=== PATIENT | male | born 1950 | race Two or more races ===

== ENCOUNTER 2017-11-13 08:26 | Inpatient (IN) | payer OTHER ==
--- NOTE | 2017-11-13 08:38 | PDOC ---
History of Present Illness - General Stated Complaint: ABD PAIN Time Seen by Provider: 11/13/17 08:30 History Source: Patient Exam Limitations: No Limitations - History of Present Illness Initial Comments: This is a 67 YOM with h/o HTN, DM, gastritis (previously placed on Zantac), and "gallbladder problems" (states possible gallstones but never had cholecystectomy and drank olive oil and lemon instead with relief), and prostate CA s/p prostatectomy who p/w fluctuating epigastric and umbilical pain up to 10/10 radiating straight back to his back worsening for the past two days , abdominal distention worsening for the past two days, one episode NBNB vomiting last night, and nausea onset this morning while at work. The pain is worsened with eating and he had a greasy meal yesterday. 911 was initially called for SOB but the patient states that this was 2/2 exacerbation of abdominal pain whenever he took a deep breath. The patient states that this feels like his prior episodes of gastritis. EMS reports that the Fire Department arrived on scene first and placed the patient on supplemental O2. They removed it when EMS arrived on scene and the patient was satting well on RA. He also reportedly had a normal field EKG and systolic BP in the 160s. The patient has not seen a GI doctor in many years. Past History - Past Medical History Allergies/Adverse Reactions: Allergies Allergy/AdvReac Type Severity Reaction Status Date / Time No Known Allergies Allergy Verified 11/13/17 09:09 Home Medications: Ambulatory Orders Amlodipine Besylate [Norvasc -] 5 mg PO DAILY 11/13/17 Metformin HCl 850 mg PO DAILY 11/13/17 Omeprazole 20 mg PO DAILY 11/13/17 Review of Systems - Review of Systems Able to Perform ROS?: Yes Constitutional: No: Chills, Fever, Unexplained wgt Loss HEENTM: No: Nose Congestion, Throat Pain Respiratory: Yes: Shortness of Breath (states d/t abdominal pain with deep breathing). No: Cough Cardiac (ROS): No: Chest Pain, Palpitations ABD/GI: Yes: Abdominal Distended, Nausea, Vomiting, Other (abdominal pain). No : Constipated, Diarrhea : No: Burning, Dysuria Musculoskeletal: No: Back Pain, Neck Pain Integumentary: Yes: Other (denies yellow coloration). No: Bruising, Rash Neurological: Yes: Other (denies confusion). No: Headache, Numbness, Tingling, Tremors, Weakness, Unsteady Gait, Dizziness Endocrine: No: Unexplained Weight Gain, Unexplained Weight Loss *Physical Exam - Physical Exam General Appearance: Yes: Nourished, Appropriately Dressed, Other (adult [place]- speaking male in no distress on phone with his , well-appearing, conversive , no outward acute distress). No: Apparent Distress HEENT: positive: EOMI, LENNY, Normal Voice, Hearing Grossly Normal, Other (dry/ tacky mucous membranes,). negative: Scleral Icterus (R), Scleral Icterus (L), Nasal Congestion Neck: positive: Trachea midline, Supple. negative: Tender, Rigid Respiratory/Chest: positive: Lungs Clear, Normal Breath Sounds, Other (not tachypneic or SOB, speaking full sentences). negative: Respiratory Distress, Crackles, Rhonchi, Stridor, Wheezing Cardiovascular: positive: Regular Rhythm, S1, S2, Tachycardia (mild). negative : Edema, JVD, Murmur Gastrointestinal/Abdominal: positive: Normal Bowel Sounds, Tender (mild epigastric and umbilical, otherwise nontender), Soft, Protuberent, Distended. negative: Organomegaly, Pulsatile Mass, Guarding, Hernia Musculoskeletal: positive: Normal Inspection. negative: Decreased Range of Motion, Vertebral Tenderness Extremity: positive: Normal Capillary Refill, Normal Inspection, Normal Range of Motion, Other (warm and well perfused). negative: Tender, Cyanosis Integumentary: positive: Normal Color, Dry, Warm, Other (no obvious jaundice, no skin tenting). 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 ED Treatment Course - LABORATORY CBC & Chemistry Diagram: 11/13/17 08:51 11/14/17 02:15 Medical Decision Making - Medical Decision Making Patient p/w epigastric/umbilical abdominal pain radiating to the back, SOB 2/2 pain on deep breathing. VS notable for: tachycardia initially to 120, decreased to 108 at time of my exam, BP 128/68, RR 18, otherwise wnl. Exam notable for: patient actually well-appearing, NAD, conversive, protuberant abdomen but only mild epig/umb ttp. No obvious jaundice or icterus, heart/lungs clear exams except for mild tachycardia of 108 on my initial exam. DDX IBNLT pancreatitis, choledocholithiasis, cholangitis, cholecystitis, gastritis, PUD, AAA, ascites/SBP, colitis, SBO, ACS, etc. Ordered is CBCD CMP Mg Lipase Cardiac panel EKG CXR CT abdomen/pelvis w/ IV and PO contrast. In the ED initially medicated with Zofran Ofirmev IVF 1 liter. 11/13/17 10:00 EKG notable for: Sinus tachycardia, rate of 108, no ST-T changes and otherwise normal study. CXR notable for: wnl Blood labs notable for: WBC 3.7, Hgb 11.5, Cr 2.2, AST 139, ALT 235, Alk Phos 188, T. Bili 6.2, Mg 1.3, BNP 1234. Patient's Cr 2.2 is contraindication to IV contrast; order changed to PO contrast only. Bedside US notable for: no GB stones, no GB wall thickening, no pericholecystic fluid, no CBD dilatation. Also left kidney slight enlargement, abnormal contour. Aorta cannot be visualized d/t body habitus/abdominal distention. No abdominal free fluid on FAST exam. Repeat VS: HR 108 on my exam, radial pulses 2+ and equal, extremities wwp. On reassessment: Patient states continued/unchanged mild pain still present in middle and upper abdomen. Repeat abdominal exam unchanged; mild umbilical and epigastric ttp with distention. Patient continues to mentate well, answers questions appropriately Patient has been given PO contrast to drink. 11/13/17 13:[address] Abdomen/Pelvis with PO contrast report: Mild small bowel loop dilatation in left mid-abdomen; possible mild ileus vs. subtle partial SBO. Bilateral inguinal hernias, with the right inguinal hernia containing the appendix. S/P prostatectomy. No obvious pathology of liver, GB, pancreas, kidneys, spleen, or adrenal glands ; no aortic aneurysm. 11/13/17 13:30 Page placed to Surgery on-call provider. Spoke with Dr. Galindo who is concerned for WBC count 3.7 and T. bili 6.2. Concern for possibility of cholangitis but could also be obstructive hepatobiliary pathology or SBO. He will assess patient at bedside 11/13/17 14:26 Dr. Galindo assessed the patient at bedside. Consult order placed to Dr. Galindo. Recommends MRCP, empiric antibiotics, admission (but appears unlikely to need ICU level of care at this time). Page placed to GI alumni relations coordinator. Page placed to [facility], admitting for Dr. Amador (Pt's PCP). On reassessment: exam unchanged, HR is 102, extremities wwp, radial pulses 2+, abdominal exam unchanged. 11/13/17 15:[address] Reji Higuera who recommends Zosyn 4.5g and calling Dr. Swift. Call placed to Dr. Swift's office. Spoke with Gabriel (with [employer]) at Dr. Swift's office. Gabriel notes Dr. Swift is out of office and will be back in 45 minutes. Also [address] Swift does not do MRCP's which is the tx patient likely needs. Recommends calling Dr. Dong. Microblog sent to [employer]. 11/13/17 15:55 Spoke with Tia Washington with [employer]. Patient admitted to Dr. Bess to IP Med/Surg. Decision to Admit order placed. Consult placed to GI alumni relations coordinator Dr. Dubose. 11/13/17 16:15 Patient's lactate is 7.2. Spoke with Tia Washington who has ordered sepsis workup and additional medications given initial lab results and lactate. Zosyn was previously given; blood cultures taken after administration of antibiotics. On reassessment: HR is 108, continued epigastric/umbilical ttp, distended, unchanged exam. *DC/Admit/Observation/Transfer Diagnosis at time of Disposition: Cholangitis, Hyperbilirubinemia, Leukopenia, Hematuria, Anemia - Discharge Dispostion Condition at time of disposition: Guarded Admit: Yes - Referrals - Patient Instructions - Post Discharge Activity
[2017-11-13] MEDS ORDERED: SODIUM CHLORIDE 500 ML IV STA ×3 (08:39→09:17)
[2017-11-13] MEDS ORDERED: ONDANSETRON 4 MG/2 ML VIAL IVPUSH ONE (08:46)
[2017-11-13] MEDS ORDERED: ACETAMINOPHEN 1000 MG/100 ML VIAL (NON FORMULARY) IVPB ONE ×2 (08:46→09:30)
[2017-11-13 08:55] LABS: BASO % 0.3 % (0-2.0); EOS % 0.1 % (0-4.5); HEMATOCRIT 34.7 % (35.4-49); HEMOGLOBIN 11.5 GM/dL (11.7-16.9); LYMPH % 4.9 % (8-40); MCH 29.7 pg (25.7-33.7); MCHC 33.1 g/dl (32.0-35.9); MEAN CELL VOLUME 89.8 fl (80-96); MONO % 0.2 % (3.8-10.2); NEUT % 94.5 % (42.8-82.8); PLATELET COUNT 216 K/MM3 (134-434); RBC 3.87 M/mm3 (4.00-5.60); RDW 15.5 % (11.9-15.9); WHITE BLOOD COUNT 3.7 K/mm3 (4.0-10.0)
--- NOTE | 2017-11-13 09:08 | PDOC ---
Attending Attestation - Resident Resident Name: Martinez,Emely - ED Attending Attestation I have performed the following: I have examined & evaluated the patient, The case was reviewed & discussed with the resident, I agree w/resident's findings & plan, Exceptions are as noted - HPI HPI: 11/13/17 10:07 67-year-old male history of diabetes hypertension here today complaining of abdominal distention, abdominal pain with nausea. Did have vomiting last night. States bowel habits have been normal no urinary complaints no fevers but maybe had mild chills pain is periumbilical and epigastric does radiate to his back no moderating factors other than being worse with eating. States he has have a history of prior gallstones was recommended for cholecystectomy but never had it done no chest pain no shortness of breath - Physicial Exam PE: 11/13/17 10:08 Patient is awake alert no acute distress. Lungs are clear bilaterally. Heart is regular without murmurs rubs or gallops. Abdomen is distended, obese. No focal tenderness noted. Extremities are warm and well perfused no edema. Neuro is alert and oriented 3 moving all extremities skin is warm and dry - Medical Decision Making 11/13/17 10:09 67-year-old male history of diabetes hypertension here with abdominal distention pain and nausea. Differential includes ascites, small bowel obstruction, liver failure, pancreatitis, gastritis, peptic ulcer disease, aortic pathology considered as well. Plan: Bedside ultrasound to evaluate for free fluid, renal ultrasound, and gallbladder ultrasound. Likely require CT abdomen and pelvis CBC, CMP, urinalysis, EKG, and lipase. Pain control and IV hydration. Bedside ultrasound performed patient has no free fluid noted on FAST exam. Bilateral renal ultrasound demonstrated a slightly enlarged left kidney at 14 cm with irregular contour. Otherwise no hydronephrosis. Bladder was nondistended. Aorta was not visualized due to obstruction from body habitus and overlying bowel gas. Gallbladder was scanned has a normal gallbladder wallthickening no pericholecystic fluid no stones. CBC was normal at 5.6 mm. Overall normal gallbladder Plan await for CT abdomen and pelvis Heart Score/ECG Review #1 General ECG Interpretation: Sinus Rhythm (sinus tachycardia), Normal Rate (108 sinus tachycardia), Normal Intervals, No acute ischemic changes
[2017-11-13 09:17] VITALS: BMI 28.3
[2017-11-13 09:22] LABS: INR 1.15 (0.82-1.09); N-TERMINAL BNP 1234.35 pg/ml (5-125)
[2017-11-13 09:31] LABS: ALBUMIN 3.8 g/dl (3.4-5.0); ANION GAP 15 (8-16); BILIRUBIN,TOTAL 6.2 mg/dL (0.2-1.0); BLOOD UREA NITROGEN 27 mg/dL (7-18); CALCIUM 8.4 mg/dL (8.5-10.1); CHLORIDE 106 mmol/L (98-107); CO2 20 mmol/L (21-32); CREATININE 2.2 mg/dL (0.7-1.3); GLUCOSE,RANDOM 172 mg/dL (74-106); MAGNESIUM 1.3 mg/dL (1.8-2.4); POTASSIUM 4.3 mmol/L (3.5-5.1); SGOT/AST 139 U/L (15-37); SGPT/ALT 235 U/L (12-78); SODIUM 141 mmol/L (136-145)
[2017-11-13 09:33] LABS: ALK PHOS 188 U/L (45-117); TOT PROT 6.6 g/dl (6.4-8.2)
--- NOTE | 2017-11-13 09:42 | EKG ---
Test Reason : Blood Pressure : / mmHG Vent. Rate : 108 BPM Atrial Rate : 108 BPM P-R Int : 134 ms QRS Dur : 070 ms QT Int : 310 ms P-R-T Axes : 048 041 040 degrees QTc Int : 415 ms SINUS TACHYCARDIA WHEN COMPARED WITH ECG OF 02-AUG-2007 16:18, NO SIGNIFICANT CHANGE WAS FOUND Confirmed by STEPHANIE WATSON MD ([id number]) on 11/13/2017 9:42:15 AM Referred By: Confirmed By:STEPHANIE WATSON MD
[2017-11-13] MEDS ORDERED: ACETAMINOPHEN INJECTION 100 ML IVPB ONE (10:53)
--- NOTE | 2017-11-13 13:59 | CONSULT ---
Consult Consult Specialty:: General Surgery Referred by:: Dr. Martinez Reason for Consultation:: abdominal distendion - History of Present Illness Chief Complaint: abdominal pain and distension History of Present Illness: 67yo male PMH obesity, prostate cancer, HTN, NIDDM, cholelithiasis which was last treated in 1997. He was medically managed at the time and did not require surgery. presented to ED after having gradual onset abdominal pain 30 minutes after a bowl of greasy chicken soup yesterday. he knows that radha usually has abdominal pain for 1 day. He reports SOB, inability to take deep breaths with the pain. He describes the pain as intermittent and has been accompanied by abdominal distension. his pain is primarily in the upper abdomen. He denies fever and chills, denies nausea and vomiting, he does note that the pain is worse with eating. Patient denies fever, sweats, may have had mild chills. Denies diarrhea, constipation. Denies dysuria, hematuria, frequency. His only previous surgery was a prostatectomy. We were asked to assess. - History Source History Provided By: Patient, Medical Record Limitations to Obtaining History: No Limitations - Past Medical History ROAST MASTER: Yes: TIA Cardio/Vascular: Yes: HTN Renal/: Yes: Cancer (s/p prostatetctomy ) Endocrine: Yes: Diabetes Mellitus Additional Medical History: obesity - Past Surgical History Past Surgical History: Yes: Prostatectomy - Smoking History Smoking history: Former smoker Have you smoked in the past 12 months: No If you are a former smoker, when did you quit?: 1997 Home Medications - Allergies Allergies/Adverse Reactions: Allergies Allergy/AdvReac Type Severity Reaction Status Date / Time No Known Allergies Allergy Verified 11/13/17 09:09 - Home Medications Home Medications: Ambulatory Orders Amlodipine Besylate [Norvasc -] 5 mg PO DAILY 11/13/17 Metformin HCl 850 mg PO DAILY 11/13/17 Omeprazole 20 mg PO DAILY 11/13/17 Review of Systems - Review of Systems Constitutional: denies: Chills, Fever, Unintentional Wgt. Loss Eyes: denies: Blurred Vision, Recent Change in Vision HENT: denies: Difficult Swallowing, Throat Pain Neck: denies: Pain on Movement, Tenderness Cardiovascular: denies: Chest Pain, Palpitations Respiratory: reports: SOB. denies: Cough Gastrointestinal: reports: Abdominal Pain, Bloating, Indigestion Genitourinary: denies: Discharge, Dysuria Musculoskeletal: denies: Muscle Pain, Muscle Weakness Integumentary: denies: Erythema, Lesions, Rash Neurological: denies: Confusion, Seizure, Syncope Endocrine: denies: Unexplained Weight Gain, Unexplained Weight Loss Hematology/Lymphatic: denies: Easily Bruised, Excessive Bleeding Psychiatric: denies: Anxiety, Depression Physical Exam Vital Signs: Vital Signs Temperature 98.7 F 11/13/17 08:58 Pulse Rate 114 H 11/13/17 12:54 Respiratory Rate 18 11/13/17 12:54 Blood Pressure 109/70 11/13/17 12:54 O2 Sat by Pulse Oximetry (%) 96 11/13/17 12:54 Vital Signs Period Temp Pulse Resp BP Sys/Leyva Pulse Ox Last 24 Hr 98.7 F 114-120 109-128/68-70 95-96 Constitutional: Yes: Anxious, Mild Distress, Obese Eyes: Yes: Conjunctiva Clear, EOM Intact HENT: Yes: Atraumatic, Normocephalic Neck: Yes: Supple, Trachea Midline Cardiovascular: Yes: Regular Rate and Rhythm, Tachycardia, S1, S2. No: Murmur Respiratory: Yes: Regular, CTA Bilaterally, On Nasal O2 Gastrointestinal: Yes: Normal Bowel Sounds, Soft, Abdomen, Obese, Distention, Tenderness (+mackey's sign), Tenderness, Epigastrium, Tenderness, Rebound. No: Ascites ...Rectal Exam: Yes: Sphincter Tone Normal. No: Mass Renal/: No: CVA Tenderness - Left, CVA Tenderness - Right Breast(s): Yes: Gynecomastia Musculoskeletal: No: Muscle Pain, Muscle Weakness Extremities: No: Calf Tenderness, Cold, Cool Edema: No Integumentary: No: Jaundice, Rash Neurological: No: Alert, Oriented Psychiatric: No: Alert, Oriented Labs: CBC, BMP 11/13/17 08:51 11/13/17 08:51 Imaging - Results Chest X-ray: Report Reviewed, Image Reviewed (no acute findings no free air) Cat Scan: Report Reviewed, Image Reviewed (ileus versus SBO pattern) EKG: Report Reviewed, Image Reviewed (sinus tachycardia) Problem List - Problems (1) Choledocholithiasis Assessment/Plan: 67yo male PMH HTN, DM, obesity with Choledocholithiasis, epigastric abdominal pain, impending cholangitis? transaminitis and tbili >6, wbc ~3, lactic acid 9. Consider ICU admission NPO and IVF resuscitation Empiric IV antibioics MRCP GI evaluation for ERCP Trend labs for AM, hepatitis panel Will plan for Laparoscopic cholecystectomy when stable will follow Thank you for the opportunity to participate in the care of this patient. This patient is critically ill. Time spent reviewing chart, examining patient, talking with providers and/or family and documentation is 90 minutes Code(s): K80.50 - CALCULUS OF BILE DUCT W/O CHOLANGITIS OR CHOLECYST W/O OBST (2) Calculus of gallbladder and bile duct w/o cholecystitis or obstruction Code(s): K80.70 - CALCULUS OF GB AND BILE DUCT W/O CHOLECYST W/O OBSTRUCTION (3) Obesity Code(s): E66.9 - OBESITY, UNSPECIFIED (4) Abdominal pain in male Code(s): R10.9 - UNSPECIFIED ABDOMINAL PAIN (5) Transaminitis Code(s): R74.0 - NONSPEC ELEV OF LEVELS OF TRANSAMNS & LACTIC ACID DEHYDRGNSE
[2017-11-13 15:07] LABS: URINE APPEARANCE CLEAR; URINE BILIRUBIN NEGATIVE (<2.0 mg/dL); URINE BLOOD 2+ (NEGATIVE); URINE COLOR AMBER; URINE GLUCOSE (UA) 1+ (NEGATIVE); URINE KETONE NEGATIVE (NEGATIVE); URINE NITRITE NEGATIVE (NEGATIVE); URINE UROBILINOGEN NEGATIVE mg/dL (0.2-1.0)
[2017-11-13 15:08] LABS: URINE LEUK ESTERASE 1+ (NEGATIVE); URINE PROTEIN 1+ (NEGATIVE)
[2017-11-13 15:24] LABS: EPI CELLS RARE /HPF (FEW); URINE BACTERIA FEW /hpf (NONE SEEN); URINE MUCUS RARE
[2017-11-13] MEDS ORDERED: PIPERACILLIN/TAZOB 4.5 GM/100 ML PREMIX BAG IVPB ONE (15:24)
[2017-11-13] MEDS ORDERED: PIPERACILLIN/TAZOB 4.5 GM 4.5 GM/100 ML BAG IVPB ONE ×2 (15:45→15:53)
--- NOTE | 2017-11-13 16:12 | HP ---
CHIEF COMPLAINT: Abdominal pain PCP: Hanny Lange HISTORY OF PRESENT ILLNESS: 67 year-old male with a PMH significant for HTN, NIDDM, and cholelithiasis which was last treated in 1997. He was medically managed at the time and did not require surgery. Patient presents with acute onset of intermittent periumbilical pain, nausea, vomiting and abdominal distension x 1 day. The pain is worse with eating. Patient denies fever, sweats, may have had mild chills. Denies diarrhea, constipation. Denies dysuria, hematuria, frequency. 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 Smoking: quit 2003 Alcohol: occasional red wine when cooking Drugs: no Family History: Allergies No Known Allergies Allergy (Verified 11/13/17 09:09) HOME MEDICATIONS: Home Medications Medication Instructions Recorded Lisinopril [Zestril] 5 mg PO DAILY 11/13/17 Metformin HCl 850 mg PO DAILY 11/13/17 Omeprazole 20 mg PO DAILY 11/13/17 REVIEW OF SYSTEMS CONSTITUTIONAL: +chills Absent: fever, diaphoresis, generalized weakness, malaise, loss of appetite, weight change HEENT: Absent: rhinorrhea, nasal congestion, throat pain, throat swelling, difficulty swallowing, mouth swelling, ear pain, eye pain, visual changes CARDIOVASCULAR: Absent: chest pain, syncope, palpitations, irregular heart rate, lightheadedness , peripheral edema RESPIRATORY: Absent: cough, shortness of breath, dyspnea with exertion, orthopnea, wheezing, stridor, hemoptysis GASTROINTESTINAL: +abdominal pain, abdominal distension, nausea, vomiting Absent: diarrhea, constipation, melena, hematochezia GENITOURINARY: Absent: dysuria, frequency, urgency, hesitancy, hematuria, flank pain, genital pain MUSCULOSKELETAL: Absent: myalgia, arthralgia, joint swelling, back pain, neck pain SKIN: Absent: rash, itching, pallor HEMATOLOGIC/IMMUNOLOGIC: Absent: easy bleeding, easy bruising, lymphadenopathy, frequent infections ENDOCRINE: Absent: unexplained weight gain, unexplained weight loss, heat intolerance, cold intolerance NEUROLOGIC: Absent: headache, focal weakness or paresthesias, dizziness, unsteady gait, seizure, mental status changes, bladder or bowel incontinence PSYCHIATRIC: Absent: anxiety, depression, suicidal or homicidal ideation, hallucinations. PHYSICAL EXAMINATION Vital Signs - 24 hr 11/13/17 11/13/17 08:58 12:54 Temperature 98.7 F Pulse Rate 120 H Pulse Rate [ 114 H Right Radial] Respiratory 18 18 Rate Blood Pressure 128/68 Blood Pressure 109/70 [Right Arm] O2 Sat by Pulse 95 96 Oximetry (%) GENERAL: Awake, alert, and fully oriented, in no acute distress. HEAD: Normal with no signs of trauma. EYES: Pupils equal, round and reactive to light, extraocular movements intact, sclera mildly jaundiced EARS, NOSE, THROAT: Ears normal, nares patent, oropharynx clear without exudates. Dry mucous membranes. Slight sublingual jaundice. NECK: Normal range of motion, supple without lymphadenopathy, JVD, or masses. LUNGS: Breath sounds equal, clear to auscultation bilaterally. No wheezes, and no crackles. No accessory muscle use. HEART: Regular rate and rhythm, normal S1 and S2 ABDOMEN: Tympanic to percussion; distended; not tender; negative Kinney's sign MUSCULOSKELETAL: Normal range of motion at all joints. No bony deformities or tenderness. No CVA tenderness. UPPER EXTREMITIES: 2+ pulses, warm, well-perfused. No cyanosis. No clubbing. No peripheral edema. LOWER EXTREMITIES: 2+ pulses, warm, well-perfused. No calf tenderness. No peripheral edema. NEUROLOGICAL: Cranial nerves II-XII intact. Normal speech. PSYCHIATRIC: Anxious. Good eye contact. Appropriate mood and affect. SKIN: Warm, dry, normal turgor, no rashes or lesions noted, normal capillary refill. Laboratory Results - last 24 hr 11/13/17 11/13/17 11/13/17 08:51 08:51 08:51 WBC 3.7 L RBC 3.87 L Hgb 11.5 L Hct 34.7 L MCV 89.8 MCH 29.7 MCHC 33.1 RDW 15.5 Plt Count 216 MPV 8.0 Neutrophils % 94.5 H Lymphocytes % 4.9 L Monocytes % 0.2 L Eosinophils % 0.1 Basophils % 0.3 PT with INR 13.00 H INR 1.15 H PTT (Actin FS) Sodium 141 Potassium 4.3 Chloride 106 Carbon Dioxide 20 L Anion Gap 15 BUN 27 H Creatinine 2.2 H Creat Clearance w eGFR 30.10 Random Glucose 172 H Lactic Acid Calcium 8.4 L Magnesium 1.3 L Total Bilirubin 6.2 H AST 139 H ALT 235 H Alkaline Phosphatase 188 H Creatine Kinase 175 Creatine Kinase Index 1.2 CK-MB (CK-2) 2.185 Troponin I < 0.02 B-Natriuretic Peptide Total Protein 6.6 Albumin 3.8 Lipase Urine Color Urine Appearance Urine pH Ur Specific [place] Urine Protein Urine Glucose (UA) Urine Ketones Urine Blood Urine Nitrite Urine Bilirubin Urine Urobilinogen Ur Leukocyte Esterase Urine WBC (Auto) Urine RBC (Auto) Ur Epithelial Cells Urine Bacteria Urine Mucus Blood Type Antibody Screen 11/13/17 11/13/17 11/13/17 08:51 08:51 08:51 WBC RBC Hgb Hct MCV MCH MCHC RDW Plt Count MPV Neutrophils % Lymphocytes % Monocytes % Eosinophils % Basophils % PT with INR INR PTT (Actin FS) 25.9 L Sodium Potassium Chloride Carbon Dioxide Anion Gap BUN Creatinine Creat Clearance w eGFR Random Glucose Lactic Acid Calcium Magnesium Total Bilirubin AST ALT Alkaline Phosphatase Creatine Kinase Creatine Kinase Index CK-MB (CK-2) Troponin I B-Natriuretic Peptide 1234.35 H Total Protein Albumin Lipase 197 Urine Color En[place]eta Urine Appearance Clear Urine pH 5.0 Ur Specific [place] 1.015 Urine Protein 1+ H Urine Glucose (UA) 1+ H Urine Ketones Negative Urine Blood 2+ H Urine Nitrite Negative Urine Bilirubin Negative Urine Urobilinogen Negative Ur Leukocyte Esterase 1+ H Urine WBC (Auto) 6 Urine RBC (Auto) 4 Ur Epithelial Cells Rare Urine Bacteria Few Urine Mucus Rare Blood Type Antibody Screen 11/13/17 11/13/17 08:51 14:36 WBC RBC Hgb Hct MCV MCH MCHC RDW Plt Count MPV Neutrophils % Lymphocytes % Monocytes % Eosinophils % Basophils % PT with INR INR PTT (Actin FS) Sodium Potassium Chloride Carbon Dioxide Anion Gap BUN Creatinine Creat Clearance w eGFR Random Glucose Lactic Acid 7.2 H* Calcium Magnesium Total Bilirubin AST ALT Alkaline Phosphatase Creatine Kinase Creatine Kinase Index CK-MB (CK-2) Troponin I B-Natriuretic Peptide Total Protein Albumin Lipase Urine Color Urine Appearance Urine pH Ur Specific [place] Urine Protein Urine Glucose (UA) Urine Ketones Urine Blood Urine Nitrite Urine Bilirubin Urine Urobilinogen Ur Leukocyte Esterase Urine WBC (Auto) Urine RBC (Auto) Ur Epithelial Cells Urine Bacteria Urine Mucus Blood Type O POSITIVE Antibody Screen Negative ASSESSMENT/PLAN: 67 year-old male with a PMH significant for HTN, NIDDM, and cholelithiasis. Admitted for severe sepsis likely secondary to ascending cholangitis. Severe sepsis likely secondary to ascending cholangitis --WBC 3.7, p120, lactic acid 7.2; BP 128/68 on admission, two episodes of hypotension 80s/50s --Total bili 6.2, direct 4.0 --repeat lactic acid 9.9 after 4L fluids --MRCP: CBD and biliary tree moderately dilated; gallbladder distended --spoke with Dr. Soni; surgery team being gathered for emergent ERCP Ileus v. SBO --CTAP: (1) minimal to mild dilatation of several small bowel loops within the left mid abdomen, mild ileus v. subtle partial SBO Hypertension --hold anti-hypertensives due to sepsis NIDDM --Novolog sliding coverage DVT prophylaxis: SCDs Visit type - Emergency Visit Emergency Visit: Yes ED Registration Date: 11/13/17 Care time: The patient presented to the Emergency Department on the above date and was hospitalized for further evaluation of their emergent condition. - New Patient This patient is new to me today: Yes Date on this admission: 11/13/17 - Critical Care Critical Care patient: Yes Total Critical Care Time (in minutes): 120 Critical Care Statement: The care of this patient involved high complexity decision making to prevent further life threatening deterioration of the patient 's condition and/or to evaluate & treat vital organ system(s) failure or risk of failure. Hospitalist Screening - Colonoscopy Questionnaire Colonoscopy Questionnaire: Colonoscopy Questionnaire - Patient: 50 - 75 years old and never had a screening colonoscopy: Unknown History of colon or rectal polyps, or CA: No History of IBD, Crohn's disease or UC: No History of abdominal radiation therapy as a child: No - Relative: 1 with colon or rectal CA, or polyps at age 60 or younger: Unknown Colon or rectal CA diagnosed at age 45 or younger: Unknown Multiple relatives with colon or rectal CA: Unknown - Outcome: Screening Result: Negative Screen
[2017-11-13] MEDS ORDERED: SODIUM CHLORIDE 1,000 ML IV STA ×3 (16:37→21:34)
[2017-11-13] MEDS ORDERED: MAGNESIUM SULF 50% (8.12 MEQ/2 ML-1 GM VIAL) IVPB ONE (16:58)
[2017-11-13 17:12] LABS: URINE APPEARANCE CLEAR; URINE BILIRUBIN NEGATIVE (<2.0 mg/dL); URINE BLOOD 2+ (NEGATIVE); URINE COLOR AMBER; URINE GLUCOSE (UA) 1+ (NEGATIVE); URINE KETONE NEGATIVE (NEGATIVE); URINE NITRITE NEGATIVE (NEGATIVE); URINE PROTEIN NEGATIVE (NEGATIVE); URINE UROBILINOGEN NEGATIVE mg/dL (0.2-1.0)
[2017-11-13 17:21] LABS: URINE LEUK ESTERASE 1+ (NEGATIVE)
[2017-11-13 17:22] LABS: URINE BACTERIA RARE /hpf (NONE SEEN); URINE MUCUS RARE
[2017-11-13] MEDS ORDERED: MAGNESIUM SULF 50% (8.12 MEQ/2 ML-1 GM VIAL) ONE (17:26)
--- NOTE | 2017-11-13 17:49 | CON.GI ---
Consult Consult Specialty:: GI Reason for Consultation:: ?Cholangitis - History of Present Illness History of Present Illness: Chart reviewed. as per initial ED intake: This is a 67 YOM with h/o HTN, DM, gastritis ( previously placed on Zantac), and "gallbladder problems" who p/w fluctuating epigastric and umbilical pain up to 10/10 radiating straight back to his back worsening for the past two days, abdominal distention worsening for the past two days, and nausea onset this morning while at work. 911 was initially called for SOB but the patient states that this was 2/2 exacerbation of abdominal pain whenever he took a deep breath. The patient states that this feels like his prior episodes of gastritis. EMS reports that the Fire Department arrived on scene first and placed the patient on supplemental O2. They removed it when EMS arrived on scene and the patient was satting well on RA. He also reportedly had a normal field EKG and systolic BP in the 160s. At the time of this encounter, VS as documented. 1 episode of hypotension while in ED, however the heart rate remained at the admission baseline. Afebrile, Tmax 98.7. Non-toxic appearing, animated male in no distress, or pain. Minimal sublingual jaundice, distended, tens, but non-tender abdomen including RUQ. Negative Kinney's. No guarding, or rigidity. Normal WBC, Hgb, cholestasis with hepatitis pattern. CT A/P w/o reports ?mild ileus vs PSBO, b/l inguinal hernia and s/p prostatectomy. Seen by Sx. Bedside renal US in ED revealed no GB abnormalities, per ED MD notes. - History Source History Provided By: Patient, Medical Record, Caregiver, Transfer Record - Past Medical History PIANO PROFESSOR: Yes: TIA Additional Medical History: obesity - Smoking History Smoking history: Former smoker Have you smoked in the past 12 months: No If you are a former smoker, when did you quit?: 1997 Home Medications - Allergies Allergies/Adverse Reactions: Allergies Allergy/AdvReac Type Severity Reaction Status Date / Time No Known Allergies Allergy Verified 11/13/17 09:09 - Home Medications Home Medications: Ambulatory Orders Lisinopril [Zestril] 5 mg PO DAILY 11/13/17 Metformin HCl 850 mg PO DAILY 11/13/17 Omeprazole 20 mg PO DAILY 11/13/17 Family Disease History - Family Disease History Family History: Unremarkable Review of Systems Findings/Remarks: as per HPI, H&P Physical Exam-GI Vital Signs: Vital Signs Temperature 98.1 F 11/13/17 17:00 Pulse Rate 109 H 11/13/17 17:00 Respiratory Rate 17 11/13/17 17:00 Blood Pressure 81/49 11/13/17 17:00 O2 Sat by Pulse Oximetry (%) 100 11/13/17 17:00 Constitutional: Yes: No Distress, Obese Eyes: Yes: Conjunctiva Clear HENT: Yes: Atraumatic, Other (sublingual jaundice) Neck: Yes: Supple Cardiovascular: Yes: Tachycardia Respiratory: Yes: Regular Gastrointestinal Inspection: Yes: Distention. No: Ascites ...Palpate: Yes: Other (negative Whitman). No: Firm/Rigid, Guarding, Soft, Tenderness, Tenderness, Epigastium, Tenderness, Rebound ...Percussion: Yes: Dullness ...Rectal Exam: Yes: Deferred Genitourinary: Yes: Incontinence Edema: No Neurological: Yes: Alert, Oriented Psychiatric: Yes: Alert, Oriented Labs: CBC, BMP 11/13/17 08:51 11/13/17 08:51 INR, PTT INR 1.15 (0.82-1.09) H 11/13/17 08:51 Laboratory Tests 11/13/17 11/13/17 11/13/17 08:45 08:51 08:51 WBC 3.7 L RBC 3.87 L Hgb 11.5 L Hct 34.7 L MCV 89.8 MCH 29.7 MCHC 33.1 RDW 15.5 Plt Count 216 MPV 8.0 Neutrophils % 94.5 H Lymphocytes % 4.9 L Monocytes % 0.2 L Eosinophils % 0.1 Basophils % 0.3 PT with INR 13.00 H INR 1.15 H PTT (Actin FS) Sodium Potassium Chloride Carbon Dioxide Anion Gap BUN Creatinine Creat Clearance w eGFR Random Glucose Lactic Acid Calcium Magnesium Total Bilirubin Direct Bilirubin 4.0 H AST ALT Alkaline Phosphatase Creatine Kinase Creatine Kinase Index CK-MB (CK-2) Troponin I B-Natriuretic Peptide Total Protein Albumin Lipase Urine Color Urine Appearance Urine pH Ur Specific [place] Urine Protein Urine Glucose (UA) Urine Ketones Urine Blood Urine Nitrite Urine Bilirubin Urine Urobilinogen Ur Leukocyte Esterase Urine WBC (Auto) Urine RBC (Auto) Ur Epithelial Cells Urine Bacteria Urine Mucus Blood Type Antibody Screen 11/13/17 11/13/17 11/13/17 08:51 08:51 08:51 WBC RBC Hgb Hct MCV MCH MCHC RDW Plt Count MPV Neutrophils % Lymphocytes % Monocytes % Eosinophils % Basophils % PT with INR INR PTT (Actin FS) 25.9 L Sodium 141 Potassium 4.3 Chloride 106 Carbon Dioxide 20 L Anion Gap 15 BUN 27 H Creatinine 2.2 H Creat Clearance w eGFR 30.10 Random Glucose 172 H Lactic Acid Calcium 8.4 L Magnesium 1.3 L Total Bilirubin 6.2 H Direct Bilirubin AST 139 H ALT 235 H Alkaline Phosphatase 188 H Creatine Kinase 175 Creatine Kinase Index 1.2 CK-MB (CK-2) 2.185 Troponin I < 0.02 B-Natriuretic Peptide Total Protein 6.6 Albumin 3.8 Lipase Urine Color Enriqueta Urine Appearance Clear Urine pH 5.0 Ur Specific [place] 1.015 Urine Protein 1+ H Urine Glucose (UA) 1+ H Urine Ketones Negative Urine Blood 2+ H Urine Nitrite Negative Urine Bilirubin Negative Urine Urobilinogen Negative Ur Leukocyte Esterase 1+ H Urine WBC (Auto) 6 Urine RBC (Auto) 4 Ur Epithelial Cells Rare Urine Bacteria Few Urine Mucus Rare Blood Type Antibody Screen 11/13/17 11/13/17 11/13/17 08:51 08:51 14:36 WBC RBC Hgb Hct MCV MCH MCHC RDW Plt Count MPV Neutrophils % Lymphocytes % Monocytes % Eosinophils % Basophils % PT with INR INR PTT (Actin FS) Sodium Potassium Chloride Carbon Dioxide Anion Gap BUN Creatinine Creat Clearance w eGFR Random Glucose Lactic Acid 7.2 H* Calcium Magnesium Total Bilirubin Direct Bilirubin AST ALT Alkaline Phosphatase Creatine Kinase Creatine Kinase Index CK-MB (CK-2) Troponin I B-Natriuretic Peptide 1234.35 H Total Protein Albumin Lipase 197 Urine Color Urine Appearance Urine pH Ur Specific [place] Urine Protein Urine Glucose (UA) Urine Ketones Urine Blood Urine Nitrite Urine Bilirubin Urine Urobilinogen Ur Leukocyte Esterase Urine WBC (Auto) Urine RBC (Auto) Ur Epithelial Cells Urine Bacteria Urine Mucus Blood Type O POSITIVE Antibody Screen Negative 11/13/17 17:00 WBC RBC Hgb Hct MCV MCH MCHC RDW Plt Count MPV Neutrophils % Lymphocytes % Monocytes % Eosinophils % Basophils % PT with INR INR PTT (Actin FS) Sodium Potassium Chloride Carbon Dioxide Anion Gap BUN Creatinine Creat Clearance w eGFR Random Glucose Lactic Acid Calcium Magnesium Total Bilirubin Direct Bilirubin AST ALT Alkaline Phosphatase Creatine Kinase Creatine Kinase Index CK-MB (CK-2) Troponin I B-Natriuretic Peptide Total Protein Albumin Lipase Urine Color En[place]eta Urine Appearance Clear Urine pH 5.0 Ur Specific [place] 1.015 Urine Protein Negative Urine Glucose (UA) 1+ H Urine Ketones Negative Urine Blood 2+ H Urine Nitrite Negative Urine Bilirubin Negative Urine Urobilinogen Negative Ur Leukocyte Esterase 1+ H Urine WBC (Auto) 13 Urine RBC (Auto) 9 Ur Epithelial Cells Urine Bacteria Rare Urine Mucus Rare Blood Type Antibody Screen Imaging - Results X-ray: Report Reviewed Cat Scan: Report Reviewed EKG: Report Reviewed Problem List - Problems (1) Cholestasis Code(s): K83.1 - OBSTRUCTION OF BILE DUCT (2) Hepatitis Code(s): K75.9 - INFLAMMATORY LIVER DISEASE, UNSPECIFIED (3) Ileus, unspecified Code(s): K56.7 - ILEUS, UNSPECIFIED (4) Jaundice Code(s): R17 - UNSPECIFIED JAUNDICE Assessment/Plan A 67M with presenting complaints and lab findings suggestive of acute biliary process, upper GI acute process. There is no history of hematemesis, hematochezia, melena. He doesn't appear toxic, or in distress, He is not in pain and does not have abdominal tenderness on exam. He was found to have mildly distend small bowel in imaging and was seen by surgery for that. No concerns for surgical abdomen. R/o cholangitis, coledocolithiasis, pancreatic, gastric/duodenal ulcer. Agree with NPO, IVF, Abx, PPI, MRI/MRCP. If the MRCP is positive for CBD obstruction, transfer to the ICU and schedule the patient for ERCP. AXR in am. Serial CBC, CMP, direct bili, lipase, PT/INR. Viral hepatitis profile, COL[place].
[2017-11-13] MEDS ORDERED: SODIUM CHLORIDE 1,000 ML IV SCH ×2 (18:00→23:30)
[2017-11-13] MEDS ORDERED: PIPERACILLIN/TAZOB 4.5 GM/100 ML PREMIX BAG IVPB SCH (18:00)
[2017-11-13] MEDS ORDERED: PANTOPRAZOLE SODIUM 40 MG VIAL IVPUSH SCH (18:45)
[2017-11-13 19:53] LABS: INR 1.51 (0.82-1.09); PROTHROMBIN TIME (PATIENT) 17.1 SEC (9.98-11.88)
[2017-11-13] MEDS ORDERED: PANTOPRAZOLE SODIUM 80 MG in SODIUM CHLORIDE 100 ML IVPB SCH (20:15)
[2017-11-13] MEDS ORDERED: PANTOPRAZOLE SODIUM 160 MG in DEXTROSE 5%-WATER - 290 ML IVPB SCH (20:15)
--- NOTE | 2017-11-13 21:24 | CONSULT ---
Consultation: ICU Resident note HISTORY OF PRESENT ILLNESS: Briefly, 67yo M with significant history of prior cholelithiasis, DM, and HTN who presented to the ED for sudden onset of constant epigastric 8/10 abdominal pain and distention. In addition he endorsed nausea with nonbloody vomiting with his sudden onset. Pt was previously worked up for his cholelithiasis and was recommended to have a cholecystectomy, however he did not go through with the surgical intervention. Pt was sent for abdominal CT today showing "minimal to mild dilation of several bowel loops noted within the left mid abdomen which could be mild localized ileus vs pSBO." Pt was sent for MRCP for suspected CBD obstruction. After his MRCP he became hypotensive and was transitioned to ICU care. Currently pt has pain in his epigastric area and admits that when the pain is at its peak it will radiate to his back. Pt states he had one bowel movement today that was diarrhea and cici-colored in quality. He does confirm that he continues to make urine however it is very dark. In addition he reports some shortness of breath and increased anxiety at this time. Pt denies any fever/ chills, chest pain/discomfort, palpitations, dysuria, polyuria, and lower extremity edema. He denies eating any strange foods recently or any recent blood products. So Hx: Pt states he is from the and he has family still over there Denies drinking alcohol Denies smoking PHYSICAL EXAMINATION Vital Signs - 24 hr 11/13/17 11/13/17 11/13/17 08:58 12:54 17:00 Temperature 98.7 F 98.1 F Pulse Rate 120 H Pulse Rate [ 114 H 109 H Right Radial] Respiratory 18 18 17 Rate Blood Pressure 128/68 Blood Pressure 109/70 81/49 [Right Arm] O2 Sat by Pulse 95 96 100 Oximetry (%) 11/13/17 17:54 Temperature Pulse Rate Pulse Rate [ 98 H Right Radial] Respiratory 18 Rate Blood Pressure Blood Pressure 102/60 [Right Arm] O2 Sat by Pulse 100 Oximetry (%) GENERAL: Mild distress, very anxious, laying in bed, awake, and alert HEENT: EOMI, KAMINI, icteric sclera, jaundiced mucous membranes, dry mucous membranes LUNGS: Poor inspiratory effort with some wheezing noted however unsure if transmitted upper breath sounds. No rhonchi or crackles. No accessory muscle use. on 2LNC HEART: Tachycardic, regular rhythm, normal S1 and S2 without murmur ABDOMEN: Soft, severely distended, epigastric tenderness, hyperactive bowel sounds, no guarding, no rebound. Mild shifting dullness. No hepatomegaly. MUSCULOSKELETAL: No CVA tenderness. EXTREMITIES: 2+ DP pulses, Cap refill <2 seconds. No peripheral edema. NEUROLOGICAL: Cranial nerves II-XII intact. Facial symmetry. Strength 5/5 with handgrip and plantar/dorsal flexion. Sensation grossly intact bilaterally. Normal speech. Gait not observed. PSYCHIATRIC: Anxious. SKIN: Warm, dry, no lesions noted. Laboratory Results - last 24 hr 11/13/17 08:51 WBC 3.7 L RBC 3.87 L Hgb 11.5 L Hct 34.7 L MCV 89.8 MCH 29.7 MCHC 33.1 RDW 15.5 Plt Count 216 MPV 8.0 Neutrophils % 94.5 H Lymphocytes % 4.9 L Monocytes % 0.2 L Eosinophils % 0.1 Basophils % 0.3 PT with INR INR PTT (Actin FS) Sodium Potassium Chloride Carbon Dioxide Anion Gap BUN Creatinine Creat Clearance w eGFR Random Glucose Lactic Acid Calcium Magnesium Total Bilirubin Direct Bilirubin AST ALT Alkaline Phosphatase Creatine Kinase Creatine Kinase Index CK-MB (CK-2) Troponin I B-Natriuretic Peptide Total Protein Albumin Lipase Urine Color Urine Appearance Urine pH Ur Specific [place] Urine Protein Urine Glucose (UA) Urine Ketones Urine Blood Urine Nitrite Urine Bilirubin Urine Urobilinogen Ur Leukocyte Esterase Urine WBC (Auto) Urine RBC (Auto) Ur Epithelial Cells Urine Bacteria Urine Mucus Blood Type Antibody Screen 11/13/17 11/13/17 08:51 08:51 WBC RBC Hgb Hct MCV MCH MCHC RDW Plt Count MPV Neutrophils % Lymphocytes % Monocytes % Eosinophils % Basophils % PT with INR INR PTT (Actin FS) Sodium 141 Potassium 4.3 Chloride 106 Carbon Dioxide 20 L Anion Gap 15 BUN 27 H Creatinine 2.2 H Creat Clearance w eGFR 30.10 Random Glucose 172 H Lactic Acid Calcium 8.4 L Magnesium 1.3 L Total Bilirubin 6.2 H Direct Bilirubin AST 139 H ALT 235 H Alkaline Phosphatase 188 H Creatine Kinase 175 Creatine Kinase Index 1.2 CK-MB (CK-2) 2.185 Troponin I < 0.02 B-Natriuretic Peptide Total Protein 6.6 Albumin 3.8 Lipase Urine Color [place] Urine Appearance Clear Urine pH 5.0 Ur Specific [place] 1.015 Urine Protein 1+ H Urine Glucose (UA) 1+ H Urine Ketones Negative Urine Blood 2+ H Urine Nitrite Negative Urine Bilirubin Negative Urine Urobilinogen Negative Ur Leukocyte Esterase 1+ H Urine WBC (Auto) 6 Urine RBC (Auto) 4 Ur Epithelial Cells Rare Urine Bacteria Few Urine Mucus Rare Blood Type Antibody Screen Active Medications Generic Name Dose Route Start Last Admin Trade Name Linda PRN Reason Stop Dose Admin Sodium Chloride 1,000 mls @ 125 mls/hr 11/13/17 18:00 11/13/17 20:36 Normal Saline - IV 125 mls/hr ASDIR RERE Administration Piperacillin Sod/Tazobactam Sod 4.5 gm in 100 mls @ 200 mls/hr 11/14/17 02:00 Zosyn 4.5gm Ivpb (Pre-Docked) IVPB 11/14/17 10:29 Q8H-IV RERE Pantoprazole Sodium 160 mg/ 290 mls @ 14.5 mls/hr 11/13/17 20:15 Dextrose IVPB Q20H RERE Sodium Chloride 1,000 mls @ 1,000 mls/hr 11/13/17 20:43 Normal Saline - IV 11/13/17 21:42 ASDIR STA Sodium Chloride 1,000 mls @ 1,000 mls/hr 11/13/17 21:11 Normal Saline - IV 11/13/17 22:10 ASDIR STA Piperacillin/Tazobactam/Dextrose 4.5 gm 11/13/17 18:00 Zosyn 4.5gm Ivpb (Premix) IVPB Q8H-IV RERE ASSESSMENT/PLAN: Neuro: Neurologically intact Respiratory: Shortness of breath --Most likely 2/2 to abdominal distention --on 2LNC; currenty SpO2 100% --Continue to maintain SpO2 >90% Cardiovascular: History of hypertension: --Hold home antihypertensives Renal: THIEN --Most likely 2/2 to prerenal causes --Urine electrolytes --Renal US ordered --Graham insertion for accurate outputs GI: Suspected CBD obstruction --Abdominal CT noted with localized ileus vs. pSBO --Most likely localized ileus due to acute condition --Abdominal MRI performed; awaiting read currently --Ordered RUQ ultrasound while awaiting read --Ordered Abdominal KUB to bedside sitting and flat --Must r/o cancer causes for obstruction --[id number], CEA ordered for morning ID: Severe sepsis with suspected cholangitis etiology --WBC count low; hypotensive; afebrile; tachycardic; GCS >15 --Currently on Zosyn 4.5gm --Contacting Dr. Soni for possible ERCP with stent placement and further management --Tylenol PRN for fever FEN: Fluids: 2L bolus followed by another 2L pending reassessment exam Electrolyte abnormalities: HypoMg (repleted earlier today); obtain repeat labs Nutrition: NPO PPX: DVT - SCD both legs GI - Protonix 40mg IVP BID DAUGHTER (JESÚS) PHONE NUMBER: [phone] Dispo: Continue ICU monitoring; contacting GI blood donor unit assistant re possible ERCP tonight Case discussed with Dr. Soni and Dr. Jovan Lovett, DO - IM PGY-1 Visit type - Emergency Visit Emergency Visit: No - New Patient This patient is new to me today: Yes Date on this admission: 11/13/17 - Critical Care Critical Care patient: Yes Total Critical Care Time (in minutes): 40 Critical Care Statement: The care of this patient involved high complexity decision making to prevent further life threatening deterioration of the patient 's condition and/or to evaluate & treat vital organ system(s) failure or risk of failure.
[2017-11-13] MEDS ORDERED: morphine SULFATE 4 MG/ML VIAL IVPUSH PRN (22:08)
[2017-11-13] MEDS ORDERED: ONDANSETRON 4 MG/2 ML VIAL IVPB PRN (22:10)
[2017-11-13] MEDS ORDERED: LACTATED RINGERS SOLUTION 1000 ML INFUS.BAG IV ONE (22:15)
[2017-11-13] MEDS ORDERED: PHYTONADIONE 10 MG/1 ML AMP IVPB ONE (23:04)
[2017-11-13] MEDS ORDERED: FUROSEMIDE 40 MG/4 ML INJECTABLE VIAL IVPUSH ONE ×2 (23:10→23:23)
[2017-11-13] MEDS ORDERED: FUROSEMIDE 40 MG/4 ML INJECTABLE VIAL ONE (23:24)
[2017-11-13] MEDS: ALBUTEROL SO4 0.083% IH SOL 2.5 MG/3 ML VIAL.NEB. NEB PRN (23:36)
[2017-11-13] MEDS ORDERED: ONDANSETRON 4 MG/2 ML VIAL ONE (23:53)
[2017-11-13] MEDS ORDERED: ROCURONIUM BROMIDE 50 MG/5 ML VIAL ONE (23:53)
[2017-11-13] MEDS ORDERED: MIDAZOLAM HCL 2 MG/2 ML SINGLE DOSE VIAL ONE (23:53)
[2017-11-13] MEDS ORDERED: ETOMIDATE 20 MG/10 ML AMPUL IVPUSH ONE (23:53)
[2017-11-13] MEDS ORDERED: DEXAMETHASONE SOD PHOSPHATE 10 MG/1 ML VIAL ONE (23:54)
--- NOTE | 2017-11-14 00:01 | PN ---
Progress Note (short form) - Note Progress Note: GI NOte ( covering Dr. Swift): Called in to evaluate this jaundiced patient for hypotension despite 3.5 liters fluid resuscitation. The MRCP reveals dilated ducts but no obvious cause for obstructive jaundice. I have discussed ERCP in detail with the patient and with his daughter. I used [employer] power technician #[id number]. I informed him of the potential risks of perforation, hemorrhage and multiorgan failure associated with ERCP induced pancreatitis. He granted informed consent which his daughter endorsed. She is en route to the hospital. The ERCP will be done NOHEMI.
[2017-11-14] MEDS ORDERED: IOHEXOL 180 MG/1 ML ML IJ ONE (00:52)
[2017-11-14] MEDS ORDERED: NALOXONE HCL 0.4 MG/ML VIAL ONE (01:36)
[2017-11-14] MEDS ORDERED: PIPERACILLIN/TAZOB 4.5 GM 4.5 GM/100 ML BAG IVPB SCH (02:00)
--- NOTE | 2017-11-14 02:23 | PN ---
Progress Note, Physician Chief Complaint: abdominal pain History of Present Illness: 67yo male PMH obesity, prostate cancer, HTN, NIDDM, cholelithiasis which was last treated in 1997. He was medically managed at the time and did not require surgery. s/p emergency ERCP with sphincterotomy and stent last night . He had relief of purulent ascending cholangitis. - Current Medication List Current Medications: Active Medications Albuterol Sulfate (Ventolin 0.083% Nebulizer Soln -) 1 amp NEB Q4H PRN PRN Reason: SHORT OF BREATH/WHEEZING Last Admin: 11/13/17 23:36 Dose: 1 amp Piperacillin Sod/Tazobactam Sod (Zosyn 4.5gm Ivpb (Pre-Docked)) 4.5 gm in 100 mls @ 200 mls/hr IVPB Q8H-IV RERE Stop: 11/14/17 10:29 Sodium Chloride (Normal Saline -) 1,000 mls @ 100 mls/hr IV ASDIR RERE Insulin Aspart (Novolog Vial Sliding Scale -) 1 vial SQ ACHS RERE PRN Reason: Protocol Morphine Sulfate (Morphine Sulfate) 2 mg IVPUSH Q6H PRN PRN Reason: PAIN LEVEL 6-10 Ondansetron HCl (Zofran Injection) 4 mg IVPB Q6H PRN PRN Reason: NAUSEA Pantoprazole Sodium (Protonix Iv) 40 mg IVPUSH BID RERE Piperacillin/Tazobactam/Dextrose (Zosyn 4.5gm Ivpb (Premix)) 4.5 gm IVPB Q8H- IV RERE - Objective Vital Signs: Vital Signs Temperature 98.7 F 11/13/17 21:50 Pulse Rate 105 H 11/13/17 21:50 Respiratory Rate 25 H 11/13/17 23:30 Blood Pressure 88/60 11/13/17 21:50 O2 Sat by Pulse Oximetry (%) 98 11/13/17 23:30 Vital Signs Period Temp Pulse Resp BP Sys/Leyva Pulse Ox Last 24 Hr 98.1 F-98.8 F 98-120 17-25 81-128/49-70 95-100 Constitutional: Yes: Anxious, Mild Distress Eyes: Yes: Conjunctiva Clear, EOM Intact HENT: Yes: Atraumatic, Normocephalic Neck: Yes: Supple, Trachea Midline Cardiovascular: Yes: Regular Rate and Rhythm, S1, S2 Respiratory: Yes: Regular, CTA Bilaterally Gastrointestinal: Yes: Normal Bowel Sounds, Soft, Abdomen, Obese, Distention, Tenderness Edema: Yes Peripheral Pulses WNL: No Neurological: Yes: Alert, Oriented Psychiatric: Yes: Alert, Oriented Labs: CBC, BMP 11/13/17 08:51 11/13/17 08:51 INR, PTT INR 1.51 (0.82-1.09) H D 11/13/17 19:15 Problem List - Problems (1) Choledocholithiasis Assessment/Plan: 67yo male PMH HTN, DM, obesity with Choledocholithiasis, epigastric abdominal pain, impending cholangitis? transaminitis and tbili >6, wbc ~3, lactic acid 9. ICU managemen of ascending cholangitis NPO and IVF resuscitation Empiric IV antibioics GI reccomendations appreciated Trend labs for AM, hepatitis panel Will plan for Laparoscopic cholecystectomy when more stable prior to discharge This patient is critically ill. Time spent reviewing chart, examining patient, talking with providers and/or family and documentation is 35 minutes Code(s): K80.50 - CALCULUS OF BILE DUCT W/O CHOLANGITIS OR CHOLECYST W/O OBST (2) Calculus of gallbladder and bile duct w/o cholecystitis or obstruction Code(s): K80.70 - CALCULUS OF GB AND BILE DUCT W/O CHOLECYST W/O OBSTRUCTION (3) Obesity Code(s): E66.9 - OBESITY, UNSPECIFIED (4) Abdominal pain in male Code(s): R10.9 - UNSPECIFIED ABDOMINAL PAIN (5) Transaminitis Code(s): R74.0 - NONSPEC ELEV OF LEVELS OF TRANSAMNS & LACTIC ACID DEHYDRGNSE
[2017-11-14] MEDS: SODIUM CHLORIDE 1,000 ML IV SCH (02:38)
[2017-11-14 03:55] LABS: ALBUMIN 3.1 g/dl (3.4-5.0); ALK PHOS 195 U/L (45-117); AMYLASE 46 U/L (25-115); ANION GAP 16 (8-16); BILIRUBIN,TOTAL 5.7 mg/dL (0.2-1.0); BLOOD UREA NITROGEN 35 mg/dL (7-18); CHLORIDE 111 mmol/L (98-107); CO2 17 mmol/L (21-32); CREATININE 2.9 mg/dL (0.7-1.3); GLUCOSE,RANDOM 128 mg/dL (74-106); LIPASE 82 U/L (73-393); MAGNESIUM 1.4 mg/dL (1.8-2.4); PHOSPHOROUS 7.5 mg/dL (2.5-4.9); POTASSIUM 5.1 mmol/L (3.5-5.1); SODIUM 144 mmol/L (136-145); TOT PROT 5.8 g/dl (6.4-8.2)
[2017-11-14 03:58] LABS: SGOT/AST 437 U/L (15-37); SGPT/ALT 417 U/L (12-78)
[2017-11-14 04:01] LABS: CALCIUM 6.9 mg/dL (8.5-10.1)
[2017-11-14 06:17] LABS: HEMATOCRIT 32.6 % (35.4-49); HEMOGLOBIN 10.3 GM/dL (11.7-16.9); MCH 29.7 pg (25.7-33.7); MCHC 31.6 g/dl (32.0-35.9); MEAN CELL VOLUME 93.9 fl (80-96); MEAN PLT VOLUME 9.9 fl (7.5-11.1); PLATELET COUNT 184 K/MM3 (134-434); RBC 3.48 M/mm3 (4.00-5.60); RDW 16.7 % (11.9-15.9)
[2017-11-14 06:29] LABS: ALLENS TEST POSITIVE; ARTERIAL BLD GAS O2 SATURATION 95.1 % (90-98.9); ARTERIAL BLOOD GAS PCO2 57.8 mmHg (35-45)
[2017-11-14 06:32] LABS: ARTERIAL BLOOD GAS BASE EXCESS -15.6 meq/l (-2-2); ARTERIAL BLOOD GAS pH 7.04 (7.35-7.45)
[2017-11-14 06:33] LABS: WHITE BLOOD COUNT 35.3 K/mm3 (4.0-10.0)
[2017-11-14] MEDS ORDERED: SODIUM BICARBONATE 8.4% 50 MEQ/50 ML VIAL IV ONE ×2 (06:35→06:51)
[2017-11-14 06:39] LABS: ALBUMIN 3.1 g/dl (3.4-5.0); ANION GAP 16 (8-16); BLOOD UREA NITROGEN 37 mg/dL (7-18); CHLORIDE 108 mmol/L (98-107); CO2 19 mmol/L (21-32); CREATININE 3.2 mg/dL (0.7-1.3); GLUCOSE,RANDOM 169 mg/dL (74-106); MAGNESIUM 1.7 mg/dL (1.8-2.4); POTASSIUM 5.6 mmol/L (3.5-5.1); SODIUM 143 mmol/L (136-145); TOT PROT 5.9 g/dl (6.4-8.2)
[2017-11-14] MEDS ORDERED: SODIUM BICARBONATE 8.4% - 50 ML ONE (06:41)
[2017-11-14 06:47] LABS: ALK PHOS 195 U/L (45-117); BILIRUBIN,TOTAL 6.4 mg/dL (0.2-1.0)
[2017-11-14 06:53] LABS: INR 1.57 (0.82-1.09); PROTHROMBIN TIME (PATIENT) 17.7 SEC (9.98-11.88)
[2017-11-14] MEDS ORDERED: MEROPENEM 1 GM in DEXTROSE 5%-WATER - 100 ML IVPB SCH ×2 (07:00→07:15)
[2017-11-14] MEDS ORDERED: ALBUTEROL SO4 0.083% IH SOL 2.5 MG/3 ML VIAL.NEB. NEB ONE (07:02)
--- NOTE | 2017-11-14 07:13 | HOSP ---
Subjective - Review of Symptoms Events since last encounter: called to see pt, restless, agitated now, pt was very lethargic all night , sonorous respirations at times. Physical Examination Vital Signs: Vital Signs Temperature 98.4 F 11/14/17 06:00 Pulse Rate 108 H 11/14/17 06:00 Respiratory Rate 21 11/14/17 06:00 Blood Pressure 108/74 11/14/17 06:00 O2 Sat by Pulse Oximetry (%) 98 11/14/17 02:00 Findings/Remarks: able to answer simple questions, able to open eyes on commands, noted very restless, does not settle down with reassurance. Cardiovascular: Yes: Regular Rate and Rhythm, Tachycardia, S1, S2 Respiratory: Yes: Wheezes (expiratory, mild, all lung cabrera) Gastrointestinal: Yes: Distention, Other (normal bowel sounds) Edema: No Labs: CBC, BMP 11/14/17 05:50 Hospitalist Encounter Assessment: sepsis secondary to ascending cholangitis - s/p ERCP/CBD stent placement last night - cont antibiotics, cont ID consult - sugery consult appreciated Metabolic acidosis with mild superimposed respiratory acidosis - bicarb x 1 given - start bicarb drip - discussed intubation with anesthesia who feels pt does not need to be intubated at this time, started on bipap - repeat ABG 1 hour
[2017-11-14] MEDS ORDERED: SODIUM CHLORIDE 1,000 ML with SODIUM BICARBONATE 8.4% - 150 MEQ IV ONE (07:15)
--- NOTE | 2017-11-14 07:22 | PN ---
Progress Note (short form) - Note Progress Note: ID consult dictated imp/reccd Biliary sepsis choledocholithiasis s/p emergent ERCP last night for dilated CBD stent placed- pus drained THIEN impending respiratory failure just placed on bipap he is alert c/o pain all over received vancomycin and zosyn last night, zosyn this am d/w daughter- no history of hospitalizations since prostate surgery no history of resistant organisms, no antibiotics can continue zosyn repeat cxray continue ivf continue iv antibiotics ICU monitoring GI and Surgery f/u over 35 minutes spent in the care of this critically ill ICU patient Problem List - Problems (1) Biliary sepsis Code(s): K83.0 - CHOLANGITIS (2) Choledocholithiasis Code(s): K80.50 - CALCULUS OF BILE DUCT W/O CHOLANGITIS OR CHOLECYST W/O OBST (3) THIEN (acute kidney injury) Code(s): N17.9 - ACUTE KIDNEY FAILURE, UNSPECIFIED (4) Acute respiratory failure Code(s): J96.00 - ACUTE RESPIRATORY FAILURE, UNSP W HYPOXIA OR HYPERCAPNIA
[2017-11-14] MEDS: INSULIN SLIDING SCALE (NOVOLOG) 1 VIAL SQ SCH ×4 (07:32→22:30)
[2017-11-14 07:47] LABS: CALCIUM 6.8 mg/dL (8.5-10.1); SGOT/AST 519 U/L (15-37); SGPT/ALT 458 U/L (12-78)
[2017-11-14 07:54] LABS: BILIRUBIN,DIRECT 4.5 mg/dL (0.0-0.2)
--- NOTE | 2017-11-14 08:10 | CONS ---
DATE OF CONSULTATION: REQUESTING PHYSICIAN: Hospitalist service HISTORY: This is a 67-year-old man with a history of hypertension, diabetes, apparently prior cholelithiasis in 1997 who presented to the emergency room on the with complaints of severe abdominal pain. He had shortness of breath. He could not take a deep breath. He had abdominal distention and intermittent pain. He was seen by Surgery and GI. He underwent MRCP and was found to have dilated ducts. He underwent emergent MRCP last night and was found to have purulent drainage from his common bile duct, and a stent was placed to relieve the obstruction for presumed choledocholithiasis. This was done overnight emergently. He is currently in the ICU. He has just been placed on BiPAP. He is awake. He follows commands. He is somewhat agitated. He complains of diffuse body pain. Nurses report that prior to the ERCP he had 2 bowel movements. He received vancomycin and Zosyn in the emergency room and a dose of Zosyn earlier this morning. PAST MEDICAL HISTORY: The history was provided from the record as the patient is currently on BiPAP. Past medical history is notable for TIA, hypertension, prostate cancer, diabetes, and obesity. He has a history of cholelithiasis last treated in 1997. PAST SURGICAL HISTORY: Notable for prostate cancer and prostatectomy. It is not known when he last was on any antibiotics. It is not known if he has a history of resistant organisms. This is his first admission to [facility]. He has no known drug allergies. MEDICATIONS: At home include: 1. Zestril. 2. Metformin. 3. Omeprazole. 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 Stopped smoking in 2003. Occasional wine. No substance use otherwise. REVIEW OF SYSTEMS: Apparently at home was notable for abdominal pain, distention, nausea, vomiting, and chills. His baseline renal function is not known. PHYSICAL EXAMINATION: General: Currently he is mildly agitated but starting to rest more comfortably. Vital Signs: Temperature 98.4. He has been afebrile since admission. Pulse 108, blood pressure 108/74, respiratory rate 21. He weighs 172 pounds. He has some scattered wheezes on exam. His O2 saturation is 98% on 60% FiO2 BiPAP. HEENT: He is normocephalic. His eyes are mildly jaundiced. Neck: Supple. Neurologic: He is alert. He opens his eyes to his name. Lungs: Scattered wheezes. Heart: Tachycardic. Abdomen: Distended. He has bowel sounds. It is mildly tympanitic. He has diffuse discomfort on exam of his abdomen. Extremities: Without edema. LABORATORY DATA: White count on admission is 3.7. This morning it is 35.3. Hemoglobin 10.3, platelets 184, INR 1.5. His chemistries this morning are pending. Last night his BUN 35, creatinine 2.9 with a total bilirubin of 5.7. AST 437, ALT 417. Lipase was 82. Lipase this morning is pending. Urinalysis had 1+ leukocytes with 13 white cells. Graham catheter has been placed. His studies are notable for the MRCP study. Renal and liver ultrasound results are pending. Chest x-ray done on admission shows no acute pulmonary pathology. Chest x-ray this morning is pending. CAT scan of the abdomen and pelvis done last night was notable for minimal-to- mild dilatation of several small bowel loops and bilateral inguinal hernias. He is status post ERCP. In summary, this is a 67-year-old man with biliary sepsis, choledocholithiasis status post EMG ERCP last night for dilated CBD with stent placement and pus drainage. As well, he has acute kidney injury. Unclear what his baseline creatinine is. Thirdly, impending respiratory failure. Lastly, yol-gllvufc-tfillzawd diabetes. He received vancomycin and Zosyn. We will escalate his antibiotics to a Carbapenem until cultures are back as his prior history of resistant organisms is not known at this time, and he is quite critically ill. Would repeat a chest x-ray. Continue IV fluids. Continue IV antibiotics. ICU monitoring with GI and Surgery follow up. Over 35 minutes was spent in the care of this critically ill ICU patient. SANDRA ADAMS M.D. [id number] FILIBERTO
[2017-11-14] MEDS ORDERED: fentaNYL CITRATE 250 MCG/5 ML VIAL ONE (08:19)
[2017-11-14] MEDS ORDERED: PHENYLEPHRINE HCL 10 MG/1 ML SINGLE DOSE VIAL ONE ×3 (08:27→14:01)
--- NOTE | 2017-11-14 08:48 | PN ---
Progress Note (short form) - Note Progress Note: Pulm/CCM Pt seen and examined in ICU 24Hr: -ERCP last night with demetrius pus from [place], stent placed -worsening CXR with diffuse congestive changes on R, abg with mixed resp and metabolic acidosis, placed on NIV -anuric, renal consulted - hypotension -to be reintubated, has 15-17L of MV on NIV and with worsening metabolic acidosis -wbc to 35K, ID following on Vanco and PT Vital Signs Temp 98.4 F 11/14/17 06:00 Pulse 108 H 11/14/17 08:00 Resp 21 11/14/17 08:00 BP 84/43 11/14/17 08:00 Pulse Ox 98 11/14/17 07:00 Intake & Output 11/13/17 11/13/17 11/14/17 11:59 23:59 11:59 Intake Total 500 2100 Output Total 50 Balance 500 2049 Weight 72.575 kg 78.245 kg Intake: IV 500 2000 Normal Saline - 1,000 ml 500 @ 100 mls/hr IV ASDIR RERE Rx#:[id number] Normal Saline - 1,000 ml 500 @ 1000 mls/hr IV ASDIR STA Rx#:[id number] Normal Saline - 1,000 ml 1000 @ 1000 mls/hr IV ASDIR STA Rx#:[id number] IVPB 100 Output: Urine 50 Graham 50 Other: Voiding Method Urinal # Unmeasured Voids Void 2 Bowel Movement Yes # Bowel Movements 2 Height 5 ft 3 in 5 ft 3 in Body Mass Index (BMI) 28.3 Weight Measurement Method Built in [facility] Weight Measurement Method Standing Scale CBCD WBC 35.3 K/mm3 (4.0-10.0) H* D 11/14/17 05:50 RBC 3.48 M/mm3 (4.00-5.60) L 11/14/17 05:50 Hgb 10.3 GM/dL (11.7-16.9) L D 11/14/17 05:50 Hct 32.6 % (35.4-49) L 11/14/17 05:50 MCV 93.9 fl (80-96) 11/14/17 05:50 MCHC 31.6 g/dl (32.0-35.9) L 11/14/17 05:50 RDW 16.7 % (11.9-15.9) H 11/14/17 05:50 Plt Count 184 K/MM3 (134-434) 11/14/17 05:50 MPV 9.9 fl (7.5-11.1) D 11/14/17 05:50 CMP Sodium 143 mmol/L (136-145) 11/14/17 05:50 Potassium 5.6 mmol/L (3.5-5.1) H 11/14/17 05:50 Chloride 108 mmol/L (98-107) H 11/14/17 05:50 Carbon Dioxide 19 mmol/L (21-32) L 11/14/17 05:50 Anion Gap 16 (8-16) 11/14/17 05:50 BUN 37 mg/dL (7-18) H 11/14/17 05:50 Creatinine 3.2 mg/dL (0.7-1.3) H 11/14/17 05:50 Creat Clearance w eGFR 19.53 (>60) 11/14/17 05:50 Random Glucose 169 mg/dL (74-106) H D 11/14/17 05:50 Calcium 6.8 mg/dL (8.5-10.1) L* 11/14/17 05:50 Total Bilirubin 6.4 mg/dL (0.2-1.0) H 11/14/17 05:50 AST 519 U/L (15-37) H 11/14/17 05:50 ALT 458 U/L (12-78) H 11/14/17 05:50 Alkaline Phosphatase 195 U/L (45-117) H 11/14/17 05:50 Total Protein 5.9 g/dl (6.4-8.2) L 11/14/17 05:50 Albumin 3.1 g/dl (3.4-5.0) L 11/14/17 05:50 CARDIAC ENZYMES Creatine Kinase 175 IU/L (39-308) 11/13/17 08:51 Troponin I < 0.02 ng/ml (0.00-0.05) 11/13/17 08:51 Active Medications Albuterol Sulfate (Ventolin 0.083% Nebulizer Soln -) 1 amp NEB Q4H PRN PRN Reason: SHORT OF BREATH/WHEEZING Last Admin: 03/23/18 23:36 Dose: 1 amp Fentanyl (Sublimaze Injection -) 100 mcg IVPUSH Q1H PRN PRN Reason: PAIN Stop: 11/15/17 08:14 Piperacillin Sod/Tazobactam Sod (Zosyn 4.5gm Ivpb (Pre-Docked)) 4.5 gm in 100 mls @ 200 mls/hr IVPB Q8H-IV RERE Stop: 11/14/17 10:29 Last Admin: 11/14/17 02:38 Dose: 200 mls/hr Sodium Chloride (Normal Saline -) 1,000 mls @ 100 mls/hr IV ASDIR RERE Last Admin: 11/14/17 02:38 Dose: 100 mls/hr Sodium Bicarbonate 150 meq/ (Sodium Chloride) 1,150 mls @ 95.833 mls/hr IV ONCE ONE Stop: 11/14/17 19:14 Propofol (Diprivan -) 1,000,000 mcg in 100 mls @ 2.347 mls/hr IVPB TITR RERE; 5 MCG/KG/MIN PRN Reason: Protocol Insulin Aspart (Novolog Vial Sliding Scale -) 1 vial SQ ACHS RERE PRN Reason: Protocol Last Admin: 11/14/17 07:32 Dose: Not Given Ondansetron HCl (Zofran Injection) 4 mg IVPB Q6H PRN PRN Reason: NAUSEA Pantoprazole Sodium (Protonix Iv) 40 mg IVPUSH BID RERE Piperacillin/Tazobactam/Dextrose (Zosyn 2.25gm Ivpb (Premix)) 2.25 gm IVPB Q6H- IV RERE Rocuronium [place] (Zemuron -) 100 mg IVPUSH ONCE ONE Stop: 11/14/17 08:17 CXR: reviewed, R diffuse congestive changes, new since admission CTAP, pre ERCP reviewed A/67 y/o man with ascending cholangitis, s/p ERCP now with resp distress, anuric renal failure, sepsis, suspect GN bacteremia and poss developing ARDS P/ -intubate, lung protective strategies -after intubation will attempt more fluid resusc, vasopressor support -broad spectrum abx, Dr Scott following, apprec recs -Renal consult, suspect will need [employer] -PPI and DVT prophy -GI following post ERCP, appprec recs Maciej Holly ACNP [id number] CCT
[2017-11-14] MEDS ORDERED: PIPERACILLIN/TAZOB 2.25 GM 2.25 GM in DEXTROSE 5%-WATER - 50 ML IVPB SCH (09:00)
[2017-11-14] MEDS ORDERED: PIPERACILLIN/TAZOB 2.25 GM/50 ML PREMIX BAG IVPB SCH (09:00)
[2017-11-14 09:09] LABS: ERYTHROCYTE SEDIMENTATION RATE 33 mm/hr (0-20)
[2017-11-14 09:13] LABS: PLATELET ESTIMATE NORMAL
[2017-11-14] MEDS ORDERED: ROCURONIUM BROMIDE 50 MG/5 ML VIAL IVPUSH ONE (09:15)
[2017-11-14] MEDS ORDERED: PROPOFOL 1,000,000 MCG/100 ML VIAL IVPB SCH (09:15)
[2017-11-14] MEDS ORDERED: SODIUM CHLORIDE 0.9% 500 ML INFUS.BAG IV ONE (09:30)
[2017-11-14 10:03] LABS: ARTERIAL BLD GAS O2 SATURATION 97.6 % (90-98.9); ARTERIAL BLOOD GAS pH 7.15 (7.35-7.45)
--- NOTE | 2017-11-14 10:50 | CONSULT ---
Consult - text type - Consultation Consultation Note: Renal Consult for THIEN/Metabolic acidosis This is a 67 year old gentleman with PMhx of obesity, prostate cancer, HTN, NIDDM, cholelithiasis who presented to the ED with Abd pain now s/p ERCP with ascending colangitis and gram negative sepsis with THIEN and metabolic acidosis. Pt currently in the ICU o the Vent. On vasopressers and IVF. Is currently anuric. Ph noted to be 7.4 this am with elevated lactic acid. Family at the bedside. PMhx: as above Allergies: NKDA Family hx: NC Social hx: NC ROS: unable to obtain Home Medications Medication Instructions Recorded Amlodipine Besylate [Norvasc -] 5 mg PO DAILY 11/13/17 Metformin HCl 850 mg PO DAILY 11/13/17 Omeprazole 20 mg PO DAILY 11/13/17 Vital Signs Temperature 98.4 F 11/14/17 06:00 Pulse Rate 97 H 11/14/17 08:30 Respiratory Rate 21 11/14/17 08:00 Blood Pressure 84/43 11/14/17 08:00 O2 Sat by Pulse Oximetry (%) 100 11/14/17 08:30 Intake & Output 11/11/17 11/12/17 11/13/17 11/14/17 23:59 23:59 23:59 23:59 Intake Total 500 2100 Output Total 50 Balance 500 2049 Weight 72.575 kg 78.245 kg NAD on vent via ET tube No JVD, neck supple RRR, No M/R Dec BS at lung bases ,no rales or wheeze Mild Abd distension NO LE edmea, no clubbing or cyanosis CBC, BMP 11/14/17 05:50 11/14/17 05:50 Laboratory Tests 11/13/17 11/14/17 11/14/17 17:00 05:50 05:50 MCV 93.9 Lactic Acid Calcium 6.8 L* Phosphorus 9.0 H* Direct Bilirubin Urine Glucose (UA) 1+ H Urine Ketones Negative Ur Leukocyte Esterase 1+ H Urine WBC (Auto) 13 COLTON Screen 11/14/17 11/14/17 11/14/17 05:50 05:50 05:50 MCV Lactic Acid 6.3 H* Calcium Phosphorus Direct Bilirubin 4.5 H Urine Glucose (UA) Urine Ketones Ur Leukocyte Esterase Urine WBC (Auto) COLTON Screen Pending Current Medications Albuterol Sulfate (Ventolin 0.083% Nebulizer Soln -) 1 amp NEB Q4H PRN PRN Reason: SHORT OF BREATH/WHEEZING Last Admin: 11/13/17 23:36 Dose: 1 amp Fentanyl (Sublimaze Injection -) 100 mcg IVPUSH Q1H PRN PRN Reason: PAIN Stop: 11/15/17 08:14 Heparin Sodium (Porcine) (Heparin -) 5,000 unit SQ TID RERE Sodium Chloride (Normal Saline -) 1,000 mls @ 100 mls/hr IV ASDIR RERE Last Admin: 11/14/17 02:38 Dose: 100 mls/hr Sodium Bicarbonate 150 meq/ (Sodium Chloride) 1,150 mls @ 95.833 mls/hr IV ONCE ONE Stop: 11/14/17 19:14 Propofol (Diprivan -) 1,000,000 mcg in 100 mls @ 2.347 mls/hr IVPB TITR RERE; 5 MCG/KG/MIN PRN Reason: Protocol Piperacillin Sod/Tazobactam (Sod 2.25 gm/ Dextrose) 50 mls @ 100 mls/hr IVPB Q6H-IV RERE Insulin Aspart (Novolog Vial Sliding Scale -) 1 vial SQ ACHS RERE PRN Reason: Protocol Last Admin: 11/14/17 07:32 Dose: Not Given Ondansetron HCl (Zofran Injection) 4 mg IVPB Q6H PRN PRN Reason: NAUSEA Pantoprazole Sodium (Protonix Iv) 40 mg IVPUSH BID [facility] 67 year old gentleman with PMhx of obesity, prostate cancer, HTN, NIDDM, cholelithiasis who presented to the ED with Abd pain now s/p ERCP with ascending colangitis and gram negative sepsis with THIEN and metabolic acidosis. #Ascending Colangitis #Gram Negative Bacteremia #Septic Shock #Acute Renal Failure likely due to ATN in setting of sepsis/shock #Anion gap metabolic acidosis with Respiratory acidosis #Hyperkalemia #Anemia #Hypocalcemia Continue ICU care Vasopressers and IVF to keep MAP > 65 Continue Zosyn, f/u final results of blood cultures Continue Vent support, repeat abg as pt had component of respiratory acidosis as well Now that is pt is intubated and getting volume expansion expect acidosis to to improve repeat ABG result is pending Continue IV bicarb gtt until Ph improves to > 7.2 Trend Ca while on bicarb gtt (if corrected Ca < 7.5 may need to stop bicarb or give IV calcium) continue isotonic saline keep CVP 10-12 dialysis catheter inserted already, discussed possibility of dialysis with daughter who is in agreement if necessary check CMP, ABG this evening avoid nephrotoxins hold antihypertensvies hold metformin, continue insulin sliding scale for now Thank you Will follow Anuj Ferguson DO t
--- NOTE | 2017-11-14 10:51 | PN ---
Physical Exam: SUBJECTIVE: Patient seen and examined in ICU. OBJECTIVE: Vital Signs Period Temp Pulse Resp BP Sys/Leyva Pulse Ox Last 24 Hr 98.1 F-98.8 F 97-117 17-27 81-134/43-80 95-100 GENERAL/NEURO: The patient is awake. On BiPAP. Responding to questions. Following commands. Moving all extremities. LUNGS: Diffuse wheezing HEART: Regular rate and rhythm, S1, S2 ABDOMEN: Distended EXTREMITIES: 2+ pulses, warm, well-perfused, no edema. Laboratory Results - last 24 hr 11/13/17 11/13/17 11/13/17 08:45 08:51 08:51 WBC RBC Hgb Hct MCV MCH MCHC RDW Plt Count MPV Neutrophils % Neutrophils % (Manual) Band Neutrophils % Lymphocytes % Lymphocytes % (Manual) Monocytes % (Manual) Eosinophils % (Manual) Basophils % (Manual) Myelocytes % (Man) Promyelocytes % (Man) Blast Cells % (Manual) Nucleated RBC % Metamyelocytes Platelet Estimate ESR PT with INR INR PTT (Actin FS) Puncture Site ABG pH ABG pCO2 at Pt Temp ABG pO2 at Pt Temp ABG HCO3 ABG O2 Sat (Measured) ABG O2 Content ABG Base Excess Kurtis Test O2 Delivery Device Oxygen Flow Rate Sodium Potassium Chloride Carbon Dioxide Anion Gap BUN Creatinine Creat Clearance w eGFR POC Glucometer Random Glucose Lactic Acid Calcium Phosphorus Magnesium Total Bilirubin Direct Bilirubin 4.0 H AST ALT Alkaline Phosphatase Creatine Kinase Index 1.2 CK-MB (CK-2) 2.185 C-Reactive Protein Total Protein Albumin Total Amylase Lipase Urine Color Enriqueta Urine Appearance Clear Urine pH 5.0 Ur Specific Thompson 1.015 Urine Protein 1+ H Urine Glucose (UA) 1+ H Urine Ketones Negative Urine Blood 2+ H Urine Nitrite Negative Urine Bilirubin Negative Urine Urobilinogen Negative Ur Leukocyte Esterase 1+ H Urine WBC (Auto) 6 Urine RBC (Auto) 4 Ur Epithelial Cells Rare Urine Bacteria Few Urine Mucus Rare Ur Random Sodium Ur Random Potassium Ur Random Chloride 11/13/17 11/13/17 11/13/17 14:36 17:00 19:15 WBC RBC Hgb Hct MCV MCH MCHC RDW Plt Count MPV Neutrophils % Neutrophils % (Manual) Band Neutrophils % Lymphocytes % Lymphocytes % (Manual) Monocytes % (Manual) Eosinophils % (Manual) Basophils % (Manual) Myelocytes % (Man) Promyelocytes % (Man) Blast Cells % (Manual) Nucleated RBC % Metamyelocytes Platelet Estimate ESR PT with INR 17.10 H INR 1.51 H D PTT (Actin FS) Puncture Site ABG pH ABG pCO2 at Pt Temp ABG pO2 at Pt Temp ABG HCO3 ABG O2 Sat (Measured) ABG O2 Content ABG Base Excess Kurtis Test O2 Delivery Device Oxygen Flow Rate Sodium Potassium Chloride Carbon Dioxide Anion Gap BUN Creatinine Creat Clearance w eGFR POC Glucometer Random Glucose Lactic Acid 7.2 H* Calcium Phosphorus Magnesium Total Bilirubin Direct Bilirubin AST ALT Alkaline Phosphatase Creatine Kinase Index CK-MB (CK-2) C-Reactive Protein Total Protein Albumin Total Amylase Lipase Urine Color Enriqueta Urine Appearance Clear Urine pH 5.0 Ur Specific Thompson 1.015 Urine Protein Negative Urine Glucose (UA) 1+ H Urine Ketones Negative Urine Blood 2+ H Urine Nitrite Negative Urine Bilirubin Negative Urine Urobilinogen Negative Ur Leukocyte Esterase 1+ H Urine WBC (Auto) 13 Urine RBC (Auto) 9 Ur Epithelial Cells Urine Bacteria Rare Urine Mucus Rare Ur Random Sodium Ur Random Potassium Ur Random Chloride 11/13/17 11/14/17 11/14/17 19:15 00:03 02:15 WBC RBC Hgb Hct MCV MCH MCHC RDW Plt Count MPV Neutrophils % Neutrophils % (Manual) Band Neutrophils % Lymphocytes % Lymphocytes % (Manual) Monocytes % (Manual) Eosinophils % (Manual) Basophils % (Manual) Myelocytes % (Man) Promyelocytes % (Man) Blast Cells % (Manual) Nucleated RBC % Metamyelocytes Platelet Estimate ESR PT with INR INR PTT (Actin FS) Puncture Site ABG pH ABG pCO2 at Pt Temp ABG pO2 at Pt Temp ABG HCO3 ABG O2 Sat (Measured) ABG O2 Content ABG Base Excess Kurtis Test O2 Delivery Device Oxygen Flow Rate Sodium 144 Potassium 5.1 Chloride 111 H Carbon Dioxide 17 L Anion Gap 16 BUN 35 H D Creatinine 2.9 H D Creat Clearance w eGFR 21.88 POC Glucometer 138.62426 Random Glucose 128 H D Lactic Acid 9.9 H* Calcium 6.9 L* Phosphorus 7.5 H Magnesium 1.4 L Total Bilirubin 5.7 H Direct Bilirubin AST 437 H D ALT 417 H D Alkaline Phosphatase 195 H Creatine Kinase Index CK-MB (CK-2) C-Reactive Protein Total Protein 5.8 L Albumin 3.1 L Total Amylase 46 Lipase 82 Urine Color Urine Appearance Urine pH Ur Specific Thompson Urine Protein Urine Glucose (UA) Urine Ketones Urine Blood Urine Nitrite Urine Bilirubin Urine Urobilinogen Ur Leukocyte Esterase Urine WBC (Auto) Urine RBC (Auto) Ur Epithelial Cells Urine Bacteria Urine Mucus Ur Random Sodium Ur Random Potassium Ur Random Chloride 11/14/17 11/14/17 11/14/17 05:50 05:50 05:50 WBC 35.3 H* D RBC 3.48 L Hgb 10.3 L D Hct 32.6 L MCV 93.9 MCH 29.7 MCHC 31.6 L RDW 16.7 H Plt Count 184 MPV 9.9 D Neutrophils % No Result Required. Neutrophils % (Manual) 62.4 Band Neutrophils % 30.7 Lymphocytes % No Result Required. Lymphocytes % (Manual) 2.9 L Monocytes % (Manual) 2 L Eosinophils % (Manual) 0.0 Basophils % (Manual) 0.0 Myelocytes % (Man) 0 Promyelocytes % (Man) 0 Blast Cells % (Manual) 0 Nucleated RBC % 0 Metamyelocytes 2 Platelet Estimate Normal ESR 33 H PT with INR INR PTT (Actin FS) 35.3 H D Puncture Site ABG pH ABG pCO2 at Pt Temp ABG pO2 at Pt Temp ABG HCO3 ABG O2 Sat (Measured) ABG O2 Content ABG Base Excess Kurtis Test O2 Delivery Device Oxygen Flow Rate Sodium 143 Potassium 5.6 H Chloride 108 H Carbon Dioxide 19 L Anion Gap 16 BUN 37 H Creatinine 3.2 H Creat Clearance w eGFR 19.53 POC Glucometer Random Glucose 169 H D Lactic Acid Calcium 6.8 L* Phosphorus 9.0 H* Magnesium 1.7 L D Total Bilirubin 6.4 H Direct Bilirubin AST 519 H ALT 458 H Alkaline Phosphatase 195 H Creatine Kinase Index CK-MB (CK-2) C-Reactive Protein 27.7 H Total Protein 5.9 L Albumin 3.1 L Total Amylase Lipase Urine Color Urine Appearance Urine pH Ur Specific Thompson Urine Protein Urine Glucose (UA) Urine Ketones Urine Blood Urine Nitrite Urine Bilirubin Urine Urobilinogen Ur Leukocyte Esterase Urine WBC (Auto) Urine RBC (Auto) Ur Epithelial Cells Urine Bacteria Urine Mucus Ur Random Sodium Ur Random Potassium Ur Random Chloride 11/14/17 11/14/17 11/14/17 05:50 05:50 05:50 WBC RBC Hgb Hct MCV MCH MCHC RDW Plt Count MPV Neutrophils % Neutrophils % (Manual) Band Neutrophils % Lymphocytes % Lymphocytes % (Manual) Monocytes % (Manual) Eosinophils % (Manual) Basophils % (Manual) Myelocytes % (Man) Promyelocytes % (Man) Blast Cells % (Manual) Nucleated RBC % Metamyelocytes Platelet Estimate ESR PT with INR 17.70 H INR 1.57 H PTT (Actin FS) Puncture Site ABG pH ABG pCO2 at Pt Temp ABG pO2 at Pt Temp ABG HCO3 ABG O2 Sat (Measured) ABG O2 Content ABG Base Excess Kurtis Test O2 Delivery Device Oxygen Flow Rate Sodium Potassium Chloride Carbon Dioxide Anion Gap BUN Creatinine Creat Clearance w eGFR POC Glucometer Random Glucose Lactic Acid 6.3 H* Calcium Phosphorus Magnesium Total Bilirubin Direct Bilirubin 4.5 H AST ALT Alkaline Phosphatase Creatine Kinase Index CK-MB (CK-2) C-Reactive Protein Total Protein Albumin Total Amylase Lipase 81 Urine Color Urine Appearance Urine pH Ur Specific Thompson Urine Protein Urine Glucose (UA) Urine Ketones Urine Blood Urine Nitrite Urine Bilirubin Urine Urobilinogen Ur Leukocyte Esterase Urine WBC (Auto) Urine RBC (Auto) Ur Epithelial Cells Urine Bacteria Urine Mucus Ur Random Sodium Ur Random Potassium Ur Random Chloride 11/14/17 11/14/17 06:00 06:25 WBC RBC Hgb Hct MCV MCH MCHC RDW Plt Count MPV Neutrophils % Neutrophils % (Manual) Band Neutrophils % Lymphocytes % Lymphocytes % (Manual) Monocytes % (Manual) Eosinophils % (Manual) Basophils % (Manual) Myelocytes % (Man) Promyelocytes % (Man) Blast Cells % (Manual) Nucleated RBC % Metamyelocytes Platelet Estimate ESR PT with INR INR PTT (Actin FS) Puncture Site Right brachial ABG pH 7.04 L* ABG pCO2 at Pt Temp 57.8 H ABG pO2 at Pt Temp 101.0 H ABG HCO3 14.7 L* ABG O2 Sat (Measured) 95.1 ABG O2 Content 13.7 L ABG Base Excess -15.6 L* Kurtis Test Positive O2 Delivery Device Nrm Oxygen Flow Rate 100 Sodium Potassium Chloride Carbon Dioxide Anion Gap BUN Creatinine Creat Clearance w eGFR POC Glucometer Random Glucose Lactic Acid Calcium Phosphorus Magnesium Total Bilirubin Direct Bilirubin AST ALT Alkaline Phosphatase Creatine Kinase Index CK-MB (CK-2) C-Reactive Protein Total Protein Albumin Total Amylase Lipase Urine Color Urine Appearance Urine pH Ur Specific Thompson Urine Protein Urine Glucose (UA) Urine Ketones Urine Blood Urine Nitrite Urine Bilirubin Urine Urobilinogen Ur Leukocyte Esterase Urine WBC (Auto) Urine RBC (Auto) Ur Epithelial Cells Urine Bacteria Urine Mucus Ur Random Sodium 85 Ur Random Potassium 34.0 Ur Random Chloride 102 Active Medications Generic Name Dose Route Start Last Admin Trade Name Freq PRN Reason Stop Dose Admin Albuterol Sulfate 1 amp 11/13/17 22:49 11/13/17 23:36 Ventolin 0.083% Nebulizer Soln - NEB 1 amp Q4H PRN Administration SHORT OF BREATH/WHEEZING Fentanyl 100 mcg 11/14/17 08:14 Sublimaze Injection - IVPUSH 11/15/17 08:14 Q1H PRN PAIN Sodium Chloride 1,000 mls @ 100 mls/hr 11/14/17 02:00 11/14/17 02:38 Normal Saline - IV 100 mls/hr ASDIR RERE Administration Sodium Bicarbonate 150 meq/ 1,150 mls @ 95.833 mls/hr 11/14/17 07:15 Sodium Chloride IV 11/14/17 19:14 ONCE ONE Propofol 1,000,000 mcg in 100 mls @ 2.347 mls/hr 11/14/17 09:15 Diprivan - IVPB TITR RERE Protocol 5 MCG/KG/MIN Piperacillin Sod/Tazobactam 50 mls @ 100 mls/hr 11/14/17 09:00 Sod 2.25 gm/ Dextrose IVPB Q6H-IV RERE Insulin Aspart 1 vial 11/14/17 07:00 11/14/17 07:32 Novolog Vial Sliding Scale - SQ Not Given ACHS [facility] Protocol Ondansetron HCl 4 mg 11/13/17 22:10 Zofran Injection IVPB Q6H PRN NAUSEA Pantoprazole Sodium 40 mg 11/14/17 10:00 Protonix Iv IVPUSH BID [facility] ASSESSMENT/PLAN 67 year-old male with a PMH significant for HTN, NIDDM, and cholelithiasis. Admitted for severe sepsis likely secondary to ascending cholangitis. Severe sepsis secondary to ascending cholangitis Liver failure Kidney failure Hypoxic, hypercapneic respiratory failure --ERCP last night-->sphincterotomy, stent; purulent drainage --11/25 blood culture bottles GNB; per ID continue vanc and zosyn --intubated --trialysis catheter placed by saddle and side wire stitcher --pressor support as needed Ileus v. SBO --CTAP: (1) minimal to mild dilatation of several small bowel loops within the left mid abdomen, mild ileus v. subtle partial SBO Hypertension --hold anti-hypertensives due to sepsis NIDDM --Novolog sliding coverage DVT prophylaxis: subq heparin Visit type - Emergency Visit Emergency Visit: Yes ED Registration Date: 11/13/17 Care time: The patient presented to the Emergency Department on the above date and was hospitalized for further evaluation of their emergent condition. - New Patient This patient is new to me today: No - Critical Care Critical Care patient: Yes Total Critical Care Time (in minutes): 35 Critical Care Statement: The care of this patient involved high complexity decision making to prevent further life threatening deterioration of the patient 's condition and/or to evaluate & treat vital organ system(s) failure or risk of failure.
[2017-11-14] MEDS ORDERED: NOREPINEPHRINE BITARTRATE 4 MG/4 ML ML IV ONE ×2 (10:56→19:24)
--- NOTE | 2017-11-14 11:05 | PN ---
Progress Note (short form) - Note Progress Note: GI Procedure Note ( covering Dr Swift) : I omitted entering this note @ 2:30AM when I completed an ERCP that yielded pus on sphincterotomy and revealed a dilated common bile duct. No obvious obstructing lesion or sotne was found so a 7FR x &cm double pigtail stent was placed into the CBD. The procedure was discussed with this patient and his daughter at 2:35AM.
[2017-11-14] MEDS: PANTOPRAZOLE SODIUM 40 MG VIAL IVPUSH SCH ×2 (11:30→22:21)
--- NOTE | 2017-11-14 11:34 | PROC ---
Intubation - Intubation Reason for Intubation: Respiratory Failure Time of Intubation: 09:00 Intubation Method: orotracheal Blade used: Mac Tube Size (cm): 7.5 Tube position @ lip (cm): 22 Tube position confirmed by: CO2 detector, Chest x-ray, Breath sounds Breath Sounds after Intubation: equal Post Intubation Xray: Yes (4-5cm above isaac)
--- NOTE | 2017-11-14 11:35 | PROC ---
Central Line Insertion Indication: Poor Venous Access, Vasopressor Risks and Benefits Explained: Yes Consent on Chart: Yes Central Line: Dialysis Cath, Tri Lumen Anesthesia: 1% Lidocaine Sterile Technique: Yes Ultrasound Guided Assistance: Yes Position: Right Internal Jugular Post Insertion: Yes: Bilateral Breath Sounds, Chest X-Ray Ordered Sterile Dressing Applied: Yes
--- NOTE | 2017-11-14 11:44 | PN ---
GI Progress Note Subjective: GI NOte ( covering Dr. Swift): Overnight events noted. Acidotic this AM with WBC up to 35K despite ERCP and now intubated. Bilirubin has not dropped. Reviewed pre-ERCP MRCP with Dr Gonzalez who cannot identify any stones but the CBD appears cluttered with sludge type material. This material may be too viscous for a stent to drain and he will need a balloon sweeping of the duct. I am ordered a CT scan to check the stent position and see whether it has become kinked. I discussed this plan with his daughter Sonia who is at the bedside. Now requiring pressors. - Objective Vital Signs: Vital Signs Temperature 98.1 F 11/14/17 10:00 Pulse Rate 91 H 11/14/17 10:00 Respiratory Rate 22 11/14/17 10:00 Blood Pressure 85/62 11/14/17 10:00 O2 Sat by Pulse Oximetry (%) 100 11/14/17 08:30 Laboratory Tests 11/13/17 11/13/17 11/14/17 08:51 08:51 02:15 WBC 3.7 L Total Bilirubin 6.2 H 5.7 H AST 139 H ALT 235 H Alkaline Phosphatase 188 H C-Reactive Protein Total Amylase 46 Lipase 82 11/14/17 11/14/17 05:50 05:50 WBC 35.3 H* D Total Bilirubin 6.4 H AST 519 H ALT 458 H Alkaline Phosphatase 195 H C-Reactive Protein 27.7 H Total Amylase Lipase Constitutional: Other (Sedated an intubated) Eyes: Yes: Sclera Icterus Gastrointestinal Inspection: Yes: Distention ...Auscultate: Yes: Hypoactive Bowel Sounds ...Palpate: Yes: Other (nontender but sedated) ...Percussion: Yes: Tympanitic Labs: CBC, BMP 11/14/17 05:50 11/14/17 05:50 INR, PTT INR 1.57 (0.82-1.09) H 11/14/17 05:50 Problem List - Problems (1) Cholangitis Assessment/Plan: Cholangitis persists. I suspect that the sludge is too viscous for the stent to drain and that Crow will need a sweeping of the bile duct. Will repeat ERCP today. Informed consent obtained from the daughter as Crow is sedated. I made her aware of the risks of perforation, hemorrhage and pancreatitis leading to multiorgan failure again. Code(s): K83.0 - CHOLANGITIS (2) Choledocholithiasis Code(s): K80.50 - CALCULUS OF BILE DUCT W/O CHOLANGITIS OR CHOLECYST W/O OBST
[2017-11-14] MEDS ORDERED: VASOPRESSIN 20 UNITS/ML VIAL IV ONE ×2 (12:23→19:24)
[2017-11-14] MEDS: NOREPINEPHRINE BITARTRATE 8,000 MCG in DEXTROSE 5%-WATER - 492 ML IV SCH ×2 (12:30→19:00)
[2017-11-14] MEDS: VASOPRESSIN 50 UNITS in SODIUM CHLORIDE 97.5 ML IVPB SCH (12:30)
[2017-11-14] MEDS: MEROPENEM 1 GM in DEXTROSE 5%-WATER - 100 ML IVPB SCH ×2 (13:00→22:21)
[2017-11-14] MEDS ORDERED: ROCURONIUM BROMIDE 50 MG/5 ML VIAL ONE (14:00)
[2017-11-14] MEDS ORDERED: ePHEDrine SULFATE 50 MG/1 ML AMPULE ONE (14:00)
[2017-11-14] MEDS ORDERED: HEPARIN NA (PORCINE) 5,000 UNITS/ML 1ML VIAL SQ SCH (14:00)
[2017-11-14 14:15] LABS: HEMATOCRIT 30.4 % (35.4-49); HEMOGLOBIN 9.7 GM/dL (11.7-16.9); MCH 29.5 pg (25.7-33.7); MEAN CELL VOLUME 92.3 fl (80-96); MEAN PLT VOLUME 10.3 fl (7.5-11.1); PLATELET COUNT 120 K/MM3 (134-434); RBC 3.29 M/mm3 (4.00-5.60); RDW 16.8 % (11.9-15.9); WHITE BLOOD COUNT 28.8 K/mm3 (4.0-10.0)
[2017-11-14 14:52] LABS: ARTERIAL BLOOD GAS PCO2 40.1 mmHg (35-45)
[2017-11-14 14:53] LABS: ALLENS TEST POSITIVE; ARTERIAL BLOOD GAS BASE EXCESS 118.2 meq/l (-2-2)
[2017-11-14 14:55] LABS: ALBUMIN 2.3 g/dl (3.4-5.0); ALK PHOS 162 U/L (45-117); ANION GAP 16 (8-16); BILIRUBIN,DIRECT 4.8 mg/dL (0.0-0.2); BILIRUBIN,TOTAL 5.8 mg/dL (0.2-1.0); BLOOD UREA NITROGEN 44 mg/dL (7-18); CHLORIDE 110 mmol/L (98-107); CO2 16 mmol/L (21-32); CREATININE 3.7 mg/dL (0.7-1.3); GLUCOSE,RANDOM 289 mg/dL (74-106); PHOSPHOROUS 6.1 mg/dL (2.5-4.9); SODIUM 142 mmol/L (136-145); TOT PROT 4.9 g/dl (6.4-8.2)
[2017-11-14 14:59] LABS: ARTERIAL BLOOD GAS PCO2 36.3 mmHg (35-45)
[2017-11-14 15:00] LABS: ALLENS TEST POSITIVE; ARTERIAL BLD GAS O2 SATURATION 97.8 % (90-98.9); ARTERIAL BLOOD GAS BASE EXCESS -14.7 meq/l (-2-2); ARTERIAL BLOOD GAS pH 7.16 (7.35-7.45)
[2017-11-14 15:03] LABS: MAGNESIUM 1.6 mg/dL (1.8-2.4); SGPT/ALT 594 U/L (12-78)
[2017-11-14 15:04] LABS: SGOT/AST 695 U/L (15-37)
[2017-11-14 15:05] LABS: CALCIUM 5.6 mg/dL (8.5-10.1)
--- NOTE | 2017-11-14 16:03 | PN ---
Progress Note (short form) - Note Progress Note: GI Procedure Note: Please see ERCP report in the chart. An obstructing distal CBD stone was found which required extending the sphincterotomy. After this I was able to remove the stone and residual pus. A 7Fr x 7cm double pigtail stent was placed. I discussed the findings with the family and Dr Galindo. Problem List - Problems (1) Cholangitis Code(s): K83.0 - CHOLANGITIS (2) Choledocholithiasis Code(s): K80.50 - CALCULUS OF BILE DUCT W/O CHOLANGITIS OR CHOLECYST W/O OBST
[2017-11-14 16:23] LABS: HEMATOCRIT 29.6 % (35.4-49); HEMOGLOBIN 9.6 GM/dL (11.7-16.9); MCH 29.7 pg (25.7-33.7); MCHC 32.3 g/dl (32.0-35.9); MEAN CELL VOLUME 92.1 fl (80-96); MEAN PLT VOLUME 10.4 fl (7.5-11.1); PLATELET COUNT 117 K/MM3 (134-434); RBC 3.22 M/mm3 (4.00-5.60); WHITE BLOOD COUNT 29.5 K/mm3 (4.0-10.0)
[2017-11-14 16:37] LABS: INR 1.74 (0.82-1.09); PROTHROMBIN TIME (PATIENT) 19.7 SEC (9.98-11.88)
[2017-11-14 17:00] LABS: ALBUMIN 2.3 g/dl (3.4-5.0); ANION GAP 16 (8-16); BLOOD UREA NITROGEN 44 mg/dL (7-18); CHLORIDE 108 mmol/L (98-107); CO2 18 mmol/L (21-32); CREATININE 3.9 mg/dL (0.7-1.3); SODIUM 142 mmol/L (136-145)
[2017-11-14 17:02] LABS: ALK PHOS 149 U/L (45-117); BILIRUBIN,TOTAL 5.5 mg/dL (0.2-1.0); TOT PROT 4.7 g/dl (6.4-8.2)
[2017-11-14 17:03] LABS: SGPT/ALT 606 U/L (12-78)
[2017-11-14 17:06] LABS: CALCIUM 5.7 mg/dL (8.5-10.1); GLUCOSE,RANDOM 314 mg/dL (74-106); POTASSIUM 6.2 mmol/L (3.5-5.1)
[2017-11-14] MEDS: ALBUMIN HUMAN 25% 12.5 GM/50 ML VIAL IVPB SCH ×4 (17:20→18:50)
[2017-11-14 17:58] LABS: SGOT/AST 713 U/L (15-37)
[2017-11-14] MEDS ORDERED: SODIUM CHLORIDE 250 ML IV PRN (19:52)
[2017-11-15] MEDS: INSULIN SLIDING SCALE (NOVOLOG) 1 VIAL SQ SCH ×4 (06:14→21:43)
[2017-11-15 06:37] LABS: CARCINOEMBRYONIC ANTIGEN 2.1 ng/mL (0.0-4.7)
--- NOTE | 2017-11-15 07:10 | PN ---
Physical Exam: SUBJECTIVE: Patient seen and examined in ICU. Self-extubated this morning. Sitting up in bed, talking and interacting with family. OBJECTIVE: Vital Signs Period Temp Pulse Resp BP Sys/Leyva Pulse Ox Last 24 Hr 98 F-99.8 F 78-108 15-22 84-121/40-83 96-100 GENERAL/NEURO: The patient is awake. On venti-mask. Responding to questions. Moving all extremities. HEENT: Icteric sclera LUNGS: CTA HEART: Regular rate and rhythm, S1, S2 ABDOMEN: Firm, distension improved EXTREMITIES: 2+ pulses, warm, well-perfused, no edema. : Graham, clear urine CBCD WBC 29.5 K/mm3 (4.0-10.0) H 11/14/17 15:55 RBC 3.22 M/mm3 (4.00-5.60) L 11/14/17 15:55 Hgb 9.6 GM/dL (11.7-16.9) L 11/14/17 15:55 Hct 29.6 % (35.4-49) L 11/14/17 15:55 MCV 92.1 fl (80-96) 11/14/17 15:55 MCHC 32.3 g/dl (32.0-35.9) 11/14/17 15:55 RDW 17.0 % (11.9-15.9) H 11/14/17 15:55 Plt Count 117 K/MM3 (134-434) L 11/14/17 15:55 MPV 10.4 fl (7.5-11.1) 11/14/17 15:55 CMP Sodium 142 mmol/L (136-145) 11/14/17 15:55 Potassium 6.2 mmol/L (3.5-5.1) H* 11/14/17 15:55 Chloride 108 mmol/L (98-107) H 11/14/17 15:55 Carbon Dioxide 18 mmol/L (21-32) L 11/14/17 15:55 Anion Gap 16 (8-16) 11/14/17 15:55 BUN 44 mg/dL (7-18) H 11/14/17 15:55 Creatinine 3.9 mg/dL (0.7-1.3) H 11/14/17 15:55 Creat Clearance w eGFR 15.54 (>60) 11/14/17 15:55 Calcium 5.7 mg/dL (8.5-10.1) L* 11/14/17 15:55 Total Bilirubin 5.5 mg/dL (0.2-1.0) H 11/14/17 15:55 AST 713 U/L (15-37) H 11/14/17 15:55 ALT 606 U/L (12-78) H 11/14/17 15:55 Alkaline Phosphatase 149 U/L (45-117) H 11/14/17 15:55 Total Protein 4.7 g/dl (6.4-8.2) L 11/14/17 15:55 Albumin 2.3 g/dl (3.4-5.0) L 11/14/17 15:55 Active Medications Generic Name Dose Route Start Last Admin Trade Name Freq PRN Reason Stop Dose Admin Albuterol Sulfate 1 amp 11/13/17 22:49 11/13/17 23:36 Ventolin 0.083% Nebulizer Soln - NEB 1 amp Q4H PRN Administration SHORT OF BREATH/WHEEZING Fentanyl 100 mcg 11/14/17 08:14 11/14/17 09:30 Sublimaze Injection - IVPUSH 11/15/17 08:14 100 mcg Q1H PRN Administration PAIN Sodium Chloride 1,000 mls @ 100 mls/hr 11/14/17 02:00 11/14/17 02:38 Normal Saline - IV 100 mls/hr ASDIR RERE Administration Propofol 1,000,000 mcg in 100 mls @ 2.347 mls/hr 11/14/17 09:15 11/15/17 05: 00 Diprivan - IVPB 50 mcg/kg/min TITR RERE 23.474 mls/hr Protocol Titration 5 MCG/KG/MIN Norepinephrine Bitartrate 8, 500 mls @ 8.8 mls/hr 11/14/17 12:30 11/14/17 19: 00 000 mcg/ Dextrose IV 0.12 mcg/kg/min ASDIR RERE 37.5 mls/hr Protocol Administration 0.03 MCG/KG/MIN Vasopressin 50 units/ Sodium 100 mls @ 4 mls/hr 11/14/17 12:30 11/15/17 06:00 Chloride IVPB 0 units/hr ASDIR RERE 0 mls/hr Protocol Titration 2 UNITS/HR Meropenem 1 gm/ Dextrose 100 mls @ 100 mls/hr 11/14/17 13:00 11/14/17 22:21 IVPB 100 mls/hr BID RERE Administration Protocol Sodium Chloride 250 mls @ 3,000 mls/hr 11/14/17 19:52 Normal Saline - IV 11/15/17 19:51 PRN PRN Hypotension during Dialysis Insulin Aspart 1 vial 11/14/17 07:00 11/15/17 06:14 Novolog Vial Sliding Scale - SQ 2 unit ACHS RERE Administration Protocol Ondansetron HCl 4 mg 11/13/17 22:10 Zofran Injection IVPB Q6H PRN NAUSEA Pantoprazole Sodium 40 mg 11/14/17 10:00 11/14/17 22:21 Protonix Iv IVPUSH 40 mg BID RERE Administration ASSESSMENT/PLAN 67 year-old male with a PMH significant for HTN, NIDDM, and cholelithiasis. Admitted for severe sepsis secondary to ascending cholangitis. Severe sepsis secondary to ascending cholangitis --11/13 MRCP: 6mm hypointensity overlyng the distal CBD; diffusely dilated CBD 15mm; common hepatic duct dilated 10mm; moderate intrahepatic biliary ductal dilitation --11/14 First ERCP: sphincterotomy, stent; purulent drainage --11/14 Second ERCP: retrieval of stone; washout --pressors being weaned --afebrile, WBC starting to trend down; crp 27.7-->15 Hypoxic, hypercapneic respiratory failure, resolved --extubated, ABG essentially normal Liver failure --Total bili peak 6.4, trending down 5.5; direct bili 4.8; transaminases still trending up Kidney failure --Cr peak 3.9 yesterday, starting to trend down --trialysis cath placed Hypertension --hold anti-hypertensives due to sepsis NIDDM --Novolog sliding coverage DVT prophylaxis: subq heparin Visit type - Emergency Visit Emergency Visit: Yes ED Registration Date: 11/13/17 Care time: The patient presented to the Emergency Department on the above date and was hospitalized for further evaluation of their emergent condition. - New Patient This patient is new to me today: No - Critical Care Critical Care patient: Yes Total Critical Care Time (in minutes): 45 Critical Care Statement: The care of this patient involved high complexity decision making to prevent further life threatening deterioration of the patient 's condition and/or to evaluate & treat vital organ system(s) failure or risk of failure.
[2017-11-15] MEDS: SODIUM CHLORIDE 1,000 ML IV SCH (07:14)
[2017-11-15 07:17] LABS: HEMATOCRIT 29.7 % (35.4-49); HEMOGLOBIN 10.1 GM/dL (11.7-16.9); MCH 30.8 pg (25.7-33.7); MCHC 34.2 g/dl (32.0-35.9); MEAN CELL VOLUME 90.1 fl (80-96); MEAN PLT VOLUME 10.5 fl (7.5-11.1); PLATELET COUNT 100 K/MM3 (134-434); RBC 3.29 M/mm3 (4.00-5.60); RDW 16.1 % (11.9-15.9); WHITE BLOOD COUNT 28.1 K/mm3 (4.0-10.0)
[2017-11-15] MEDS ORDERED: SODIUM CHLORIDE 1,000 ML IV SCH (08:15)
--- NOTE | 2017-11-15 08:40 | PN ---
Progress Note (short form) - Note Progress Note: Seen and examined in the ICU Events from yesterday reviewed: -obstructing distal CBD stone was found which required extending the sphincterotomy -Intubation for resp distress -THIEN s/p emergent HD Currently with improved urine out put Remains on NE 9mcg and vasopressin Self extubated this AM w/o distress Febrile Current Medications Albuterol Sulfate (Ventolin 0.083% Nebulizer Soln -) 1 amp NEB Q4H PRN PRN Reason: SHORT OF BREATH/WHEEZING Last Admin: 11/13/17 23:36 Dose: 1 amp Norepinephrine Bitartrate 8, (000 mcg/ Dextrose) 500 mls @ 8.8 mls/hr IV ASDIR RERE; 0.03 MCG/KG/MIN PRN Reason: Protocol Last Admin: 11/14/17 19:00 Dose: 0.12 mcg/kg/min, 37.5 mls/hr Vasopressin 50 units/ Sodium (Chloride) 100 mls @ 4 mls/hr IVPB ASDIR RERE; 2 UNITS/HR PRN Reason: Protocol Last Titration: 11/15/17 06:00 Dose: 0 units/hr, 0 mls/hr Meropenem 1 gm/ Dextrose 100 mls @ 100 mls/hr IVPB BID RERE PRN Reason: Protocol Last Admin: 11/14/17 22:21 Dose: 100 mls/hr Sodium Chloride (Normal Saline -) 250 mls @ 3,000 mls/hr IV PRN PRN PRN Reason: Hypotension during Dialysis Stop: 11/15/17 19:51 Sodium Chloride (Normal Saline -) 1,000 mls @ 125 mls/hr IV ASDIR RERE Insulin Aspart (Novolog Vial Sliding Scale -) 1 vial SQ ACHS RERE PRN Reason: Protocol Last Admin: 11/15/17 06:14 Dose: 2 unit Ondansetron HCl (Zofran Injection) 4 mg IVPB Q6H PRN PRN Reason: NAUSEA Pantoprazole Sodium (Protonix Iv) 40 mg IVPUSH BID RERE Last Admin: 11/14/17 22:21 Dose: 40 mg Vital Signs Period Temp Pulse Resp BP Sys/Leyva Pulse Ox Last 24 Hr 98 F-99.8 F 78-92 15-22 85-121/40-83 96-100 Intake & Output 11/12/17 11/13/17 11/14/17 0325/18 23:59 23:59 23:59 23:59 Intake Total 500 5305 796 Output Total 350 250 Balance 500 4955 546 Weight 72.575 kg 78.245 kg 83.943 kg Exam: Awake and following commands, confused at times HEENT: PERRL, icteric edematous sclera Pulm: CTA CV: s1, s2 RRR ABD: distended, tympanic, hyperactive bowel sounds Ext: WWP, no edema Neuro: KAY, following commands, answering simple questions AM labs pending CXR: pending Microbiology 11/13/17 17:40 Blood - Peripheral Venous Blood Culture - Preliminary Gram Negative Alfonso 11/13/17 17:40 Blood - Peripheral Venous Blood Culture - Preliminary Gram Negative Alfonso A/67 y/o man with ascending cholangitis, s/p ERCP now with resp distress, anuric renal failure, sepsis, GN bacteremia, resolving respiratory failure P/ -02 for sat >92% -will get ABG this AM -Cont pressors for MAP 65-75 -broad spectrum abx:meropenem, Dr Scott following, apprec recs. repeat blood cultures today to make sure he is clearing on ABX -Renal consulted, now with improved urine output, IVfluids -GI following post ERCP, appprec recs -cont NPO -PPI and DVT prophy Merlyn ACNP Pulm/CCM CCT: 35m
--- NOTE | 2017-11-15 09:03 | PN ---
Progress Note (short form) - Note Progress Note: Renal follow up for THIEN Pt seen and examined in the ICU s/p repeat ERCP yesterday on Levophed BP stable has some urine output this am on Vent, sedated Vital Signs Temperature 99.6 F 11/15/17 06:00 Pulse Rate 96 H 11/15/17 08:30 Respiratory Rate 20 11/15/17 07:01 Blood Pressure 110/73 11/15/17 06:00 O2 Sat by Pulse Oximetry (%) 95 11/15/17 08:30 Intake & Output 11/12/17 11/13/17 11/14/17 11/15/17 23:59 23:59 23:59 23:59 Intake Total 500 5305 796 Output Total 350 250 Balance 500 4955 546 Weight 72.575 kg 78.245 kg 83.943 kg NAD on vent via ET tube No JVD, neck supple RRR, No M/R Dec BS at lung bases ,no rales or wheeze Mild Abd distension NO LE edmea, no clubbing or cyanosis CBC, BMP 11/15/17 05:20 Todays BMP pending Current Medications Albuterol Sulfate (Ventolin 0.083% Nebulizer Soln -) 1 amp NEB Q4H PRN PRN Reason: SHORT OF BREATH/WHEEZING Last Admin: 11/13/17 23:36 Dose: 1 amp Norepinephrine Bitartrate 8, (000 mcg/ Dextrose) 500 mls @ 8.8 mls/hr IV ASDIR RERE; 0.03 MCG/KG/MIN PRN Reason: Protocol Last Admin: 11/14/17 19:00 Dose: 0.12 mcg/kg/min, 37.5 mls/hr Vasopressin 50 units/ Sodium (Chloride) 100 mls @ 4 mls/hr IVPB ASDIR RERE; 2 UNITS/HR PRN Reason: Protocol Last Titration: 11/15/17 06:00 Dose: 0 units/hr, 0 mls/hr Meropenem 1 gm/ Dextrose 100 mls @ 100 mls/hr IVPB BID RERE PRN Reason: Protocol Last Admin: 11/14/17 22:21 Dose: 100 mls/hr Sodium Chloride (Normal Saline -) 250 mls @ 3,000 mls/hr IV PRN PRN PRN Reason: Hypotension during Dialysis Stop: 11/15/17 19:51 Sodium Chloride (Normal Saline -) 1,000 mls @ 125 mls/hr IV ASDIR RERE Insulin Aspart (Novolog Vial Sliding Scale -) 1 vial SQ ACHS RERE PRN Reason: Protocol Last Admin: 11/15/17 06:14 Dose: 2 unit Ondansetron HCl (Zofran Injection) 4 mg IVPB Q6H PRN PRN Reason: NAUSEA Pantoprazole Sodium (Protonix Iv) 40 mg IVPUSH BID RERE Last Admin: 11/14/17 22:21 Dose: 40 mg 67 year old gentleman with PMhx of obesity, prostate cancer, HTN, NIDDM, cholelithiasis who presented to the ED with Abd pain now s/p ERCP with ascending colangitis and gram negative sepsis with THIEN and metabolic acidosis. #Ascending Colangitis #Gram Negative Bacteremia #Septic Shock #Acute Renal Failure likely due to ATN in setting of sepsis/shock #Anion gap metabolic acidosis with Respiratory acidosis #Hyperkalemia #Anemia #Hypocalcemia s/p urgent dialysis yesterday evening for refractory metabolic acidosis todays labs pending ABG pending continue supportive care per ICU keep MAP > 65 will start isotonic saline at 125cc per hour CVP goal 10-12 continue Abx will determine need for additional dialysis based on labs and abg will follow Anuj Ferguson DO
--- NOTE | 2017-11-15 09:15 | PN ---
Progress Note (short form) - Note Progress Note: self extubated this am alert remains on pressors Vital Signs Period Temp Pulse Resp BP Sys/Leyva Pulse Ox Last 24 Hr 98 F-99.8 F 78-96 15-22 85-121/40-83 95-100 +scleral edema cor-rrr lungs decreased bs at bases abd distended, soft ext +edema [place]- clear urine! trialysate catheter CBC, BMP 11/15/17 05:20 Microbiology 11/13/17 17:40 Blood - Peripheral Venous Blood Culture - Preliminary Gram Negative Alfonso 11/13/17 17:40 Blood - Peripheral Venous Blood Culture - Preliminary Gram Negative Alfonso cxray improved Active Medications Albuterol Sulfate (Ventolin 0.083% Nebulizer Soln -) 1 amp NEB Q4H PRN PRN Reason: SHORT OF BREATH/WHEEZING Last Admin: 11/13/17 23:36 Dose: 1 amp Norepinephrine Bitartrate 8, (000 mcg/ Dextrose) 500 mls @ 8.8 mls/hr IV ASDIR RERE; 0.03 MCG/KG/MIN PRN Reason: Protocol Last Admin: 11/14/17 19:00 Dose: 0.12 mcg/kg/min, 37.5 mls/hr Vasopressin 50 units/ Sodium (Chloride) 100 mls @ 4 mls/hr IVPB ASDIR RERE; 2 UNITS/HR PRN Reason: Protocol Last Titration: 11/15/17 06:00 Dose: 0 units/hr, 0 mls/hr Meropenem 1 gm/ Dextrose 100 mls @ 100 mls/hr IVPB BID RERE PRN Reason: Protocol Last Admin: 11/14/17 22:21 Dose: 100 mls/hr Sodium Chloride (Normal Saline -) 250 mls @ 3,000 mls/hr IV PRN PRN PRN Reason: Hypotension during Dialysis Stop: 11/15/17 19:51 Sodium Chloride (Normal Saline -) 1,000 mls @ 125 mls/hr IV ASDIR RERE Insulin Aspart (Novolog Vial Sliding Scale -) 1 vial SQ ACHS RERE PRN Reason: Protocol Last Admin: 11/15/17 06:14 Dose: 2 unit Ondansetron HCl (Zofran Injection) 4 mg IVPB Q6H PRN PRN Reason: NAUSEA Pantoprazole Sodium (Protonix Iv) 40 mg IVPUSH BID RERE Last Admin: 11/14/17 22:21 Dose: 40 mg a/p gram negative sepsis-remains on pressors cultures pending Biliary sepsis choledocholithiasis repeat ercp yesterday with stone removal clinically improved THIEN-s/p hd yesterday, labs pending, appears to be recovering renal function repeat cxray continue ivf continue iv antibiotics ICU monitoring GI and Surgery f/u over 30 minutes spent in the care of this patient Problem List - Problems (1) Biliary sepsis Code(s): K83.0 - CHOLANGITIS (2) Choledocholithiasis Code(s): K80.50 - CALCULUS OF BILE DUCT W/O CHOLANGITIS OR CHOLECYST W/O OBST (3) THIEN (acute kidney injury) Code(s): N17.9 - ACUTE KIDNEY FAILURE, UNSPECIFIED (4) Acute respiratory failure Code(s): J96.00 - ACUTE RESPIRATORY FAILURE, UNSP W HYPOXIA OR HYPERCAPNIA
[2017-11-15] MEDS: PANTOPRAZOLE SODIUM 40 MG VIAL IVPUSH SCH ×2 (10:00→21:22)
[2017-11-15] MEDS: MEROPENEM 1 GM in DEXTROSE 5%-WATER - 100 ML IVPB SCH ×2 (10:00→21:22)
[2017-11-15 10:50] LABS: ARTERIAL BLOOD GAS pH 7.44 (7.35-7.45)
[2017-11-15] MEDS ORDERED: HEMOQUE TEST 1 EACH EACH ONE (10:51)
[2017-11-15 10:59] LABS: ARTERIAL BLOOD GAS BASE EXCESS 1.1 meq/l (-2-2)
[2017-11-15 11:01] LABS: ALLENS TEST POSITIVE
[2017-11-15] MEDS ORDERED: PT OWN MED DRAWER 7, Y5N ONE (11:31)
--- NOTE | 2017-11-15 11:37 | PN ---
GI Progress Note Subjective: GI NOte ( covering Dr Swift) : Patient appears much improved today. He self extubated himself and is alert and communicative. His daughter serves as the imaging assistant. I had her explain the events of yesterday and the need for cholecystectomy and ultimately for repeat ERCP to remove his stent. His urine output is much improved. Weaning off pressors. Blood reveals a gram negative baylee consistent with cholangitis. Unfortunately the laboratory is nonfunctional and await results from another institution. Has mild abdominal pain., NO vomiting. Doubt pancreatitis. - Objective Vital Signs: Vital Signs Temperature 99.6 F 11/15/17 06:00 Pulse Rate 96 H 11/15/17 08:30 Respiratory Rate 20 11/15/17 07:01 Blood Pressure 110/73 11/15/17 06:00 O2 Sat by Pulse Oximetry (%) 95 11/15/17 08:30 Constitutional: Anxious Eyes: Yes: Other (less icteric today) Gastrointestinal Inspection: Yes: Distention ...Auscultate: Yes: Hypoactive Bowel Sounds ...Palpate: Yes: Soft, Other (nontender) Labs: CBC, BMP 11/15/17 05:20 INR, PTT INR 1.74 (0.82-1.09) H 11/14/17 15:55 Problem List - Problems (1) Cholangitis Assessment/Plan: Cholangitis appears to be resolving and doubt significant post-ERCP pancreatitis. Will try clear liquids. Continue antibiotics and weaning off pressors. Dr. Swift will return tomorrow. Will need cholecystectomy to prevent recurrences Code(s): K83.0 - CHOLANGITIS (2) Choledocholithiasis Code(s): K80.50 - CALCULUS OF BILE DUCT W/O CHOLANGITIS OR CHOLECYST W/O OBST
[2017-11-15 11:53] LABS: PLATELET ESTIMATE DECREASED
[2017-11-15] MEDS: VASOPRESSIN 50 UNITS in SODIUM CHLORIDE 97.5 ML IVPB SCH (12:00)
[2017-11-15] MEDS: NOREPINEPHRINE BITARTRATE 8,000 MCG in DEXTROSE 5%-WATER - 492 ML IV SCH (12:00)
--- NOTE | 2017-11-15 12:47 | PN ---
Progress Note, Physician Chief Complaint: abdominal pain History of Present Illness: 67yo male PMH obesity, prostate cancer, HTN, NIDDM, cholelithiasis which was last treated in 1997. He was medically managed at the time and did not require surgery. s/p emergency ERCP with sphincterotomy and stent last night . He had relief of purulent ascending cholangitis. - Current Medication List Current Medications: Active Medications Albuterol Sulfate (Ventolin 0.083% Nebulizer Soln -) 1 amp NEB Q4H PRN PRN Reason: SHORT OF BREATH/WHEEZING Last Admin: 11/13/17 23:36 Dose: 1 amp Norepinephrine Bitartrate 8, (000 mcg/ Dextrose) 500 mls @ 8.8 mls/hr IV ASDIR RERE; 0.03 MCG/KG/MIN PRN Reason: Protocol Last Admin: 11/14/17 19:00 Dose: 0.12 mcg/kg/min, 37.5 mls/hr Vasopressin 50 units/ Sodium (Chloride) 100 mls @ 4 mls/hr IVPB ASDIR RERE; 2 UNITS/HR PRN Reason: Protocol Last Titration: 11/15/17 06:00 Dose: 0 units/hr, 0 mls/hr Meropenem 1 gm/ Dextrose 100 mls @ 100 mls/hr IVPB BID RERE PRN Reason: Protocol Last Admin: 11/14/17 22:21 Dose: 100 mls/hr Sodium Chloride (Normal Saline -) 250 mls @ 3,000 mls/hr IV PRN PRN PRN Reason: Hypotension during Dialysis Stop: 11/15/17 19:51 Sodium Chloride (Normal Saline -) 1,000 mls @ 125 mls/hr IV ASDIR RERE Insulin Aspart (Novolog Vial Sliding Scale -) 1 vial SQ ACHS RERE PRN Reason: Protocol Last Admin: 11/15/17 06:14 Dose: 2 unit Ondansetron HCl (Zofran Injection) 4 mg IVPB Q6H PRN PRN Reason: NAUSEA Pantoprazole Sodium (Protonix Iv) 40 mg IVPUSH BID RERE Last Admin: 11/14/17 22:21 Dose: 40 mg - Objective Vital Signs: Vital Signs Temperature 99.6 F 11/15/17 06:00 Pulse Rate 96 H 11/15/17 08:30 Respiratory Rate 20 11/15/17 07:01 Blood Pressure 110/73 11/15/17 06:00 O2 Sat by Pulse Oximetry (%) 95 11/15/17 08:30 Vital Signs Period Temp Pulse Resp BP Sys/Leyva Pulse Ox Last 24 Hr 98 F-99.8 F 81-96 15-22 93-121/61-83 95-100 Intake & Output 11/14/17 11/15/17 11/15/17 23:59 07:59 15:59 Intake Total 3105 796 Output Total 300 250 Balance 2805 546 Weight 185 lb 1 oz Intake: IV 2905 696 DIPRIVAN - 1,000,000 mcg 189 240 In 100 ml @ 5 MCG/KG/MIN 2.347 mls/hr IVPB TITR RERE Rx#:[id number] Levophed - 8,000 Mcg In 300 444 D5w - 492 ml @ 0.03 MCG/ KG/MIN 8.8 mls/hr IV ASDIR RERE Rx#:[id number] Normal Saline - 1,000 ml 2000 @ 100 mls/hr IV ASDIR RERE Rx#:[id number] Normal Saline - 1,000 ml 400 @ 95.833 mls/hr IV ONCE ONE with Sodium Bicarbonate 8.4% - 150 Meq Rx#:[id number] Pitressin - 50 Units In 16 12 Normal Saline - 97.5 ml @ 2 UNITS/HR 4 mls/hr IVPB ASDIR RERE Rx#: [id number] IVPB 200 100 Output: Urine 300 250 Graham 300 250 Other: Voiding Method Indwelling Catheter Weight Measurement Method Built in [facility] Eyes: Yes: Conjunctiva Clear, EOM Intact HENT: Yes: Atraumatic, Normocephalic Neck: Yes: Supple, Trachea Midline Cardiovascular: Yes: Regular Rate and Rhythm, S1, S2 Respiratory: Yes: Regular, CTA Bilaterally Gastrointestinal: Yes: Normal Bowel Sounds, Soft, Abdomen, Obese, Distention, Tenderness (diffuse) Genitourinary: Yes: Graham Present Edema: Yes Peripheral Pulses WNL: Yes Integumentary: Yes: Jaundice Neurological: Yes: Alert, Oriented Psychiatric: Yes: Alert, Oriented Labs: CBC, BMP 11/15/17 05:20 INR, PTT INR 1.74 (0.82-1.09) H 11/14/17 15:55 Problem List - Problems (1) Choledocholithiasis Assessment/Plan: 67yo male PMH HTN, DM, obesity with Choledocholithiasis, epigastric abdominal pain, impending cholangitis? transaminitis and tbili >6, wbc ~3, lactic acid 9. s/p ERCP sphincterotomy, stone extration and stent placement ICU managemnt NPO and IVF resuscitation Empiric IV antibioics Will plan for Laparoscopic cholecystectomy this week prior to discharge This patient is critically ill. Time spent reviewing chart, examining patient, talking with providers and/or family and documentation is 35 minutes Code(s): K80.50 - CALCULUS OF BILE DUCT W/O CHOLANGITIS OR CHOLECYST W/O OBST (2) Calculus of gallbladder and bile duct w/o cholecystitis or obstruction Code(s): K80.70 - CALCULUS OF GB AND BILE DUCT W/O CHOLECYST W/O OBSTRUCTION (3) Obesity Code(s): E66.9 - OBESITY, UNSPECIFIED Qualifiers: Obesity classification: adult class 1 (BMI 30 - 34.9) (4) Abdominal pain in male Code(s): R10.9 - UNSPECIFIED ABDOMINAL PAIN (5) Transaminitis Code(s): R74.0 - NONSPEC ELEV OF LEVELS OF TRANSAMNS & LACTIC ACID DEHYDRGNSE
--- NOTE | 2017-11-15 13:19 | PN ---
Progress Note, Physician Chief Complaint: Pt. pain controlled, extubated himself this am. Currently stable. - Current Medication List Current Medications: Active Medications Albuterol Sulfate (Ventolin 0.083% Nebulizer Soln -) 1 amp NEB Q4H PRN PRN Reason: SHORT OF BREATH/WHEEZING Last Admin: 11/13/17 23:36 Dose: 1 amp Norepinephrine Bitartrate 8, (000 mcg/ Dextrose) 500 mls @ 8.8 mls/hr IV ASDIR RERE; 0.03 MCG/KG/MIN PRN Reason: Protocol Last Admin: 11/14/17 19:00 Dose: 0.12 mcg/kg/min, 37.5 mls/hr Vasopressin 50 units/ Sodium (Chloride) 100 mls @ 4 mls/hr IVPB ASDIR RERE; 2 UNITS/HR PRN Reason: Protocol Last Titration: 11/15/17 06:00 Dose: 0 units/hr, 0 mls/hr Meropenem 1 gm/ Dextrose 100 mls @ 100 mls/hr IVPB BID RERE PRN Reason: Protocol Last Admin: 11/14/17 22:21 Dose: 100 mls/hr Sodium Chloride (Normal Saline -) 250 mls @ 3,000 mls/hr IV PRN PRN PRN Reason: Hypotension during Dialysis Stop: 11/15/17 19:51 Sodium Chloride (Normal Saline -) 1,000 mls @ 125 mls/hr IV ASDIR RERE Insulin Aspart (Novolog Vial Sliding Scale -) 1 vial SQ ACHS RERE PRN Reason: Protocol Last Admin: 11/15/17 06:14 Dose: 2 unit Ondansetron HCl (Zofran Injection) 4 mg IVPB Q6H PRN PRN Reason: NAUSEA Pantoprazole Sodium (Protonix Iv) 40 mg IVPUSH BID RERE Last Admin: 11/14/17 22:21 Dose: 40 mg - Objective Vital Signs: Vital Signs Temperature 99.6 F 11/15/17 06:00 Pulse Rate 96 H 11/15/17 08:30 Respiratory Rate 20 11/15/17 07:01 Blood Pressure 110/73 11/15/17 06:00 O2 Sat by Pulse Oximetry (%) 95 11/15/17 08:30 Constitutional: Yes: Well Nourished, No Distress, Calm Neurological: Yes: WNL, Alert, Oriented Labs: CBC, BMP 11/15/17 05:20 INR, PTT INR 1.74 (0.82-1.09) H 11/14/17 15:55 Assessment/Plan POD#1 s/p ERCP x2 under GA. Doing well. D/C from anesthesia care.
[2017-11-15 13:24] LABS: ANION GAP 12 (8-16); BLOOD UREA NITROGEN 35 mg/dL (7-18); CHLORIDE 104 mmol/L (98-107); CO2 25 mmol/L (21-32); CREATININE 3.4 mg/dL (0.7-1.3); GLUCOSE,RANDOM 155 mg/dL (74-106); SODIUM 141 mmol/L (136-145)
[2017-11-15 13:25] LABS: LIPASE 58 U/L (73-393); TOT PROT 4.8 g/dl (6.4-8.2)
[2017-11-15 13:26] LABS: ALBUMIN 2.5 g/dl (3.4-5.0); ALK PHOS 224 U/L (45-117); AMYLASE 58 U/L (25-115); BILIRUBIN,DIRECT 2.2 mg/dL (0.0-0.2); BILIRUBIN,TOTAL 5.5 mg/dL (0.2-1.0); SGOT/AST 970 U/L (15-37); SGPT/ALT 857 U/L (12-78)
[2017-11-15 13:28] LABS: CALCIUM 6.8 mg/dL (8.5-10.1)
[2017-11-15] MEDS ORDERED: CALCIUM GLUCONATE 10% - 1,000 MG/10 ML VIAL IVPB ONE ×2 (13:30→16:15)
[2017-11-15] MEDS: ALBUTEROL SO4 0.083% IH SOL 2.5 MG/3 ML VIAL.NEB. NEB PRN (16:01)
[2017-11-16] MEDS: INSULIN SLIDING SCALE (NOVOLOG) 1 VIAL SQ SCH ×4 (06:21→21:42)
[2017-11-16 06:36] LABS: HEMATOCRIT 27.4 % (35.4-49); HEMOGLOBIN 9.3 GM/dL (11.7-16.9); MCH 29.8 pg (25.7-33.7); MCHC 33.9 g/dl (32.0-35.9); MEAN CELL VOLUME 88.2 fl (80-96); MEAN PLT VOLUME 10.4 fl (7.5-11.1); PLATELET COUNT 123 K/MM3 (134-434); RBC 3.11 M/mm3 (4.00-5.60); RDW 15.7 % (11.9-15.9); WHITE BLOOD COUNT 29.3 K/mm3 (4.0-10.0)
[2017-11-16 06:58] LABS: ALBUMIN 2.2 g/dl (3.4-5.0); BILIRUBIN,DIRECT 2.4 mg/dL (0.0-0.2)
[2017-11-16 07:00] LABS: BILIRUBIN,TOTAL 3.1 mg/dL (0.2-1.0); TOT PROT 4.9 g/dl (6.4-8.2)
[2017-11-16 07:01] LABS: CHLORIDE 104 mmol/L (98-107); SODIUM 143 mmol/L (136-145)
--- NOTE | 2017-11-16 07:07 | PN ---
Progress Note, Physician Chief Complaint: ID ICU followup for this 67 year old [place] male NIDDM and sepsis sydrome secondary to purulent cholangitis with gram negatives in the blood Self extubated yesterday and currently on BIPAP mask. Alert 50 % FIO2 - Current Medication List Current Medications: Active Medications Albuterol Sulfate (Ventolin 0.083% Nebulizer Soln -) 1 amp NEB Q4H PRN PRN Reason: SHORT OF BREATH/WHEEZING Last Admin: 11/15/17 16:01 Dose: 1 amp Norepinephrine Bitartrate 8, (000 mcg/ Dextrose) 500 mls @ 8.8 mls/hr IV ASDIR RERE; 0.03 MCG/KG/MIN PRN Reason: Protocol Last Admin: 11/15/17 12:00 Dose: Not Given Vasopressin 50 units/ Sodium (Chloride) 100 mls @ 4 mls/hr IVPB ASDIR RERE; 2 UNITS/HR PRN Reason: Protocol Last Admin: 11/15/17 12:00 Dose: Not Given Meropenem 1 gm/ Dextrose 100 mls @ 100 mls/hr IVPB BID RERE PRN Reason: Protocol Last Admin: 11/15/17 21:22 Dose: 100 mls/hr Sodium Chloride (Normal Saline -) 1,000 mls @ 125 mls/hr IV ASDIR RERE Last Admin: 11/15/17 08:30 Dose: 125 mls/hr Insulin Aspart (Novolog Vial Sliding Scale -) 1 vial SQ ACHS RERE PRN Reason: Protocol Last Admin: 11/16/17 06:21 Dose: Not Given Ondansetron HCl (Zofran Injection) 4 mg IVPB Q6H PRN PRN Reason: NAUSEA Pantoprazole Sodium (Protonix Iv) 40 mg IVPUSH BID RERE Last Admin: 11/15/17 21:22 Dose: 40 mg - Objective Vital Signs: Vital Signs Temperature 98.4 F 11/16/17 06:00 Pulse Rate 94 H 11/16/17 06:00 Respiratory Rate 17 11/16/17 06:00 Blood Pressure 103/72 11/16/17 06:00 O2 Sat by Pulse Oximetry (%) 100 11/16/17 02:25 Constitutional: Yes: Mild Distress HENT: Yes: WNL, Atraumatic Neck: Yes: WNL, Supple Cardiovascular: Yes: S1, S2 Respiratory: Yes: WNL, Regular, CTA Bilaterally Gastrointestinal: Yes: WNL, Normal Bowel Sounds. No: Tenderness, Tenderness, Rebound Edema: No Labs: CBC, BMP 11/16/17 05:15 INR, PTT INR 1.74 (0.82-1.09) H 11/14/17 15:55 Problem List - Problems (1) Gram-negative bacteremia Code(s): R78.81 - BACTEREMIA (2) THIEN (acute kidney injury) Code(s): N17.9 - ACUTE KIDNEY FAILURE, UNSPECIFIED (3) Acute respiratory failure Code(s): J96.00 - ACUTE RESPIRATORY FAILURE, UNSP W HYPOXIA OR HYPERCAPNIA (4) Cholangitis Code(s): K83.0 - CHOLANGITIS Assessment/Plan Microbiology 11/13/17 17:40 Blood - Peripheral Venous Blood Culture - Preliminary Gram Negative Alfonso 11/13/17 17:40 Blood - Peripheral Venous Blood Culture - Preliminary Gram Negative Alfonso 11/13/17 17:00 Urine - Urine Clean Catch Urine Culture - Preliminary Lactose Fermenting Neg Bacilli Laboratory Tests 11/14/17 11/15/17 11/15/17 15:55 05:20 08:42 WBC Hgb Hct Plt Count INR 1.74 H ABG pH 7.44 D BUN 35 H D Creatinine 3.4 H Creat Clearance w eGFR 18.21 Direct Bilirubin 2.2 H D Alkaline Phosphatase 224 H D C-Reactive Protein > 15.0 H 11/16/17 05:15 WBC 29.3 H Hgb 9.3 L Hct 27.4 L Plt Count 123 L D INR ABG pH BUN Creatinine Creat Clearance w eGFR Direct Bilirubin Alkaline Phosphatase C-Reactive Protein Assessment Sepsis syndrome Gram negative bacteremia Cholangitis S/P ERCP with stent placement pus noted in duct sphincterotomy Acute renal failure Acute respiratory failure Diabetes Thrombocytopenia secondary gram negative sepsis bactermemia Plan To continue Meropenem pending c/s Off pressors and self extubated Critical care time spent 35 minutes
[2017-11-16 07:11] LABS: ALBUMIN 2.2 g/dl (3.4-5.0); ALK PHOS 279 U/L (45-117); ANION GAP 15 (8-16); BILIRUBIN,DIRECT 2.4 mg/dL (0.0-0.2); BILIRUBIN,TOTAL 3.2 mg/dL (0.2-1.0); BLOOD UREA NITROGEN 54 mg/dL (7-18); CO2 24 mmol/L (21-32); CREATININE 4.4 mg/dL (0.7-1.3); GLUCOSE,RANDOM 93 mg/dL (74-106); PHOSPHOROUS 4.1 mg/dL (2.5-4.9); TOT PROT 4.9 g/dl (6.4-8.2)
[2017-11-16 07:25] LABS: PLATELET ESTIMATE SLT DECREASE
[2017-11-16 07:48] LABS: MAGNESIUM 2.1 mg/dL (1.8-2.4); POTASSIUM 3.7 mmol/L (3.5-5.1); SGPT/ALT 578 U/L (12-78)
[2017-11-16] MEDS ORDERED: CALCIUM GLUCONATE 10% - 1,000 MG/10 ML VIAL IVPUSH ONE (07:48)
[2017-11-16 07:49] LABS: CALCIUM 6.6 mg/dL (8.5-10.1); SGOT/AST 342 U/L (15-37)
[2017-11-16] MEDS ORDERED: PT OWN MED DRAWER 7, Y5N ONE (08:11)
[2017-11-16] MEDS: MEROPENEM 1 GM in DEXTROSE 5%-WATER - 100 ML IVPB SCH ×2 (09:27→21:19)
[2017-11-16] MEDS: PANTOPRAZOLE SODIUM 40 MG VIAL IVPUSH SCH ×2 (09:28→21:19)
[2017-11-16] MEDS: ALBUTEROL SO4 0.083% IH SOL 2.5 MG/3 ML VIAL.NEB. NEB PRN (10:25)
--- NOTE | 2017-11-16 11:03 | PN ---
Progress Note, Physician Chief Complaint: abdominal pain History of Present Illness: 67yo male PMH obesity, prostate cancer, HTN, NIDDM, cholelithiasis which was last treated in 1997. He was medically managed at the time and did not require surgery. s/p emergency ERCP with sphincterotomy and stent last night . He had relief of purulent ascending cholangitis with ERCP. - Current Medication List Current Medications: Active Medications Albuterol Sulfate (Ventolin 0.083% Nebulizer Soln -) 1 amp NEB Q4H PRN PRN Reason: SHORT OF BREATH/WHEEZING Last Admin: 11/16/17 10:25 Dose: 1 amp Meropenem 1 gm/ Dextrose 100 mls @ 100 mls/hr IVPB BID RERE PRN Reason: Protocol Last Admin: 11/16/17 09:27 Dose: 100 mls/hr Insulin Aspart (Novolog Vial Sliding Scale -) 1 vial SQ ACHS RERE PRN Reason: Protocol Last Admin: 11/16/17 06:21 Dose: Not Given Ondansetron HCl (Zofran Injection) 4 mg IVPB Q6H PRN PRN Reason: NAUSEA Pantoprazole Sodium (Protonix Iv) 40 mg IVPUSH BID [facility] Last Admin: 11/16/17 09:28 Dose: 40 mg - Objective Vital Signs: Vital Signs Temperature 98.4 F 11/16/17 06:00 Pulse Rate 93 H 11/16/17 10:15 Respiratory Rate 20 11/16/17 10:15 Blood Pressure 121/82 11/16/17 10:15 O2 Sat by Pulse Oximetry (%) 92 L 11/16/17 08:20 Vital Signs Period Temp Pulse Resp BP Sys/Leyva Pulse Ox Last 24 Hr 98.4 F-99.2 F 82-102 17-23 98-134/58-83 91-100 Intake & Output 11/15/17 11/16/17 11/16/17 23:59 07:59 15:59 Intake Total 1664 254 Output Total 400 800 Balance 1264 -546 Weight 168 lb 2 oz Intake: IV 1664 254 DIPRIVAN - 1,000,000 mcg 20 In 100 ml @ 5 MCG/KG/MIN 2.347 mls/hr IVPB TITR RERE Rx#:[id number] Levophed - 8,000 Mcg In 120 D5w - 492 ml @ 0.03 MCG/ KG/MIN 8.8 mls/hr IV ASDIR RERE Rx#:[id number] Normal Saline - 1,000 ml 1500 250 @ 125 mls/hr IV ASDIR RERE Rx#:[id number] Pitressin - 50 Units In 24 4 Normal Saline - 97.5 ml @ 2 UNITS/HR 4 mls/hr IVPB ASDIR RERE Rx#: [id number] Output: Urine 400 800 Graham 400 800 Other: Voiding Method Indwelling Catheter Indwelling Catheter Indwelling Catheter Constitutional: Yes: No Distress, Calm, Obese Eyes: Yes: Conjunctiva Clear, EOM Intact HENT: Yes: Atraumatic, Normocephalic Neck: Yes: Supple, Trachea Midline Cardiovascular: Yes: Regular Rate and Rhythm, S1, S2 Respiratory: Yes: Regular, CTA Bilaterally, On Nasal O2 Gastrointestinal: Yes: Normal Bowel Sounds, Soft, Abdomen, Obese, Distention, Hypoactive Bowel Sounds, Tenderness ...Rectal Exam: Yes: Deferred Genitourinary: No: CVA Tenderness - Right, Hematuria Musculoskeletal: No: Muscle Pain, Muscle Weakness Extremities: No: Cool, Cyanosis Edema: No Peripheral Pulses WNL: Yes Integumentary: Yes: Rash. No: Jaundice Neurological: Yes: Alert, Oriented Psychiatric: Yes: Alert, Oriented Labs: CBC, BMP 11/16/17 05:15 11/16/17 05:15 INR, PTT INR 1.74 (0.82-1.09) H 11/14/17 15:55 Problem List - Problems (1) Choledocholithiasis Assessment/Plan: 67yo male PMH HTN, DM, obesity with Choledocholithiasis, epigastric abdominal pain, impending cholangitis? transaminitis and tbili >6, wbc ~3, lactic acid 9. s/p ERCP sphincterotomy, stone extration and stent placement ICU managemnt NPO and IVF resuscitation Empiric IV antibioics Will plan for Laparoscopic cholecystectomy 11/17/2017 - Discussed with patient risks, benefits and alternatives of laparoscopic possible open cholecystectomy, including but not limited to bleeding, infection, injury to adjacent structures , leak or injury, intraabdominal abscess, need for further procedures, ; alternatives include antibiotics, delayed or no surgery - risks of this include failure of nonoperative therapy, perforation, sepsis, recurrence, . Patient desires to proceed with operation - will take to OR for above. Informed consent signed by his daughter but telephone Kenisha Albrecht for same. She has signed all of his consents during this admission at the patient's request. Her contact information was listed in the patients chart. This patient is critically ill. Time spent reviewing chart, examining patient, talking with providers and/or family and documentation is 35 minutes Code(s): K80.50 - CALCULUS OF BILE DUCT W/O CHOLANGITIS OR CHOLECYST W/O OBST (2) Calculus of gallbladder and bile duct w/o cholecystitis or obstruction Code(s): K80.70 - CALCULUS OF GB AND BILE DUCT W/O CHOLECYST W/O OBSTRUCTION (3) Obesity Code(s): E66.9 - OBESITY, UNSPECIFIED Qualifiers: Obesity classification: adult class 1 (BMI 30 - 34.9) (4) Abdominal pain in male Code(s): R10.9 - UNSPECIFIED ABDOMINAL PAIN (5) Transaminitis Code(s): R74.0 - NONSPEC ELEV OF LEVELS OF TRANSAMNS & LACTIC ACID DEHYDRGNSE
--- NOTE | 2017-11-16 11:05 | PN ---
Progress Note (short form) - Note Progress Note: Renal follow up for THIEN Pt seen and examined in the ICU extubated yesterday on NC O2 has some difficulty taking a deep breath no chest pain no fever, chills making urine in [place] Vital Signs Temperature 98.4 F 11/16/17 06:00 Pulse Rate 93 H 11/16/17 10:15 Respiratory Rate 20 11/16/17 10:15 Blood Pressure 121/82 11/16/17 10:15 O2 Sat by Pulse Oximetry (%) 92 L 11/16/17 08:20 Intake & Output 11/13/17 11/14/17 11/15/17 11/16/17 23:59 23:59 23:59 23:59 Intake Total 500 5305 2460 254 Output Total 350 1250 800 Balance 500 4955 1210 -546 Weight 72.575 kg 78.245 kg 83.943 kg 76.26 kg NAD on NC No JVD, neck supple RRR, No M/R Dec BS at lung bases Mild Abd distension NO LE edmea, no clubbing or cyanosis CBC, BMP 11/16/17 05:15 11/16/17 05:15 Laboratory Tests 11/16/17 05:15 Calcium 6.6 L* Phosphorus 4.1 D Magnesium 2.1 D Albumin 2.2 L Current Medications Albuterol Sulfate (Ventolin 0.083% Nebulizer Soln -) 1 amp NEB Q4H PRN PRN Reason: SHORT OF BREATH/WHEEZING Last Admin: 11/16/17 10:25 Dose: 1 amp Meropenem 1 gm/ Dextrose 100 mls @ 100 mls/hr IVPB BID RERE PRN Reason: Protocol Last Admin: 11/16/17 09:27 Dose: 100 mls/hr Insulin Aspart (Novolog Vial Sliding Scale -) 1 vial SQ ACHS RERE PRN Reason: Protocol Last Admin: 11/16/17 06:21 Dose: Not Given Ondansetron HCl (Zofran Injection) 4 mg IVPB Q6H PRN PRN Reason: NAUSEA Pantoprazole Sodium (Protonix Iv) 40 mg IVPUSH BID [facility] Last Admin: 11/16/17 09:28 Dose: 40 mg 67 year old gentleman with PMhx of obesity, prostate cancer, HTN, NIDDM, cholelithiasis who presented to the ED with Abd pain now s/p ERCP with ascending colangitis and gram negative sepsis with THIEN and metabolic acidosis. #Ascending Colangitis #Gram Negative Bacteremia #Septic Shock, now stable #Acute Renal Failure likely due to ATN in setting of sepsis/shock #Hyperkalemia #Anemia #Hypocalcemia BUN/Cr remains elevated however pt is non-oliguric no hyperkalemia, acidosis or overt volume overload to warrant dialysis today continue to monitor renal function and urine output dose all meds for CrCl less then 15 Keep MAP > 65 maintain trialysis catheter for now as pt may need further dialysis corrected Ca is 8, no indication for IV calcium continue Abx, supportive care as per ICU will follow Anuj Ferguson DO
--- NOTE | 2017-11-16 12:23 | PN ---
Progress Note, Physician History of Present Illness: Clinically better this am. Not in distress, or in pain, Awake and alert. Liver chem shows some improvement compared to 11/15 Leukocytosis E.coli in blood - Current Medication List Current Medications: Active Medications Albuterol Sulfate (Ventolin 0.083% Nebulizer Soln -) 1 amp NEB Q4H PRN PRN Reason: SHORT OF BREATH/WHEEZING Last Admin: 11/16/17 10:25 Dose: 1 amp Heparin Sodium (Porcine) (Heparin -) 5,000 unit SQ TID [facility] Meropenem 1 gm/ Dextrose 100 mls @ 100 mls/hr IVPB BID RERE PRN Reason: Protocol Last Admin: 11/16/17 09:27 Dose: 100 mls/hr Insulin Aspart (Novolog Vial Sliding Scale -) 1 vial SQ ACHS RERE PRN Reason: Protocol Last Admin: 11/16/17 11:24 Dose: Not Given Ondansetron HCl (Zofran Injection) 4 mg IVPB Q6H PRN PRN Reason: NAUSEA Pantoprazole Sodium (Protonix Iv) 40 mg IVPUSH BID [facility] Last Admin: 11/16/17 09:28 Dose: 40 mg - Objective Vital Signs: Vital Signs Temperature 98.4 F 11/16/17 06:00 Pulse Rate 93 H 11/16/17 10:15 Respiratory Rate 20 11/16/17 10:15 Blood Pressure 121/82 11/16/17 10:15 O2 Sat by Pulse Oximetry (%) 92 L 11/16/17 08:20 Constitutional: Yes: No Distress, Calm Eyes: Yes: Conjunctiva Clear HENT: Yes: Atraumatic Neck: Yes: Supple Cardiovascular: Yes: Regular Rate and Rhythm. No: Bradycardia, Tachycardia Respiratory: Yes: Regular Gastrointestinal: Yes: Distention. No: Soft, Melena, Rectal Bleeding, Tenderness, Tenderness, Epigastrium, Tenderness, Rebound, Vomiting Neurological: Yes: Alert Labs: CBC, BMP 11/16/17 05:15 11/16/17 05:15 INR, PTT INR 1.74 (0.82-1.09) H 11/14/17 15:55 Laboratory Results - last 24 hr 11/14/17 11/15/17 11/15/17 05:50 05:20 05:20 WBC RBC Hgb Hct MCV MCH MCHC RDW Plt Count MPV Neutrophils % Neutrophils % (Manual) 68.3 Band Neutrophils % 15.9 Lymphocytes % Lymphocytes % (Manual) 1.2 L D Monocytes % (Manual) 1 L Eosinophils % (Manual) 0.0 Basophils % (Manual) 0.0 Myelocytes % (Man) 0 Promyelocytes % (Man) 0 Blast Cells % (Manual) 0 Nucleated RBC % 0 Metamyelocytes 13 H D Hypochromia Platelet Estimate Decreased Platelet Comment Present Schistocytes 1+ Sodium 141 Potassium 4.0 D Chloride 104 Carbon Dioxide 25 D Anion Gap 12 BUN 35 H D Creatinine 3.4 H Creat Clearance w eGFR 18.21 POC Glucometer Random Glucose 155 H D Calcium 6.8 L* Phosphorus Magnesium Total Bilirubin 5.5 H Direct Bilirubin 2.2 H D AST 970 H D ALT 857 H D Alkaline Phosphatase 224 H D C-Reactive Protein > 15.0 H Total Protein 4.8 L Albumin 2.5 L Total Amylase 58 D Lipase 58 L Hep C Ab Diagnostic <0.1 Liver Fibrosis Interp 11/15/17 11/15/17 11/16/17 15:59 21:42 05:15 WBC 29.3 H RBC 3.11 L Hgb 9.3 L Hct 27.4 L MCV 88.2 MCH 29.8 MCHC 33.9 RDW 15.7 Plt Count 123 L D MPV 10.4 Neutrophils % No Result Required. Neutrophils % (Manual) 85.0 H D Band Neutrophils % 11.0 Lymphocytes % No Result Required. Lymphocytes % (Manual) 3.0 L D Monocytes % (Manual) 1 L Eosinophils % (Manual) Basophils % (Manual) Myelocytes % (Man) Promyelocytes % (Man) Blast Cells % (Manual) Nucleated RBC % Metamyelocytes Hypochromia 1+ Platelet Estimate Slt decrease Platelet Comment No clumping noted Schistocytes Sodium Potassium Chloride Carbon Dioxide Anion Gap BUN Creatinine Creat Clearance w eGFR POC Glucometer [phone] Random Glucose Calcium Phosphorus Magnesium Total Bilirubin Direct Bilirubin AST ALT Alkaline Phosphatase C-Reactive Protein Total Protein Albumin Total Amylase Lipase Hep C Ab Diagnostic Liver Fibrosis Interp 11/16/17 11/16/17 11/16/17 05:15 05:15 05:51 WBC RBC Hgb Hct MCV MCH MCHC RDW Plt Count MPV Neutrophils % Neutrophils % (Manual) Band Neutrophils % Lymphocytes % Lymphocytes % (Manual) Monocytes % (Manual) Eosinophils % (Manual) Basophils % (Manual) Myelocytes % (Man) Promyelocytes % (Man) Blast Cells % (Manual) Nucleated RBC % Metamyelocytes Hypochromia Platelet Estimate Platelet Comment Schistocytes Sodium 143 Potassium 3.7 Chloride 104 Carbon Dioxide 24 Anion Gap 15 BUN 54 H D Creatinine 4.4 H D Creat Clearance w eGFR 13.52 POC Glucometer [phone] Random Glucose 93 D Calcium 6.6 L* Phosphorus 4.1 D Magnesium 2.1 D Total Bilirubin 3.2 H D 3.1 H Direct Bilirubin 2.4 H 2.4 H AST 342 H D 342 H ALT 578 H D 558 H Alkaline Phosphatase 279 H D 283 H C-Reactive Protein Total Protein 4.9 L 4.9 L Albumin 2.2 L 2.2 L Total Amylase 68 Lipase Hep C Ab Diagnostic Liver Fibrosis Interp 11/16/17 11:16 WBC RBC Hgb Hct MCV MCH MCHC RDW Plt Count MPV Neutrophils % Neutrophils % (Manual) Band Neutrophils % Lymphocytes % Lymphocytes % (Manual) Monocytes % (Manual) Eosinophils % (Manual) Basophils % (Manual) Myelocytes % (Man) Promyelocytes % (Man) Blast Cells % (Manual) Nucleated RBC % Metamyelocytes Hypochromia Platelet Estimate Platelet Comment Schistocytes Sodium Potassium Chloride Carbon Dioxide Anion Gap BUN Creatinine Creat Clearance w eGFR POC Glucometer [phone] Random Glucose Calcium Phosphorus Magnesium Total Bilirubin Direct Bilirubin AST ALT Alkaline Phosphatase C-Reactive Protein Total Protein Albumin Total Amylase Lipase Hep C Ab Diagnostic Liver Fibrosis Interp Problem List - Problems (1) Cholestasis Code(s): K83.1 - OBSTRUCTION OF BILE DUCT (2) Hepatitis Code(s): K75.9 - INFLAMMATORY LIVER DISEASE, UNSPECIFIED (3) Ileus, unspecified Code(s): K56.7 - ILEUS, UNSPECIFIED (4) Jaundice Code(s): R17 - UNSPECIFIED JAUNDICE (5) Sepsis Code(s): A41.9 - SEPSIS, UNSPECIFIED ORGANISM (6) Cholangitis Code(s): K83.0 - CHOLANGITIS (7) Cholangitis due to bile duct calculus with obstruction Code(s): K80.31 - CALCULUS OF BILE DUCT W CHOLANGITIS, UNSP, WITH OBSTRUCTION Assessment/Plan Sepsis with respiratory and renal failure to cholangitis. S/p therapeutic ERCP. Clinically better, still remains high risk. ICU monitoring Continue current management CBC, CMP, PT/INR, lipase @ 17 pm and in am ID on the case
[2017-11-16] MEDS: HEPARIN NA (PORCINE) 5,000 UNITS/ML 1ML VIAL SQ SCH ×2 (13:22→21:19)
[2017-11-16] MEDS: ALBUTEROL SO4 2.5/IPRATROPIUM 0.5 INH SOL 3 ML VIAL.NEB. NEB PRN (14:24)
--- NOTE | 2017-11-16 15:50 | PN ---
Progress Note (short form) - Note Progress Note: Subjective: The patient was seen and examined at the bedside, he states he would like to sit in the chair today. Current Medications Generic Name Dose Route Start Last Admin Trade Name Freq PRN Reason Stop Dose Admin Albuterol/Ipratropium 1 amp 11/16/17 14:18 11/16/17 14:24 Duoneb - NEB 1 amp Q6H PRN Administration SHORTNESS OF BREATH Heparin Sodium (Porcine) 5,000 unit 11/16/17 14:00 11/16/17 13:22 Heparin - SQ 5,000 unit TID RERE Administration Meropenem 1 gm/ Dextrose 100 mls @ 100 mls/hr 11/14/17 13:00 11/16/17 09:27 IVPB 100 mls/hr BID RERE Administration Protocol Insulin Aspart 1 vial 11/14/17 07:00 11/16/17 11:24 Novolog Vial Sliding Scale - SQ Not Given ACHS RERE Protocol Ondansetron HCl 4 mg 11/13/17 22:10 Zofran Injection IVPB Q6H PRN NAUSEA Pantoprazole Sodium 40 mg 11/14/17 10:00 11/16/17 09:28 Protonix Iv IVPUSH 40 mg BID RERE Administration Objective: Vital Signs Period Temp Pulse Resp BP Sys/Leyva Pulse Ox Last 24 Hr 98.4 F-99.2 F 82-102 17-23 98-123/58-82 91-100 Physical Exam: General: NAD, A&Ox3 Lungs: Decreased breath sounds bilaterally Heart: RRR, S1S2 Abd: Soft, non-tender Ext: + edema CBCD WBC 29.3 K/mm3 (4.0-10.0) H 11/16/17 05:15 RBC 3.11 M/mm3 (4.00-5.60) L 11/16/17 05:15 Hgb 9.3 GM/dL (11.7-16.9) L 11/16/17 05:15 Hct 27.4 % (35.4-49) L 11/16/17 05:15 MCV 88.2 fl (80-96) 11/16/17 05:15 MCHC 33.9 g/dl (32.0-35.9) 11/16/17 05:15 RDW 15.7 % (11.9-15.9) 11/16/17 05:15 Plt Count 123 K/MM3 (134-434) L D 11/16/17 05:15 MPV 10.4 fl (7.5-11.1) 11/16/17 05:15 CMP Sodium 143 mmol/L (136-145) 11/16/17 05:15 Potassium 3.7 mmol/L (3.5-5.1) 11/16/17 05:15 Chloride 104 mmol/L (98-107) 11/16/17 05:15 Carbon Dioxide 24 mmol/L (21-32) 11/16/17 05:15 Anion Gap 15 (8-16) 11/16/17 05:15 BUN 54 mg/dL (7-18) H D 11/16/17 05:15 Creatinine 4.4 mg/dL (0.7-1.3) H D 11/16/17 05:15 Creat Clearance w eGFR 13.52 (>60) 11/16/17 05:15 Random Glucose 93 mg/dL (74-106) D 11/16/17 05:15 Calcium 6.6 mg/dL (8.5-10.1) L* 11/16/17 05:15 Total Bilirubin 3.2 mg/dL (0.2-1.0) H D 11/16/17 05:15 AST 342 U/L (15-37) H D 11/16/17 05:15 ALT 578 U/L (12-78) H D 11/16/17 05:15 Alkaline Phosphatase 279 U/L (45-117) H D 11/16/17 05:15 Total Protein 4.9 g/dl (6.4-8.2) L 11/16/17 05:15 Albumin 2.2 g/dl (3.4-5.0) L 11/16/17 05:15 CARDIAC ENZYMES Creatine Kinase 175 IU/L (39-308) 11/13/17 08:51 Troponin I < 0.02 ng/ml (0.00-0.05) 11/13/17 08:51 Microbiology 11/13/17 22:00 Stool Salmonella/Shigella Culture - Final NO GROWTH OF SALMONELLA OR SHIGELLA SPECIES OBTAINED 11/13/17 22:00 Stool Campylobacter Culture - Final NO GROWTH OF CAMPYLOBACTER SPECIES OBTAINED 11/13/17 22:00 Stool Yersinia Culture - Final NO GROWTH OF YERSINIA SPECIES OBTAINED 11/13/17 22:00 Stool Vibrio Culture - Final NO GROWTH OF VIBRIO SPECIES OBTAINED 11/13/17 22:00 Stool Escherichia coli 0157 Culture - Final NO GROWTH OF E COLI 0157 OBTAINED 11/13/17 17:40 Blood - Peripheral Venous Blood Culture - Final Escherichia Coli 11/13/17 17:00 Urine - Urine Clean Catch Urine Culture - Final Escherichia Coli Esbl Facility Worker 11/15/17 10:35 Blood - Peripheral Venous Blood Culture - Preliminary NO GROWTH OBTAINED AFTER 24 HOURS, INCUBATION TO CONTINUE FOR 4 DAYS. 11/15/17 09:40 Blood - Peripheral Venous Blood Culture - Preliminary NO GROWTH OBTAINED AFTER 24 HOURS, INCUBATION TO CONTINUE FOR 4 DAYS. 11/13/17 17:40 Blood - Peripheral Venous Blood Culture - Preliminary Gram Negative Alfonso Assessment: This is a 67 year old male with PMHx HTN, NIDDM, cholelithiasis, who presented to the ED with periumbilical pain, nausea, vomiting, abdominal distention x1 day Plan: 1) Septic shock 2/2 ascending cholangitis, e.coli bacteremia, esbl UTI -
--- NOTE | 2017-11-16 16:05 | PN ---
Teaching Attending Note Name of Resident: Hadley Lovett ATTENDING PHYSICIAN STATEMENT I saw and evaluated the patient. I reviewed the resident's note and discussed the case with the resident. I agree with the resident's findings and plan as documented. SUBJECTIVE: Pt seen and examined in the ICU. Breathing better but still short of breath. Abdominal pain improving. No fevers or chills. OBJECTIVE: Last Vital Signs Temp Pulse Resp BP Pulse Ox 98.6 F 100 H 20 123/74 92 L 11/16/17 13:10 11/16/17 15:00 11/16/17 15:00 11/16/17 15:00 11/16/17 08:20 Intake & Output 11/13/17 11/14/17 11/15/17 11/16/17 23:59 23:59 23:59 23:59 Intake Total 500 5305 2460 654 Output Total 350 1250 1500 Balance 500 4955 1210 -846 Weight 72.575 kg 78.245 kg 83.943 kg 76.26 kg Gen: tachypneic at rest Heart: RRR Lung: decreased breath sounds at the bases Abd: softly distended, nontender Ext: + edema CBC, BMP 11/16/17 05:15 11/16/17 05:15 Active Medications Albuterol/Ipratropium (Duoneb -) 1 amp NEB Q6H PRN PRN Reason: SHORTNESS OF BREATH Last Admin: 11/16/17 14:24 Dose: 1 amp Heparin Sodium (Porcine) (Heparin -) 5,000 unit SQ TID [facility] Last Admin: 11/16/17 13:22 Dose: 5,000 unit Meropenem 1 gm/ Dextrose 100 mls @ 100 mls/hr IVPB BID RERE PRN Reason: Protocol Last Admin: 11/16/17 09:27 Dose: 100 mls/hr Insulin Aspart (Novolog Vial Sliding Scale -) 1 vial SQ ACHS RERE PRN Reason: Protocol Last Admin: 11/16/17 11:24 Dose: Not Given Ondansetron HCl (Zofran Injection) 4 mg IVPB Q6H PRN PRN Reason: NAUSEA Pantoprazole Sodium (Protonix Iv) 40 mg IVPUSH BID [facility] Last Admin: 11/16/17 09:28 Dose: 40 mg ASSESSMENT AND PLAN: Ascending Cholangitis Gram Negative Bacteremia Septic Shock improving Acute Kidney Injury requiring HD Lactic Acidosis Hyperkalemia improved Volume Overload HTN DM h/o Prostate Ca - continue antibiotics - f/u cultures - incentive spirometry - HD per renal - monitor urine output, creatinine - O2 to keep SpO2 >90% - BiPAP as needed to assist in work of breathing - DVT prophylaxis - continue ICU monitoring critical care time spent in reviewing chart, evaluating patient and formulatin plan 35 min
[2017-11-16 17:40] LABS: HEMOGLOBIN 10.1 GM/dL (11.7-16.9); MCH 29.5 pg (25.7-33.7); MCHC 33.7 g/dl (32.0-35.9); MEAN CELL VOLUME 87.5 fl (80-96); MEAN PLT VOLUME 10.2 fl (7.5-11.1); PLATELET COUNT 134 K/MM3 (134-434); RBC 3.43 M/mm3 (4.00-5.60); RDW 15.5 % (11.9-15.9); WHITE BLOOD COUNT 29.4 K/mm3 (4.0-10.0)
[2017-11-16 17:55] LABS: INR 1.06 (0.82-1.09)
[2017-11-16 18:41] LABS: ALBUMIN 2.4 g/dl (3.4-5.0); ALK PHOS 306 U/L (45-117); ANION GAP 13 (8-16); BILIRUBIN,DIRECT 2.1 mg/dL (0.0-0.2); BILIRUBIN,TOTAL 2.8 mg/dL (0.2-1.0); BLOOD UREA NITROGEN 57 mg/dL (7-18); CALCIUM 7.5 mg/dL (8.5-10.1); CHLORIDE 105 mmol/L (98-107); CO2 23 mmol/L (21-32); CREATININE 4.6 mg/dL (0.7-1.3); GLUCOSE,RANDOM 118 mg/dL (74-106); POTASSIUM 3.7 mmol/L (3.5-5.1); SGOT/AST 248 U/L (15-37); SODIUM 141 mmol/L (136-145); TOT PROT 5.4 g/dl (6.4-8.2)
[2017-11-16 19:00] LABS: SGPT/ALT 491 U/L (12-78)
[2017-11-16] MEDS ORDERED: diphenhydrAMINE HCL 25 MG CAPSULE (FP) PO ONE (19:15)
--- NOTE | 2017-11-16 19:57 | PN ---
Physical Exam: SUBJECTIVE: Over the weekend pt received ERCP with stone retrieval on Thursday. Unfortunately pt developed respiratory distress and subsequently had to be intubated and had a central line placed. Pt received Meropenem over the weekend and started to improve. On Thursday, pt self-extubated and has been saturating > 90 on a combination of nasal cannula and intermittant BiPap. In addition, pt received Currently pt is on nasal cannula reports feeling well. His only complaint is that he not slept well for multiple days. Otherwise he denies any N/V/F/C, SOB, CP/discomfort, palpitations, abdominal pain, and back pain. OBJECTIVE: Vital Signs Period Temp Pulse Resp BP Sys/Leyva Pulse Ox Last 24 Hr 98.4 F-99.2 F 82-100 17-22 98-123/58-82 91-100 GENERAL: NAD, awake, alert, laying in bed. HEENT: Scleral icterus, moist mucosa, No JVD, KAMINI, R IJ site C/D/I LUNGS: Rales noted in lower lung cabrera bilaterally, no wheezes, no crackles, no accessory muscle use. HEART: RRR, S1, S2 without murmur ABDOMEN: Soft, mild tenderness to palpation in RUQ, distention noted, normoactive bowel sounds, no guarding, no rebound, no ecchymosis noted, no hepatosplenomegaly to palpation, tympanitic to percussion EXTREMITIES: 2+ DP pulses, warm, well-perfused, no edema. NEUROLOGICAL: Nonfocal. Strength 5/5 throughout grossly. Sensation grossly intact. Normal speech, gait not observed. PSYCH: Normal mood, normal affect. SKIN: Warm, dry, no rashes or lesions noted, jaundiced mucous membranes Laboratory Results - last 24 hr 11/16/17 11/16/17 05:15 05:15 WBC RBC Hgb Hct MCV MCH MCHC RDW Plt Count MPV Neutrophils % Neutrophils % (Manual) Band Neutrophils % Lymphocytes % Lymphocytes % (Manual) Monocytes % (Manual) Hypochromia Platelet Estimate Platelet Comment PT with INR INR Sodium 143 Potassium 3.7 Chloride 104 Carbon Dioxide 24 Anion Gap 15 BUN 54 H D Creatinine 4.4 H D Creat Clearance w eGFR 13.52 POC Glucometer Random Glucose 93 D Calcium 6.6 L* Phosphorus 4.1 D Magnesium 2.1 D Total Bilirubin 3.2 H D 3.1 H Direct Bilirubin 2.4 H 2.4 H AST 342 H D 342 H ALT 578 H D 558 H Alkaline Phosphatase 279 H D 283 H Total Protein 4.9 L 4.9 L Albumin 2.2 L 2.2 L Total Amylase 68 Hep C Ab Diagnostic Liver Fibrosis Interp 11/16/17 17:00 WBC 29.4 H RBC 3.43 L Hgb 10.1 L Hct 30.0 L MCV 87.5 MCH 29.5 MCHC 33.7 RDW 15.5 Plt Count 134 MPV 10.2 Neutrophils % No Result Required. Neutrophils % (Manual) Band Neutrophils % Lymphocytes % No Result Required. Lymphocytes % (Manual) Monocytes % (Manual) Hypochromia Platelet Estimate Platelet Comment PT with INR INR Sodium Potassium Chloride Carbon Dioxide Anion Gap BUN Creatinine Creat Clearance w eGFR POC Glucometer Random Glucose Calcium Phosphorus Magnesium Total Bilirubin Direct Bilirubin AST ALT Alkaline Phosphatase Total Protein Albumin Total Amylase Hep C Ab Diagnostic Liver Fibrosis Interp Active Medications Generic Name Dose Route Start Last Admin Trade Name Freq PRN Reason Stop Dose Admin Albuterol/Ipratropium 1 amp 11/16/17 14:18 11/16/17 14:24 Duoneb - NEB 1 amp Q6H PRN Administration SHORTNESS OF BREATH Heparin Sodium (Porcine) 5,000 unit 11/16/17 14:00 11/16/17 13:22 Heparin - SQ 5,000 unit TID RERE Administration Meropenem 1 gm/ Dextrose 100 mls @ 100 mls/hr 11/14/17 13:00 11/16/17 09:27 IVPB 100 mls/hr BID [facility] Administration Protocol Insulin Aspart 1 vial 11/14/17 07:00 11/16/17 16:19 Novolog Vial Sliding Scale - SQ Not Given ACHS [facility] Protocol Ondansetron HCl 4 mg 11/13/17 22:10 Zofran Injection IVPB Q6H PRN NAUSEA Pantoprazole Sodium 40 mg 11/14/17 10:00 11/16/17 09:28 Protonix Iv IVPUSH 40 mg BID RERE Administration ASSESSMENT/PLAN: Neuro: Neurologically intact Insomnia --Can give Melatonin or benadryl tonight Respiratory: Not in distress Duoneb to be continued q6h PRN Maintain SpO2>90% Pt has increased anxiety and feels better with NC and VM --Continue to wean oxygen requirements as needed Cardiovascular: Volume overload --CXR ordered; effusions noted --Mobilization of fluid without diuresis at this point --Would hold off from lasix due to elevated Cr --Monitor GI: Septic shock 2/2 to Ascending cholangitis /2 to biliary obstruction --Shock state improving; currently off pressors --s/p ERCP x2 with sphincterectomy, bile stone extraction, and stent placement 10/17 --Currently pt's transaminitis and bilirubin improving --GI on board --Discussed with Dr. Swift how CA19-9 elevation is probably due to cholangitis; imaging negative at this point --May need 19-9 workup later on though (Ca19-9 1755) --ID on board --Meropenem day 2 today --Repeat cultures on 11/15 showing cleared G- bacteremia --Abdominal XR ordered --f/u shows nonobstructive pattern with some gaseous distention intermittantly; no air-fluid levels Cholelithiasis --Dr. Galindo on board --Pt to have laparscopic cholecystectomy at some point prior to discharge --Currently pt's INR is elevated; would like to optimize --Pt post-extubation x1 day so would like to observe for stability at this time. Renal Acute renal failure --Required one time HD for uremia --Nephrology on board --So far pt has improved urine output; continue to monitor --Cr currently 4.6 --Discussed with Dr. Ferguson about no indication for dialysis today --If pt continues to make a high amount of urine need will be decreased in future --Graham maintained for continued urine output FEN: Fluids: None currently; fluid overload Electrolyte abnormalities: None; continue to follow Nutrition: Advance diet PPX: DVT - Heparin SQ GI - Protonix 40mg IVP BID Deconditioning - physical therapy and OOB to chair as tolerated POC: Jacklyn (Daughter) [phone] --Pt has capacity, but often asks for us to speak to daughter about condition Dispo: Continue ICU monitoring Case discussed with Dr. English and Marty Lovett, DO - IM PGY-1 Visit type - Emergency Visit Emergency Visit: No - New Patient This patient is new to me today: No - Critical Care Critical Care patient: Yes Total Critical Care Time (in minutes): 36 Critical Care Statement: The care of this patient involved high complexity decision making to prevent further life threatening deterioration of the patient 's condition and/or to evaluate & treat vital organ system(s) failure or risk of failure.
[2017-11-16 21:37] LABS: OVALOCYTE 1+
[2017-11-16 21:38] LABS: PLATELET ESTIMATE ADEQUATE; TOXIC GRANULATION 1+
[2017-11-17] MEDS: HEPARIN NA (PORCINE) 5,000 UNITS/ML 1ML VIAL SQ SCH ×3 (05:59→21:55)
[2017-11-17] MEDS: INSULIN SLIDING SCALE (NOVOLOG) 1 VIAL SQ SCH ×4 (06:00→21:54)
[2017-11-17 07:08] LABS: HEMATOCRIT 28.2 % (35.4-49); HEMOGLOBIN 9.4 GM/dL (11.7-16.9); MCH 29.2 pg (25.7-33.7); MCHC 33.3 g/dl (32.0-35.9); MEAN CELL VOLUME 87.8 fl (80-96); MEAN PLT VOLUME 9.6 fl (7.5-11.1); PLATELET COUNT 106 K/MM3 (134-434); RBC 3.21 M/mm3 (4.00-5.60); RDW 16.1 % (11.9-15.9); WHITE BLOOD COUNT 23.9 K/mm3 (4.0-10.0)
[2017-11-17 07:20] LABS: ALBUMIN 2.2 g/dl (3.4-5.0); ANION GAP 10 (8-16); BILIRUBIN,DIRECT 1.6 mg/dL (0.0-0.2); BLOOD UREA NITROGEN 61 mg/dL (7-18); CALCIUM 7.2 mg/dL (8.5-10.1); CHLORIDE 108 mmol/L (98-107); CO2 25 mmol/L (21-32); CREATININE 4.3 mg/dL (0.7-1.3); GLUCOSE,RANDOM 98 mg/dL (74-106); PHOSPHOROUS 4.8 mg/dL (2.5-4.9); POTASSIUM 3.7 mmol/L (3.5-5.1); SGOT/AST 177 U/L (15-37); SGPT/ALT 381 U/L (12-78); SODIUM 143 mmol/L (136-145)
[2017-11-17 07:21] LABS: ALK PHOS 275 U/L (45-117); BILIRUBIN,TOTAL 2.3 mg/dL (0.2-1.0)
[2017-11-17 08:56] LABS: PLATELET ESTIMATE DECREASED; TARGET CELLS 1+
[2017-11-17] MEDS ORDERED: PT OWN MED DRAWER 7, Y5N ONE ×2 (10:01→22:57)
[2017-11-17] MEDS: MEROPENEM 1 GM in DEXTROSE 5%-WATER - 100 ML IVPB SCH (10:08)
[2017-11-17] MEDS: PANTOPRAZOLE SODIUM 40 MG VIAL IVPUSH SCH ×2 (10:08→21:55)
[2017-11-17] MEDS: ALBUTEROL SO4 2.5/IPRATROPIUM 0.5 INH SOL 3 ML VIAL.NEB. NEB PRN (10:55)
--- NOTE | 2017-11-17 12:23 | PN ---
Teaching Attending Note Name of Resident: Hadley Lovett ATTENDING PHYSICIAN STATEMENT I saw and evaluated the patient. I reviewed the resident's note and discussed the case with the resident. I agree with the resident's findings and plan as documented. SUBJECTIVE: Pt seen and examined in the ICU. States breathing is improving. Good urine output. No fevers or chills. Denies abdominal pain. OBJECTIVE: Last Vital Signs Temp Pulse Resp BP Pulse Ox 99.3 F 86 16 134/67 98 11/17/17 10:00 11/17/17 11:57 11/17/17 11:57 11/17/17 11:57 11/17/17 09:00 Intake & Output 11/14/17 11/15/17 11/16/17 11/17/17 23:59 23:59 23:59 23:59 Intake Total 5305 2460 654 250 Output Total 350 1250 1900 800 Balance 4955 1210 1245 -677 Weight 78.245 kg 83.943 kg 79.889 kg 81.102 kg Gen: mildly tachypneic at rest Heart: RRR Lung: scattered rhonchi Abd: softly distended Ext: trace edema CBC, BMP 11/17/17 05:45 11/17/17 05:45 Active Medications Albuterol/Ipratropium (Duoneb -) 1 amp NEB Q6H PRN PRN Reason: SHORTNESS OF BREATH Last Admin: 11/17/17 10:55 Dose: 1 amp Heparin Sodium (Porcine) (Heparin -) 5,000 unit SQ TID [facility] Last Admin: 11/17/17 05:59 Dose: 5,000 unit Meropenem 1 gm/ Dextrose 100 mls @ 100 mls/hr IVPB BID RERE PRN Reason: Protocol Last Admin: 11/17/17 10:08 Dose: 100 mls/hr Insulin Aspart (Novolog Vial Sliding Scale -) 1 vial SQ ACHS RERE PRN Reason: Protocol Last Admin: 11/17/17 06:00 Dose: Not Given Ondansetron HCl (Zofran Injection) 4 mg IVPB Q6H PRN PRN Reason: NAUSEA Pantoprazole Sodium (Protonix Iv) 40 mg IVPUSH BID [facility] Last Admin: 11/17/17 10:08 Dose: 40 mg ASSESSMENT AND PLAN: Ascending Cholangitis Gram Negative Bacteremia Septic Shock improving Acute Kidney Injury requiring HD Lactic Acidosis Hyperkalemia improved Volume Overload HTN DM h/o Prostate Ca - for cholecystectomy - continue antibiotics - f/u cultures - incentive spirometry - HD per renal - monitor urine output, creatinine - discuss with renal, d/c HD catheter if no further HD - O2 to keep SpO2 >90% - BiPAP as needed to assist in work of breathing - DVT prophylaxis - continue ICU monitoring critical care time spent in reviewing chart, evaluating patient and formulatin plan 35 min
--- NOTE | 2017-11-17 12:26 | PN ---
Physical Exam: SUBJECTIVE: No acute events overnight. Pt continues to have improvement with breathing. Today pt states he passed flatus, and he has some very mild RUQ tenderness. Denies any n/v/f/c, SOB, CP/discomfort, palpitations, unmanageable abdominal pain, dysuria. Yesterday patient was OOB to chair. OBJECTIVE: Vital Signs Period Temp Pulse Resp BP Sys/Leyva Pulse Ox Last 24 Hr 98.4 F-99.3 F 70-100 13-20 101-134/58-82 97-100 GENERAL: NAD, awake, alert, laying at bedside. HEENT: Scleral icterus noted, Nc/AT, R IJ site C/D/I, EOMI, KAMINI, No JVD, moist mucosa LUNGS: Slightly diminished breath sounds at the bases bilaterally otherwise markedly improved since yesterday, no wheezes, no crackles, no accessory muscle use. HEART: RRR, S1, S2 without murmur ABDOMEN: Soft, nontender, nondistended, normoactive bowel sounds, no guarding, no rebound, negative Kinney's, no hepatomegaly EXTREMITIES: 2+ DP pulses, warm, well-perfused, no edema. PSYCH: Normal mood, normal affect. SKIN: Warm, dry, no rashes or lesions noted Laboratory Results - last 24 hr 11/17/17 11/17/17 05:45 05:45 WBC 23.9 H RBC 3.21 L Hgb 9.4 L Hct 28.2 L MCV 87.8 MCH 29.2 MCHC 33.3 RDW 16.1 H Plt Count 106 L D MPV 9.6 Total Counted 100 Neutrophils % No Result Required. Neutrophils % (Manual) 92.0 H* Band Neutrophils % Lymphocytes % No Result Required. Lymphocytes % (Manual) 6.0 L Monocytes % (Manual) Eosinophils % (Manual) 1.0 D Myelocytes % (Man) 1 D Differential Comment Toxic Granulation Platelet Estimate Decreased Platelet Comment Polychromasia Poikilocytosis Target Cells 1+ Ovalocytes PT with INR INR Sodium 143 Potassium 3.7 Chloride 108 H Carbon Dioxide 25 Anion Gap 10 BUN 61 H Creatinine 4.3 H Creat Clearance w eGFR 13.89 POC Glucometer Random Glucose 98 Calcium 7.2 L Phosphorus 4.8 Magnesium 2.0 Total Bilirubin 2.3 H Direct Bilirubin 1.6 H D AST 177 H D ALT 381 H D Alkaline Phosphatase 275 H Total Protein 5.0 L Albumin 2.2 L COLTON Screen Active Medications Generic Name Dose Route Start Last Admin Trade Name Freq PRN Reason Stop Dose Admin Albuterol/Ipratropium 1 amp 11/16/17 14:18 11/17/17 10:55 Duoneb - NEB 1 amp Q6H PRN Administration SHORTNESS OF BREATH Heparin Sodium (Porcine) 5,000 unit 11/16/17 14:00 11/17/17 05:59 Heparin - SQ 5,000 unit TID [facility] Administration Meropenem 1 gm/ Dextrose 100 mls @ 100 mls/hr 11/14/17 13:00 11/17/17 10:08 IVPB 100 mls/hr BID [facility] Administration Protocol Insulin Aspart 1 vial 11/14/17 07:00 11/17/17 06:00 Novolog Vial Sliding Scale - SQ Not Given ACHS [facility] Protocol Ondansetron HCl 4 mg 11/13/17 22:10 Zofran Injection IVPB Q6H PRN NAUSEA Pantoprazole Sodium 40 mg 11/14/17 10:00 11/17/17 10:08 Protonix Iv IVPUSH 40 mg BID [facility] Administration ASSESSMENT/PLAN: Neuro: Neurologically intact Insomnia --Previously received Benadryl 25mg PO without effect; can try to use IV as sleep aid if needed tonight Respiratory: Not in distress Duoneb to be continued q6h PRN Maintain SpO2>90% Pt has increased anxiety and feels better with NC and VM --Continue to wean oxygen requirements as needed Cardiovascular: Volume overload --CXR improved effusions compared to yesterday --Net negative urine output --Will anticipate continued mobilization of fluid and self-diuresis --Monitor GI: Septic shock 2/2 to Ascending cholangitis 09/25 to biliary obstruction --Shock state improving; currently off pressors; BP 119/80 and stable --s/p ERCP x2 with sphincterectomy, bile stone extraction, and stent placement 10/17 --Currently pt's transaminitis improving (AST/ALT/Alk phos = 177/381/275) ; total/direct bili improving (2.3/1.6) --ID on board --Meropenem day 3 today --Repeat cultures on 11/15 showing cleared G- bacteremia Cholelithiasis --Dr. Galindo on board --Pt to have laparoscopic cholecystectomy today; consents have been obtained --NPO --INR WNL today Renal Acute renal failure --Required one time HD for uremia --Nephrology on board --Good urine output noted 1900cc per [place]; net negative 1.2L --Cr down trending from 4.6 to 4.3 --Discussed with nephrology and central line to be removed after establishing peripheral access and after procedure --[place] maintained for continued urine output FEN: Fluids: None previously; tolerating PO and some effusions Electrolyte abnormalities: None; continue to follow Nutrition: NPO now for cholecystectomy planned today PPX: DVT - Heparin SQ; to hold after immediate surgery and restart per surgical team GI - Protonix 40mg IVP BID Deconditioning - physical therapy and OOB to chair as tolerated POC: Jacklyn (Daughter) [phone] --Pt has capacity, but often asks for us to speak to daughter about condition Dispo: Continue ICU monitoring; going for cholecystectomy today Case discussed with Mateo Gonzalez, and Marty Lovett, DO - IM PGY-1 Visit type - Emergency Visit Emergency Visit: No - New Patient This patient is new to me today: No - Critical Care Critical Care patient: Yes Total Critical Care Time (in minutes): 37 Critical Care Statement: The care of this patient involved high complexity decision making to prevent further life threatening deterioration of the patient 's condition and/or to evaluate & treat vital organ system(s) failure or risk of failure.
--- NOTE | 2017-11-17 12:57 | PN ---
Progress Note (short form) - Note Progress Note: Renal follow up for THIEN Pt seen and examined in the ICU awake and alert, on NC O2 BP stable, making urine via [place]aca in negative balance no sob, chest pain, abd pain, N/V Vital Signs Temperature 99.3 F 11/17/17 10:00 Pulse Rate 86 11/17/17 11:57 Respiratory Rate 16 11/17/17 11:57 Blood Pressure 134/67 11/17/17 11:57 O2 Sat by Pulse Oximetry (%) 98 11/17/17 09:00 Intake & Output 11/14/17 11/15/17 11/16/17 11/17/17 23:59 23:59 23:59 23:59 Intake Total 5305 2460 654 250 Output Total 350 1250 1900 800 Balance 4955 1210 1249 -206 Weight 78.245 kg 83.943 kg 79.889 kg 81.102 kg NAD on NC No JVD, neck supple RRR, No M/R Dec BS at lung bases Mild Abd distension NO LE edmea, no clubbing or cyanosis CBC, BMP 11/17/17 05:45 11/17/17 05:45 Current Medications Albuterol/Ipratropium (Duoneb -) 1 amp NEB Q6H PRN PRN Reason: SHORTNESS OF BREATH Last Admin: 11/17/17 10:55 Dose: 1 amp Heparin Sodium (Porcine) (Heparin -) 5,000 unit SQ TID [facility] Last Admin: 11/17/17 05:59 Dose: 5,000 unit Meropenem 1 gm/ Dextrose 100 mls @ 100 mls/hr IVPB BID [facility] PRN Reason: Protocol Last Admin: 11/17/17 10:08 Dose: 100 mls/hr Insulin Aspart (Novolog Vial Sliding Scale -) 1 vial SQ ACHS [facility] PRN Reason: Protocol Last Admin: 11/17/17 06:00 Dose: Not Given Ondansetron HCl (Zofran Injection) 4 mg IVPB Q6H PRN PRN Reason: NAUSEA Pantoprazole Sodium (Protonix Iv) 40 mg IVPUSH BID [facility] Last Admin: 11/17/17 10:08 Dose: 40 mg 67 year old gentleman with PMhx of obesity, prostate cancer, HTN, NIDDM, cholelithiasis who presented to the ED with Abd pain now s/p ERCP with ascending colangitis and gram negative sepsis with THIEN and metabolic acidosis. 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
--- NOTE | 2017-11-17 13:08 | PN ---
Progress Note (short form) - Note Progress Note: alert nad off pressors Vital Signs Period Temp Pulse Resp BP Sys/Leyva Pulse Ox Last 24 Hr 98.4 F-99.3 F 70-100 13-20 101-134/58-82 97-100 cor-rrr lungs decreased bs at bases abd soft,n destended, +BS ext no edema CBC, BMP 11/17/17 05:45 11/17/17 05:45 Microbiology 11/13/17 17:40 Blood - Peripheral Venous Blood Culture - Final Escherichia Coli 11/15/17 10:35 Blood - Peripheral Venous Blood Culture - Preliminary NO GROWTH OBTAINED AFTER 48 HOURS, INCUBATION TO CONTINUE FOR 3 DAYS. 11/15/17 09:40 Blood - Peripheral Venous Blood Culture - Preliminary NO GROWTH OBTAINED AFTER 48 HOURS, INCUBATION TO CONTINUE FOR 3 DAYS. 11/13/17 22:00 Stool Salmonella/Shigella Culture - Final NO GROWTH OF SALMONELLA OR SHIGELLA SPECIES OBTAINED 11/13/17 22:00 Stool Campylobacter Culture - Final NO GROWTH OF CAMPYLOBACTER SPECIES OBTAINED 11/13/17 22:00 Stool Yersinia Culture - Final NO GROWTH OF YERSINIA SPECIES OBTAINED 11/13/17 22:00 Stool Vibrio Culture - Final NO GROWTH OF VIBRIO SPECIES OBTAINED 11/13/17 22:00 Stool Escherichia coli 0157 Culture - Final NO GROWTH OF E COLI 0157 OBTAINED 11/13/17 17:40 Blood - Peripheral Venous Blood Culture - Final Escherichia Coli 11/13/17 17:00 Urine - Urine Clean Catch Urine Culture - Final Escherichia Coli 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 Current Medications Albuterol/Ipratropium (Duoneb -) 1 amp NEB Q6H PRN PRN Reason: SHORTNESS OF BREATH Last Admin: 11/17/17 10:55 Dose: 1 amp Heparin Sodium (Porcine) (Heparin -) 5,000 unit SQ TID [facility] Last Admin: 11/17/17 05:59 Dose: 5,000 unit Meropenem 1 gm/ Dextrose 100 mls @ 100 mls/hr IVPB BID [facility] PRN Reason: Protocol Last Admin: 11/17/17 10:08 Dose: 100 mls/hr Insulin Aspart (Novolog Vial Sliding Scale -) 1 vial SQ ACHS [facility] PRN Reason: Protocol Last Admin: 11/17/17 06:00 Dose: Not Given Ondansetron HCl (Zofran Injection) 4 mg IVPB Q6H PRN PRN Reason: NAUSEA Pantoprazole Sodium (Protonix Iv) 40 mg IVPUSH BID [facility] Last Admin: 11/17/17 10:08 Dose: 40 mg a/p Ecoli sepsis- blood and urine donot match sensitivites continue meropenem Biliary sepsis choledocholithiasis for lap choly today THIEN-s/p hd yesterday, labs pending, appears to be recovering renal function Problem List - Problems (1) Biliary sepsis Code(s): K83.0 - CHOLANGITIS (2) Choledocholithiasis Code(s): K80.50 - CALCULUS OF BILE DUCT W/O CHOLANGITIS OR CHOLECYST W/O OBST (3) THIEN (acute kidney injury) Code(s): N17.9 - ACUTE KIDNEY FAILURE, UNSPECIFIED (4) Acute respiratory failure Code(s): J96.00 - ACUTE RESPIRATORY FAILURE, UNSP W HYPOXIA OR HYPERCAPNIA
[2017-11-17] MEDS ORDERED: MIDAZOLAM HCL 2 MG/2 ML SINGLE DOSE VIAL ONE (13:35)
[2017-11-17] MEDS ORDERED: fentaNYL CITRATE 250 MCG/5 ML VIAL ONE (13:35)
[2017-11-17] MEDS ORDERED: PROPOFOL 20 ML ONE ×2 (13:35→14:10)
[2017-11-17] MEDS ORDERED: BUPIVACAINE HCL/PF 0.5% (5MG/ML) 10 ML VIAL ONE (14:02)
[2017-11-17] MEDS ORDERED: ETOMIDATE 20 MG/10 ML AMPUL IVPUSH ONE (14:10)
[2017-11-17] MEDS ORDERED: ROCURONIUM BROMIDE 50 MG/5 ML VIAL ONE ×2 (14:10→15:08)
[2017-11-17] MEDS ORDERED: LIDOCAINE HCL/PF 2% SDV 5ML VIAL ONE (14:10)
[2017-11-17 14:13] LABS: HBSAG SCREEN Negative (Negative); HEP A AB, IGM Indeterminate (Negative); HEP B CORE AB, TOT Negative (Negative)
[2017-11-17] MEDS ORDERED: LACTATED RINGERS SOLUTION 1,000 ML IV SCH (14:15)
[2017-11-17] MEDS ORDERED: GLYCOPYRROLATE 0.2 MG/1 ML VIAL ONE (15:52)
[2017-11-17] MEDS ORDERED: NEOSTIGMINE METHYLSULFATE 0.5 MG/ML - 10 ML MDV ONE (15:52)
[2017-11-17] MEDS ORDERED: BUPIVACAINE HCL/PF 0.5% (5MG/ML) 10 ML VIAL IJ ONE (16:04)
[2017-11-17] MEDS ORDERED: BENZOIN/ALOE VERA/STORAX/TOLU 58 ML BOTTLE ONE (16:09)
--- NOTE | 2017-11-17 16:21 | PN ---
Progress Note (short form) - Note Progress Note: Subjective: The patient was seen and examined at the bedside, he has no complaints at this time. Current Medications Generic Name Dose Route Start Last Admin Trade Name Freq PRN Reason Stop Dose Admin Albuterol/Ipratropium 1 amp 11/16/17 14:18 11/17/17 10:55 Duoneb - NEB 1 amp Q6H PRN Administration SHORTNESS OF BREATH Chlorhexidine Gluconate 1 applic 11/17/17 22:00 Hibiclens For Decolonization - TP HS [facility] Fentanyl 50 mcg 11/17/17 14:06 Sublimaze Injection - IVPUSH [id number] PRN PAIN-PACU ORDER X 4 DOSES ONLY Heparin Sodium (Porcine) 5,000 unit 11/16/17 14:00 11/17/17 13:45 Heparin - SQ Not Given TID [facility] Meropenem 1 gm/ Dextrose 100 mls @ 100 mls/hr 11/14/17 13:00 11/17/17 10:08 IVPB 100 mls/hr BID [facility] Administration Protocol Lactated Ringer's 1,000 mls @ 75 mls/hr 11/17/17 14:15 Lactated Ringers Solution IV ASDIR [facility] Insulin Aspart 1 vial 11/14/17 07:00 11/17/17 06:00 Novolog Vial Sliding Scale - SQ Not Given ACHS [facility] Protocol Mupirocin 1 applic 11/17/17 22:00 Bactroban Ointment (For Decolonization) - NS 11/22/17 21:59 BID [facility] Ondansetron HCl 4 mg 11/13/17 22:10 Zofran Injection IVPB Q6H PRN NAUSEA Pantoprazole Sodium 40 mg 11/14/17 10:00 11/17/17 10:08 Protonix Iv IVPUSH 40 mg BID [facility] Administration Objective: Vital Signs Period Temp Pulse Resp BP Sys/Leyva Pulse Ox Last 24 Hr 98.2 F-99.3 F 70-94 13-20 113-162/67-95 91-100 Physical Exam: General: NAD, A&Ox3 Lungs: Decreased breath sounds bilaterally Heart: RRR, S1S2 Abd: Soft, non-tender Ext: + edema CBCD WBC 18.0 K/mm3 (4.0-10.0) H 11/17/17 17:50 RBC 3.51 M/mm3 (4.00-5.60) L 11/17/17 17:50 Hgb 10.3 GM/dL (11.7-16.9) L 11/17/17 17:50 Hct 31.1 % (35.4-49) L 11/17/17 17:50 MCV 88.7 fl (80-96) 11/17/17 17:50 MCHC 33.2 g/dl (32.0-35.9) 11/17/17 17:50 RDW 16.3 % (11.9-15.9) H 11/17/17 17:50 Plt Count 137 K/MM3 (134-434) D 11/17/17 17:50 MPV 10.1 fl (7.5-11.1) 11/17/17 17:50 CMP Sodium 143 mmol/L (136-145) 11/17/17 05:45 Potassium 3.7 mmol/L (3.5-5.1) 11/17/17 05:45 Chloride 108 mmol/L (98-107) H 11/17/17 05:45 Carbon Dioxide 25 mmol/L (21-32) 11/17/17 05:45 Anion Gap 10 (8-16) 11/17/17 05:45 BUN 61 mg/dL (7-18) H 11/17/17 05:45 Creatinine 4.3 mg/dL (0.7-1.3) H 11/17/17 05:45 Creat Clearance w eGFR 13.89 (>60) 11/17/17 05:45 Random Glucose 98 mg/dL (74-106) 11/17/17 05:45 Calcium 7.2 mg/dL (8.5-10.1) L 11/17/17 05:45 Total Bilirubin 2.3 mg/dL (0.2-1.0) H 11/17/17 05:45 AST 177 U/L (15-37) H D 11/17/17 05:45 ALT 381 U/L (12-78) H D 11/17/17 05:45 Alkaline Phosphatase 275 U/L (45-117) H 11/17/17 05:45 Total Protein 5.0 g/dl (6.4-8.2) L 11/17/17 05:45 Albumin 2.2 g/dl (3.4-5.0) L 11/17/17 05:45 CARDIAC ENZYMES Creatine Kinase 175 IU/L (39-308) 11/13/17 08:51 Troponin I < 0.02 ng/ml (0.00-0.05) 11/13/17 08:51 Microbiology 11/13/17 17:40 Blood - Peripheral Venous Blood Culture - Final Escherichia Coli 11/15/17 10:35 Blood - Peripheral Venous Blood Culture - Preliminary NO GROWTH OBTAINED AFTER 48 HOURS, INCUBATION TO CONTINUE FOR 3 DAYS. 11/15/17 09:40 Blood - Peripheral Venous Blood Culture - Preliminary NO GROWTH OBTAINED AFTER 48 HOURS, INCUBATION TO CONTINUE FOR 3 DAYS. 11/13/17 22:00 Stool Salmonella/Shigella Culture - Final NO GROWTH OF SALMONELLA OR SHIGELLA SPECIES OBTAINED 11/13/17 22:00 Stool Campylobacter Culture - Final NO GROWTH OF CAMPYLOBACTER SPECIES OBTAINED 11/13/17 22:00 Stool Yersinia Culture - Final NO GROWTH OF YERSINIA SPECIES OBTAINED 11/13/17 22:00 Stool Vibrio Culture - Final NO GROWTH OF VIBRIO SPECIES OBTAINED 11/13/17 22:00 Stool Escherichia coli 0157 Culture - Final NO GROWTH OF E COLI 0157 OBTAINED 11/13/17 17:40 Blood - Peripheral Venous Blood Culture - Final Escherichia Coli 11/13/17 17:00 Urine - Urine Clean Catch Urine Culture - Final Escherichia Coli Esbl Service Clerk Assessment: This is a 67 year old male with PMHx HTN, NIDDM, cholelithiasis, who presented to the ED with periumbilical pain, nausea, vomiting, abdominal distention x1 day Plan: 1) Septic shock 2/2 ascending cholangitis, e.coli bacteremia, esbl UTI - For cholecystectomy today - Continue Meropenem - WBC trending down - Remains afebrile - Appreciate surgery consult - Appreciate ID consult 2) Hypoxic, hypercapneic respiratory failure - Resolved 3) Acute renal failure - Likely due to ATN in the setting of sepsis/shock -
--- NOTE | 2017-11-17 16:42 | OP ---
Operative Note - Note: Operative Date: 11/17/17 Pre-Operative Diagnosis: ascending cholangitis Operation: laparoscopic cholecystectomy Findings: distended gallbladder, critical view identified Post-Operative Diagnosis: Same as Pre-op Surgeon: Wesley Galindo Rack Pusher: Matty Nolen Anesthesiologist/RABBIT DRESSER: Eun Castellanos Anesthesia: General, Local (marcaine 0.5% 20ml) Specimens Removed: gall bladder Estimated Blood Loss (mls): 50 Drains, Volume Out (mls): 150 Fluid Volume Replaced (mls): 700 Operative Report Dictated: Yes
[2017-11-17 18:08] LABS: HEMATOCRIT 31.1 % (35.4-49); HEMOGLOBIN 10.3 GM/dL (11.7-16.9); MCH 29.4 pg (25.7-33.7); MCHC 33.2 g/dl (32.0-35.9); MEAN CELL VOLUME 88.7 fl (80-96); MEAN PLT VOLUME 10.1 fl (7.5-11.1); PLATELET COUNT 137 K/MM3 (134-434); RBC 3.51 M/mm3 (4.00-5.60); RDW 16.3 % (11.9-15.9)
[2017-11-17] MEDS ORDERED: ALBUTEROL SO4 2.5/IPRATROPIUM 0.5 INH SOL 3 ML VIAL.NEB. NEB PRN (18:56)
[2017-11-17] MEDS ORDERED: PIPERACILLIN/TAZOB 4.5 GM/100 ML PREMIX BAG IVPB ONE (18:56)
[2017-11-17] MEDS ORDERED: ONDANSETRON 4 MG/2 ML VIAL IVPB PRN (18:56)
[2017-11-17 19:02] LABS: ALBUMIN 2.4 g/dl (3.4-5.0); ALK PHOS 302 U/L (45-117); ANION GAP 9 (8-16); BILIRUBIN,TOTAL 2.1 mg/dL (0.2-1.0); BLOOD UREA NITROGEN 63 mg/dL (7-18); CALCIUM 7.8 mg/dL (8.5-10.1); CHLORIDE 107 mmol/L (98-107); CO2 26 mmol/L (21-32); GLUCOSE,RANDOM 144 mg/dL (74-106); POTASSIUM 4.3 mmol/L (3.5-5.1); SGOT/AST 198 U/L (15-37); SGPT/ALT 386 U/L (12-78); SODIUM 142 mmol/L (136-145); TOT PROT 5.5 g/dl (6.4-8.2)
[2017-11-17] MEDS: LACTATED RINGERS SOLUTION 1,000 ML IV SCH (19:03)
[2017-11-17] MEDS ORDERED: PIPERACILLIN/TAZOB 4.5 GM 4.5 GM in DEXTROSE 5%-WATER - 100 ML IVPB ONE (19:15)
[2017-11-17] MEDS: morphine SULFATE 4 MG/ML VIAL IVPUSH PRN (20:29)
[2017-11-17 21:45] LABS: PLATELET ESTIMATE DECREASED
[2017-11-17] MEDS: CHLORHEXIDINE GLUCONATE 4% CLEANSER FOR DECOLONIZATION TP SCH (21:56)
[2017-11-17] MEDS: MUPIROCIN 2% TOPICAL OINTMENT FOR DECOLONIZATION NS SCH (21:56)
[2017-11-17] MEDS ORDERED: MEROPENEM 1 GM in DEXTROSE 5%-WATER - 100 ML IVPB SCH (22:00)
[2017-11-18] MEDS: morphine SULFATE 4 MG/ML VIAL IVPUSH PRN ×3 (01:53→19:38)
--- NOTE | 2017-11-18 05:50 | PN ---
Physical Exam: SUBJECTIVE: Patient seen and examined OBJECTIVE: Vital Signs Period Temp Pulse Resp BP Sys/Leyva Pulse Ox Last 24 Hr 98.2 F-99.3 F 85-96 14-16 113-162/67-95 91-99 GENERAL: The patient is awake, alert, and fully oriented, in no acute distress. HEAD: Normal with no signs of trauma. EYES: PERRL, extraocular movements intact, sclera anicteric, conjunctiva clear. No ptosis. ENT: Ears normal, nares patent, oropharynx clear without exudates, moist mucous membranes. NECK: Trachea midline, full range of motion, supple. LUNGS: Breath sounds equal, clear to auscultation bilaterally, no wheezes, no crackles, no accessory muscle use. HEART: Regular rate and rhythm, S1, S2 without murmur, rub or gallop. ABDOMEN: Soft, nontender, nondistended, normoactive bowel sounds, no guarding, no rebound, no hepatosplenomegaly, no masses. EXTREMITIES: 2+ pulses, warm, well-perfused, no edema. NEUROLOGICAL: Cranial nerves II through XII grossly intact. Normal speech, gait not observed. PSYCH: Normal mood, normal affect. SKIN: Warm, dry, normal turgor, no rashes or lesions noted Laboratory Results - last 24 hr 11/14/17 11/17/17 11/17/17 05:50 05:45 05:45 WBC 23.9 H RBC 3.21 L Hgb 9.4 L Hct 28.2 L MCV 87.8 MCH 29.2 MCHC 33.3 RDW 16.1 H Plt Count 106 L D MPV 9.6 Total Counted 100 Neutrophils % No Result Required. Neutrophils % (Manual) 92.0 H* Band Neutrophils % Lymphocytes % No Result Required. Lymphocytes % (Manual) 6.0 L Monocytes % (Manual) Eosinophils % (Manual) 1.0 D Myelocytes % (Man) 1 D Metamyelocytes Platelet Estimate Decreased Platelet Comment Target Cells 1+ Sodium 143 Potassium 3.7 Chloride 108 H Carbon Dioxide 25 Anion Gap 10 BUN 61 H Creatinine 4.3 H Creat Clearance w eGFR 13.89 POC Glucometer Random Glucose 98 Calcium 7.2 L Phosphorus 4.8 Magnesium 2.0 Total Bilirubin 2.3 H Direct Bilirubin 1.6 H D AST 177 H D ALT 381 H D Alkaline Phosphatase 275 H Troponin I Total Protein 5.0 L Albumin 2.2 L Hep A IgM Ab Confirm Indeterminate H Hepatitis A Ab Total Positive H Hep Bs Antigen Negative Hep Bs Antibody Non reactive Hep B Core Total Ab Negative 11/17/17 11/17/17 11/17/17 05:56 17:50 17:50 WBC 18.0 H RBC 3.51 L Hgb 10.3 L Hct 31.1 L MCV 88.7 MCH 29.4 MCHC 33.2 RDW 16.3 H Plt Count 137 D MPV 10.1 Total Counted 100 Neutrophils % No Result Required. Neutrophils % (Manual) 76.0 Band Neutrophils % 3.0 Lymphocytes % No Result Required. Lymphocytes % (Manual) 5.0 L Monocytes % (Manual) 3 L D Eosinophils % (Manual) Myelocytes % (Man) 4 H D Metamyelocytes 7 H D Platelet Estimate Decreased Platelet Comment No clumping noted Target Cells Sodium 142 Potassium 4.3 Chloride 107 Carbon Dioxide 26 Anion Gap 9 BUN 63 H Creatinine 4.0 H Creat Clearance w eGFR 15.10 POC Glucometer 113.97621 Random Glucose 144 H D Calcium 7.8 L Phosphorus Magnesium Total Bilirubin 2.1 H Direct Bilirubin AST 198 H ALT 386 H Alkaline Phosphatase 302 H Troponin I Total Protein 5.5 L Albumin 2.4 L Hep A IgM Ab Confirm Hepatitis A Ab Total Hep Bs Antigen Hep Bs Antibody Hep B Core Total Ab 11/17/17 11/17/17 11/17/17 17:50 18:44 21:52 WBC RBC Hgb Hct MCV MCH MCHC RDW Plt Count MPV Total Counted Neutrophils % Neutrophils % (Manual) Band Neutrophils % Lymphocytes % Lymphocytes % (Manual) Monocytes % (Manual) Eosinophils % (Manual) Myelocytes % (Man) Metamyelocytes Platelet Estimate Platelet Comment Target Cells Sodium Potassium Chloride Carbon Dioxide Anion Gap BUN Creatinine Creat Clearance w eGFR POC Glucometer [id number] 125.84698 Random Glucose Calcium Phosphorus Magnesium Total Bilirubin Direct Bilirubin AST ALT Alkaline Phosphatase Troponin I 0.44 H D Total Protein Albumin Hep A IgM Ab Confirm Hepatitis A Ab Total Hep Bs Antigen Hep Bs Antibody Hep B Core Total Ab Active Medications Generic Name Dose Route Start Last Admin Trade Name Freq PRN Reason Stop Dose Admin Albuterol/Ipratropium 1 amp 11/17/17 18:56 Duoneb - NEB Q6H PRN SHORTNESS OF BREATH Chlorhexidine Gluconate 1 applic 11/17/17 22:00 11/17/17 21:56 Hibiclens For Decolonization - TP 1 applic HS [facility] Administration Heparin Sodium (Porcine) 5,000 unit 11/17/17 22:00 11/17/17 21:55 Heparin - SQ 5,000 unit TID [facility] Administration Lactated Ringer's 1,000 mls @ 75 mls/hr 11/17/17 18:56 11/17/17 19:03 Lactated Ringers Solution IV 75 mls/hr ASDIR [facility] Administration Meropenem 1 gm/ Dextrose 100 mls @ 100 mls/hr 11/17/17 22:00 11/17/17 21:56 IVPB 100 mls/hr BID [facility] Administration Protocol Insulin Aspart 1 vial 11/17/17 22:00 11/17/17 21:54 Novolog Vial Sliding Scale - SQ Not Given ACHS [facility] Protocol Morphine Sulfate 2 mg 11/17/17 18:59 11/18/17 01:53 Morphine Sulfate IVPUSH 2 mg Q4H PRN Administration PAIN LEVEL 6-10 Mupirocin 1 applic 11/17/17 22:00 11/17/17 21:56 Bactroban Ointment (For Decolonization) - NS 11/22/17 21:59 1 applic BID [facility] Administration Ondansetron HCl 4 mg 11/17/17 18:56 Zofran Injection IVPB Q6H PRN NAUSEA Pantoprazole Sodium 40 mg 11/17/17 22:00 11/17/17 21:55 Protonix Iv IVPUSH 40 mg BID [facility] Administration ASSESSMENT/PLAN:
[2017-11-18] MEDS: INSULIN SLIDING SCALE (NOVOLOG) 1 VIAL SQ SCH ×2 (06:20→22:35)
[2017-11-18 06:39] LABS: BASO % 0.2 % (0-2.0); EOS % 0.9 % (0-4.5); HEMATOCRIT 28.3 % (35.4-49); HEMOGLOBIN 9.6 GM/dL (11.7-16.9); LYMPH % 6.9 % (8-40); MCH 29.7 pg (25.7-33.7); MCHC 34.1 g/dl (32.0-35.9); MEAN CELL VOLUME 87.2 fl (80-96); MEAN PLT VOLUME 10.2 fl (7.5-11.1); MONO % 6.1 % (3.8-10.2); NEUT % 85.9 % (42.8-82.8); PLATELET COUNT 120 K/MM3 (134-434); RBC 3.24 M/mm3 (4.00-5.60); RDW 15.6 % (11.9-15.9); WHITE BLOOD COUNT 12.8 K/mm3 (4.0-10.0)
[2017-11-18] MEDS: HEPARIN NA (PORCINE) 5,000 UNITS/ML 1ML VIAL SQ SCH ×3 (06:45→21:10)
--- NOTE | 2017-11-18 06:50 | PN ---
Progress Note, Physician Chief Complaint: ID Day 1 post op lap cholecytectomy and stable overnight Remains-- getting Meropenem for Sepsis syndrome - Current Medication List Current Medications: Active Medications Albuterol/Ipratropium (Duoneb -) 1 amp NEB Q6H PRN PRN Reason: SHORTNESS OF BREATH Chlorhexidine Gluconate (Hibiclens For Decolonization -) 1 applic TP HS [facility] Last Admin: 11/17/17 21:56 Dose: 1 applic Heparin Sodium (Porcine) (Heparin -) 5,000 unit SQ TID [facility] Last Admin: 11/17/17 21:55 Dose: 5,000 unit Lactated Ringer's (Lactated Ringers Solution) 1,000 mls @ 75 mls/hr IV ASDIR [facility] Last Admin: 11/17/17 19:03 Dose: 75 mls/hr Meropenem 1 gm/ Dextrose 100 mls @ 100 mls/hr IVPB BID [facility] PRN Reason: Protocol Last Admin: 11/17/17 21:56 Dose: 100 mls/hr Insulin Aspart (Novolog Vial Sliding Scale -) 1 vial SQ ACHS [facility] PRN Reason: Protocol Last Admin: 11/18/17 06:20 Dose: Not Given Morphine Sulfate (Morphine Sulfate) 2 mg IVPUSH Q4H PRN PRN Reason: PAIN LEVEL 6-10 Last Admin: 11/18/17 01:53 Dose: 2 mg Mupirocin (Bactroban Ointment (For Decolonization) -) 1 applic NS BID [facility] Stop: 11/22/17 21:59 Last Admin: 11/17/17 21:56 Dose: 1 applic Ondansetron HCl (Zofran Injection) 4 mg IVPB Q6H PRN PRN Reason: NAUSEA Pantoprazole Sodium (Protonix Iv) 40 mg IVPUSH BID [facility] Last Admin: 11/17/17 21:55 Dose: 40 mg - Objective Vital Signs: Vital Signs Temperature 99.2 F 11/18/17 02:00 Pulse Rate 100 H 11/18/17 06:00 Respiratory Rate 16 11/18/17 06:00 Blood Pressure 131/78 11/18/17 06:00 O2 Sat by Pulse Oximetry (%) 96 11/18/17 05:00 Constitutional: Yes: Mild Distress Neck: Yes: WNL, Supple Cardiovascular: Yes: S1, S2 Respiratory: Yes: WNL, Regular, CTA Bilaterally Gastrointestinal: Yes: Soft, Distention, Other (Surgical dressings) Genitourinary: Yes: Other ([place]) Labs: INR, PTT INR 1.06 (0.82-1.09) D 11/16/17 17:00 Problem List - Problems (1) Gram-negative bacteremia Code(s): R78.81 - BACTEREMIA (2) THINE (acute kidney injury) Code(s): N17.9 - ACUTE KIDNEY FAILURE, UNSPECIFIED (3) Acute respiratory failure Code(s): J96.00 - ACUTE RESPIRATORY FAILURE, UNSP W HYPOXIA OR HYPERCAPNIA (4) Cholangitis Code(s): K83.0 - CHOLANGITIS Assessment/Plan Microbiology 11/13/17 17:40 Blood - Peripheral Venous Blood Culture - Final Escherichia Coli 11/13/17 17:40 Blood - Peripheral Venous Blood Culture - Final Escherichia Coli 11/13/17 17:00 Urine - Urine Clean Catch Urine Culture - Final Escherichia Coli Esbl [place] Tests 11/13/17 11/16/17 11/17/17 17:00 17:00 17:50 WBC 18.0 H Hgb 10.3 L Plt Count 137 D Neutrophils % (Manual) 76.0 Band Neutrophils % 3.0 Lymphocytes % (Manual) 5.0 L Monocytes % (Manual) 3 L D Myelocytes % (Man) 4 H D Metamyelocytes 7 H D INR 1.06 D BUN Creatinine Creat Clearance w eGFR AST ALT Alkaline Phosphatase Ur Leukocyte Esterase 1+ H Urine WBC (Auto) 13 Urine RBC (Auto) 9 11/17/17 11/18/17 17:50 06:20 WBC Pending Hgb Pending Plt Count Pending Neutrophils % (Manual) Band Neutrophils % Lymphocytes % (Manual) Monocytes % (Manual) Myelocytes % (Man) Metamyelocytes INR BUN 63 H Creatinine 4.0 H Creat Clearance w eGFR 15.10 AST 198 H ALT 386 H Alkaline Phosphatase 302 H Ur Leukocyte Esterase Urine WBC (Auto) Urine RBC (Auto) Assessment Sepsis syndrome biliary source E Coli bacteremia ( pansensitive ) ESBL E Coli in urine Post ERCP Lap cholecystectomy 11/17 Plan Will change Meropenem to Ertepenem and maintain contact isolation for MDRO in urine culture Overall seems doing be stable given sepsis syndrome and surgery Critical care time spent 35 minutes Naty MARMOLEJO
[2017-11-18 06:57] LABS: ANION GAP 14 (8-16); BLOOD UREA NITROGEN 68 mg/dL (7-18); CALCIUM 7.9 mg/dL (8.5-10.1); CHLORIDE 109 mmol/L (98-107); CO2 24 mmol/L (21-32); GLUCOSE,RANDOM 122 mg/dL (74-106); MAGNESIUM 2.4 mg/dL (1.8-2.4); POTASSIUM 3.9 mmol/L (3.5-5.1); SODIUM 147 mmol/L (136-145)
[2017-11-18 06:59] LABS: CREATININE 3.8 mg/dL (0.7-1.3); PHOSPHOROUS 4.6 mg/dL (2.5-4.9)
[2017-11-18] MEDS ORDERED: PT OWN MED DRAWER 7, Y5N ONE (09:28)
[2017-11-18] MEDS: PANTOPRAZOLE SODIUM 40 MG VIAL IVPUSH SCH ×2 (09:41→21:09)
[2017-11-18] MEDS: MUPIROCIN 2% TOPICAL OINTMENT FOR DECOLONIZATION NS SCH ×2 (09:42→21:13)
--- NOTE | 2017-11-18 10:06 | PN ---
Progress Note, Physician Chief Complaint: abdominal pain History of Present Illness: 67yo male PMH obesity, prostate cancer, HTN, NIDDM, cholelithiasis which was last treated in 1997. He was medically managed at the time and did not require surgery. s/p emergency ERCP with sphincterotomy and stent last night . He had relief of purulent ascending cholangitis with ERCP, stable postop, no acute events overnight, passing flatus and having diarrhea, low grade fever, having ice chips. no complaints. - Current Medication List Current Medications: Active Medications Albuterol/Ipratropium (Duoneb -) 1 amp NEB Q6H PRN PRN Reason: SHORTNESS OF BREATH Chlorhexidine Gluconate (Hibiclens For Decolonization -) 1 applic TP HS [facility] Last Admin: 11/17/17 21:56 Dose: 1 applic Heparin Sodium (Porcine) (Heparin -) 5,000 unit SQ TID [facility] Last Admin: 11/18/17 06:45 Dose: 5,000 unit Lactated Ringer's (Lactated Ringers Solution) 1,000 mls @ 75 mls/hr IV ASDIR [facility] Last Admin: 11/17/17 19:03 Dose: 75 mls/hr Ertapenem 1 gm/ Sodium (Chloride) 100 mls @ 50 mls/hr IVPB DAILY [facility] PRN Reason: Protocol Insulin Aspart (Novolog Vial Sliding Scale -) 1 vial SQ ACHS [facility] PRN Reason: Protocol Last Admin: 11/18/17 06:20 Dose: Not Given Morphine Sulfate (Morphine Sulfate) 2 mg IVPUSH Q4H PRN PRN Reason: PAIN LEVEL 6-10 Last Admin: 11/18/17 06:47 Dose: 2 mg Mupirocin (Bactroban Ointment (For Decolonization) -) 1 applic NS BID [facility] Stop: 11/22/17 21:59 Last Admin: 11/18/17 09:42 Dose: 1 applic Ondansetron HCl (Zofran Injection) 4 mg IVPB Q6H PRN PRN Reason: NAUSEA Pantoprazole Sodium (Protonix Iv) 40 mg IVPUSH BID [facility] Last Admin: 11/18/17 09:41 Dose: 40 mg - Objective Vital Signs: Vital Signs Temperature 99.2 F 11/18/17 02:00 Pulse Rate 100 H 11/18/17 08:00 Respiratory Rate 16 11/18/17 09:00 Blood Pressure 136/88 11/18/17 08:00 O2 Sat by Pulse Oximetry (%) 98 11/18/17 09:00 Vital Signs Period Temp Pulse Resp BP Sys/Leyva Pulse Ox Last 24 Hr 98.2 F-99.2 F 86-100 14-16 118-162/67-95 91-99 Intake & Output 11/17/17 11/18/17 11/18/17 23:59 07:59 15:59 Intake Total 950 Output Total 550 600 Balance -550 350 Weight 167 lb Intake: IV 750 Lactated Ringers Solution 750 1,000 ml @ 75 mls/hr IV ASDIR [facility] Rx#:[id number] IVPB 200 Output: Urine 550 600 Graham 400 600 Other: Voiding Method Indwelling Catheter Indwelling Catheter Weight Measurement Method [facility] Constitutional: Yes: No Distress, Calm Eyes: Yes: Conjunctiva Clear, EOM Intact HENT: Yes: Atraumatic, Normocephalic Neck: Yes: Supple, Trachea Midline Cardiovascular: Yes: Regular Rate and Rhythm, S1, S2. No: Murmur Respiratory: Yes: Regular, CTA Bilaterally, On Nasal O2 Gastrointestinal: Yes: Normal Bowel Sounds, Soft, Abdomen, Obese, Distention ( firm distension). No: Tenderness ...Rectal Exam: Yes: Deferred Genitourinary: No: CVA Tenderness - Left, CVA Tenderness - Right Extremities: No: Cold, Cool Edema: No Peripheral Pulses WNL: Yes Integumentary: Yes: Rash. No: Jaundice Wound/Incision: Yes: Clean/Dry, Well Approximated, Dressing Dry and Intact Neurological: Yes: Alert, Oriented Psychiatric: Yes: Alert, Oriented Labs: CBC, BMP 11/18/17 06:20 11/18/17 06:20 INR, PTT INR 1.06 (0.82-1.09) D 11/16/17 17:00 Microbiology 11/15/17 10:35 Blood - Peripheral Venous Blood Culture - Preliminary NO GROWTH OBTAINED AFTER 72 HOURS, INCUBATION TO CONTINUE FOR 2 DAYS. 11/15/17 09:40 Blood - Peripheral Venous Blood Culture - Preliminary NO GROWTH OBTAINED AFTER 72 HOURS, INCUBATION TO CONTINUE FOR 2 DAYS. 11/13/17 17:40 Blood - Peripheral Venous Blood Culture - Final Escherichia Coli 11/13/17 22:00 Stool Salmonella/Shigella Culture - Final NO GROWTH OF SALMONELLA OR SHIGELLA SPECIES OBTAINED 11/13/17 22:00 Stool Campylobacter Culture - Final NO GROWTH OF CAMPYLOBACTER SPECIES OBTAINED 11/13/17 22:00 Stool Yersinia Culture - Final NO GROWTH OF YERSINIA SPECIES OBTAINED 11/13/17 22:00 Stool Vibrio Culture - Final NO GROWTH OF VIBRIO SPECIES OBTAINED 11/13/17 22:00 Stool Escherichia coli 0157 Culture - Final NO GROWTH OF E COLI 0157 OBTAINED 11/13/17 17:40 Blood - Peripheral Venous Blood Culture - Final Escherichia Coli 11/13/17 17:00 Urine - Urine Clean Catch Urine Culture - Final Escherichia Coli Esbl Manager Regulatory - ....Imaging X-ray: Pending Problem List - Problems (1) Choledocholithiasis Assessment/Plan: 67yo male PMH HTN, DM, obesity with Choledocholithiasis, epigastric abdominal pain, impending cholangitis? transaminitis and tbili >6, wbc ~3, lactic acid 9. s/p ERCP sphincterotomy, stone extration and stent placement. POD#1 s/p Laparoscopic cholecystectomy, some abdominal distension with early signs of GI continuity. May have An element to paralytics illeus ICU management continue NPO IVF hydration IV antibioics Abdiominal Xray 2 views encourage IS OOB Will follow for serial exams This patient is critically ill. Time spent reviewing chart, examining patient, talking with providers and/or family and documentation is 35 minutes Code(s): K80.50 - CALCULUS OF BILE DUCT W/O CHOLANGITIS OR CHOLECYST W/O OBST (2) Calculus of gallbladder and bile duct w/o cholecystitis or obstruction Code(s): K80.70 - CALCULUS OF GB AND BILE DUCT W/O CHOLECYST W/O OBSTRUCTION (3) Obesity Code(s): E66.9 - OBESITY, UNSPECIFIED Qualifiers: Obesity classification: adult class 1 (BMI 30 - 34.9) (4) Abdominal pain in male Code(s): R10.9 - UNSPECIFIED ABDOMINAL PAIN (5) Transaminitis Code(s): R74.0 - NONSPEC ELEV OF LEVELS OF TRANSAMNS & LACTIC ACID DEHYDRGNSE
--- NOTE | 2017-11-18 11:01 | PN ---
Progress Note, Physician History of Present Illness: Not in distress, or in pain, Awake and alert. - Current Medication List Current Medications: Active Medications Albuterol/Ipratropium (Duoneb -) 1 amp NEB Q6H PRN PRN Reason: SHORTNESS OF BREATH Chlorhexidine Gluconate (Hibiclens For Decolonization -) 1 applic TP HS [facility] Last Admin: 11/17/17 21:56 Dose: 1 applic Heparin Sodium (Porcine) (Heparin -) 5,000 unit SQ TID [facility] Last Admin: 11/18/17 06:45 Dose: 5,000 unit Lactated Ringer's (Lactated Ringers Solution) 1,000 mls @ 75 mls/hr IV ASDIR [facility] Last Admin: 11/17/17 19:03 Dose: 75 mls/hr Ertapenem 1 gm/ Sodium (Chloride) 100 mls @ 50 mls/hr IVPB DAILY [facility] PRN Reason: Protocol Insulin Aspart (Novolog Vial Sliding Scale -) 1 vial SQ ACHS [facility] PRN Reason: Protocol Last Admin: 11/18/17 06:20 Dose: Not Given Morphine Sulfate (Morphine Sulfate) 2 mg IVPUSH Q4H PRN PRN Reason: PAIN LEVEL 6-10 Last Admin: 11/18/17 06:47 Dose: 2 mg Mupirocin (Bactroban Ointment (For Decolonization) -) 1 applic NS BID [facility] Stop: 11/22/17 21:59 Last Admin: 11/18/17 09:42 Dose: 1 applic Ondansetron HCl (Zofran Injection) 4 mg IVPB Q6H PRN PRN Reason: NAUSEA Pantoprazole Sodium (Protonix Iv) 40 mg IVPUSH BID [facility] Last Admin: 11/18/17 09:41 Dose: 40 mg - Objective Vital Signs: Vital Signs Temperature 99.2 F 11/18/17 02:00 Pulse Rate 100 H 11/18/17 08:00 Respiratory Rate 16 11/18/17 09:00 Blood Pressure 136/88 11/18/17 08:00 O2 Sat by Pulse Oximetry (%) 98 11/18/17 09:00 Constitutional: Yes: No Distress, Calm Eyes: Yes: Conjunctiva Clear Labs: CBC, BMP 11/18/17 06:20 11/18/17 06:20 INR, PTT INR 1.06 (0.82-1.09) D 11/16/17 17:00 Problem List - Problems (1) Cholestasis Code(s): K83.1 - OBSTRUCTION OF BILE DUCT (2) Hepatitis Code(s): K75.9 - INFLAMMATORY LIVER DISEASE, UNSPECIFIED (3) Ileus, unspecified Code(s): K56.7 - ILEUS, UNSPECIFIED (4) Jaundice Code(s): R17 - UNSPECIFIED JAUNDICE (5) Sepsis Code(s): A41.9 - SEPSIS, UNSPECIFIED ORGANISM (6) Cholangitis Code(s): K83.0 - CHOLANGITIS (7) Cholangitis due to bile duct calculus with obstruction Code(s): K80.31 - CALCULUS OF BILE DUCT W CHOLANGITIS, UNSP, WITH OBSTRUCTION Assessment/Plan Sepsis with respiratory and renal failure to cholangitis. S/p therapeutic ERCP and cholecystectomy. Continue current management
[2017-11-18] MEDS: ERTAPENEM SODIUM 1 GM in SODIUM CHLORIDE 100 ML IVPB SCH (11:19)
[2017-11-18 11:40] LABS: ALBUMIN 2.2 g/dl (3.4-5.0); ALK PHOS 245 U/L (45-117); BILIRUBIN,DIRECT 1.4 mg/dL (0.0-0.2); BILIRUBIN,TOTAL 1.9 mg/dL (0.2-1.0); SGOT/AST 148 U/L (15-37); SGPT/ALT 313 U/L (12-78); TOT PROT 5.1 g/dl (6.4-8.2)
--- NOTE | 2017-11-18 12:14 | PN ---
Teaching Attending Note Name of Resident: Hadley Lovett ATTENDING PHYSICIAN STATEMENT I saw and evaluated the patient. I reviewed the resident's note and discussed the case with the resident. I agree with the resident's findings and plan as documented. SUBJECTIVE: Pt seen and examined in the ICU. s/p laparoscopic cholecystectomy. Some post op hypoxia. Currently denies any pain, shortness of breath, nausea or vomiting. OBJECTIVE: Last Vital Signs Temp Pulse Resp BP Pulse Ox 99 F 97 H 16 147/85 98 11/18/17 10:00 11/18/17 10:00 11/18/17 10:00 11/18/17 10:00 11/18/17 09:00 Intake & Output 11/15/17 11/16/17 11/17/17 11/18/17 23:59 23:59 23:59 23:59 Intake Total 2460 654 1100 950 Output Total 1250 1900 1500 600 Balance 1210 -1246 -400 350 Weight 83.943 kg 79.889 kg 81.102 kg 75.75 kg Gen: NAD at rest Heart: RRR Lung: decreased breath sounds at the bases Abd: softly distended Ext: no edema CBC, BMP 11/18/17 06:20 11/18/17 06:20 Active Medications Albuterol/Ipratropium (Duoneb -) 1 amp NEB Q6H PRN PRN Reason: SHORTNESS OF BREATH Chlorhexidine Gluconate (Hibiclens For Decolonization -) 1 applic TP HS [facility] Last Admin: 11/17/17 21:56 Dose: 1 applic Heparin Sodium (Porcine) (Heparin -) 5,000 unit SQ TID [facility] Last Admin: 11/18/17 06:45 Dose: 5,000 unit Lactated Ringer's (Lactated Ringers Solution) 1,000 mls @ 75 mls/hr IV ASDIR [facility] Last Admin: 11/17/17 19:03 Dose: 75 mls/hr Ertapenem 1 gm/ Sodium (Chloride) 100 mls @ 50 mls/hr IVPB DAILY [facility] PRN Reason: Protocol Last Admin: 11/18/17 11:19 Dose: 50 mls/hr Insulin Aspart (Novolog Vial Sliding Scale -) 1 vial SQ ACHS [facility] PRN Reason: Protocol Last Admin: 11/18/17 06:20 Dose: Not Given Morphine Sulfate (Morphine Sulfate) 2 mg IVPUSH Q4H PRN PRN Reason: PAIN LEVEL 6-10 Last Admin: 11/18/17 06:47 Dose: 2 mg Mupirocin (Bactroban Ointment (For Decolonization) -) 1 applic NS BID [facility] Stop: 11/22/17 21:59 Last Admin: 11/18/17 09:42 Dose: 1 applic Ondansetron HCl (Zofran Injection) 4 mg IVPB Q6H PRN PRN Reason: NAUSEA Pantoprazole Sodium (Protonix Iv) 40 mg IVPUSH BID [facility] Last Admin: 11/18/17 09:41 Dose: 40 mg ASSESSMENT AND PLAN: Ascending Cholangitis Gram Negative Bacteremia Septic Shock improving Acute Kidney Injury requiring HD Lactic Acidosis Hyperkalemia improved Volume Overload HTN DM h/o Prostate Ca - continue antibiotics - pain control - incentive spirometry - HD per renal - monitor urine output, creatinine - O2 to keep SpO2 >90% - BiPAP as needed to assist in work of breathing - DVT prophylaxis - continue ICU monitoring critical care time spent in reviewing chart, evaluating patient and formulatin plan 35 min
--- NOTE | 2017-11-18 13:29 | PN ---
Progress Note (short form) - Note Progress Note: Anesthesiology Post-op POD #1 s/p laparoscopice cholecystectomy under GA. Pt. resting comfortably in ICU. Pain well-controlled. VSS. No apparent anesthesia-related issues. 67 y.o. s/p lap waldemar with stable post-operative course. Continue management as per primary team.
[2017-11-18] MEDS ORDERED: POTASSIUM CHLORIDE TABS 20 MEQ TABLET.ER (FP) PO ONE (15:27)
--- NOTE | 2017-11-18 16:57 | PN ---
Progress Note (short form) - Note Progress Note: Subjective: The patient was seen and examined at the bedside, he has no complaints at this time. He denies any shortness of breath, chest pain, nausea, vomiting Current Medications Generic Name Dose Route Start Last Admin Trade Name Freq PRN Reason Stop Dose Admin Albuterol/Ipratropium 1 amp 11/17/17 18:56 Duoneb - NEB Q6H PRN SHORTNESS OF BREATH Chlorhexidine Gluconate 1 applic 11/17/17 22:00 11/17/17 21:56 Hibiclens For Decolonization - TP 1 applic HS [facility] Administration Heparin Sodium (Porcine) 5,000 unit 11/17/17 22:00 11/18/17 13:02 Heparin - SQ 5,000 unit TID [facility] Administration Lactated Ringer's 1,000 mls @ 75 mls/hr 11/17/17 18:56 11/17/17 19:03 Lactated Ringers Solution IV 75 mls/hr ASDIR [facility] Administration Ertapenem 1 gm/ Sodium 100 mls @ 50 mls/hr 11/18/17 10:00 11/18/17 11:19 Chloride IVPB 50 mls/hr DAILY [facility] Administration Protocol Insulin Aspart 1 vial 11/17/17 22:00 11/18/17 06:20 Novolog Vial Sliding Scale - SQ Not Given ACHS [facility] Protocol Morphine Sulfate 2 mg 11/17/17 18:59 11/18/17 06:47 Morphine Sulfate IVPUSH 2 mg Q4H PRN Administration PAIN LEVEL 6-10 Mupirocin 1 applic 11/17/17 22:00 11/18/17 09:42 Bactroban Ointment (For Decolonization) - NS 11/22/17 21:59 1 applic BID [facility] Administration Ondansetron HCl 4 mg 11/17/17 18:56 Zofran Injection IVPB Q6H PRN NAUSEA Pantoprazole Sodium 40 mg 11/17/17 22:00 11/18/17 09:41 Protonix Iv IVPUSH 40 mg BID [facility] Administration Objective: Vital Signs Period Temp Pulse Resp BP Sys/Leyva Pulse Ox Last 24 Hr 99 F-99.2 F 89-100 11-16 118-151/50-88 96-99 Physical Exam: General: NAD, A&Ox3 Lungs: Decreased breath sounds bilaterally Heart: RRR, S1S2 Abd: Lap sites c,d,i. Soft, distended Ext: + edema CBCD WBC 18.0 K/mm3 (4.0-10.0) H 11/17/17 17:50 RBC 3.51 M/mm3 (4.00-5.60) L 11/17/17 17:50 Hgb 10.3 GM/dL (11.7-16.9) L 11/17/17 17:50 Hct 31.1 % (35.4-49) L 11/17/17 17:50 MCV 88.7 fl (80-96) 11/17/17 17:50 MCHC 33.2 g/dl (32.0-35.9) 11/17/17 17:50 RDW 16.3 % (11.9-15.9) H 11/17/17 17:50 Plt Count 137 K/MM3 (134-434) D 11/17/17 17:50 MPV 10.1 fl (7.5-11.1) 11/17/17 17:50 CMP Sodium 143 mmol/L (136-145) 11/17/17 05:45 Potassium 3.7 mmol/L (3.5-5.1) 11/17/17 05:45 Chloride 108 mmol/L (98-107) H 11/17/17 05:45 Carbon Dioxide 25 mmol/L (21-32) 11/17/17 05:45 Anion Gap 10 (8-16) 11/17/17 05:45 BUN 61 mg/dL (7-18) H 11/17/17 05:45 Creatinine 4.3 mg/dL (0.7-1.3) H 11/17/17 05:45 Creat Clearance w eGFR 13.89 (>60) 11/17/17 05:45 Random Glucose 98 mg/dL (74-106) 11/17/17 05:45 Calcium 7.2 mg/dL (8.5-10.1) L 11/17/17 05:45 Total Bilirubin 2.3 mg/dL (0.2-1.0) H 11/17/17 05:45 AST 177 U/L (15-37) H D 11/17/17 05:45 ALT 381 U/L (12-78) H D 11/17/17 05:45 Alkaline Phosphatase 275 U/L (45-117) H 11/17/17 05:45 Total Protein 5.0 g/dl (6.4-8.2) L 11/17/17 05:45 Albumin 2.2 g/dl (3.4-5.0) L 11/17/17 05:45 CARDIAC ENZYMES Creatine Kinase 175 IU/L (39-308) 11/13/17 08:51 Troponin I < 0.02 ng/ml (0.00-0.05) 11/13/17 08:51 Microbiology 11/13/17 17:40 Blood - Peripheral Venous Blood Culture - Final Escherichia Coli 11/15/17 10:35 Blood - Peripheral Venous Blood Culture - Preliminary NO GROWTH OBTAINED AFTER 48 HOURS, INCUBATION TO CONTINUE FOR 3 DAYS. 11/15/17 09:40 Blood - Peripheral Venous Blood Culture - Preliminary NO GROWTH OBTAINED AFTER 48 HOURS, INCUBATION TO CONTINUE FOR 3 DAYS. 11/13/17 22:00 Stool Salmonella/Shigella Culture - Final NO GROWTH OF SALMONELLA OR SHIGELLA SPECIES OBTAINED 11/13/17 22:00 Stool Campylobacter Culture - Final NO GROWTH OF CAMPYLOBACTER SPECIES OBTAINED 11/13/17 22:00 Stool Yersinia Culture - Final NO GROWTH OF YERSINIA SPECIES OBTAINED 11/13/17 22:00 Stool Vibrio Culture - Final NO GROWTH OF VIBRIO SPECIES OBTAINED 11/13/17 22:00 Stool Escherichia coli 0157 Culture - Final NO GROWTH OF E COLI 0157 OBTAINED 11/13/17 17:40 Blood - Peripheral Venous Blood Culture - Final Escherichia Coli 11/13/17 17:00 Urine - Urine Clean Catch Urine Culture - Final Escherichia Coli Esbl Neurology Epilepsy Physician Assessment: This is a 67 year old male with PMHx HTN, NIDDM, cholelithiasis, who presented to the ED with periumbilical pain, nausea, vomiting, abdominal distention x1 day Plan: 1) Septic shock 2/2 ascending cholangitis, e.coli bacteremia, esbl UTI - 11/13 MRCP: 6mm hypointensity overlyng the distal CBD; diffusely dilated CBD 15mm; common hepatic duct dilated 10mm; moderate intrahepatic biliary ductal dilitation - 11/14 First ERCP: sphincterotomy, stent; purulent drainage - 11/14 Second ERCP: retrieval of stone; washout - S/p cholecytectomy on 11/17 - Meropenem switched to Ertapenem today - WBC trending down - Remains afebrile - Appreciate surgery consult - Appreciate ID consult 2) Hypoxic, hypercapneic respiratory failure - Some episodes of post-op hypoxia - Incentive spirometer encouraged - Appreciate pulmonary consult 3) Acute renal failure - Likely due to ATN in the setting of sepsis/shock - Cr continues to slowly decrease - Appreciate nephrology consult 4) Transaminitis - Continues to improve - Continue to trend - Hepatitis serology noted 5)
--- NOTE | 2017-11-18 17:30 | PN ---
Progress Note (short form) - Note Progress Note: Renal follow up for THIEN Pt seen and examined in the ICU has abd distension + diarrhea no sob, chest pain no N/V Vital Signs Temperature 99 F 11/18/17 14:00 Pulse Rate 95 H 11/18/17 16:00 Respiratory Rate 14 11/18/17 16:00 Blood Pressure 151/80 11/18/17 16:00 O2 Sat by Pulse Oximetry (%) 98 11/18/17 10:00 Intake & Output 11/15/17 11/16/17 11/17/17 11/18/17 23:59 23:59 23:59 23:59 Intake Total 2460 654 1100 1950 Output Total 1250 1900 1500 1500 Balance 1210 -1246 -400 450 Weight 83.943 kg 79.889 kg 81.102 kg 75.75 kg NAD on NC No JVD, neck supple RRR, No M/R Dec BS at lung bases Mild Abd distension NO LE edmea, no clubbing or cyanosis CBC, BMP 11/18/17 06:20 11/18/17 06:20 Current Medications Albuterol/Ipratropium (Duoneb -) 1 amp NEB Q6H PRN PRN Reason: SHORTNESS OF BREATH Chlorhexidine Gluconate (Hibiclens For Decolonization -) 1 applic TP HS [facility] Last Admin: 11/17/17 21:56 Dose: 1 applic Heparin Sodium (Porcine) (Heparin -) 5,000 unit SQ TID [facility] Last Admin: 11/18/17 13:02 Dose: 5,000 unit Lactated Ringer's (Lactated Ringers Solution) 1,000 mls @ 75 mls/hr IV ASDIR [facility] Last Admin: 11/17/17 19:03 Dose: 75 mls/hr Ertapenem 1 gm/ Sodium (Chloride) 100 mls @ 50 mls/hr IVPB DAILY [facility] PRN Reason: Protocol Last Admin: 11/18/17 11:19 Dose: 50 mls/hr Insulin Aspart (Novolog Vial Sliding Scale -) 1 vial SQ ACHS [facility] PRN Reason: Protocol Last Admin: 11/18/17 06:20 Dose: Not Given Morphine Sulfate (Morphine Sulfate) 2 mg IVPUSH Q4H PRN PRN Reason: PAIN LEVEL 6-10 Last Admin: 11/18/17 06:47 Dose: 2 mg Mupirocin (Bactroban Ointment (For Decolonization) -) 1 applic NS BID [facility] Stop: 11/22/17 21:59 Last Admin: 11/18/17 09:42 Dose: 1 applic Ondansetron HCl (Zofran Injection) 4 mg IVPB Q6H PRN PRN Reason: NAUSEA Pantoprazole Sodium (Protonix Iv) 40 mg IVPUSH BID [facility] Last Admin: 11/18/17 09:41 Dose: 40 mg 67 year old gentleman with PMhx of obesity, prostate cancer, HTN, NIDDM, cholelithiasis who presented to the ED with Abd pain now s/p ERCP with ascending colangitis and gram negative sepsis with THIEN and metabolic acidosis. #Ascending Colangitis #Gram Negative Bacteremia #Septic Shock, now stable #Acute Renal Failure likely due to ATN in setting of sepsis/shock #Anemia Renal function is importing trend BUN/Cr and electrolytes keep MAP > 65 continue Abx as per ID GI/Sugrical follow up Anuj Ferguson DO
[2017-11-18] MEDS: LACTATED RINGERS SOLUTION 1,000 ML IV SCH (19:00)
[2017-11-18] MEDS: CHLORHEXIDINE GLUCONATE 4% CLEANSER FOR DECOLONIZATION TP SCH (21:12)
[2017-11-19] MEDS: HEPARIN NA (PORCINE) 5,000 UNITS/ML 1ML VIAL SQ SCH ×3 (06:20→22:38)
[2017-11-19 06:38] LABS: HEMATOCRIT 29.7 % (35.4-49); HEMOGLOBIN 10.1 GM/dL (11.7-16.9); MCH 30.1 pg (25.7-33.7); MEAN CELL VOLUME 88.5 fl (80-96); MEAN PLT VOLUME 10.4 fl (7.5-11.1); PLATELET COUNT 160 K/MM3 (134-434); RBC 3.36 M/mm3 (4.00-5.60); RDW 16.1 % (11.9-15.9); WHITE BLOOD COUNT 14.9 K/mm3 (4.0-10.0)
[2017-11-19] MEDS: INSULIN SLIDING SCALE (NOVOLOG) 1 VIAL SQ SCH ×4 (06:41→22:38)
[2017-11-19 07:09] LABS: CHLORIDE 109 mmol/L (98-107); POTASSIUM 3.8 mmol/L (3.5-5.1); SODIUM 149 mmol/L (136-145)
--- NOTE | 2017-11-19 07:13 | PN ---
Progress Note, Physician Chief Complaint: ID Day 2 post op cholecystectomy Afebrile Now on Ertepenem - Current Medication List Current Medications: Active Medications Albuterol/Ipratropium (Duoneb -) 1 amp NEB Q6H PRN PRN Reason: SHORTNESS OF BREATH Chlorhexidine Gluconate (Hibiclens For Decolonization -) 1 applic TP HS [facility] Last Admin: 11/18/17 21:12 Dose: 1 applic Heparin Sodium (Porcine) (Heparin -) 5,000 unit SQ TID [facility] Last Admin: 11/19/17 06:20 Dose: 5,000 unit Lactated Ringer's (Lactated Ringers Solution) 1,000 mls @ 75 mls/hr IV ASDIR [facility] Last Admin: 11/18/17 19:00 Dose: 75 mls/hr Ertapenem 1 gm/ Sodium (Chloride) 100 mls @ 50 mls/hr IVPB DAILY [facility] PRN Reason: Protocol Last Admin: 11/18/17 11:19 Dose: 50 mls/hr Insulin Aspart (Novolog Vial Sliding Scale -) 1 vial SQ ACHS [facility] PRN Reason: Protocol Last Admin: 11/19/17 06:41 Dose: Not Given Morphine Sulfate (Morphine Sulfate) 2 mg IVPUSH Q4H PRN PRN Reason: PAIN LEVEL 6-10 Last Admin: 11/18/17 19:38 Dose: 2 mg Mupirocin (Bactroban Ointment (For Decolonization) -) 1 applic NS BID [facility] Stop: 11/22/17 21:59 Last Admin: 11/18/17 21:13 Dose: 1 applic Ondansetron HCl (Zofran Injection) 4 mg IVPB Q6H PRN PRN Reason: NAUSEA Pantoprazole Sodium (Protonix Iv) 40 mg IVPUSH BID [facility] Last Admin: 11/18/17 21:09 Dose: 40 mg - Objective Vital Signs: Vital Signs Temperature 98.1 F 11/19/17 06:00 Pulse Rate 72 11/19/17 06:00 Respiratory Rate 19 11/19/17 06:00 Blood Pressure 146/81 11/19/17 06:00 O2 Sat by Pulse Oximetry (%) 99 11/18/17 22:00 Constitutional: Yes: No Distress Cardiovascular: Yes: S1, S2 Respiratory: Yes: WNL, Regular, CTA Bilaterally Gastrointestinal: Yes: Soft, Distention Edema: No Labs: CBC, BMP 11/19/17 06:15 INR, PTT INR 1.06 (0.82-1.09) D 11/16/17 17:00 Problem List - Problems (1) Gram-negative bacteremia Code(s): R78.81 - BACTEREMIA (2) THIEN (acute kidney injury) Code(s): N17.9 - ACUTE KIDNEY FAILURE, UNSPECIFIED (3) Acute respiratory failure Code(s): J96.00 - ACUTE RESPIRATORY FAILURE, UNSP W HYPOXIA OR HYPERCAPNIA (4) Cholangitis Code(s): K83.0 - CHOLANGITIS Assessment/Plan Microbiology 11/13/17 17:40 Blood - Peripheral Venous Blood Culture - Final Escherichia Coli 11/13/17 17:40 Blood - Peripheral Venous Blood Culture - Final Escherichia Coli 11/13/17 17:00 Urine - Urine Clean Catch Urine Culture - Final Escherichia Coli Esbl Manager Helpdesk Laboratory Tests 11/19/17 06:15 WBC 14.9 H Hgb 10.1 L Hct 29.7 L Assessment Cholangitis E Coli bacteremia 10/16 day 6 ESBL in urinary tract Post cholecystectomy Plan Carbepenem to cover ESBL urinary tract as well as blood isolate( sensitive) Naty MARMOLEJO
[2017-11-19 07:15] LABS: ALBUMIN 2.4 g/dl (3.4-5.0); ALK PHOS 224 U/L (45-117); ANION GAP 18 (8-16); BILIRUBIN,TOTAL 1.6 mg/dL (0.2-1.0); BLOOD UREA NITROGEN 68 mg/dL (7-18); CALCIUM 8.1 mg/dL (8.5-10.1); CO2 22 mmol/L (21-32); CREATININE 3.1 mg/dL (0.7-1.3); GLUCOSE,RANDOM 131 mg/dL (74-106); MAGNESIUM 2.2 mg/dL (1.8-2.4); PHOSPHOROUS 4.5 mg/dL (2.5-4.9); SGOT/AST 86 U/L (15-37); SGPT/ALT 234 U/L (12-78); TOT PROT 5.7 g/dl (6.4-8.2)
--- NOTE | 2017-11-19 07:51 | PN ---
Progress Note, Physician Chief Complaint: abdominal pain History of Present Illness: 67yo male PMH obesity, prostate cancer, HTN, NIDDM, cholelithiasis which was last treated in 1997. He was medically managed at the time and did not require surgery. s/p emergency ERCP with sphincterotomy and stent last night . He had relief of purulent ascending cholangitis with ERCP, stable postop, no acute events overnight, passing flatus and having diarrhea, low grade fever, having ice chips. no complaints. - Current Medication List Current Medications: Active Medications Albuterol/Ipratropium (Duoneb -) 1 amp NEB Q6H PRN PRN Reason: SHORTNESS OF BREATH Chlorhexidine Gluconate (Hibiclens For Decolonization -) 1 applic TP HS [facility] Last Admin: 11/18/17 21:12 Dose: 1 applic Heparin Sodium (Porcine) (Heparin -) 5,000 unit SQ TID [facility] Last Admin: 11/19/17 06:20 Dose: 5,000 unit Lactated Ringer's (Lactated Ringers Solution) 1,000 mls @ 75 mls/hr IV ASDIR [facility] Last Admin: 11/18/17 19:00 Dose: 75 mls/hr Ertapenem 1 gm/ Sodium (Chloride) 100 mls @ 50 mls/hr IVPB DAILY [facility] PRN Reason: Protocol Last Admin: 11/18/17 11:19 Dose: 50 mls/hr Insulin Aspart (Novolog Vial Sliding Scale -) 1 vial SQ ACHS [facility] PRN Reason: Protocol Last Admin: 11/19/17 06:41 Dose: Not Given Morphine Sulfate (Morphine Sulfate) 2 mg IVPUSH Q4H PRN PRN Reason: PAIN LEVEL 6-10 Last Admin: 11/18/17 19:38 Dose: 2 mg Mupirocin (Bactroban Ointment (For Decolonization) -) 1 applic NS BID [facility] Stop: 11/22/17 21:59 Last Admin: 11/18/17 21:13 Dose: 1 applic Ondansetron HCl (Zofran Injection) 4 mg IVPB Q6H PRN PRN Reason: NAUSEA Pantoprazole Sodium (Protonix Iv) 40 mg IVPUSH BID [facility] Last Admin: 11/18/17 21:09 Dose: 40 mg - Objective Vital Signs: Vital Signs Temperature 98.1 F 11/19/17 06:00 Pulse Rate 72 11/19/17 06:00 Respiratory Rate 19 11/19/17 06:00 Blood Pressure 146/81 11/19/17 06:00 O2 Sat by Pulse Oximetry (%) 99 11/18/17 22:00 Vital Signs Period Temp Pulse Resp BP Sys/Leyva Pulse Ox Last 24 Hr 98.1 F-99 F 72-100 9-19 135-169/50-99 98-99 Intake & Output 11/18/17 11/18/17 11/19/17 15:59 23:59 07:59 Intake Total 1000 1165 Output Total 900 900 700 Balance -900 100 465 Weight 171 lb 9.6 oz Intake: IV 900 825 Lactated Ringers Solution 900 825 1,000 ml @ 75 mls/hr IV ASDIR [facility] Rx#:[id number] IVPB 100 100 Oral 240 Output: Urine 900 900 700 Graham 900 900 700 Other: Voiding Method Indwelling Catheter Indwelling Catheter Indwelling Catheter Bowel Movement Yes Yes Weight Measurement Method Built in [facility] Constitutional: Yes: No Distress, Calm Eyes: Yes: Conjunctiva Clear, EOM Intact HENT: Yes: Atraumatic, Normocephalic Neck: Yes: Supple, Trachea Midline Cardiovascular: Yes: Regular Rate and Rhythm, S1, S2 Respiratory: Yes: Regular, CTA Bilaterally Gastrointestinal: Yes: Normal Bowel Sounds, Soft, Abdomen, Obese, Distention. No: Tenderness, Tenderness, Epigastrium, Tenderness, Rebound Genitourinary: No: CVA Tenderness - Left, CVA Tenderness - Right Extremities: No: Cool, Cyanosis Edema: No Peripheral Pulses WNL: Yes Wound/Incision: Yes: Clean/Dry, Well Approximated, Steri Strips. No: Draining, Reddened, Bleeding Neurological: Yes: Alert, Oriented Psychiatric: Yes: Alert, Oriented Labs: CBC, BMP 11/19/17 06:15 11/19/17 06:15 INR, PTT INR 1.06 (0.82-1.09) D 11/16/17 17:00 Problem List - Problems (1) Choledocholithiasis Assessment/Plan: 67yo male PMH HTN, DM, obesity with Choledocholithiasis, epigastric abdominal pain, impending cholangitis? transaminitis and tbili >6, wbc ~3, lactic acid 9. s/p ERCP sphincterotomy, stone extration and stent placement. POD#1 s/p Laparoscopic cholecystectomy, some abdominal distension with early signs of GI continuity. May have An element to paralytics illeus ICU management continue NPO IVF hydration IV antibioics Abdiominal Xray 2 views encourage IS and OOB Will follow for serial exams Agree with transfer This patient is critically ill. Time spent reviewing chart, examining patient, talking with providers and/or family and documentation is 35 minutes Code(s): K80.50 - CALCULUS OF BILE DUCT W/O CHOLANGITIS OR CHOLECYST W/O OBST (2) Calculus of gallbladder and bile duct w/o cholecystitis or obstruction Code(s): K80.70 - CALCULUS OF GB AND BILE DUCT W/O CHOLECYST W/O OBSTRUCTION (3) Obesity Code(s): E66.9 - OBESITY, UNSPECIFIED Qualifiers: Obesity classification: adult class 1 (BMI 30 - 34.9) (4) Abdominal pain in male Code(s): R10.9 - UNSPECIFIED ABDOMINAL PAIN (5) Transaminitis Code(s): R74.0 - NONSPEC ELEV OF LEVELS OF TRANSAMNS & LACTIC ACID DEHYDRGNSE
[2017-11-19] MEDS ORDERED: SODIUM CHLORIDE 0.45% 1,000 ML IV SCH (08:15)
[2017-11-19] MEDS ORDERED: PT OWN MED DRAWER 7, Y5N ONE (08:48)
[2017-11-19] MEDS ORDERED: POTASSIUM CHLORIDE ORAL LIQUID 20 MEQ/15 ML PO ONE (09:00)
[2017-11-19] MEDS: ERTAPENEM SODIUM 1 GM in SODIUM CHLORIDE 100 ML IVPB SCH (09:41)
[2017-11-19] MEDS: MUPIROCIN 2% TOPICAL OINTMENT FOR DECOLONIZATION NS SCH (09:41)
[2017-11-19] MEDS: PANTOPRAZOLE SODIUM 40 MG VIAL IVPUSH SCH (09:42)
[2017-11-19] MEDS ORDERED: POTASSIUM CHLORIDE TABS 20 MEQ TABLET.ER (FP) PO ONE (11:00)
[2017-11-19 11:09] LABS: PLATELET ESTIMATE NORMAL; TARGET CELLS 1+
[2017-11-19] MEDS ORDERED: DEXTROSE 5%-0.45% SALINE 1,000 ML IV SCH (11:15)
[2017-11-19] MEDS ORDERED: SODIUM CHLORIDE 1,000 ML IV SCH (11:15)
--- NOTE | 2017-11-19 12:39 | PN ---
Teaching Attending Note Name of Resident: Hadley Lovett ATTENDING PHYSICIAN STATEMENT I saw and evaluated the patient. I reviewed the resident's note and discussed the case with the resident. I agree with the resident's findings and plan as documented. SUBJECTIVE: Pt seen and examined in the ICU. Denies abdominal pain, nausea or vomiting. No fevers or chills. Continues to have good urine output. OBJECTIVE: Last Vital Signs Temp Pulse Resp BP Pulse Ox 98 F 81 12 143/72 98 11/19/17 10:36 11/19/17 12:00 11/19/17 12:00 11/19/17 12:00 11/19/17 12:37 Intake & Output 11/16/17 11/17/17 11/18/17 11/19/17 23:59 23:59 23:59 23:59 Intake Total 654 1100 1950 1165 Output Total 1900 1500 2400 900 Balance -1246 -400 -450 265 Weight 79.889 kg 81.102 kg 75.75 kg 77.836 kg Gen: NAD at rest Heart: RRR Lung: decreased breath sounds at the bases Abd: softly distended, nontender Ext: no edema CBC, BMP 11/19/17 06:15 11/19/17 06:15 Active Medications Albuterol/Ipratropium (Duoneb -) 1 amp NEB Q6H PRN PRN Reason: SHORTNESS OF BREATH Chlorhexidine Gluconate (Hibiclens For Decolonization -) 1 applic TP HS [facility] Last Admin: 11/18/17 21:12 Dose: 1 applic Heparin Sodium (Porcine) (Heparin -) 5,000 unit SQ TID [facility] Last Admin: 11/19/17 06:20 Dose: 5,000 unit Ertapenem 1 gm/ Sodium (Chloride) 100 mls @ 50 mls/hr IVPB DAILY [facility] PRN Reason: Protocol Last Admin: 11/19/17 09:41 Dose: 50 mls/hr Sodium Chloride (Normal Saline -) 1,000 mls @ 75 mls/hr IV ASDIR [facility] Last Admin: 11/19/17 12:18 Dose: 75 mls/hr Insulin Aspart (Novolog Vial Sliding Scale -) 1 vial SQ ACHS [facility] PRN Reason: Protocol Last Admin: 11/19/17 11:21 Dose: Not Given Morphine Sulfate (Morphine Sulfate) 2 mg IVPUSH Q4H PRN PRN Reason: PAIN LEVEL 6-10 Last Admin: 11/18/17 19:38 Dose: 2 mg Mupirocin (Bactroban Ointment (For Decolonization) -) 1 applic NS BID [facility] Stop: 11/22/17 21:59 Last Admin: 11/19/17 09:41 Dose: 1 applic Ondansetron HCl (Zofran Injection) 4 mg IVPB Q6H PRN PRN Reason: NAUSEA Pantoprazole Sodium (Protonix Iv) 40 mg IVPUSH BID [facility] Last Admin: 11/19/17 09:42 Dose: 40 mg ASSESSMENT AND PLAN: Ascending Cholangitis Gram Negative Bacteremia s/p Lap Cholecystectomy Septic Shock improving Acute Kidney Injury requiring temporary HD Lactic Acidosis Hyperkalemia improved Volume Overload HTN DM h/o Prostate Ca - continue antibiotics - pain control - incentive spirometry - monitor urine output, creatinine - O2 to keep SpO2 >90% - BiPAP as needed to assist in work of breathing - PO per surgery - DVT prophylaxis - can monitor on floor
[2017-11-19] MEDS ORDERED: ONDANSETRON 4 MG/2 ML VIAL IVPB PRN (14:10)
[2017-11-19] MEDS ORDERED: ALBUTEROL SO4 2.5/IPRATROPIUM 0.5 INH SOL 3 ML VIAL.NEB. NEB PRN (14:10)
--- NOTE | 2017-11-19 15:50 | PN ---
Progress Note (short form) - Note Progress Note: Renal follow up for THIEN Pt seen and examined in the ICU awake and alert no acute complaints on IVF making urine no sob, chest pain Vital Signs Temperature 98.4 F 11/19/17 15:04 Pulse Rate 81 11/19/17 15:04 Respiratory Rate 16 11/19/17 14:00 Blood Pressure 146/76 11/19/17 14:00 O2 Sat by Pulse Oximetry (%) 100 11/19/17 14:18 Intake & Output 11/16/17 11/17/17 11/18/17 11/19/17 23:59 23:59 23:59 23:59 Intake Total 654 1100 1950 1165 Output Total 1900 1500 2400 1850 Balance -1246 -400 -450 -685 Weight 79.889 kg 81.102 kg 75.75 kg 77.836 kg NAD on NC No JVD, neck supple RRR, No M/R Dec BS at lung bases Mild Abd distension NO LE edmea, no clubbing or cyanosis CBC, BMP 11/19/17 06:15 11/19/17 06:15 Laboratory Tests 11/19/17 06:15 Calcium 8.1 L Phosphorus 4.5 Magnesium 2.2 Albumin 2.4 L Current Medications Albuterol/Ipratropium (Duoneb -) 1 amp NEB Q6H PRN PRN Reason: SHORTNESS OF BREATH Heparin Sodium (Porcine) (Heparin -) 5,000 unit SQ TID [facility] Sodium Chloride (Normal Saline -) 1,000 mls @ 75 mls/hr IV ASDIR [facility] Last Admin: 11/19/17 12:18 Dose: 75 mls/hr Ertapenem 1 gm/ Sodium (Chloride) 100 mls @ 200 mls/hr IVPB DAILY [facility] PRN Reason: Protocol Insulin Aspart (Novolog Vial Sliding Scale -) 1 vial SQ ACHS [facility] PRN Reason: Protocol Morphine Sulfate (Morphine Sulfate) 2 mg IVPUSH Q4H PRN PRN Reason: PAIN LEVEL 6-10 Ondansetron HCl (Zofran Injection) 4 mg IVPB Q6H PRN PRN Reason: NAUSEA Pantoprazole Sodium (Protonix Iv) 40 mg IVPUSH DAILY [facility] 67 year old gentleman with PMhx of obesity, prostate cancer, HTN, NIDDM, cholelithiasis who presented to the ED with Abd pain now s/p ERCP with ascending colangitis and gram negative sepsis with THIEN and metabolic acidosis. 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
[2017-11-19] MEDS: SODIUM CHLORIDE 0.45% 1,000 ML IV SCH (17:49)
--- NOTE | 2017-11-19 18:04 | PN ---
Physical Exam: SUBJECTIVE: 24hr events: Previously AXR ordered due to increasing distention which revealed a nonobstructive pattern and some pneumohepatobilia (to be expected due to recent surgery). Pt reports having 3 BM's noted to be loose without any blood. Currently, pt does not have any complaints and is wondering when he can go home. Denies any abdominal pain, SOB, CP/discomfort, headache, fever/chills, n/ v. OBJECTIVE: Vital Signs Period Temp Pulse Resp BP Sys/Leyva Pulse Ox Last 24 Hr 98 F-98.5 F 72-96 9-19 142-169/72-99 94-100 GENERAL: NAD, awake, alert, laying in bed HEENT: Sclera anicteric today, Nc/AT, EOMI, KAMINI, No JVD, moist mucosa with resolving jaundice LUNGS: Continued improvement of bibasillar breath sounds (remains slightly diminished), no wheezes, no crackles, no accessory muscle use. HEART: RRR, S1, S2 without murmur ABDOMEN: Normo-hyperactive BS, tensely distended but soft, nontender to palpation, no guarding, trocar incision sites (4 total) C/D/I and covered with bandages EXTREMITIES: 2+ DP pulses, warm, well-perfused, no edema. PSYCH: Normal mood, normal affect. SKIN: Warm, dry, no rashes noted Laboratory Results 11/19/17 06:15 WBC 14.9 H RBC 3.36 L Hgb 10.1 L Hct 29.7 L MCV 88.5 MCH 30.1 MCHC 34.0 RDW 16.1 H Plt Count 160 D MPV 10.4 Neutrophils % No Result Required. Neutrophils % (Manual) 78.8 Band Neutrophils % 2.0 Lymphocytes % No Result Required. Lymphocytes % (Manual) 11.1 D Monocytes % (Manual) 4 Eosinophils % (Manual) 0.0 D Basophils % (Manual) 0.0 Myelocytes % (Man) 3 H D Promyelocytes % (Man) 0 Blast Cells % (Manual) 0 Nucleated RBC % 0 Metamyelocytes 1 D Platelet Estimate Normal Target Cells 1+ Sodium Potassium Chloride Carbon Dioxide Anion Gap BUN Creatinine Creat Clearance w eGFR POC Glucometer Random Glucose Calcium Phosphorus Magnesium Total Bilirubin AST ALT Alkaline Phosphatase Troponin I Total Protein Albumin 11/19/17 06:15 WBC RBC Hgb Hct MCV MCH MCHC RDW Plt Count MPV Neutrophils % Neutrophils % (Manual) Band Neutrophils % Lymphocytes % Lymphocytes % (Manual) Monocytes % (Manual) Eosinophils % (Manual) Basophils % (Manual) Myelocytes % (Man) Promyelocytes % (Man) Blast Cells % (Manual) Nucleated RBC % Metamyelocytes Platelet Estimate Target Cells Sodium 149 H Potassium 3.8 Chloride 109 H Carbon Dioxide 22 Anion Gap 18 H BUN 68 H Creatinine 3.1 H Creat Clearance w eGFR 20.26 POC Glucometer Random Glucose 131 H Calcium 8.1 L Phosphorus 4.5 Magnesium 2.2 Total Bilirubin 1.6 H AST 86 H D ALT 234 H D Alkaline Phosphatase 224 H Troponin I Total Protein 5.7 L Albumin 2.4 L Active Medications Generic Name Dose Route Start Last Admin Trade Name Freq PRN Reason Stop Dose Admin Albuterol/Ipratropium 1 amp 11/19/17 14:10 Duoneb - NEB Q6H PRN SHORTNESS OF BREATH Heparin Sodium (Porcine) 5,000 unit 11/19/17 22:00 Heparin - SQ TID [facility] Ertapenem 1 gm/ Sodium 100 mls @ 200 mls/hr 11/20/17 10:00 Chloride IVPB DAILY [facility] Protocol Sodium Chloride 1,000 mls @ 75 mls/hr 11/19/17 16:45 11/19/17 17:49 1/2 Normal Saline IV 75 mls/hr ASDIR [facility] Administration Insulin Aspart 1 vial 11/19/17 16:30 11/19/17 16:22 Novolog Vial Sliding Scale - SQ Not Given ACHS [facility] Protocol Morphine Sulfate 2 mg 11/19/17 14:10 Morphine Sulfate IVPUSH Q4H PRN PAIN LEVEL 6-10 Ondansetron HCl 4 mg 11/19/17 14:10 Zofran Injection IVPB Q6H PRN NAUSEA Pantoprazole Sodium 40 mg 11/20/17 10:00 Protonix Iv IVPUSH DAILY [facility] ASSESSMENT/PLAN: Neuro: Neurologically intact Respiratory: Not in distress Duoneb to be continued q6h PRN Maintain SpO2>90% Cardiovascular: Volume overload --CXR with noticeable improvement of R effusion --Net negative urine output continued --Will anticipate continued mobilization of fluid and self-diuresis --Monitor outputs --Graham maintained for accurate I&O's GI: Septic shock 2/2 to Ascending cholangitis 2/2 to biliary obstruction --Shock state resolved --GI following --s/p ERCP x2 with sphincterectomy, bile stone extraction, and stent placement 11/14 --Currently pt's transaminitis and bilirubin improving --ID on board --Meropenem changed to ertapenem --Repeat cultures on 11/15 showing cleared G- bacteremia Cholelithiasis --Dr. Galindo on board --S/p cholecystectomy day 2 --Morphine 2mg IVP q4h PRN (pain 6-10) --Zofran PRN nausea --Pt's distention improving and no evidence of bowel obstruction on AXR --Monitor distention --Will discuss with surgery in regards to clear liquid diet in the setting of continued BM and improving distention Renal Acute renal failure --Resolving --no need for any HD at this point --Nephrology on board --Continued appropriate urine output noted --Cr 3.1 today Endocrine: DM --BGM ACHS --ISS coverage for now FEN: Fluids: Switched to 1/2NS@75cc/hr due to hypernatremia Electrolyte abnormalities: Hypernatremia (hypotonic fluids as above) Nutrition: Will discuss with surgery PPX: DVT - Heparin SQ GI - Protonix 40mg IVP daily Deconditioning - OOB to chair today; encourage incentive spirometry POC: Jacklyn (Daughter) [phone] --Pt has capacity, but often asks for us to speak to daughter about condition Dispo: Transfer to /S Case discussed with Dr. Amador Lovett, DO - IM PGY-1 Visit type - Emergency Visit Emergency Visit: No - New Patient This patient is new to me today: No - Critical Care Critical Care patient: Yes Total Critical Care Time (in minutes): 35 Critical Care Statement: The care of this patient involved high complexity decision making to prevent further life threatening deterioration of the patient 's condition and/or to evaluate & treat vital organ system(s) failure or risk of failure.
--- NOTE | 2017-11-19 18:21 | PN ---
Progress Note (short form) - Note Progress Note: Subjective: The patient was seen and examined at the bedside, he just ate and tolerated his diet well, denies any nausea or vomiting Current Medications Generic Name Dose Route Start Last Admin Trade Name Linda PRN Reason Stop Dose Admin Albuterol/Ipratropium 1 amp 11/19/17 14:10 Duoneb - NEB Q6H PRN SHORTNESS OF BREATH Heparin Sodium (Porcine) 5,000 unit 11/19/17 22:00 Heparin - SQ TID [facility] Ertapenem 1 gm/ Sodium 100 mls @ 200 mls/hr 11/20/17 10:00 Chloride IVPB DAILY [facility] Protocol Sodium Chloride 1,000 mls @ 75 mls/hr 11/19/17 16:45 11/19/17 17:49 1/2 Normal Saline IV 75 mls/hr ASDIR [facility] Administration Insulin Aspart 1 vial 11/19/17 16:30 11/19/17 16:22 Novolog Vial Sliding Scale - SQ Not Given ACHS [facility] Protocol Morphine Sulfate 2 mg 11/19/17 14:10 Morphine Sulfate IVPUSH Q4H PRN PAIN LEVEL 6-10 Ondansetron HCl 4 mg 11/19/17 14:10 Zofran Injection IVPB Q6H PRN NAUSEA Pantoprazole Sodium 40 mg 11/20/17 10:00 Protonix Iv IVPUSH DAILY [facility] Objective: Vital Signs Period Temp Pulse Resp BP Sys/Leyva Pulse Ox Last 24 Hr 98 F-98.5 F 72-96 9-19 142-169/72-99 94-100 Physical Exam: General: NAD, A&Ox3 Lungs: Decreased breath sounds bilaterally Heart: RRR, S1S2 Abd: Lap sites c,d,i. Soft, distended Ext: No edema CBCD WBC 14.9 K/mm3 (4.0-10.0) H 11/19/17 06:15 RBC 3.36 M/mm3 (4.00-5.60) L 11/19/17 06:15 Hgb 10.1 GM/dL (11.7-16.9) L 11/19/17 06:15 Hct 29.7 % (35.4-49) L 11/19/17 06:15 MCV 88.5 fl (80-96) 11/19/17 06:15 MCHC 34.0 g/dl (32.0-35.9) 11/19/17 06:15 RDW 16.1 % (11.9-15.9) H 11/19/17 06:15 Plt Count 160 K/MM3 (134-434) D 11/19/17 06:15 MPV 10.4 fl (7.5-11.1) 11/19/17 06:15 CMP Sodium 149 mmol/L (136-145) H 11/19/17 06:15 Potassium 3.8 mmol/L (3.5-5.1) 11/19/17 06:15 Chloride 109 mmol/L (98-107) H 11/19/17 06:15 Carbon Dioxide 22 mmol/L (21-32) 11/19/17 06:15 Anion Gap 18 (8-16) H 11/19/17 06:15 BUN 68 mg/dL (7-18) H 11/19/17 06:15 Creatinine 3.1 mg/dL (0.7-1.3) H 11/19/17 06:15 Creat Clearance w eGFR 20.26 (>60) 11/19/17 06:15 Random Glucose 131 mg/dL (74-106) H 11/19/17 06:15 Calcium 8.1 mg/dL (8.5-10.1) L 11/19/17 06:15 Total Bilirubin 1.6 mg/dL (0.2-1.0) H 11/19/17 06:15 AST 86 U/L (15-37) H D 11/19/17 06:15 ALT 234 U/L (12-78) H D 11/19/17 06:15 Alkaline Phosphatase 224 U/L (45-117) H 11/19/17 06:15 Total Protein 5.7 g/dl (6.4-8.2) L 11/19/17 06:15 Albumin 2.4 g/dl (3.4-5.0) L 11/19/17 06:15 CARDIAC ENZYMES Creatine Kinase 175 IU/L (39-308) 11/13/17 08:51 Troponin I 0.22 ng/ml (0.00-0.05) H D 11/18/17 17:00 Microbiology 11/15/17 10:35 Blood - Peripheral Venous Blood Culture - Preliminary NO GROWTH OBTAINED AFTER 96 HOURS, INCUBATION TO CONTINUE FOR 1 DAYS. 11/15/17 09:40 Blood - Peripheral Venous Blood Culture - Preliminary NO GROWTH OBTAINED AFTER 96 HOURS, INCUBATION TO CONTINUE FOR 1 DAYS. 11/13/17 17:40 Blood - Peripheral Venous Blood Culture - Final Escherichia Coli 11/13/17 22:00 Stool Salmonella/Shigella Culture - Final NO GROWTH OF SALMONELLA OR SHIGELLA SPECIES OBTAINED 11/13/17 22:00 Stool Campylobacter Culture - Final NO GROWTH OF CAMPYLOBACTER SPECIES OBTAINED 11/13/17 22:00 Stool Yersinia Culture - Final NO GROWTH OF YERSINIA SPECIES OBTAINED 11/13/17 22:00 Stool Vibrio Culture - Final NO GROWTH OF VIBRIO SPECIES OBTAINED 11/13/17 22:00 Stool Escherichia coli 0157 Culture - Final NO GROWTH OF E COLI 0157 OBTAINED 11/13/17 17:40 Blood - Peripheral Venous Blood Culture - Final Escherichia Coli 11/13/17 17:00 Urine - Urine Clean Catch Urine Culture - Final Escherichia Coli Esbl Retention Manager Assessment: This is a 67 year old male with PMHx HTN, NIDDM, cholelithiasis, who presented to the ED with periumbilical pain, nausea, vomiting, abdominal distention x1 day Plan: 1) Septic shock 2/2 ascending cholangitis, e.coli bacteremia, esbl UTI - 11/13 MRCP: 6mm hypointensity overlyng the distal CBD; diffusely dilated CBD 15mm; common hepatic duct dilated 10mm; moderate intrahepatic biliary ductal dilitation - 11/14 First ERCP: sphincterotomy, stent; purulent drainage - 11/14 Second ERCP: retrieval of stone; washout - S/p cholecytectomy on 11/17 - Ertapenem 1g daily - Remains afebrile - Appreciate surgery consult - Appreciate ID consult 2) Hypoxic, hypercapneic respiratory failure - Some episodes of post-op hypoxia - Incentive spirometer encouraged - Appreciate pulmonary consult 3) Acute renal failure - Likely due to ATN in the setting of sepsis/shock - Cr continues to slowly decrease - Appreciate nephrology consult 4) Transaminitis - Continues to improve - Continue to trend - Hepatitis serology noted 5) Visit type - Emergency Visit Emergency Visit: Yes ED Registration Date: 11/13/17 Care time: The patient presented to the Emergency Department on the above date and was hospitalized for further evaluation of their emergent condition. - New Patient This patient is new to me today: No - Critical Care Critical Care patient: No
[2017-11-19] MEDS ORDERED: PANTOPRAZOLE SODIUM 40 MG VIAL IVPUSH SCH (22:00)
[2017-11-19] MEDS: METOCLOPRAMIDE HCL 10 MG TABLET (FP) PO SCH (22:38)
[2017-11-19] MEDS: morphine SULFATE 4 MG/ML VIAL IVPUSH PRN (23:26)
[2017-11-20] MEDS: METOCLOPRAMIDE HCL 10 MG TABLET (FP) PO SCH ×4 (06:22→22:26)
[2017-11-20] MEDS: INSULIN SLIDING SCALE (NOVOLOG) 1 VIAL SQ SCH ×4 (06:22→22:29)
[2017-11-20] MEDS: HEPARIN NA (PORCINE) 5,000 UNITS/ML 1ML VIAL SQ SCH ×3 (06:22→22:26)
[2017-11-20 08:50] LABS: HEMATOCRIT 27.7 % (35.4-49); HEMOGLOBIN 9.1 GM/dL (11.7-16.9); MCHC 32.7 g/dl (32.0-35.9); MEAN CELL VOLUME 88.8 fl (80-96); MEAN PLT VOLUME 10.2 fl (7.5-11.1); PLATELET COUNT 166 K/MM3 (134-434); RBC 3.12 M/mm3 (4.00-5.60); WHITE BLOOD COUNT 13.5 K/mm3 (4.0-10.0)
[2017-11-20 09:15] LABS: ALBUMIN 2.2 g/dl (3.4-5.0); ANION GAP 11 (8-16); BLOOD UREA NITROGEN 60 mg/dL (7-18); CHLORIDE 115 mmol/L (98-107); CO2 23 mmol/L (21-32); GLUCOSE,RANDOM 128 mg/dL (74-106); MAGNESIUM 1.9 mg/dL (1.8-2.4); POTASSIUM 3.4 mmol/L (3.5-5.1); SODIUM 149 mmol/L (136-145)
--- NOTE | 2017-11-20 09:18 | PATH ---
Surgical Pathology Report Patient Name: ALBA DAY Med. Rec. #: [id number] /Age/Gender: 1950 (Age: 67) / M Account: [id number] Location: [address] [place] [address]/[facility] Taken: 11/17/2017 Received: 11/18/2017 Reported: 11/20/2017 Physicians: ARMOND Friedman M.D. Specimen(s) Received GALLBLADDER Clinical History Ascending cholangitis. ERCP with sphincterotomy Final Diagnosis GALLBLADDER, CHOLECYSTECTOMY: ACUTE AND CHRONIC CHOLECYSTITIS. Electronically Signed Dima Macedo M.D. Gross Description Received in formalin, labeled "gallbladder," is a 6 x 3.5 x 1.8 cm. gallbladder with a 1.0 cm. in length portion of cystic duct attached. The outer surface is lozoya and purple and varies from smooth to shaggy. The gallbladder has been partially previously opened. The lumen contains no bile or stones. The mucosa is brown and irregular. The wall of the gallbladder measures 0.3 cm. in thickness. Folder Taper Operator sections are submitted in one cassette. [facility]/11/18/2017 [facility]/11/18/2017
[2017-11-20 09:20] LABS: ALK PHOS 190 U/L (45-117); CREATININE 2.2 mg/dL (0.7-1.3); SGOT/AST 54 U/L (15-37); SGPT/ALT 150 U/L (12-78); TOT PROT 5.3 g/dl (6.4-8.2)
--- NOTE | 2017-11-20 09:42 | PN ---
Progress Note, Physician Chief Complaint: abdominal pain History of Present Illness: 67yo male PMH obesity, prostate cancer, HTN, NIDDM, cholelithiasis which was last treated in 1997. He was medically managed at the time and did not require surgery. s/p emergency ERCP with sphincterotomy and stent last night . He had relief of purulent ascending cholangitis with ERCP, stable postop, no acute events overnight, passing flatus and having diarrhea, tolerating diet, no complaints. - Current Medication List Current Medications: Active Medications Albuterol/Ipratropium (Duoneb -) 1 amp NEB Q6H PRN PRN Reason: SHORTNESS OF BREATH Heparin Sodium (Porcine) (Heparin -) 5,000 unit SQ TID [facility] Last Admin: 11/20/17 06:22 Dose: 5,000 unit Ertapenem 1 gm/ Sodium (Chloride) 100 mls @ 200 mls/hr IVPB DAILY [facility] PRN Reason: Protocol Sodium Chloride (1/2 Normal Saline) 1,000 mls @ 75 mls/hr IV ASDIR [facility] Last Admin: 11/19/17 17:49 Dose: 75 mls/hr Insulin Aspart (Novolog Vial Sliding Scale -) 1 vial SQ ACHS [facility] PRN Reason: Protocol Last Admin: 11/20/17 06:22 Dose: Not Given Metoclopramide HCl (Reglan -) 10 mg PO ACHS [facility] Last Admin: 11/20/17 06:22 Dose: 10 mg Morphine Sulfate (Morphine Sulfate) 2 mg IVPUSH Q4H PRN PRN Reason: PAIN LEVEL 6-10 Last Admin: 11/19/17 23:26 Dose: 2 mg Pantoprazole Sodium (Protonix Iv) 40 mg IVPUSH DAILY [facility] - Objective Vital Signs: Vital Signs Temperature 99.0 F 11/20/17 06:00 Pulse Rate 70 11/20/17 06:00 Respiratory Rate 18 11/20/17 06:00 Blood Pressure 150/79 11/20/17 06:00 O2 Sat by Pulse Oximetry (%) 95 11/19/17 21:00 Vital Signs Period Temp Pulse Resp BP Sys/Leyva Pulse Ox Last 24 Hr 97.5 F-99.0 F 70-96 12-18 136-154/63-90 94-100 Constitutional: Yes: No Distress, Calm, Obese Eyes: Yes: Conjunctiva Clear, EOM Intact HENT: Yes: Atraumatic, Normocephalic Neck: Yes: Supple, Trachea Midline Cardiovascular: Yes: Regular Rate and Rhythm, S1, S2 Respiratory: Yes: Regular, CTA Bilaterally Gastrointestinal: Yes: Normal Bowel Sounds, Soft, Abdomen, Obese, Distention. No: Melena, Tenderness, Tenderness, Epigastrium, Tenderness, Rebound, Vomiting Genitourinary: No: CVA Tenderness - Left, CVA Tenderness - Right Extremities: No: Cool, Cyanosis Edema: No Peripheral Pulses WNL: Yes Neurological: Yes: Alert, Oriented, Lethargy, Weakness Psychiatric: Yes: Alert, Oriented Labs: CBC, BMP 11/20/17 08:00 11/20/17 08:00 INR, PTT INR 1.06 (0.82-1.09) D 11/16/17 17:00 Problem List - Problems (1) Choledocholithiasis Assessment/Plan: 67yo male PMH HTN, DM, obesity with Choledocholithiasis, epigastric abdominal pain, impending cholangitis? transaminitis and tbili >6, wbc ~3, lactic acid 9. s/p ERCP sphincterotomy, stone extration and stent placement. POD#3 s/p Laparoscopic cholecystectomy, some abdominal distension with early signs of GI continuity. May have An element to paralytics illeus clear liquid diet IVF hydration IV antibioics Abdiominal Xray 2 views encourage IS and OOB Will follow for serial exams Code(s): K80.50 - CALCULUS OF BILE DUCT W/O CHOLANGITIS OR CHOLECYST W/O OBST (2) Calculus of gallbladder and bile duct w/o cholecystitis or obstruction Code(s): K80.70 - CALCULUS OF GB AND BILE DUCT W/O CHOLECYST W/O OBSTRUCTION (3) Obesity Code(s): E66.9 - OBESITY, UNSPECIFIED Qualifiers: Obesity classification: adult class 1 (BMI 30 - 34.9) (4) Abdominal pain in male Code(s): R10.9 - UNSPECIFIED ABDOMINAL PAIN (5) Transaminitis Code(s): R74.0 - NONSPEC ELEV OF LEVELS OF TRANSAMNS & LACTIC ACID DEHYDRGNSE
[2017-11-20] MEDS: PANTOPRAZOLE SODIUM 40 MG VIAL IVPUSH SCH (10:00)
[2017-11-20] MEDS: ERTAPENEM SODIUM 1 GM in SODIUM CHLORIDE 100 ML IVPB SCH (10:00)
[2017-11-20] MEDS ORDERED: PT OWN MED DRAWER 7, Y5N ONE ×2 (10:21→10:27)
[2017-11-20] MEDS ORDERED: INSULIN (NOVOLOG) ASPART 100 UNITS/ML 10ML VIAL ONE (11:52)
--- NOTE | 2017-11-20 15:35 | PN ---
Progress Note (short form) - Note Progress Note: alert nad s/p cholycystectomy 11/17 +BM today Vital Signs Period Temp Pulse Resp BP Sys/Leyva Pulse Ox Last 24 Hr 97.5 F-99.0 F 70-90 12-18 136-154/63-80 94-95 cor-rrr lungs decreased bs at bases abd sdistended, +Bs , NT ext +edema +apodaca CBC, BMP 11/20/17 08:00 11/20/17 08:00 Microbiology 11/15/17 10:35 Blood - Peripheral Venous Blood Culture - Final NO GROWTH AFTER 5 DAYS INCUBATION 11/15/17 09:40 Blood - Peripheral Venous Blood Culture - Final NO GROWTH AFTER 5 DAYS INCUBATION 11/13/17 17:40 Blood - Peripheral Venous Blood Culture - Final Escherichia Coli 11/13/17 22:00 Stool Salmonella/Shigella Culture - Final NO GROWTH OF SALMONELLA OR SHIGELLA SPECIES OBTAINED 11/13/17 22:00 Stool Campylobacter Culture - Final NO GROWTH OF CAMPYLOBACTER SPECIES OBTAINED 11/13/17 22:00 Stool Yersinia Culture - Final NO GROWTH OF YERSINIA SPECIES OBTAINED 11/13/17 22:00 Stool Vibrio Culture - Final NO GROWTH OF VIBRIO SPECIES OBTAINED 11/13/17 22:00 Stool Escherichia coli 0157 Culture - Final NO GROWTH OF E COLI 0157 OBTAINED 11/13/17 17:40 Blood - Peripheral Venous Blood Culture - Final Escherichia Coli 11/13/17 17:00 Urine - Urine Clean Catch Urine Culture - Final Escherichia Coli 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 Albuterol/Ipratropium (Duoneb -) 1 amp NEB Q6H PRN PRN Reason: SHORTNESS OF BREATH Heparin Sodium (Porcine) (Heparin -) 5,000 unit SQ TID [facility] Last Admin: 11/20/17 13:48 Dose: 5,000 unit Ertapenem 1 gm/ Sodium (Chloride) 100 mls @ 200 mls/hr IVPB DAILY [facility] PRN Reason: Protocol Last Admin: 11/20/17 10:00 Dose: 200 mls/hr Sodium Chloride (1/2 Normal Saline) 1,000 mls @ 75 mls/hr IV ASDIR [facility] Last Admin: 11/19/17 17:49 Dose: 75 mls/hr Insulin Aspart (Novolog Vial Sliding Scale -) 1 vial SQ ACHS [facility] PRN Reason: Protocol Last Admin: 11/20/17 11:00 Dose: 2 units Metoclopramide HCl (Reglan -) 10 mg PO ACHS [facility] Last Admin: 11/20/17 10:51 Dose: 10 mg Morphine Sulfate (Morphine Sulfate) 2 mg IVPUSH Q4H PRN PRN Reason: PAIN LEVEL 6-10 Last Admin: 11/19/17 23:26 Dose: 2 mg Pantoprazole Sodium (Protonix Iv) 40 mg IVPUSH DAILY [facility] Last Admin: 11/20/17 10:00 Dose: 40 mg a/p Ecoli sepsis- day #7 antibiotics, continue ertapenem Biliary sepsis choledocholithiasis POD #3 s/p cholycystectomy THIEN- recovering renal function Problem List - Problems (1) Biliary sepsis Code(s): K83.0 - CHOLANGITIS (2) Choledocholithiasis Code(s): K80.50 - CALCULUS OF BILE DUCT W/O CHOLANGITIS OR CHOLECYST W/O OBST (3) THIEN (acute kidney injury) Code(s): N17.9 - ACUTE KIDNEY FAILURE, UNSPECIFIED (4) Acute respiratory failure Code(s): J96.00 - ACUTE RESPIRATORY FAILURE, UNSP W HYPOXIA OR HYPERCAPNIA
--- NOTE | 2017-11-20 16:07 | PN ---
Progress Note (short form) - Note Progress Note: Renal follow up for THIEN Pt seen and examined at the bedside awake and alert no acute complaints not eating well yet no N/V/D on IVF making urine Vital Signs Temperature 99.0 F 11/20/17 06:00 Pulse Rate 70 11/20/17 06:00 Respiratory Rate 18 11/20/17 06:00 Blood Pressure 150/79 11/20/17 06:00 O2 Sat by Pulse Oximetry (%) 95 11/19/17 21:00 Intake & Output 11/17/17 11/18/17 11/19/17 11/20/17 23:59 23:59 23:59 23:59 Intake Total 1100 1950 2015 950 Output Total 1500 2400 3050 1400 Balance -400 -450 -1035 -450 Weight 81.102 kg 75.75 kg 77.836 kg NAD on NC No JVD, neck supple RRR, No M/R Dec BS at lung bases Mild Abd distension NO LE edmea, no clubbing or cyanosis CBC, BMP 11/20/17 08:00 11/20/17 08:00 Current Medications Albuterol/Ipratropium (Duoneb -) 1 amp NEB Q6H PRN PRN Reason: SHORTNESS OF BREATH Heparin Sodium (Porcine) (Heparin -) 5,000 unit SQ TID [facility] Last Admin: 11/20/17 13:48 Dose: 5,000 unit Ertapenem 1 gm/ Sodium (Chloride) 100 mls @ 200 mls/hr IVPB DAILY [facility] PRN Reason: Protocol Last Admin: 11/20/17 10:00 Dose: 200 mls/hr Sodium Chloride (1/2 Normal Saline) 1,000 mls @ 75 mls/hr IV ASDIR [facility] Last Admin: 11/19/17 17:49 Dose: 75 mls/hr Insulin Aspart (Novolog Vial Sliding Scale -) 1 vial SQ ACHS [facility] PRN Reason: Protocol Last Admin: 11/20/17 11:00 Dose: 2 units Metoclopramide HCl (Reglan -) 10 mg PO ACHS [facility] Last Admin: 11/20/17 10:51 Dose: 10 mg Morphine Sulfate (Morphine Sulfate) 2 mg IVPUSH Q4H PRN PRN Reason: PAIN LEVEL 6-10 Last Admin: 11/19/17 23:26 Dose: 2 mg Pantoprazole Sodium (Protonix Iv) 40 mg IVPUSH DAILY [facility] Last Admin: 11/20/17 10:00 Dose: 40 mg 67 year old gentleman with PMhx of obesity, prostate cancer, HTN, NIDDM, cholelithiasis who presented to the ED with Abd pain now s/p ERCP with ascending colangitis and gram negative sepsis with THIEN and metabolic acidosis. #Acute Renal Failure likely due to ATN in setting of sepsis/shock #Ascending Colangitis #Gram Negative Bacteremia #Septic Shock, now stable #Anemia #Hypernatremia Renal function improving continue hypotonic saline as pt with poor oral intake trend renal function and electrolytes continue Abx as per ID Anuj Ferguson DO
--- NOTE | 2017-11-20 16:36 | PN ---
Progress Note (short form) - Note Progress Note: Subjective: The patient was seen and examined at the bedside, he has no complaints at this time. He states he would like to eat more Current Medications Generic Name Dose Route Start Last Admin Trade Name Linda PRN Reason Stop Dose Admin Albuterol/Ipratropium 1 amp 11/19/17 14:10 Duoneb - NEB Q6H PRN SHORTNESS OF BREATH Heparin Sodium (Porcine) 5,000 unit 11/19/17 22:00 11/20/17 13:48 Heparin - SQ 5,000 unit TID [facility] Administration Ertapenem 1 gm/ Sodium 100 mls @ 200 mls/hr 11/20/17 10:00 11/20/17 10:00 Chloride IVPB 200 mls/hr DAILY [facility] Administration Protocol Sodium Chloride 1,000 mls @ 75 mls/hr 11/19/17 16:45 11/20/17 17:00 1/2 Normal Saline IV 75 mls/hr ASDIR [facility] Administration Insulin Aspart 1 vial 11/19/17 16:30 11/20/17 16:56 Novolog Vial Sliding Scale - SQ Not Given ACHS [facility] Protocol Metoclopramide HCl 10 mg 11/19/17 22:00 11/20/17 17:00 Reglan - PO 10 mg ACHS [facility] Administration Morphine Sulfate 2 mg 11/19/17 14:10 11/19/17 23:26 Morphine Sulfate IVPUSH 2 mg Q4H PRN Administration PAIN LEVEL 6-10 Pantoprazole Sodium 40 mg 11/20/17 10:00 11/20/17 10:00 Protonix Iv IVPUSH 40 mg DAILY [facility] Administration Potassium Chloride 40 meq 11/20/17 18:48 Potassium Chloride Oral Liquid PO 11/20/17 18:49 ONCE ONE Objective: Vital Signs Period Temp Pulse Resp BP Sys/Leyva Pulse Ox Last 24 Hr 97.5 F-99.0 F 70-71 16-18 136-150/63-79 95-95 Physical Exam: General: NAD, A&Ox3 Lungs: Decreased breath sounds bilaterally Heart: RRR, S1S2 Abd: Lap sites c,d,i. Soft, distended Ext: No edema CBCD WBC 13.5 K/mm3 (4.0-10.0) H 11/20/17 08:00 RBC 3.12 M/mm3 (4.00-5.60) L 03/30/18 08:00 Hgb 9.1 GM/dL (11.7-16.9) L 11/20/17 08:00 Hct 27.7 % (35.4-49) L 11/20/17 08:00 MCV 88.8 fl (80-96) 11/20/17 08:00 MCHC 32.7 g/dl (32.0-35.9) 11/20/17 08:00 RDW 16.0 % (11.9-15.9) H 11/20/17 08:00 Plt Count 166 K/MM3 (134-434) 11/20/17 08:00 MPV 10.2 fl (7.5-11.1) 11/20/17 08:00 CMP Sodium 149 mmol/L (136-145) H 11/20/17 08:00 Potassium 3.4 mmol/L (3.5-5.1) L 11/20/17 08:00 Chloride 115 mmol/L (98-107) H 11/20/17 08:00 Carbon Dioxide 23 mmol/L (21-32) 11/20/17 08:00 Anion Gap 11 (8-16) 11/20/17 08:00 BUN 60 mg/dL (7-18) H 11/20/17 08:00 Creatinine 2.2 mg/dL (0.7-1.3) H D 11/20/17 08:00 Creat Clearance w eGFR 30.10 (>60) 11/20/17 08:00 Random Glucose 128 mg/dL (74-106) H 11/20/17 08:00 Calcium 8.0 mg/dL (8.5-10.1) L 11/20/17 08:00 Total Bilirubin 1.0 mg/dL (0.2-1.0) D 11/20/17 08:00 AST 54 U/L (15-37) H D 11/20/17 08:00 ALT 150 U/L (12-78) H D 11/20/17 08:00 Alkaline Phosphatase 190 U/L (45-117) H 11/20/17 08:00 Total Protein 5.3 g/dl (6.4-8.2) L 11/20/17 08:00 Albumin 2.2 g/dl (3.4-5.0) L 11/20/17 08:00 CARDIAC ENZYMES Creatine Kinase 175 IU/L (39-308) 11/13/17 08:51 Troponin I 0.22 ng/ml (0.00-0.05) H D 11/18/17 17:00 Microbiology 11/15/17 10:35 Blood - Peripheral Venous Blood Culture - Final NO GROWTH AFTER 5 DAYS INCUBATION 11/15/17 09:40 Blood - Peripheral Venous Blood Culture - Final NO GROWTH AFTER 5 DAYS INCUBATION 11/13/17 17:40 Blood - Peripheral Venous Blood Culture - Final Escherichia Coli 11/13/17 22:00 Stool Salmonella/Shigella Culture - Final NO GROWTH OF SALMONELLA OR SHIGELLA SPECIES OBTAINED 11/13/17 22:00 Stool Campylobacter Culture - Final NO GROWTH OF CAMPYLOBACTER SPECIES OBTAINED 11/13/17 22:00 Stool Yersinia Culture - Final NO GROWTH OF YERSINIA SPECIES OBTAINED 11/13/17 22:00 Stool Vibrio Culture - Final NO GROWTH OF VIBRIO SPECIES OBTAINED 11/13/17 22:00 Stool Escherichia coli 0157 Culture - Final NO GROWTH OF E COLI 0157 OBTAINED 11/13/17 17:40 Blood - Peripheral Venous Blood Culture - Final Escherichia Coli 11/13/17 17:00 Urine - Urine Clean Catch Urine Culture - Final Escherichia Coli Esbl [employer] Assessment: This is a 67 year old male with PMHx HTN, NIDDM, cholelithiasis, who presented to the ED with periumbilical pain, nausea, vomiting, abdominal distention x1 day Plan: 1) Septic shock 2/2 ascending cholangitis, e.coli bacteremia, esbl UTI - 11/13 MRCP: 6mm hypointensity overlyng the distal CBD; diffusely dilated CBD 15mm; common hepatic duct dilated 10mm; moderate intrahepatic biliary ductal dilitation - 11/14 First ERCP: sphincterotomy, stent; purulent drainage - 11/14 Second ERCP: retrieval of stone; washout - S/p cholecytectomy on 11/17 - Ertapenem 1g daily - Remains afebrile - Appreciate surgery consult - Appreciate ID consult 2) Hypoxic, hypercapneic respiratory failure - Some episodes of post-op hypoxia - Incentive spirometer encouraged - Appreciate pulmonary consult 3) Acute renal failure - Likely due to ATN in the setting of sepsis/shock - Cr continues to slowly decrease - Appreciate nephrology consult 4) Transaminitis - Continues to improve - Continue to trend - Hepatitis serology noted 5) Visit type - Emergency Visit Emergency Visit: Yes ED Registration Date: 11/13/17 Care time: The patient presented to the Emergency Department on the above date and was hospitalized for further evaluation of their emergent condition. - New Patient This patient is new to me today: No - Critical Care Critical Care patient: No
[2017-11-20] MEDS: SODIUM CHLORIDE 0.45% 1,000 ML IV SCH (17:00)
[2017-11-20] MEDS ORDERED: POTASSIUM CHLORIDE ORAL LIQUID 20 MEQ/15 ML PO ONE ×2 (18:48→22:15)
--- NOTE | 2017-11-20 19:16 | OP ---
DATE OF OPERATION: DATE OF DICTATION: 11/20/2017 PREOPERATIVE DIAGNOSIS: Ascending cholangitis, chronic cholecystitis. POSTOPERATIVE DIAGNOSIS: Ascending cholangitis, chronic cholecystitis. PROCEDURE: Laparoscopic cholecystectomy. ATTENDING SURGEON: Wesley Galindo M.D. TENANT RELATIONS COORDINATOR: Josh Leon ANESTHESIA: General with local. Local is 0.5% Marcaine in 20 mL total given. ESTIMATED BLOOD LOSS: 50 mL INTRAVENOUS FLUID: Administered during the surgery is 700 mL. DRAINAGE OUT: 150 mL of urine. ANESTHESIOLOGIST: Eun Castellanos M.D. SPECIMEN: Gallbladder with stone. INDICATION: Patient is presenting with right upper quadrant abdominal pain that worsened after meals. He was noted to have ascending cholangitis, elevation of white count, significant elevation to greater than 9 for bilirubin. He had 2 ERCP procedures. One was a formal sphincterotomy and stent placement as well as stone extraction. He was noted to have some purulent drainage as well. He had some resolution of the ascending cholangitis, at which point he was explained the need for cholecystectomy. He was explained the risks, benefits, and alternatives of surgical procedure proposed, signed informed consent was then taken before the procedure. DESCRIPTION OF PROCEDURE: Patient was brought to the operating room, he was placed in the supine position on the operating table with the left arm extended perpendicular to his body axis, and the right arm tucked. Lower extremities had SCDs placed. He was currently receiving IV antibiotics. He was induced to general anesthesia, endotracheally intubated, at which point we began to shave, prep, and drape the anterior abdominal wall. After sterile prep and drape, a formal timeout was completed identifying the procedure and the operative site with all parties in agreement. We proceeded first with a supraumbilical approach for Pepe entry into the abdomen. It was incised with a 15 blade scalpel, deepened and widened through subcutaneous tissue with Bovie cautery, when the anterior midline rectus was identified the fascia was opened and then entered. Under direct visualization an entry was made into the abdomen. A 0 Vicryl was used to lay in a [id number] stitch to ablate the 12-mm opening that was made at the fascia. The Pepe port was then instilled into the abdomen and pneumoperitoneum established to 15 mmHg. With 30-degree 5-mm scope instilled into the abdomen, the right upper quadrant was inspected. There appeared to be no unintended trauma to abdominal viscera. The gallbladder was noted to be distended but soft and compressive to allow for grasping and retraction. A subxiphoid 5-mm entry port was also made under direct visualization to allow for separation. What appeared to be a significant amount of intraabdominal fat along the omentum. The patient was positioned to facilitate visualization inspection, and additional 5-mm ports were placed into the right upper quadrant along the subcostal area. The gallbladder was retracted cranially and toward the left shoulder at the dome and then at the infundibulum laterally into the right abdomen to facilitate dissection of the cystic structures. They were identified after stripping a small amount of peritoneum, a window was created and a plane developed posterior to the cystic duct. It was identified in all aspects. In this area, small venous branches were transected with small amount of bloody effluent in the area which was cleared. The cystic artery was identified and then isolated in the field as well. A critical view was established. The cystic structures were then clamped with 5-mm clips, 2 toward the patient and 1 distal on the specimen, and then they were divided with the Endoshear. When the structures were divided, the gallbladder was retracted away from the hepatic plate, and we began to develop a dissection plane between the gallbladder itself and the liver bed. It was dissected using cautery toward the end of the gallbladder on the liver. The hepatic plate was left intact and only a small amount of light effluent remained. The gallbladder was retracted again cranially until it could be completely from the liver . The liver bed was then inspected and hemostasis obtained along the periphery using cautery. The gallbladder itself, once the gallbladder itself was retrieved from the abdomen through the umbilical port using an Endocatch bag that was retrieved into the umbilicus, contained in the Endocatch bag without significant contamination of the abdomen. Once retrieved it was passed off the field after inspection for pathologic diagnosis. We proceeded then with reinspection of the area. The clips remained in place. There was not significant bleeding. Small punctate bleeding was controlled with cautery. The abdomen was then irrigated to remove the clots which had formed. A small amount of irrigation was done with the patient leveled to allow for adequate retrieval of the irrigation fluid. All counts were correct, at which point we relieved the pneumoperitoneum, removing the 5-mm ports under direct visualization. Finally the Pepe port was then removed from the abdomen. The care was taken to close the Pepe entry port using the laid-in [id number] without interposing any abdominal viscera. Counts were correct. We then proceeded to irrigate each port site, controlled hemostasis with cautery, and closed the skin with 4-0 Vicryl in interrupted fashion at the 5-mm ports, and at the umbilical entry site a running subcuticular using 4-0 Vicryl. Skin was clean, sterile dressings were placed including benzoin and Steri-Strips, gauze sponges and Tegaderm, so patient was awakened from anesthesia having tolerated procedure well. He was returned to recovery. He was stable throughout the procedure. MD GILBERT Copeland/[id number]
[2017-11-21] MEDS ORDERED: INSULIN (NOVOLOG) ASPART 100 UNITS/ML 10ML VIAL ONE ×3 (05:58→22:28)
[2017-11-21] MEDS: METOCLOPRAMIDE HCL 10 MG TABLET (FP) PO SCH ×4 (06:19→22:22)
[2017-11-21] MEDS: INSULIN SLIDING SCALE (NOVOLOG) 1 VIAL SQ SCH ×4 (06:19→22:31)
[2017-11-21] MEDS: SODIUM CHLORIDE 0.45% 1,000 ML IV SCH ×2 (06:20→18:00)
[2017-11-21] MEDS: HEPARIN NA (PORCINE) 5,000 UNITS/ML 1ML VIAL SQ SCH ×3 (06:20→22:22)
[2017-11-21] MEDS: PANTOPRAZOLE SODIUM 40 MG VIAL IVPUSH SCH (10:45)
[2017-11-21 10:54] LABS: HEMATOCRIT 29.6 % (35.4-49); HEMOGLOBIN 9.6 GM/dL (11.7-16.9); MCH 29.2 pg (25.7-33.7); MCHC 32.3 g/dl (32.0-35.9); MEAN CELL VOLUME 90.4 fl (80-96); MEAN PLT VOLUME 10.2 fl (7.5-11.1); PLATELET COUNT 211 K/MM3 (134-434); RBC 3.27 M/mm3 (4.00-5.60); RDW 16.2 % (11.9-15.9); WHITE BLOOD COUNT 12.6 K/mm3 (4.0-10.0)
[2017-11-21 11:02] LABS: ALBUMIN 2.5 g/dl (3.4-5.0); ANION GAP 7 (8-16); BILIRUBIN,TOTAL 0.9 mg/dL (0.2-1.0); BLOOD UREA NITROGEN 39 mg/dL (7-18); CHLORIDE 112 mmol/L (98-107); CO2 26 mmol/L (21-32); GLUCOSE,RANDOM 198 mg/dL (74-106); MAGNESIUM 1.5 mg/dL (1.8-2.4); PHOSPHOROUS 1.9 mg/dL (2.5-4.9); POTASSIUM 3.3 mmol/L (3.5-5.1); SGOT/AST 76 U/L (15-37); SGPT/ALT 153 U/L (12-78); SODIUM 145 mmol/L (136-145); TOT PROT 5.7 g/dl (6.4-8.2)
[2017-11-21 11:03] LABS: ALK PHOS 220 U/L (45-117)
[2017-11-21] MEDS ORDERED: PT OWN MED DRAWER 7, Y5N ONE ×2 (11:16→14:34)
[2017-11-21] MEDS: ERTAPENEM SODIUM 1 GM in SODIUM CHLORIDE 100 ML IVPB SCH (11:37)
--- NOTE | 2017-11-21 12:44 | PN ---
Progress Note (short form) - Note Progress Note: Subjective: The patient was seen and examined at the bedside, he has no complaints at this time. Current Medications Generic Name Dose Route Start Last Admin Trade Name Freq PRN Reason Stop Dose Admin Albuterol/Ipratropium 1 amp 11/19/17 14:10 Duoneb - NEB Q6H PRN SHORTNESS OF BREATH Heparin Sodium (Porcine) 5,000 unit 11/19/17 22:00 11/21/17 14:41 Heparin - SQ 5,000 unit TID RERE Administration Ertapenem 1 gm/ Sodium 100 mls @ 200 mls/hr 11/20/17 10:00 11/21/17 11:37 Chloride IVPB 200 mls/hr DAILY RERE Administration Protocol Sodium Chloride 1,000 mls @ 75 mls/hr 11/19/17 16:45 11/21/17 18:00 1/2 Normal Saline IV 75 mls/hr ASDIR RERE Administration Insulin Aspart 1 vial 11/19/17 16:30 11/21/17 17:50 Novolog Vial Sliding Scale - SQ 2 units ACHS RERE Administration Protocol Metoclopramide HCl 10 mg 11/19/17 22:00 11/21/17 17:00 Reglan - PO 10 mg ACHS RERE Administration Morphine Sulfate 2 mg 11/19/17 14:10 11/21/17 17:52 Morphine Sulfate IVPUSH 2 mg Q4H PRN Administration PAIN LEVEL 6-10 Pantoprazole Sodium 40 mg 11/20/17 10:00 11/21/17 10:45 Protonix Iv IVPUSH 40 mg DAILY RERE Administration Objective: Vital Signs Period Temp Pulse Resp BP Sys/Leyva Pulse Ox Last 24 Hr 98.2 F-98.8 F 62-74 18-20 145-148/78-80 95-96 Physical Exam: General: NAD, A&Ox3 Lungs: Decreased breath sounds bilaterally Heart: RRR, S1S2 Abd: Lap sites c,d,i. Soft, distended Ext: No edema CBCD WBC 12.6 K/mm3 (4.0-10.0) H 11/21/17 10:05 RBC 3.27 M/mm3 (4.00-5.60) L 11/21/17 10:05 Hgb 9.6 GM/dL (11.7-16.9) L 11/21/17 10:05 Hct 29.6 % (35.4-49) L 11/21/17 10:05 MCV 90.4 fl (80-96) 11/21/17 10:05 MCHC 32.3 g/dl (32.0-35.9) 11/21/17 10:05 RDW 16.2 % (11.9-15.9) H 11/21/17 10:05 Plt Count 211 K/MM3 (134-434) D 11/21/17 10:05 MPV 10.2 fl (7.5-11.1) 11/21/17 10:05 CMP Sodium 145 mmol/L (136-145) 11/21/17 10:05 Potassium 3.3 mmol/L (3.5-5.1) L 11/21/17 10:05 Chloride 112 mmol/L (98-107) H 11/21/17 10:05 Carbon Dioxide 26 mmol/L (21-32) 11/21/17 10:05 Anion Gap 7 (8-16) L 11/21/17 10:05 BUN 39 mg/dL (7-18) H D 11/21/17 10:05 Creatinine 2.0 mg/dL (0.7-1.3) H 11/21/17 10:05 Creat Clearance w eGFR 33.60 (>60) 11/21/17 10:05 Random Glucose 198 mg/dL (74-106) H D 11/21/17 10:05 Calcium 8.0 mg/dL (8.5-10.1) L 11/21/17 10:05 Total Bilirubin 0.9 mg/dL (0.2-1.0) 11/21/17 10:05 AST 76 U/L (15-37) H D 11/21/17 10:05 ALT 153 U/L (12-78) H 11/21/17 10:05 Alkaline Phosphatase 220 U/L (45-117) H 11/21/17 10:05 Total Protein 5.7 g/dl (6.4-8.2) L 11/21/17 10:05 Albumin 2.5 g/dl (3.4-5.0) L 11/21/17 10:05 CARDIAC ENZYMES Creatine Kinase 175 IU/L (39-308) 11/13/17 08:51 Troponin I 0.22 ng/ml (0.00-0.05) H D 11/18/17 17:00 Microbiology 11/15/17 10:35 Blood - Peripheral Venous Blood Culture - Final NO GROWTH AFTER 5 DAYS INCUBATION 11/15/17 09:40 Blood - Peripheral Venous Blood Culture - Final NO GROWTH AFTER 5 DAYS INCUBATION 11/13/17 17:40 Blood - Peripheral Venous Blood Culture - Final Escherichia Coli 11/13/17 22:00 Stool Salmonella/Shigella Culture - Final NO GROWTH OF SALMONELLA OR SHIGELLA SPECIES OBTAINED 11/13/17 22:00 Stool Campylobacter Culture - Final NO GROWTH OF CAMPYLOBACTER SPECIES OBTAINED 11/13/17 22:00 Stool Yersinia Culture - Final NO GROWTH OF YERSINIA SPECIES OBTAINED 11/13/17 22:00 Stool Vibrio Culture - Final NO GROWTH OF VIBRIO SPECIES OBTAINED 11/13/17 22:00 Stool Escherichia coli 0157 Culture - Final NO GROWTH OF E COLI 0157 OBTAINED 11/13/17 17:40 Blood - Peripheral Venous Blood Culture - Final Escherichia Coli 11/13/17 17:00 Urine - Urine Clean Catch Urine Culture - Final Escherichia Coli Esbl 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 Assessment: This is a 67 year old male with PMHx HTN, NIDDM, cholelithiasis, who presented to the ED with periumbilical pain, nausea, vomiting, abdominal distention x1 day Plan: 1) Septic shock 2/2 ascending cholangitis, e.coli bacteremia, esbl UTI - 11/13 MRCP: 6mm hypointensity overlyng the distal CBD; diffusely dilated CBD 15mm; common hepatic duct dilated 10mm; moderate intrahepatic biliary ductal dilitation - 11/14 First ERCP: sphincterotomy, stent; purulent drainage - 11/14 Second ERCP: retrieval of stone; washout - S/p cholecytectomy on 11/17 - Ertapenem 1g daily - Remains afebrile - Advance diet per surgery - Appreciate surgery consult - Appreciate ID consult 2) Hypoxic, hypercapneic respiratory failure - Incentive spirometer encouraged - Appreciate pulmonary consult 3) Acute renal failure - Likely due to ATN in the setting of sepsis/shock - Cr continues to slowly decrease - Appreciate nephrology consult 4) Transaminitis - Up slightly today - Continue to trend - Hepatitis serology noted 5) F/E/N: - Hypokalemia: replete - Hypophosphatemia: replete - Hypomagnesemia: replete - Diabetic/sodium controlled diet 6) Prophylaxis: - Heparin 5,000u sq tid - OOB ambulating 7) Dispo: - Requires continued inpatient care CODE STATUS: FULL CODE Visit type - Emergency Visit Emergency Visit: Yes ED Registration Date: 11/13/17 Care time: The patient presented to the Emergency Department on the above date and was hospitalized for further evaluation of their emergent condition. - New Patient This patient is new to me today: No - Critical Care Critical Care patient: No
[2017-11-21] MEDS ORDERED: MAGNESIUM OXIDE 400 MG TABLET (FP) PO ONE (13:00)
[2017-11-21] MEDS ORDERED: NAPH,MB-DB/K PH,MBDB POWDER PACKET PO ONE (13:15)
[2017-11-21] MEDS ORDERED: POTASSIUM CHLORIDE ORAL LIQUID 20 MEQ/15 ML PO ONE (13:15)
[2017-11-21] MEDS: morphine SULFATE 4 MG/ML VIAL IVPUSH PRN (17:52)
--- NOTE | 2017-11-21 17:54 | PN ---
Progress Note, Physician Chief Complaint: abdominal pain History of Present Illness: 67yo male PMH obesity, prostate cancer, HTN, NIDDM, cholelithiasis which was last treated in 1997. He was medically managed at the time and did not require surgery. s/p emergency ERCP with sphincterotomy and stent last night . He had relief of purulent ascending cholangitis with ERCP, stable postop, no acute events overnight, passing flatus and having diarrhea, tolerating diet, no complaints. - Current Medication List Current Medications: Active Medications Albuterol/Ipratropium (Duoneb -) 1 amp NEB Q6H PRN PRN Reason: SHORTNESS OF BREATH Heparin Sodium (Porcine) (Heparin -) 5,000 unit SQ TID [facility] Last Admin: 11/21/17 14:41 Dose: 5,000 unit Ertapenem 1 gm/ Sodium (Chloride) 100 mls @ 200 mls/hr IVPB DAILY RERE PRN Reason: Protocol Last Admin: 11/21/17 11:37 Dose: 200 mls/hr Sodium Chloride (1/2 Normal Saline) 1,000 mls @ 75 mls/hr IV ASDIR [facility] Last Admin: 11/21/17 06:20 Dose: 75 mls/hr Insulin Aspart (Novolog Vial Sliding Scale -) 1 vial SQ ACHS [facility]ERE PRN Reason: Protocol Last Admin: 11/21/17 11:52 Dose: Not Given Metoclopramide HCl (Reglan -) 10 mg PO ACHS [facility] Last Admin: 11/21/17 10:50 Dose: 10 mg Morphine Sulfate (Morphine Sulfate) 2 mg IVPUSH Q4H PRN PRN Reason: PAIN LEVEL 6-10 Last Admin: 11/19/17 23:26 Dose: 2 mg Pantoprazole Sodium (Protonix Iv) 40 mg IVPUSH DAILY [facility] Last Admin: 11/21/17 10:45 Dose: 40 mg - Objective Vital Signs: Vital Signs Temperature 98.2 F 11/21/17 09:26 Pulse Rate 74 11/21/17 09:26 Respiratory Rate 18 11/21/17 09:26 Blood Pressure 148/80 11/21/17 09:26 O2 Sat by Pulse Oximetry (%) 96 11/21/17 09:00 Vital Signs Period Temp Pulse Resp BP Sys/Leyva Pulse Ox Last 24 Hr 97.9 F-98.8 F 62-82 18-20 142-156/73-84 95-96 Constitutional: Yes: Well Nourished, No Distress, Calm Eyes: Yes: Conjunctiva Clear, EOM Intact HENT: Yes: Atraumatic, Normocephalic Neck: Yes: Supple, Trachea Midline Cardiovascular: Yes: Regular Rate and Rhythm Respiratory: Yes: Regular, CTA Bilaterally Gastrointestinal: Yes: Normal Bowel Sounds, Distention. No: Ascites, Hernia, Tenderness, Vomiting ...Rectal Exam: Yes: Deferred Genitourinary: No: CVA Tenderness - Left, CVA Tenderness - Right Extremities: No: Cool, Cyanosis Neurological: Yes: Alert, Oriented Psychiatric: Yes: Alert, Oriented Labs: CBC, BMP 11/21/17 10:05 11/21/17 10:05 INR, PTT INR 1.06 (0.82-1.09) D 11/16/17 17:00 Problem List - Problems (1) Choledocholithiasis Assessment/Plan: 67yo male PMH HTN, DM, obesity with Choledocholithiasis, epigastric abdominal pain, impending cholangitis? transaminitis and tbili >6, wbc ~3, lactic acid 9. s/p ERCP sphincterotomy, stone extration and stent placement. POD#3 s/p Laparoscopic cholecystectomy, some abdominal distension with early signs of GI continuity. advance diet as tolerated IVF hydration IV antibioics encourage IS and OOB Will follow for serial exams Code(s): K80.50 - CALCULUS OF BILE DUCT W/O CHOLANGITIS OR CHOLECYST W/O OBST (2) Calculus of gallbladder and bile duct w/o cholecystitis or obstruction Code(s): K80.70 - CALCULUS OF GB AND BILE DUCT W/O CHOLECYST W/O OBSTRUCTION (3) Obesity Code(s): E66.9 - OBESITY, UNSPECIFIED Qualifiers: Obesity classification: adult class 1 (BMI 30 - 34.9) (4) Abdominal pain in male Code(s): R10.9 - UNSPECIFIED ABDOMINAL PAIN (5) Transaminitis Code(s): R74.0 - NONSPEC ELEV OF LEVELS OF TRANSAMNS & LACTIC ACID DEHYDRGNSE
--- NOTE | 2017-11-21 23:48 | PN ---
Progress Note (short form) - Note Progress Note: 67 year old gentleman with PMhx of obesity, prostate cancer, HTN, NIDDM, cholelithiasis Abd pain now s/p ERCP with ascending colangitis and gram negative sepsis with THIEN and metabolic acidosis. Current Medications Albuterol/Ipratropium (Duoneb -) 1 amp NEB Q6H PRN PRN Reason: SHORTNESS OF BREATH Heparin Sodium (Porcine) (Heparin -) 5,000 unit SQ TID [facility] Last Admin: 11/21/17 22:22 Dose: 5,000 unit Ertapenem 1 gm/ Sodium (Chloride) 100 mls @ 200 mls/hr IVPB DAILY RERE PRN Reason: Protocol Last Admin: 11/21/17 11:37 Dose: 200 mls/hr Sodium Chloride (1/2 Normal Saline) 1,000 mls @ 75 mls/hr IV ASDIR [facility] Last Admin: 11/21/17 18:00 Dose: 75 mls/hr Insulin Aspart (Novolog Vial Sliding Scale -) 1 vial SQ ACHS [facility] PRN Reason: Protocol Last Admin: 11/21/17 22:31 Dose: 2 units Metoclopramide HCl (Reglan -) 10 mg PO ACHS [facility] Last Admin: 11/21/17 22:22 Dose: 10 mg Morphine Sulfate (Morphine Sulfate) 2 mg IVPUSH Q4H PRN PRN Reason: PAIN LEVEL 6-10 Last Admin: 11/21/17 17:52 Dose: 2 mg Pantoprazole Sodium (Protonix Iv) 40 mg IVPUSH DAILY [facility] Last Admin: 11/21/17 10:45 Dose: 40 mg Last Vital Signs Temp Pulse Resp BP Pulse Ox 98.2 F 82 19 154/76 96 11/21/17 20:54 11/21/17 20:54 11/21/17 20:54 11/21/17 20:54 11/21/17 09:00 CBC, BMP 11/21/17 10:05 11/21/17 10:05 IMP Acute Renal Failure ?ATN in setting of sepsis/shock Ascending Colangitis s/p Gram Negative Bacteremia s/p Septic Shock, now stable Anemia s/p Hypernatremia Renal function improving continue hydration
[2017-11-22] MEDS: SODIUM CHLORIDE 0.45% 1,000 ML IV SCH (05:56)
[2017-11-22] MEDS: HEPARIN NA (PORCINE) 5,000 UNITS/ML 1ML VIAL SQ SCH ×3 (06:01→21:48)
[2017-11-22] MEDS: METOCLOPRAMIDE HCL 10 MG TABLET (FP) PO SCH ×4 (06:02→21:47)
[2017-11-22] MEDS: INSULIN SLIDING SCALE (NOVOLOG) 1 VIAL SQ SCH ×4 (06:36→21:47)
[2017-11-22] MEDS ORDERED: INSULIN (NOVOLOG) ASPART 100 UNITS/ML 10ML VIAL ONE ×3 (06:50→17:12)
[2017-11-22 08:23] LABS: HEMATOCRIT 25.9 % (35.4-49); HEMOGLOBIN 8.6 GM/dL (11.7-16.9); MCH 29.6 pg (25.7-33.7); MCHC 33.1 g/dl (32.0-35.9); MEAN CELL VOLUME 89.5 fl (80-96); MEAN PLT VOLUME 10.2 fl (7.5-11.1); PLATELET COUNT 188 K/MM3 (134-434); RBC 2.89 M/mm3 (4.00-5.60); RDW 16.2 % (11.9-15.9); WHITE BLOOD COUNT 8.9 K/mm3 (4.0-10.0)
[2017-11-22 08:53] LABS: CHLORIDE 115 mmol/L (98-107); POTASSIUM 3.3 mmol/L (3.5-5.1); SODIUM 145 mmol/L (136-145)
[2017-11-22 09:08] LABS: ALBUMIN 2.1 g/dl (3.4-5.0); ALK PHOS 168 U/L (45-117); ANION GAP 5 (8-16); BILIRUBIN,TOTAL 0.6 mg/dL (0.2-1.0); BLOOD UREA NITROGEN 30 mg/dL (7-18); CALCIUM 7.6 mg/dL (8.5-10.1); CO2 25 mmol/L (21-32); CREATININE 1.7 mg/dL (0.7-1.3); GLUCOSE,RANDOM 157 mg/dL (74-106); MAGNESIUM 1.3 mg/dL (1.8-2.4); SGOT/AST 47 U/L (15-37); SGPT/ALT 108 U/L (12-78); TOT PROT 4.8 g/dl (6.4-8.2)
--- NOTE | 2017-11-22 09:38 | PN ---
Teaching Attending Note Name of Resident: Tom Jackson SUBJECTIVE: Patient seen and examined. tolerating diet well, no nausea, vomiting or fevers. reports diarrhea OBJECTIVE: Vital Signs Period Temp Pulse Resp BP Sys/Leyva Pulse Ox Last 24 Hr 97.8 F-98.2 F 68-82 19-20 139-154/72-80 96 Intake & Output 11/19/17 11/20/17 11/21/17 11/22/17 23:59 23:59 23:59 23:59 Intake Total 2014 1175 1950 900 Output Total 305 2200 900 500 Balance -1035 -1025 1050 400 Weight 171 lb 9.6 oz 174 lb 178 lb General: no acute distress CVS S1S2 regular Chest No rales or wheezing Abdomen distended, non tender, positive bowel sounds, lap site steri strips, blister neck to umbilicus, ?prior dressing site Extremities no edema Home Medication List Medication Instructions Recorded Confirmed Type Amlodipine Besylate [Norvasc -] 5 mg PO DAILY 11/13/17 11/13/17 History Metformin HCl 850 mg PO DAILY 11/13/17 11/13/17 History Omeprazole 20 mg PO DAILY 11/13/17 11/13/17 History Active Medications Generic Name Dose Route Start Last Admin Trade Name Freq PRN Reason Stop Dose Admin Albuterol/Ipratropium 1 amp 11/19/17 14:10 Duoneb - NEB Q6H PRN SHORTNESS OF BREATH Heparin Sodium (Porcine) 5,000 unit 11/19/17 22:00 11/22/17 06:01 Heparin - SQ 5,000 unit TID RERE Administration Ertapenem 1 gm/ Sodium 100 mls @ 200 mls/hr 11/20/17 10:00 11/21/17 11:37 Chloride IVPB 200 mls/hr DAILY RERE Administration Protocol Sodium Chloride 1,000 mls @ 75 mls/hr 11/19/17 16:45 11/22/17 05:56 1/2 Normal Saline IV 75 mls/hr ASDIR RERE Administration Insulin Aspart 1 vial 11/19/17 16:30 11/22/17 06:36 Novolog Vial Sliding Scale - SQ 2 units ACHS RERE Administration Protocol Metoclopramide HCl 10 mg 11/19/17 22:00 11/22/17 06:02 Reglan - PO 10 mg ACHS RERE Administration Morphine Sulfate 2 mg 11/19/17 14:10 11/21/17 17:52 Morphine Sulfate IVPUSH 2 mg Q4H PRN Administration PAIN LEVEL 6-10 Pantoprazole Sodium 40 mg 11/20/17 10:00 11/21/17 10:45 Protonix Iv IVPUSH 40 mg DAILY RERE Administration Laboratory Results - last 24 hr 11/21/17 11/21/17 11/21/17 10:05 10:05 11:51 WBC 12.6 H RBC 3.27 L Hgb 9.6 L Hct 29.6 L MCV 90.4 MCH 29.2 MCHC 32.3 RDW 16.2 H Plt Count 211 D MPV 10.2 Neutrophils % Lymphocytes % Sodium 145 Potassium 3.3 L Chloride 112 H Carbon Dioxide 26 Anion Gap 7 L BUN 39 H D Creatinine 2.0 H Creat Clearance w eGFR 33.60 POC Glucometer 148 Random Glucose 198 H D Calcium 8.0 L Phosphorus 1.9 L D Magnesium 1.5 L D Total Bilirubin 0.9 AST 76 H D ALT 153 H Alkaline Phosphatase 220 H Total Protein 5.7 L Albumin 2.5 L 11/21/17 11/21/17 11/22/17 17:46 22:19 05:43 WBC RBC Hgb Hct MCV MCH MCHC RDW Plt Count MPV Neutrophils % Lymphocytes % Sodium Potassium Chloride Carbon Dioxide Anion Gap BUN Creatinine Creat Clearance w eGFR POC Glucometer 183 228 181 Random Glucose Calcium Phosphorus Magnesium Total Bilirubin AST ALT Alkaline Phosphatase Total Protein Albumin 11/22/17 11/22/17 06:45 06:45 WBC 8.9 RBC 2.89 L Hgb 8.6 L D Hct 25.9 L MCV 89.5 MCH 29.6 MCHC 33.1 RDW 16.2 H Plt Count 188 MPV 10.2 Neutrophils % No Result Required. Lymphocytes % No Result Required. Sodium 145 Potassium 3.3 L Chloride 115 H Carbon Dioxide 25 Anion Gap 5 L BUN 30 H D Creatinine 1.7 H Creat Clearance w eGFR 40.53 POC Glucometer Random Glucose 157 H D Calcium 7.6 L Phosphorus 2.0 L Magnesium 1.3 L Total Bilirubin 0.6 D AST 47 H D ALT 108 H D Alkaline Phosphatase 168 H D Total Protein 4.8 L Albumin 2.1 L Microbiology 11/15/17 10:35 Blood - Peripheral Venous Blood Culture - Final NO GROWTH AFTER 5 DAYS INCUBATION 11/15/17 09:40 Blood - Peripheral Venous Blood Culture - Final NO GROWTH AFTER 5 DAYS INCUBATION 11/13/17 17:40 Blood - Peripheral Venous Blood Culture - Final Escherichia Coli 11/13/17 22:00 Stool Salmonella/Shigella Culture - Final NO GROWTH OF SALMONELLA OR SHIGELLA SPECIES OBTAINED 11/13/17 22:00 Stool Campylobacter Culture - Final NO GROWTH OF CAMPYLOBACTER SPECIES OBTAINED 11/13/17 22:00 Stool Yersinia Culture - Final NO GROWTH OF YERSINIA SPECIES OBTAINED 11/13/17 22:00 Stool Vibrio Culture - Final NO GROWTH OF VIBRIO SPECIES OBTAINED 11/13/17 22:00 Stool Escherichia coli 0157 Culture - Final NO GROWTH OF E COLI 0157 OBTAINED 11/13/17 17:40 Blood - Peripheral Venous Blood Culture - Final Escherichia Coli 11/13/17 17:00 Urine - Urine Clean Catch Urine Culture - Final Escherichia Coli Esbl Benefits Clerk MRCP results reviewed ASSESSMENT AND PLAN: This is a 67 year old male with PMHx HTN, NIDDM, cholelithiasis, admitted with ascending cholangitis, s/p MRCP/ERCP/lap cholecystectomy -Septic shock, due to ascending cholangitis/E. Coli bacteremia, less likely from ESBL UTI -Hypoxic hypercapneic respiratory failure, from above -THIEN, from sepsis/shock/hypovolumia -Transaminitis, due to above, improved -Severe hypokalemia/hypophosphatemia/hypomagnesemia -ACute on chronic, ?post surgical +/- hemodilution, r/o occult bleed -NIDDM Plan: - 11/13 MRCP: 6mm hypointensity overlyng the distal CBD; diffusely dilated CBD 15mm; common hepatic duct dilated 10mm; moderate intrahepatic biliary ductal dilitation - 11/14 First ERCP: sphincterotomy, stent; purulent drainage - 11/14 Second ERCP: retrieval of stone; washout - S/p cholecytectomy on 11/17 Ertapenem day 3, repeat blood cultures neg, follow up with ID. GI/Surgery input appreciated. Serial abdominal exams, advance diet per surgery. Abdomen distended, improved per Dr. Galindo, continue monitoring. Difficult apodaca placement, patient is s/p prostatectomy per CT A/P on 11/13, will get bladder/pelvic US, and consult urology accordingly. Incentive spirometry. Renal function improved, nephrology input appreciated. LFts better Replete K/Mg/Phos. Check FOBT, trend CBC DVTPPX with heparin for now encourage ambulation Dispo planning pending clinical improvement.
[2017-11-22] MEDS ORDERED: MAGNESIUM SULF 50% (8.12 MEQ/2 ML-1 GM VIAL) IVPB ONE (09:40)
[2017-11-22] MEDS ORDERED: POTASSIUM PHOSPHATE 30 MM in SODIUM CHLORIDE 500 ML IVPB ONE (09:40)
[2017-11-22] MEDS ORDERED: MAGNESIUM SULFATE IN WATER 2 GM/50 ML IVPB IVPB ONE (09:45)
[2017-11-22] MEDS ORDERED: PT OWN MED DRAWER 7, Y5N ONE ×2 (10:49→21:41)
[2017-11-22] MEDS: ERTAPENEM SODIUM 1 GM in SODIUM CHLORIDE 100 ML IVPB SCH (10:55)
[2017-11-22] MEDS: PANTOPRAZOLE SODIUM 40 MG VIAL IVPUSH SCH (10:55)
[2017-11-22 11:53] LABS: PLATELET ESTIMATE NORMAL; TARGET CELLS 2+; TEAR DROP CELLS 1+
--- NOTE | 2017-11-22 13:35 | PN ---
Progress Note, Physician Chief Complaint: abdominal pain History of Present Illness: 67yo male PMH obesity, prostate cancer, HTN, NIDDM, cholelithiasis which was last treated in 1997. He was medically managed at the time and did not require surgery. s/p emergency ERCP with sphincterotomy and stent last night . He had relief of purulent ascending cholangitis with ERCP, stable postop, no acute events overnight, passing flatus and having BM, tolerating diet, no complaints. - Current Medication List Current Medications: Active Medications Albuterol/Ipratropium (Duoneb -) 1 amp NEB Q6H PRN PRN Reason: SHORTNESS OF BREATH Heparin Sodium (Porcine) (Heparin -) 5,000 unit SQ TID [facility] Last Admin: 11/22/17 06:01 Dose: 5,000 unit Ertapenem 1 gm/ Sodium (Chloride) 100 mls @ 200 mls/hr IVPB DAILY [facility] PRN Reason: Protocol Last Admin: 11/22/17 10:55 Dose: 200 mls/hr Potassium Phosphate 30 mm/ (Sodium Chloride) 510 mls @ 63.75 mls/hr IVPB ONCE ONE Stop: 11/22/17 17:39 Insulin Aspart (Novolog Vial Sliding Scale -) 1 vial SQ ACHS [facility] PRN Reason: Protocol Last Admin: 11/22/17 11:50 Dose: 4 units Metoclopramide HCl (Reglan -) 10 mg PO ACHS [facility] Last Admin: 11/22/17 11:47 Dose: 10 mg Morphine Sulfate (Morphine Sulfate) 2 mg IVPUSH Q4H PRN PRN Reason: PAIN LEVEL 6-10 Last Admin: 11/21/17 17:52 Dose: 2 mg Pantoprazole Sodium (Protonix Iv) 40 mg IVPUSH DAILY [facility] Last Admin: 11/22/17 10:55 Dose: 40 mg - Objective Vital Signs: Vital Signs Temperature 97.9 F 11/22/17 08:58 Pulse Rate 78 11/22/17 08:58 Respiratory Rate 20 11/22/17 08:58 Blood Pressure 139/72 11/22/17 08:58 O2 Sat by Pulse Oximetry (%) 96 11/21/17 21:00 Constitutional: Yes: Well Nourished, No Distress, Calm Eyes: Yes: Conjunctiva Clear, EOM Intact HENT: Yes: Atraumatic, Normocephalic Neck: Yes: Supple, Trachea Midline Cardiovascular: Yes: Regular Rate and Rhythm, S1, S2. No: Murmur Respiratory: Yes: Regular, CTA Bilaterally Gastrointestinal: Yes: Normal Bowel Sounds, Soft, Abdomen, Obese, Distention ( improved from previous, no soft). No: Tenderness, Tenderness, Rebound Genitourinary: No: CVA Tenderness - Left, CVA Tenderness - Right Edema: No Peripheral Pulses WNL: Yes Wound/Incision: Yes: Clean/Dry, Well Approximated, Steri Strips, Open to air, Other (periumbilical blisters) Neurological: Yes: Alert, Oriented Psychiatric: Yes: Alert, Oriented Labs: CBC, BMP 11/22/17 06:45 11/22/17 06:45 INR, PTT INR 1.06 (0.82-1.09) D 11/16/17 17:00 Problem List - Problems (1) Choledocholithiasis Assessment/Plan: 67yo male PMH HTN, DM, obesity with Choledocholithiasis, epigastric abdominal pain, impending cholangitis? transaminitis and tbili >6, wbc ~3, lactic acid 9. s/p ERCP sphincterotomy, stone extration and stent placement. POD#3 s/p Laparoscopic cholecystectomy, some abdominal distension with early signs of GI continuity. advance diet as tolerated IVF discontinued Urology to evaluate for apodaca removal IV antibiotics per ID encourage IS and OOB Will follow for serial exams Code(s): K80.50 - CALCULUS OF BILE DUCT W/O CHOLANGITIS OR CHOLECYST W/O OBST (2) Calculus of gallbladder and bile duct w/o cholecystitis or obstruction Code(s): K80.70 - CALCULUS OF GB AND BILE DUCT W/O CHOLECYST W/O OBSTRUCTION (3) Obesity Code(s): E66.9 - OBESITY, UNSPECIFIED Qualifiers: Obesity classification: adult class 1 (BMI 30 - 34.9) (4) Abdominal pain in male Code(s): R10.9 - UNSPECIFIED ABDOMINAL PAIN (5) Transaminitis Code(s): R74.0 - NONSPEC ELEV OF LEVELS OF TRANSAMNS & LACTIC ACID DEHYDRGNSE
--- NOTE | 2017-11-22 20:01 | PN ---
Progress Note (short form) - Note Progress Note: 67 year old gentleman with PMhx of obesity, prostate cancer, HTN, NIDDM, cholelithiasis Abd pain now s/p ERCP with ascending colangitis and gram negative sepsis with THIEN and metabolic acidosis. Current Medications Albuterol/Ipratropium (Duoneb -) 1 amp NEB Q6H PRN PRN Reason: SHORTNESS OF BREATH Heparin Sodium (Porcine) (Heparin -) 5,000 unit SQ TID [facility] Last Admin: 11/22/17 14:30 Dose: 5,000 unit Ertapenem 1 gm/ Sodium (Chloride) 100 mls @ 200 mls/hr IVPB DAILY [facility] PRN Reason: Protocol Last Admin: 11/22/17 10:55 Dose: 200 mls/hr Insulin Aspart (Novolog Vial Sliding Scale -) 1 vial SQ ACHS [facility] PRN Reason: Protocol Last Admin: 11/22/17 17:17 Dose: 2 units Metoclopramide HCl (Reglan -) 10 mg PO ACHS [facility] Last Admin: 11/22/17 17:17 Dose: 10 mg Pantoprazole Sodium (Protonix Iv) 40 mg IVPUSH DAILY [facility] Last Admin: 11/22/17 10:55 Dose: 40 mg Last Vital Signs Temp Pulse Resp BP Pulse Ox 98.6 F 77 20 141/74 96 11/22/17 14:25 11/22/17 14:25 11/22/17 14:25 11/22/17 14:25 11/22/17 10:00 lungs clear heart reg s1s2 abd soft ext mild edema CBC, BMP 11/21/17 10:05 11/21/17 10:05 IMP Acute Renal Failure ?ATN 2/2 sepsis/shock Ascending Colangitis s/p Gram Negative Bacteremia s/p Septic Shock, now stable Anemia s/p #Hypernatremia- resolved hypokalemia- replacing Renal function improving
[2017-11-23] MEDS: HEPARIN NA (PORCINE) 5,000 UNITS/ML 1ML VIAL SQ SCH ×3 (06:04→22:22)
[2017-11-23] MEDS: METOCLOPRAMIDE HCL 10 MG TABLET (FP) PO SCH ×4 (06:04→22:21)
[2017-11-23] MEDS: INSULIN SLIDING SCALE (NOVOLOG) 1 VIAL SQ SCH ×4 (06:23→22:22)
[2017-11-23 08:59] LABS: HEMATOCRIT 25.1 % (35.4-49); HEMOGLOBIN 8.3 GM/dL (11.7-16.9); MCH 29.4 pg (25.7-33.7); MCHC 32.9 g/dl (32.0-35.9); MEAN CELL VOLUME 89.6 fl (80-96); MEAN PLT VOLUME 10.1 fl (7.5-11.1); PLATELET COUNT 255 K/MM3 (134-434); RDW 16.1 % (11.9-15.9); WHITE BLOOD COUNT 8.4 K/mm3 (4.0-10.0)
[2017-11-23] MEDS ORDERED: PT OWN MED DRAWER 7, Y5N ONE ×2 (09:38→10:01)
[2017-11-23] MEDS: PANTOPRAZOLE SODIUM 40 MG VIAL IVPUSH SCH (09:41)
[2017-11-23 10:29] LABS: ALBUMIN 2.3 g/dl (3.4-5.0); ALK PHOS 169 U/L (45-117); ANION GAP 7 (8-16); BILIRUBIN,DIRECT 0.4 mg/dL (0.0-0.2); BILIRUBIN,TOTAL 0.7 mg/dL (0.2-1.0); BLOOD UREA NITROGEN 25 mg/dL (7-18); CALCIUM 7.6 mg/dL (8.5-10.1); CHLORIDE 114 mmol/L (98-107); CO2 24 mmol/L (21-32); CREATININE 1.7 mg/dL (0.7-1.3); GLUCOSE,RANDOM 132 mg/dL (74-106); MAGNESIUM 1.5 mg/dL (1.8-2.4); PHOSPHOROUS 3.1 mg/dL (2.5-4.9); POTASSIUM 3.4 mmol/L (3.5-5.1); SGOT/AST 34 U/L (15-37); SGPT/ALT 93 U/L (12-78); SODIUM 145 mmol/L (136-145); TOT PROT 5.1 g/dl (6.4-8.2)
[2017-11-23] MEDS: ERTAPENEM SODIUM 1 GM in SODIUM CHLORIDE 100 ML IVPB SCH (10:30)
--- NOTE | 2017-11-23 11:16 | PN ---
Progress Note (short form) - Note Progress Note: alert nad s/p cholycystectomy 11/17 still with apodaca tolerating diet no abdominal pain no nausea or vomiting +BM Vital Signs Period Temp Pulse Resp BP Sys/Leyva Pulse Ox Last 24 Hr 97.7 F-98.7 F 70-81 20-21 140-148/61-76 96 cor-rrr lungs clear abd distended, soft,nt +BS ext less edema +apodaca CBC, BMP 11/23/17 08:40 11/23/17 08:40 Microbiology 11/15/17 10:35 Blood - Peripheral Venous Blood Culture - Final NO GROWTH AFTER 5 DAYS INCUBATION 11/15/17 09:40 Blood - Peripheral Venous Blood Culture - Final NO GROWTH AFTER 5 DAYS INCUBATION 11/13/17 17:40 Blood - Peripheral Venous Blood Culture - Final Escherichia Coli 11/13/17 22:00 Stool Salmonella/Shigella Culture - Final NO GROWTH OF SALMONELLA OR SHIGELLA SPECIES OBTAINED 11/13/17 22:00 Stool Campylobacter Culture - Final NO GROWTH OF CAMPYLOBACTER SPECIES OBTAINED 11/13/17 22:00 Stool Yersinia Culture - Final NO GROWTH OF YERSINIA SPECIES OBTAINED 11/13/17 22:00 Stool Vibrio Culture - Final NO GROWTH OF VIBRIO SPECIES OBTAINED 11/13/17 22:00 Stool Escherichia coli 0157 Culture - Final NO GROWTH OF E COLI 0157 OBTAINED 11/13/17 17:40 Blood - Peripheral Venous Blood Culture - Final Escherichia Coli 11/13/17 17:00 Urine - Urine Clean Catch Urine Culture - Final Escherichia Coli 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 Current Medications Albuterol/Ipratropium (Duoneb -) 1 amp NEB Q6H PRN PRN Reason: SHORTNESS OF BREATH Heparin Sodium (Porcine) (Heparin -) 5,000 unit SQ TID [facility] Last Admin: 11/23/17 06:04 Dose: 5,000 unit Ertapenem 1 gm/ Sodium (Chloride) 100 mls @ 200 mls/hr IVPB DAILY [facility] PRN Reason: Protocol Last Admin: 11/23/17 10:30 Dose: 200 mls/hr Insulin Aspart (Novolog Vial Sliding Scale -) 1 vial SQ ACHS [facility] PRN Reason: Protocol Last Admin: 11/23/17 06:23 Dose: Not Given Metoclopramide HCl (Reglan -) 10 mg PO ACHS [facility] Last Admin: 11/23/17 06:04 Dose: 10 mg Pantoprazole Sodium (Protonix Iv) 40 mg IVPUSH DAILY [facility] Last Admin: 11/23/17 09:41 Dose: 40 mg a/p Ecoli sepsis- day #10 antibiotics, continue ertapenem- hopefully d/c antibiotics in am Biliary sepsis choledocholithiasis awaiting urology followup POD #6 s/p cholycystectomy THIEN- recovering renal function Problem List - Problems (1) Biliary sepsis Code(s): K83.0 - CHOLANGITIS (2) Choledocholithiasis Code(s): K80.50 - CALCULUS OF BILE DUCT W/O CHOLANGITIS OR CHOLECYST W/O OBST (3) THIEN (acute kidney injury) Code(s): N17.9 - ACUTE KIDNEY FAILURE, UNSPECIFIED (4) Acute respiratory failure Code(s): J96.00 - ACUTE RESPIRATORY FAILURE, UNSP W HYPOXIA OR HYPERCAPNIA
[2017-11-23] MEDS ORDERED: INSULIN (NOVOLOG) ASPART 100 UNITS/ML 10ML VIAL ONE ×2 (11:22→22:11)
[2017-11-23 11:25] LABS: PLATELET ESTIMATE NORMAL; TARGET CELLS 1+; TEAR DROP CELLS 1+
[2017-11-23] MEDS ORDERED: MAGNESIUM OXIDE 400 MG TABLET (FP) PO ONE ×2 (21:03→22:15)
--- NOTE | 2017-11-23 21:10 | PN ---
Physical Exam: SUBJECTIVE: Patient seen and examined sitting on edge of bed. OBJECTIVE: Vital Signs Period Temp Pulse Resp BP Sys/Leyva Pulse Ox Last 24 Hr 96.4 F-98.7 F 70-81 20-20 140-150/61-76 94-96 GENERAL/NEURO: A&Ox3 HEENT: Sclera clear LUNGS: CTA HEART: Regular rate and rhythm, S1, S2 ABDOMEN: Surgical port EXTREMITIES: 2+ pulses, warm, well-perfused, no edema. : [place], clear urine Laboratory Results - last 24 hr 11/22/17 11/23/17 11/23/17 21:45 05:47 08:40 WBC 8.4 RBC 2.80 L Hgb 8.3 L Hct 25.1 L MCV 89.6 MCH 29.4 MCHC 32.9 RDW 16.1 H Plt Count 255 D MPV 10.1 Neutrophils % No Result Required. Neutrophils % (Manual) 83.5 H Band Neutrophils % 0.0 Lymphocytes % No Result Required. Lymphocytes % (Manual) 11.0 D Monocytes % (Manual) 4 Eosinophils % (Manual) 1.1 Basophils % (Manual) 0.0 Myelocytes % (Man) 0 D Promyelocytes % (Man) 0 Blast Cells % (Manual) 0 Nucleated RBC % 0 Metamyelocytes 0 Platelet Estimate Normal Target Cells 1+ Tear Drop Cells 1+ Schistocytes 1+ Sodium Potassium Chloride Carbon Dioxide Anion Gap BUN Creatinine POC Glucometer 159 138 Random Glucose Calcium Phosphorus Magnesium Total Bilirubin Direct Bilirubin AST ALT Alkaline Phosphatase Total Protein Albumin 11/23/17 11/23/17 11/23/17 08:40 11:03 17:17 WBC RBC Hgb Hct MCV MCH MCHC RDW Plt Count MPV Neutrophils % Neutrophils % (Manual) Band Neutrophils % Lymphocytes % Lymphocytes % (Manual) Monocytes % (Manual) Eosinophils % (Manual) Basophils % (Manual) Myelocytes % (Man) Promyelocytes % (Man) Blast Cells % (Manual) Nucleated RBC % Metamyelocytes Platelet Estimate Target Cells Tear Drop Cells Schistocytes Sodium 145 Potassium 3.4 L Chloride 114 H Carbon Dioxide 24 Anion Gap 7 L BUN 25 H Creatinine 1.7 H POC Glucometer 237 244 Random Glucose 132 H Calcium 7.6 L Phosphorus 3.1 D Magnesium 1.5 L D Total Bilirubin 0.7 Direct Bilirubin 0.4 H D AST 34 D ALT 93 H Alkaline Phosphatase 169 H Total Protein 5.1 L Albumin 2.3 L Active Medications Generic Name Dose Route Start Last Admin Trade Name Linda PRN Reason Stop Dose Admin Albuterol/Ipratropium 1 amp 11/19/17 14:10 Duoneb - NEB Q6H PRN SHORTNESS OF BREATH Heparin Sodium (Porcine) 5,000 unit 11/19/17 22:00 11/23/17 15:12 Heparin - SQ 5,000 unit TID [facility] Administration Ertapenem 1 gm/ Sodium 100 mls @ 200 mls/hr 11/20/17 10:00 11/23/17 10:30 Chloride IVPB 200 mls/hr DAILY [facility] Administration Protocol Insulin Aspart 1 vial 11/19/17 16:30 11/23/17 17:38 Novolog Vial Sliding Scale - SQ 4 units ACHS [facility] Administration Protocol Metoclopramide HCl 10 mg 11/19/17 22:00 11/23/17 17:39 Reglan - PO 10 mg ACHS [facility] Administration Pantoprazole Sodium 40 mg 11/20/17 10:00 11/23/17 09:41 Protonix Iv IVPUSH 40 mg DAILY [facility] Administration ASSESSMENT/PLAN 67 year-old male with a PMH significant for HTN, NIDDM, and cholelithiasis. Admitted for severe sepsis secondary to ascending cholangitis. E.coli bacteremia E.coli ESBL UTI --11/13 blood cultures x 2 E. coli --11/15 blood cultures x 2 negative --today is day #10 of antibiotics Severe sepsis secondary to ascending cholangitis, resolved --afebrile, leukocytosis resolved --11/13 MRCP: 6mm hypointensity overlying the distal CBD; diffusely dilated CBD 15mm; common hepatic duct dilated 10mm; moderate intrahepatic biliary ductal dilitation --11/14 First ERCP: sphincterotomy, stent; purulent drainage --11/14 Second ERCP: retrieval of stone; washout --11/17 Lap waldemar Hypoxic, hypercapneic respiratory failure, resolved --on room air Liver failure, resolved --Total bili peak 6.4, today 0.7 Kidney failure, improved --Cr peak 4.6, today 1.7 and steadily trending down --d/c apodaca in am, voiding trial Hypertension --restart home amlodipine NIDDM --Novolog sliding coverage FEN Fluids: PO intake adequate Electrolytes: replete as indicated Nutrition: diabetic low sodium DVT prophylaxis: subq heparin Physical therapy Dispo: discharge planning. Full code. Visit type - Emergency Visit Emergency Visit: Yes ED Registration Date: 11/13/17 Care time: The patient presented to the Emergency Department on the above date and was hospitalized for further evaluation of their emergent condition. - New Patient This patient is new to me today: No - Critical Care Critical Care patient: No
[2017-11-23] MEDS: POTASSIUM CHLORIDE TABS 20 MEQ TABLET.ER (FP) PO SCH (22:21)
[2017-11-24] MEDS: HEPARIN NA (PORCINE) 5,000 UNITS/ML 1ML VIAL SQ SCH ×2 (06:12→14:00)
[2017-11-24] MEDS: METOCLOPRAMIDE HCL 10 MG TABLET (FP) PO SCH ×3 (06:12→16:40)
[2017-11-24] MEDS: POTASSIUM CHLORIDE TABS 20 MEQ TABLET.ER (FP) PO SCH (06:13)
[2017-11-24] MEDS: INSULIN SLIDING SCALE (NOVOLOG) 1 VIAL SQ SCH ×3 (06:13→16:41)
[2017-11-24 07:25] LABS: ALBUMIN 2.2 g/dl (3.4-5.0); ANION GAP 9 (8-16); BLOOD UREA NITROGEN 25 mg/dL (7-18); CALCIUM 7.9 mg/dL (8.5-10.1); CHLORIDE 116 mmol/L (98-107); CO2 23 mmol/L (21-32); CREATININE 1.6 mg/dL (0.7-1.3); GLUCOSE,RANDOM 130 mg/dL (74-106); MAGNESIUM 1.2 mg/dL (1.8-2.4); POTASSIUM 3.9 mmol/L (3.5-5.1); SGOT/AST 33 U/L (15-37); SGPT/ALT 72 U/L (12-78); SODIUM 148 mmol/L (136-145)
[2017-11-24 07:27] LABS: ALK PHOS 152 U/L (45-117); BILIRUBIN,TOTAL 0.7 mg/dL (0.2-1.0); TOT PROT 4.9 g/dl (6.4-8.2)
[2017-11-24 07:52] LABS: HEMATOCRIT 23.5 % (35.4-49); HEMOGLOBIN 7.7 GM/dL (11.7-16.9); MCH 29.5 pg (25.7-33.7); MCHC 32.9 g/dl (32.0-35.9); MEAN CELL VOLUME 89.7 fl (80-96); MEAN PLT VOLUME 10.3 fl (7.5-11.1); PLATELET COUNT 264 K/MM3 (134-434); RBC 2.62 M/mm3 (4.00-5.60); RDW 16.3 % (11.9-15.9); WHITE BLOOD COUNT 7.7 K/mm3 (4.0-10.0)
[2017-11-24] MEDS ORDERED: MAGNESIUM 2GM/50ML STERILE WATER IVPB IVPB ONE (09:00)
[2017-11-24] MEDS ORDERED: amLODIPine BESYLATE 5 MG TABLET (FP) PO SCH (10:00)
[2017-11-24] MEDS ORDERED: PT OWN MED DRAWER 7, Y5N ONE (10:01)
[2017-11-24] MEDS: ERTAPENEM SODIUM 1 GM in SODIUM CHLORIDE 100 ML IVPB SCH (10:16)
[2017-11-24] MEDS: PANTOPRAZOLE SODIUM 40 MG VIAL IVPUSH SCH (10:16)
[2017-11-24] MEDS ORDERED: INSULIN (NOVOLOG) ASPART 100 UNITS/ML 10ML VIAL ONE ×2 (11:38→16:33)
[2017-11-24 11:41] LABS: ANISOCYTOSIS 1+; PLATELET ESTIMATE ADEQUATE
[2017-11-24 12:41] LABS: HEMATOCRIT 26.3 % (35.4-49); HEMOGLOBIN 8.6 GM/dL (11.7-16.9); MCH 29.5 pg (25.7-33.7); MCHC 32.9 g/dl (32.0-35.9); MEAN CELL VOLUME 89.8 fl (80-96); MEAN PLT VOLUME 9.7 fl (7.5-11.1); PLATELET COUNT 324 K/MM3 (134-434); RBC 2.93 M/mm3 (4.00-5.60); RDW 16.5 % (11.9-15.9); WHITE BLOOD COUNT 7.2 K/mm3 (4.0-10.0)
[2017-11-24 12:45] VITALS: BP 155/72; PULSE 82; TEMP 100.5
--- NOTE | 2017-11-24 13:10 | PN ---
Progress Note (short form) - Note Progress Note: alert nad s/p cholycystectomy 11/17 still with apodaca tolerating diet no abdominal pain no nausea or vomiting +BM apodaca out- voiding Vital Signs Period Temp Pulse Resp BP Sys/Leyva Pulse Ox Last 24 Hr 96.4 F-100.5 F 60-82 18-20 135-155/72-76 94-94 cor-rrr lungs clear abd soft, nontender ext +edema CBC, BMP 11/24/17 12:15 11/24/17 06:42 Microbiology 11/15/17 10:35 Blood - Peripheral Venous Blood Culture - Final NO GROWTH AFTER 5 DAYS INCUBATION 11/15/17 09:40 Blood - Peripheral Venous Blood Culture - Final NO GROWTH AFTER 5 DAYS INCUBATION 11/13/17 17:40 Blood - Peripheral Venous Blood Culture - Final Escherichia Coli 11/13/17 22:00 Stool Salmonella/Shigella Culture - Final NO GROWTH OF SALMONELLA OR SHIGELLA SPECIES OBTAINED 11/13/17 22:00 Stool Campylobacter Culture - Final NO GROWTH OF CAMPYLOBACTER SPECIES OBTAINED 11/13/17 22:00 Stool Yersinia Culture - Final NO GROWTH OF YERSINIA SPECIES OBTAINED 11/13/17 22:00 Stool Vibrio Culture - Final NO GROWTH OF VIBRIO SPECIES OBTAINED 11/13/17 22:00 Stool Escherichia coli 0157 Culture - Final NO GROWTH OF E COLI 0157 OBTAINED 11/13/17 17:40 Blood - Peripheral Venous Blood Culture - Final Escherichia Coli 11/13/17 17:00 Urine - Urine Clean Catch Urine Culture - Final Escherichia Coli Esbl Bisque Finisher Active Medications Albuterol/Ipratropium (Duoneb -) 1 amp NEB Q6H PRN PRN Reason: SHORTNESS OF BREATH Amlodipine Besylate (Norvasc -) 5 mg PO DAILY [facility] Last Admin: 11/24/17 10:16 Dose: 5 mg Heparin Sodium (Porcine) (Heparin -) 5,000 unit SQ TID [facility] Last Admin: 11/24/17 06:12 Dose: 5,000 unit Ertapenem 1 gm/ Sodium (Chloride) 100 mls @ 200 mls/hr IVPB DAILY [facility] PRN Reason: Protocol Last Admin: 11/24/17 10:16 Dose: 200 mls/hr Insulin Aspart (Novolog Vial Sliding Scale -) 1 vial SQ ACHS [facility] PRN Reason: Protocol Last Admin: 11/24/17 11:41 Dose: 2 units Metoclopramide HCl (Reglan -) 10 mg PO ACHS [facility] Last Admin: 11/24/17 11:41 Dose: 10 mg Pantoprazole Sodium (Protonix Iv) 40 mg IVPUSH DAILY [facility] Last Admin: 11/24/17 10:16 Dose: 40 mg a/p Ecoli sepsis- day #11 antibiotics, d/c ertapenem and observe off antibiotics Biliary sepsis-s/p ERCP POD #7 s/p cholycystectomy THIEN- recovering renal function Problem List - Problems (1) Biliary sepsis Code(s): K83.0 - CHOLANGITIS (2) Choledocholithiasis Code(s): K80.50 - CALCULUS OF BILE DUCT W/O CHOLANGITIS OR CHOLECYST W/O OBST (3) THIEN (acute kidney injury) Code(s): N17.9 - ACUTE KIDNEY FAILURE, UNSPECIFIED (4) Acute respiratory failure Code(s): J96.00 - ACUTE RESPIRATORY FAILURE, UNSP W HYPOXIA OR HYPERCAPNIA
--- NOTE | 2017-11-24 13:16 | DS ---
Physical Exam: SUBJECTIVE: Patient seen and examined OBJECTIVE: Vital Signs Period Temp Pulse Resp BP Sys/Leyva Pulse Ox Last 24 Hr 96.4 F-100.5 F 60-82 18-20 135-155/72-76 94-94 PHYSICAL EXAM GENERAL: The patient is awake, alert, and fully oriented, in no acute distress. LUNGS: Breath sounds equal, clear to auscultation bilaterally, no wheezes, no crackles, no accessory muscle use. HEART: Regular rate and rhythm, S1, S2 without murmur, rub or gallop. ABDOMEN: Soft, nontender, nondistended, normoactive bowel sounds; surgical port sites with steri-strips; edges well-approximated; no erythema, no exudate EXTREMITIES: 2+ pulses, warm, well-perfused, no edema. NEUROLOGICAL: Cranial nerves II through XII grossly intact. Normal speech, gait not observed. LABS Laboratory Results - last 24 hr 11/23/17 11/23/17 11/24/17 17:17 21:07 06:11 WBC RBC Hgb Hct MCV MCH MCHC RDW Plt Count MPV Neutrophils % Neutrophils % (Manual) Band Neutrophils % Lymphocytes % Lymphocytes % (Manual) Monocytes % (Manual) Hypochromia Platelet Estimate Platelet Comment Anisocytosis Sodium Potassium Chloride Carbon Dioxide Anion Gap BUN Creatinine Creat Clearance w eGFR POC Glucometer 244 164 126 Random Glucose Calcium Magnesium Total Bilirubin AST ALT Alkaline Phosphatase Total Protein Albumin Blood Type Antibody Screen 11/24/17 11/24/17 11/24/17 06:42 06:42 11:00 WBC 7.7 RBC 2.62 L Hgb 7.7 L Hct 23.5 L MCV 89.7 MCH 29.5 MCHC 32.9 RDW 16.3 H Plt Count 264 MPV 10.3 Neutrophils % No Result Required. Neutrophils % (Manual) 73.0 Band Neutrophils % 5.0 Lymphocytes % No Result Required. Lymphocytes % (Manual) 12.0 Monocytes % (Manual) 10 D Hypochromia 2+ Platelet Estimate Adequate Platelet Comment No clotting detected Anisocytosis 1+ Sodium 148 H Potassium 3.9 Chloride 116 H Carbon Dioxide 23 Anion Gap 9 BUN 25 H Creatinine 1.6 H Creat Clearance w eGFR 43.46 POC Glucometer Random Glucose 130 H Calcium 7.9 L Magnesium 1.2 L Total Bilirubin 0.7 AST 33 ALT 72 D Alkaline Phosphatase 152 H Total Protein 4.9 L Albumin 2.2 L Blood Type O POSITIVE Antibody Screen Negative 11/24/17 11/24/17 11:30 12:15 WBC 7.2 RBC 2.93 L Hgb 8.6 L D Hct 26.3 L MCV 89.8 MCH 29.5 MCHC 32.9 RDW 16.5 H Plt Count 324 D MPV 9.7 Neutrophils % Neutrophils % (Manual) Band Neutrophils % Lymphocytes % Lymphocytes % (Manual) Monocytes % (Manual) Hypochromia Platelet Estimate Platelet Comment Anisocytosis Sodium Potassium Chloride Carbon Dioxide Anion Gap BUN Creatinine Creat Clearance w eGFR POC Glucometer 188 Random Glucose Calcium Magnesium Total Bilirubin AST ALT Alkaline Phosphatase Total Protein Albumin Blood Type Antibody Screen HOSPITAL COURSE: Date of Admission:11/13/17 Date of Discharge: 11/24/17 67 year-old male with a PMH significant for HTN, NIDDM, and cholelithiasis. Admitted for severe sepsis secondary to ascending cholangitis. E.coli bacteremia E.coli ESBL UTI --11/13 blood cultures x 2 E. coli --11/15 blood cultures x 2 negative --today is day #10 of antibiotics Severe sepsis secondary to ascending cholangitis, resolved --afebrile, leukocytosis resolved --11/13 MRCP: 6mm hypointensity overlying the distal CBD; diffusely dilated CBD 15mm; common hepatic duct dilated 10mm; moderate intrahepatic biliary ductal dilitation --11/14 First ERCP: sphincterotomy, stent; purulent drainage --11/14 Second ERCP: retrieval of stone; washout --11/17 Lap waldemar Hypoxic, hypercapneic respiratory failure, resolved --on room air Liver failure, resolved --Total bili peak 6.4, today 0.7 Kidney failure, improved --Cr peak 4.6, today 1.7 and steadily trending down --d/c [place] in am, voiding trial Hypertension --restart home amlodipine Minutes to complete discharge: 35 Discharge Summary Reason For Visit: HEMATURIA; ANEMIA; CHOLANGITIS Current Active Problems THIEN (acute kidney injury) (Acute) Abdominal pain in male (Acute) Acute respiratory failure (Acute) Anemia (Acute) Biliary sepsis (Acute) Calculus of gallbladder and bile duct w/o cholecystitis or obstruction (Acute) Cholangitis (Acute) Cholangitis (Acute) Cholangitis due to bile duct calculus with obstruction (Acute) Choledocholithiasis (Acute) Cholestasis (Acute) Gram-negative bacteremia (Acute) Hematuria (Acute) Hepatitis (Acute) Hyperbilirubinemia (Acute) Ileus, unspecified (Acute) Jaundice (Acute) Leukopenia (Acute) Obesity (Acute) Sepsis (Acute) Transaminitis (Acute) Condition: Improved - Instructions Diet, Activity, Other Instructions: Postoperative instructions: You had a laparoscopic cholecystectomy on 11/17/[address] Wesley Galinod of [facility]. Activity: Resume your usual activities gradually, but no heavy exertion or lifting more than 10-15 pounds for 1 month. Remove dressings 48 hours after surgery; sticky tapes underneath will fall off by themselves. You may shower daily starting then, just pat the incision areas dry. Eat lightly at first, but advance to your usual diet as tolerated. Pain: For pain, you may use and alternate Tylenol (acetaminophen) and/or ibuprofen every 6 hours each as needed; this means that you can take one OR the other at 3-hour intervals. If you are prescribed a Tylenol/narcotic combination for severe pain, use it instead of plain Tylenol as needed and switch back when your pain starts decreasing. Do not take more than 4000mg of acetaminophen in a day. Take medications as prescribed or indicated on the labeling. Follow-up: Call Dr. Galindo' office at [phone] to make your postop appointment (Thursday ~2 weeks after surgery). Clinic is held in the Diagnostic [facility] on the first floor of [facility]. Call the office if you have: * increasing pain not responsive to pain medication * fever of 101F or higher * vomiting * unusual or increasing bleeding or drainage from wounds * increasing redness or swelling at wound sites * inability to urinate Also, see your primary medical doctor within 1-2 weeks. Referrals: Trevor Amador MD [Primary Care Provider] - 1 Week Wesley Galindo MD [Staff Physician] - 2 Weeks Disposition: [facility]F-WAY FACILITY - Home Medications Comprehensive Discharge Medication List: Ambulatory Orders Metformin HCl 850 mg PO DAILY 11/13/17 Omeprazole 20 mg PO DAILY 11/13/17 This patient is new to me today: No Emergency Visit: Yes ED Registration Date: 11/13/17 Care time: The patient presented to the Emergency Department on the above date and was hospitalized for further evaluation of their emergent condition. Critical Care patient: No - Discharge Referral Referred to [facility] No
--- NOTE | 2017-11-24 14:39 | PN ---
Progress Note (short form) - Note Progress Note: Renal follow up for THIEN Pt seen and examined at the bedside awake and alert no complaints Vital Signs Temperature 100.5 F H 11/24/17 10:00 Pulse Rate 82 11/24/17 10:00 Respiratory Rate 20 11/24/17 10:00 Blood Pressure 155/72 11/24/17 10:00 O2 Sat by Pulse Oximetry (%) 94 L 11/24/17 09:00 Intake & Output 11/21/17 11/22/17 11/23/17 11/24/17 23:59 23:59 23:59 23:59 Intake Total 1950 2415 600 325 Output Total 900 2000 2500 325 Balance 1050 415 -1900 0 Weight 78.925 kg 80.739 kg 79.889 kg 79.095 kg NAD on NC No JVD, neck supple RRR, No M/R Dec BS at lung bases Mild Abd distension NO LE edmea, no clubbing or cyanosis CBC, BMP 11/24/17 12:15 11/24/17 06:42 Current Medications Albuterol/Ipratropium (Duoneb -) 1 amp NEB Q6H PRN PRN Reason: SHORTNESS OF BREATH Amlodipine Besylate (Norvasc -) 5 mg PO DAILY [facility] Last Admin: 11/24/17 10:16 Dose: 5 mg Heparin Sodium (Porcine) (Heparin -) 5,000 unit SQ TID [facility] Last Admin: 11/24/17 06:12 Dose: 5,000 unit Insulin Aspart (Novolog Vial Sliding Scale -) 1 vial SQ ACHS [facility] PRN Reason: Protocol Last Admin: 11/24/17 11:41 Dose: 2 units Metoclopramide HCl (Reglan -) 10 mg PO ACHS [facility] Last Admin: 11/24/17 11:41 Dose: 10 mg Pantoprazole Sodium (Protonix Iv) 40 mg IVPUSH DAILY [facility] Last Admin: 11/24/17 10:16 Dose: 40 mg 67 year old gentleman with PMhx of obesity, prostate cancer, HTN, NIDDM, cholelithiasis who presented to the ED with Abd pain now s/p ERCP with ascending colangitis and gram negative sepsis with THIEN and metabolic acidosis. #Acute Renal Failure likely due to ATN in setting of sepsis/shock #Ascending Colangitis #Gram Negative Bacteremia #Septic Shock, now stable #Anemia #Hypernatremia Renal function improved and pt is non-oliguric encouraged oral hydration as pt with elevated serum Na will need repeat BMP in 1 week completed course of Abx stable for discharge Anuj Ferguson DO
--- NOTE | 2017-11-24 15:47 | DS ---
Physical Exam: SUBJECTIVE: Patient seen and examined OBJECTIVE: Vital Signs Period Temp Pulse Resp BP Sys/Leyva Pulse Ox Last 24 Hr 96.4 F-100.5 F 60-82 18-20 135-155/72-76 94-94 PHYSICAL EXAM GENERAL: The patient is awake, alert, and fully oriented, in no acute distress. HEAD: Normal with no signs of trauma. EYES: PERRL, extraocular movements intact, sclera anicteric, conjunctiva clear. ENT: Ears normal, nares patent, oropharynx clear without exudates, moist mucous membranes. NECK: Trachea midline, full range of motion, supple. LUNGS: Breath sounds equal, clear to auscultation bilaterally, no wheezes, no crackles, no accessory muscle use. HEART: Regular rate and rhythm, S1, S2 without murmur, rub or gallop. ABDOMEN: Soft, nontender, nondistended, normoactive bowel sounds, no guarding, no rebound, no hepatosplenomegaly, no masses. EXTREMITIES: 2+ pulses, warm, well-perfused, no edema. NEUROLOGICAL: Cranial nerves II through XII grossly intact. Normal speech, gait not observed. PSYCH: Normal mood, normal affect. SKIN: Warm, dry, normal turgor, no rashes or lesions noted. LABS Laboratory Results - last 24 hr 11/23/17 11/23/17 11/24/17 17:17 21:07 06:11 WBC RBC Hgb Hct MCV MCH MCHC RDW Plt Count MPV Neutrophils % Neutrophils % (Manual) Band Neutrophils % Lymphocytes % Lymphocytes % (Manual) Monocytes % (Manual) Hypochromia Platelet Estimate Platelet Comment Anisocytosis Sodium Potassium Chloride Carbon Dioxide Anion Gap BUN Creatinine Creat Clearance w eGFR POC Glucometer 244 164 126 Random Glucose Calcium Magnesium Total Bilirubin AST ALT Alkaline Phosphatase Total Protein Albumin Blood Type Antibody Screen 11/24/17 11/24/17 11/24/17 06:42 06:42 11:00 WBC 7.7 RBC 2.62 L Hgb 7.7 L Hct 23.5 L MCV 89.7 MCH 29.5 MCHC 32.9 RDW 16.3 H Plt Count 264 MPV 10.3 Neutrophils % No Result Required. Neutrophils % (Manual) 73.0 Band Neutrophils % 5.0 Lymphocytes % No Result Required. Lymphocytes % (Manual) 12.0 Monocytes % (Manual) 10 D Hypochromia 2+ Platelet Estimate Adequate Platelet Comment No clotting detected Anisocytosis 1+ Sodium 148 H Potassium 3.9 Chloride 116 H Carbon Dioxide 23 Anion Gap 9 BUN 25 H Creatinine 1.6 H Creat Clearance w eGFR 43.46 POC Glucometer Random Glucose 130 H Calcium 7.9 L Magnesium 1.2 L Total Bilirubin 0.7 AST 33 ALT 72 D Alkaline Phosphatase 152 H Total Protein 4.9 L Albumin 2.2 L Blood Type O POSITIVE Antibody Screen Negative 11/24/17 11/24/17 11:30 12:15 WBC 7.2 RBC 2.93 L Hgb 8.6 L D Hct 26.3 L MCV 89.8 MCH 29.5 MCHC 32.9 RDW 16.5 H Plt Count 324 D MPV 9.7 Neutrophils % Neutrophils % (Manual) Band Neutrophils % Lymphocytes % Lymphocytes % (Manual) Monocytes % (Manual) Hypochromia Platelet Estimate Platelet Comment Anisocytosis Sodium Potassium Chloride Carbon Dioxide Anion Gap BUN Creatinine Creat Clearance w eGFR POC Glucometer 188 Random Glucose Calcium Magnesium Total Bilirubin AST ALT Alkaline Phosphatase Total Protein Albumin Blood Type Antibody Screen HOSPITAL COURSE: Date of Admission:11/13/17 Date of Discharge: 11/24/17 Discharge Summary Reason For Visit: HEMATURIA; ANEMIA; CHOLANGITIS Current Active Problems THIEN (acute kidney injury) (Acute) Abdominal pain in male (Acute) Acute respiratory failure (Acute) Anemia (Acute) Biliary sepsis (Acute) Calculus of gallbladder and bile duct w/o cholecystitis or obstruction (Acute) Cholangitis (Acute) Cholangitis (Acute) Cholangitis due to bile duct calculus with obstruction (Acute) Choledocholithiasis (Acute) Cholestasis (Acute) Gram-negative bacteremia (Acute) Hematuria (Acute) Hepatitis (Acute) Hyperbilirubinemia (Acute) Ileus, unspecified (Acute) Jaundice (Acute) Leukopenia (Acute) Obesity (Acute) Sepsis (Acute) Transaminitis (Acute) Condition: Improved - Instructions Diet, Activity, Other Instructions: Postoperative instructions: You had a laparoscopic cholecystectomy on 11/17/[address] Wesley Galindo of [facility]. Activity: Resume your usual activities gradually, but no heavy exertion or lifting more than 10-15 pounds for 1 month. Remove dressings 48 hours after surgery; sticky tapes underneath will fall off by themselves. You may shower daily starting then, just pat the incision areas dry. Eat lightly at first, but advance to your usual diet as tolerated. Pain: For pain, you may use and alternate Tylenol (acetaminophen) and/or ibuprofen every 6 hours each as needed; this means that you can take one OR the other at 3-hour intervals. If you are prescribed a Tylenol/narcotic combination for severe pain, use it instead of plain Tylenol as needed and switch back when your pain starts decreasing. Do not take more than 4000mg of acetaminophen in a day. Take medications as prescribed or indicated on the labeling. Follow-up: Call Dr. Galindo' office at [phone] to make your postop appointment (Thursday ~2 weeks after surgery). Clinic is held in the [facility] on the first floor of [facility]. Call the office if you have: * increasing pain not responsive to pain medication * fever of 101F or higher * vomiting * unusual or increasing bleeding or drainage from wounds * increasing redness or swelling at wound sites * inability to urinate Also, see your primary medical doctor within 1-2 weeks. Referrals: Trevor Amador MD [Primary Care Provider] - 1 Week Wesley Galindo MD [Staff Physician] - 2 Weeks Disposition: LONGTERM FACILITY - Home Medications Comprehensive Discharge Medication List: Ambulatory Orders Metformin HCl 850 mg PO DAILY 11/13/17 Omeprazole 20 mg PO DAILY 11/13/17
== END 2017-11-24 18:49 | DRG 853 ==
LOC: JER 08:26 → JERBED 15:53 → J7W 18:30 → JICU 22:07 → J6S 11-19 20:22
PROVIDERS: ADMIT Internal Medicine; ATTEND Nurse Practitioner Acute Care
PROC: 0F798DZ Dilation of Common Bile Duct with Intraluminal Device, Via Natural or Artificial Opening Endoscopic (ICD-10-PCS; 2017-11-13)
PROC: 5A09357 Assistance with Respiratory Ventilation, Less than 24 Consecutive Hours, Continuous Positive Airway Pressure (ICD-10-PCS; 2017-11-13)
PROC: 0BH17EZ Insertion of Endotracheal Airway into Trachea, Via Natural or Artificial Opening (ICD-10-PCS; 2017-11-14)
PROC: 5A1935Z Respiratory Ventilation, Less than 24 Consecutive Hours (ICD-10-PCS; 2017-11-14)
PROC: 05HM33Z Insertion of Infusion Device into Right Internal Jugular Vein, Percutaneous Approach (ICD-10-PCS; 2017-11-14)
PROC: B513ZZA Fluoroscopy of Right Jugular Veins, Guidance (ICD-10-PCS; 2017-11-14)
PROC: 0FC98ZZ Extirpation of Matter from Common Bile Duct, Via Natural or Artificial Opening Endoscopic (ICD-10-PCS; 2017-11-14)
PROC: 5A1D70Z Performance of Urinary Filtration, Intermittent, Less than 6 Hours Per Day (ICD-10-PCS; 2017-11-14)
PROC: 5A09357 Assistance with Respiratory Ventilation, Less than 24 Consecutive Hours, Continuous Positive Airway Pressure (ICD-10-PCS; 2017-11-16)
PROC: 0FT44ZZ Resection of Gallbladder, Percutaneous Endoscopic Approach (ICD-10-PCS; principal; 2017-11-17 14:00)
DX: A41.51 Sepsis due to Escherichia coli [E. coli] (principal); R65.21 Severe sepsis with septic shock; J96.00 Acute respiratory failure, unspecified whether with hypoxia or hypercapnia; N17.0 Acute kidney failure with tubular necrosis; J96.01 Acute respiratory failure with hypoxia; J96.02 Acute respiratory failure with hypercapnia; K72.00 Acute and subacute hepatic failure without coma; K80.45 Calculus of bile duct with chronic cholecystitis with obstruction; E87.4 Mixed disorder of acid-base balance; E87.0 Hyperosmolality and hypernatremia; N39.0 Urinary tract infection, site not specified; K91.89 Other postprocedural complications and disorders of digestive system; E11.9 Type 2 diabetes mellitus without complications; I10 Essential (primary) hypertension; Z79.84 Long term (current) use of oral hypoglycemic drugs; E87.5 Hyperkalemia; E83.51 Hypocalcemia; E83.42 Hypomagnesemia; E83.39 Other disorders of phosphorus metabolism; E87.6 Hypokalemia; Z16.12 Extended spectrum beta lactamase (ESBL) resistance; B96.29 Other Escherichia coli [E. coli] as the cause of diseases classified elsewhere; J98.01 Acute bronchospasm; R45.1 Restlessness and agitation; E87.70 Fluid overload, unspecified; Z85.46 Personal history of malignant neoplasm of prostate; K40.20 Bilateral inguinal hernia, without obstruction or gangrene, not specified as recurrent; D64.9 Anemia, unspecified; E66.9 Obesity, unspecified; Z68.30 Body mass index [BMI] 30.0-30.9, adult; Z86.73 Personal history of transient ischemic attack (TIA), and cerebral infarction without residual deficits; Z87.891 Personal history of nicotine dependence; Z90.79 Acquired absence of other genital organ(s); Y83.8 Other surgical procedures as the cause of abnormal reaction of the patient, or of later complication, without mention of misadventure at the time of the procedure
CPT/HCPCS: 36415; 36600; 71045-TC-FY; 74018-TC-FY; 74176-TC; 74181-TC; 76000-TC-FY; 76705-TC; 76775-TC; 76856-TC; 80048; 80053; 80076; 81003; 81015; 82150; 82248; 82272; 82378; 82436; 82550; 82553; 82803; 82962; 83605; 83690; 83735; 83880; 84100; 84133; 84300; 84484; 85025; 85027; 85610; 85651; 85730; 86038; 86140; 86301; 86704; 86706; 86708; 86850; 86900; 86901; 87040; 87045; 87046; 87086; 87177; 87186; 87209; 87340; 88304-TC; 93005; 93010; 94002; 94640; 94660; 97116-GP; 97161-GP; 99285-25; J0131; J1100; J1644; J7030

== ENCOUNTER 2019-02-02 00:49 | Inpatient (IN) | payer OTHER ==
--- NOTE | 2019-02-02 01:03 | PDOC ---
History of Present Illness - General Chief Complaint: Shortness of Breath Stated Complaint: SHORTNESS OF BREATH Time Seen by Provider: 02/02/19 01:02 - History of Present Illness Initial Comments: 02/02/19 01:12 The patient is a 68 year old male with a PMH of HTN, NIDDM, Prostate CA (s/p prostatectomy), cholangitis, gram negative sepsis, THIEN who presents with a two day h/o shortness of breath. Patient states the shortness of breath started yesterday and occurs on exertion and upon rest. 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 Notes two similar episodes of shortness of breath that was self resolving. The patient denies chest pain, abdominal pain, nausea/vomiting, diarrhea/ constipation, dysuria/hematuria. NKDA Surgical: cholecystectomy, prostatectomy Past History - Past Medical History Allergies/Adverse Reactions: Allergies Allergy/AdvReac Type Severity Reaction Status Date / Time No Known Allergies Allergy Verified 02/02/19 01:13 Home Medications: Ambulatory Orders Omeprazole 20 mg PO DAILY 11/13/17 metFORMIN HCL [Metformin HCl] 850 mg PO DAILY 11/13/17 COPD: No Diabetes: Yes HTN: Yes - Surgical History GI Surgery: Yes (hernia repair) - Suicide/Smoking/Psychosocial Hx Smoking History: Former smoker Have you smoked in the past 12 months: No If you are a former smoker, when did you quit?: 1997 Substance Use Type: None Review of Systems - Review of Systems Constitutional: No: Chills, Fever HEENTM: No: Recent change in vision Respiratory: Yes: Shortness of Breath. No: Cough, Hemoptysis Cardiac (ROS): No: Chest Pain, Lightheadedness, Palpitations, Syncope ABD/GI: No: Constipated, Diarrhea, Nausea, Vomiting *Physical Exam - Physical Exam General Appearance: Yes: Nourished, Appropriately Dressed HEENT: positive: Normal Voice, Hearing Grossly Normal Neck: positive: Trachea midline, Supple Respiratory/Chest: positive: Lungs Clear, Normal Breath Sounds. negative: Respiratory Distress, Labored Respiration, Rapid RR, Crackles, Wheezing Cardiovascular: positive: S1, S2. negative: Edema, JVD Vascular Pulses: Dorsalis-Pedis (R): 2+, Doralis-Pedis (L): 2+ Gastrointestinal/Abdominal: positive: Normal Bowel Sounds, Soft Musculoskeletal: negative: CVA Tenderness (R), CVA Tenderness (L) Extremity: positive: Normal Capillary Refill, Normal Inspection Integumentary: positive: Normal Color, Dry, Warm ED Treatment Course - LABORATORY CBC & Chemistry Diagram: 02/05/19 06:20 02/05/19 06:20 Medical Decision Making - Medical Decision Making 02/02/19 01:15 68 year old male with two day h/o worsening shortness of breath. Tachycardic ( HR 120's) @ presentation. Frontal diagnosis: r/o PE, r/o ACS, arrythymia also consider infection including PNA. Will obtain CXR, EKG, Troponin, D-Dimer, Basic Labs, Rectal Temp Reassess ED Course: Rectal Temp 102. 1 - IV Tylenol, ? PNA vs. possible PE; ED Adult Sepsis order set EKG shows sinus tachycardic with no EARL/STD/TWI Troponin (-) x1 D-Dimer 21,073 - patient to receive VQ scan CXR shows Left lower lobe infiltrate, will treat for presumptive CAP - Rocephin and Azithromycin Cr 2.6 ( 1.6 in 11/2017) 02/02/19 04:16 Hospitalist @ bedside admitted for PNAm PE rule out, worsening CKD *DC/Admit/Observation/Transfer Diagnosis at time of Disposition: PNA (pneumonia) - Discharge Dispostion Condition at time of disposition: Fair Decision to Admit order: Yes - Referrals - Patient Instructions - Post Discharge Activity
[2019-02-02 01:45] LABS: BASO % 0.7 % (0-2.0); EOS % 0.1 % (0-4.5); HEMATOCRIT 32.6 % (35.4-49); HEMOGLOBIN 10.6 GM/dL (11.7-16.9); LYMPH % 6.7 % (8-40); MCH 27.9 pg (25.7-33.7); MCHC 32.6 g/dl (32.0-35.9); MEAN CELL VOLUME 85.5 fl (80-96); MONO % 0.4 % (3.8-10.2); NEUT % 92.1 % (42.8-82.8); PLATELET COUNT 243 K/MM3 (134-434); RBC 3.81 M/mm3 (4.00-5.60); RDW 15.3 % (11.9-15.9); WHITE BLOOD COUNT 5.5 K/mm3 (4.0-10.0)
[2019-02-02] MEDS ORDERED: ACETAMINOPHEN 1000 MG/100 ML VIAL (NON FORMULARY) IVPB ONE (01:54)
[2019-02-02] MEDS ORDERED: SODIUM CHLORIDE 0.9% 500 ML INFUS.BAG IV ONE ×2 (01:55→04:24)
[2019-02-02] MEDS ORDERED: ACETAMINOPHEN INJECTION 100 ML IVPB ONE (01:57)
[2019-02-02 02:00] LABS: ALBUMIN 3.3 g/dl (3.4-5.0); ALK PHOS 319 U/L (45-117); ANION GAP 9 MMOL/L (8-16); BILIRUBIN,TOTAL 1.8 mg/dL (0.2-1); CALCIUM 8.3 mg/dL (8.5-10.1); CHLORIDE 104 mmol/L (98-107); CO2 23 mmol/L (21-32); CREATININE 2.6 mg/dL (0.55-1.3); GLUCOSE,RANDOM 186 mg/dL (74-106); N-TERMINAL BNP 467.2 pg/ml (5-125); POTASSIUM 4.7 mmol/L (3.5-5.1); SGOT/AST 38 U/L (15-37); SGPT/ALT 79 U/L (13-61); SODIUM 137 mmol/L (136-145); TOT PROT 6.5 g/dl (6.4-8.2)
[2019-02-02] MEDS ORDERED: AZITHROMYCIN IVPB 500 MG in DEXTROSE 5%-WATER - 250 ML IVPB ONE (03:31)
--- NOTE | 2019-02-02 03:36 | PDOC ---
Documentation entered by Marcie Villalpando SCRIBE, acting as scribe for Yomaira Jha DO. Yomaira Jha DO: This documentation has been prepared by the [employer]anna, SCRIBE, under my direction and personally reviewed by me in its entirety. I confirm that the documentation accurately reflects all work, treatment, procedures, and medical decision making performed by me. Attending Attestation - Resident Resident Name: BrodieLeticia - ED Attending Attestation I have performed the following: I have examined & evaluated the patient, The case was reviewed & discussed with the resident, I agree w/resident's findings & plan - HPI HPI: The patient is a 68 year old male, with a significant PMH of prostate CA (s/p prostatectomy), diabetes, and hypertension, who presents to the emergency department today complaining of shortness of breath for two days. Patient notes he began feeling short of breath yesterday, and it has progressively worsened since. 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 He endorses dyspnea on exertion and while at rest. The patient denies headache and dizziness. Denies fever, chills, nausea, vomit, diarrhea and constipation. Denies dysuria, frequency, urgency and hematuria. Allergies: NKA Past surgical history: Prostatectomy, hernia repair Social history: No reported 02/02/19 01:17 - Physicial Exam PE: Agree with resident exam. 02/02/19 01:17 - Medical Decision Making 02/02/19 03:34 68-year-old male with shortness of breath and fever Chest x-ray suggests a right middle lobe infiltrate Rocephin and azithromycin initiated in the emergency department Patient to be admitted to medical service for further evaluation
[2019-02-02] MEDS ORDERED: AZITHROMYCIN IVPB 500 MG/250 ML BAG IVPB ONE (03:42)
[2019-02-02] MEDS ORDERED: cefTRIAXone SODIUM 1 GM VIAL ONE (03:43)
[2019-02-02 03:44] LABS: ACTIVATED PTT 24.6 SECONDS (25.2-36.5); INR 1.2 (0.83-1.09); PROTHROMBIN TIME (PATIENT) 14.2 SEC (9.7-13.0)
--- NOTE | 2019-02-02 03:44 | PN ---
Teaching Attending Note Name of Resident: Dorys Perera ATTENDING PHYSICIAN STATEMENT I saw and evaluated the patient. I reviewed the resident's note and discussed the case with the resident. I agree with the resident's findings and plan as documented. SUBJECTIVE: Patient is a 68 year old man with a PMH of prostate CA (s/p prostatectomy), cholelithiasis, NIDDM, CKD (after hospital-acquired acute renal failure) and hypertension, who presents to the ER complaining of shortness of breath for two days. Patient notes he began feeling short of breath yesterday, and it has progressively worsened since. 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 He has dyspnea on exertion and while at rest. Patient denies headache, dizziness, fever, chills, nausea, vomit, diarrhea, constipation, dysuria, frequency, urgency or hematuria. He has been a strict vegeterian for years and has also been using a lot of Advil PM. On 11/13/17 he was admitted for ascending cholangitis and his course was complicated by ESBL E. Coli UTI/bacteremia, Septic shock, Respiratory failure with ventilator support, and acute renal failure requiring few hemodialysis treatments. Also had MRCP, ERCP and laparoscopic cholecystectomy. OBJECTIVE: Alert Vital Signs Period Temp Pulse Resp BP Sys/Leyva Pulse Ox Last 24 Hr 98.2 F-102.1 F 121-131 19-24 119-144/64-69 98-100 HEENT: No Jaundice, eye redness or discharge, PERRLA, EOMI. Normocephalic, atraumatic. External ears are normal and hearing is grossly intact. No nasal discharge. Neck: Supple, nontender. No palpable adenopathy or thyromegaly. No JVD Chest: Good effort. Clear to auscultation and percussion. Heart: Regular. No S3, rub or murmur Abdomen: Not distended, soft, nontender and no HSM. No rebound or guarding. Normal bowel sounds. Ext: Peripheral pulses intact. No leg edema. Skin: Warm and dry. No petechiae, rash or ecchymosis. Neuro: Alert. Oriented x3. CN 2-12 grossly intact. Sensation grossly intact in all four extremities and DTR are symmetric. Psych: Appropriate mood and affect. Good insight. Current Medications Generic Name Dose Route Start Last Admin Trade Name Linda PRN Reason Stop Dose Admin Azithromycin 500 mg/ Dextrose 250 mls @ 250 mls/hr 02/02/19 03:31 IVPB 02/02/19 04:30 ONCE ONE Home Medications Medication Instructions Recorded Omeprazole 20 mg PO DAILY 11/13/17 metFORMIN HCL [Metformin HCl] 850 mg PO DAILY 11/13/17 Abnormal Lab Results 02/02/19 02/02/19 02/02/19 01:22 01:22 02:40 RBC 3.81 L Hgb 10.6 L Hct 32.6 L D Neutrophils % 92.1 H Lymphocytes % 6.7 L Monocytes % 0.4 L D PT with INR 14.20 H INR 1.20 H PTT (Actin FS) 24.6 L BUN 30.0 H Creatinine 2.6 H Random Glucose 186 H Calcium 8.3 L Total Bilirubin 1.8 H AST 38 H ALT 79 H Alkaline Phosphatase 319 H B-Natriuretic Peptide 467.2 H Albumin 3.3 L ASSESSMENT AND PLAN: 1. Atypical Pneumonia/Rule out Pulmonary embolism - CXR is poor quality and rotated but shows pulmonary congestion/increased interstitial markings, hilar prominence and blunted left CP angle. EKG shows sinus tachycardia with no significan ST-T wave changes and initial troponin is negative. Patient is febrile but does not have leukocytosis and D-dimer is elevated to 21,073. Sepsis workup done and treatment started with IV Rocephin and Azithromycin, but will get stat VQ scan and ABG to assess for pulmonary embolism - will withhold empiric anticoagulation for now. Consult pulmonary. Get ECHO and urine legionella antigen. Elevated LFTs are concerning in view of prior cholangitis, but he also has a history of cholestasis. He does not have abdominal pain. Will get RUQ sonogram and trend LFTs. Patient counseled to stop Advil PM. Consult GI. 2. Hypoalbuminemia - Possibly due to combined effects of malnutrition and inflammation associated with comorbid chronic conditions. Will ensure adequate dietary protein intake and also consult vp analysis. 3. DM For now, we will hold the home diabetes drugs and implement sliding scale insulin regimen. Provide comprehensive diabetes care with patient teaching and counseling about the importance of adherence to prescribed diabetes regimen, euglycemia, eye care and foot care. 4. CKD - Developed CKD after inhospital acute renal failure in October 2017. Will increase hydration after ECHO to assess LV function. Will avoid nephrotoxic agents such as NSAIDS (Advil PM), aminoglycosides, contrast dyes and certain Alternative medicine products. 5. Anemia - Likely partly due to renal failure. Do basic anemia work up including serial stool guaiacs, reticulocyte count and iron studies. 6. Overweight Counseled on the risks associated with being overweight. Will provide patient all the necessary assistance, counseling and positive reinforcement to facilitate weight loss. Consult vp analysis. 7. DVT prophylaxis - Heparin 5000u sq tid. 8. Advance directives - Full code
[2019-02-02 03:50] LABS: URINE APPEARANCE CLEAR; URINE BILIRUBIN NEGATIVE (NEGATIVE); URINE COLOR YELLOW; URINE GLUCOSE (UA) NEGATIVE (NEGATIVE); URINE KETONE TRACE (NEGATIVE)
[2019-02-02 03:51] LABS: URINE PROTEIN TRACE (NEGATIVE)
[2019-02-02 03:52] LABS: URINE LEUK ESTERASE NEGATIVE (NEGATIVE); URINE NITRITE NEGATIVE (NEGATIVE)
[2019-02-02 03:55] LABS: EPI CELLS 0.3 /HPF (0-5/HPF); HYALINE CASTS 1 /lpf (0-8); URINE BACTERIA 8.3 /hpf (NEGATIVE); URINE RBC 4 /hpf (0-4); URINE WBC 3 /hpf (0-5)
[2019-02-02 04:31] LABS: ANISOCYTOSIS 2+; MACROCYTOSIS 0; OVALOCYTE 1+; PLATELET ESTIMATE NORMAL; TARGET CELLS 1+; TEAR DROP CELLS 1+
--- NOTE | 2019-02-02 06:07 | HP ---
CHIEF COMPLAINT: Chills PCP: Dr. Pruitt ([place]?) HISTORY OF PRESENT ILLNESS: Pt. is a 68 y.o. M w/ PMHx. of Prostate CA( s/p prostatectomy in 2011, never received chemo or radiation), HTN, and Gastritis presents with chills and subjective fever that began yesterday associated with shortness of breath. Pt. states that he uses the AC in his home everyday and at work. He endorses some shortness of breath but that it has resolved prior to our encounter. Pt. denies cough. Pt. states that he checks his sugars at home and it ranges from 80-110. Pt. states that he takes Advil PM everyday to go to sleep. Pt. states he can walk about 3 blocks before feeling short of breath. Pt. states he can climb 3 flight before feeling short of breath but that this only happens when he is carrying bags. Pt. denies any heartburn. Pt. states he last had a colonoscopy in 2004 that was "ok." Pt. had polyps removed 3 years prior. Pt. endorses having hemorrhoids for over 30 years. Pt. endorses being a vegetarian(mostly?) since 2011 when he was advised to modify his diet. Pt. endorses urinary incontinence and uses a sock with tissue at the tip to help against urinating on himself. Pt. admitted last year for ascending cholangitis with ERCP x 2 and cholecystectomy. 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 Pt. denies any abdominal pain, chest pain, calf pain, swelling of lower extremities, dysuria, hematuria, constipation, diarrhea or blood in the stool. ER course was notable for: (1)UA/UCx./BCx., CXR, D-Dimer (2)Rocephin and Azithromycin (3) NS 1L, IV Tylenol Recent Travel: No PAST MEDICAL HISTORY: As above PAST SURGICAL HISTORY: Prostatecomy (2012), Hiatal hernia repair, CCY, ERCP x 2 Social History: Smoking: Quit 2003, 08/25 PPD x 13-14 years Alcohol: Denies Drugs: Denies Family History: Mother Colon CA @ 90 Allergies No Known Allergies Allergy (Verified 02/02/19 01:13) HOME MEDICATIONS: Home Medications Medication Instructions Recorded Omeprazole 20 mg PO DAILY 11/13/17 metFORMIN HCL [Metformin HCl] 850 mg PO DAILY 11/13/17 REVIEW OF SYSTEMS As Above PHYSICAL EXAMINATION Vital Signs - 24 hr 02/02/19 02/02/19 02/02/19 00:49 01:47 04:06 Temperature 98.2 F 102.1 F H 98.7 F Pulse Rate 131 H Pulse Rate [ 121 H 117 H Left] Respiratory 19 24 H 28 H Rate Blood Pressure 144/64 Blood Pressure 119/69 100/68 [Left] O2 Sat by Pulse 98 100 97 Oximetry (%) GENERAL: Awake, alert, and fully oriented, in no acute distress, however appeared to conversational distress w/o changes in vital signs HEAD: Normal with no signs of trauma. EYES: Pupils equal, round and reactive to light, extraocular movements intact, sclera anicteric, conjunctiva clear. EARS, NOSE, THROAT: Ears normal, nares patent, oropharynx clear without exudates. Moist mucous membranes. LUNGS: Breath sounds equal, clear to auscultation bilaterally. No wheezes, and no crackles. No accessory muscle use. HEART: Tachycardic, regular rate and rhythm, normal S1 and S2 without murmur ABDOMEN: Soft, nontender, distended, normoactive bowel sounds, no guarding, no rebound, no masses. No hepatomegaly or splenomegaly. Skin tags presents at the rectum. Pt. had urine all over his pants. with a sock containing tissue at the end covering his penis. MUSCULOSKELETAL: Normal range of motion at all joints. No bony deformities or tenderness. No CVA tenderness. UPPER EXTREMITIES: 2+ radial pulses, warm, well-perfused. No cyanosis. No clubbing. No peripheral edema. LOWER EXTREMITIES: 2+ dorsal pedal pulses, warm, well-perfused. No calf tenderness. No peripheral edema. NEUROLOGICAL: Normal speech. Gait not assesed. PSYCHIATRIC: Cooperative. Good eye contact. Appropriate mood and affect. SKIN: Warm, dry, normal turgor, no rashes or lesions noted, normal capillary refill. Laboratory Results - last 24 hr 02/02/19 02/02/19 02/02/19 01:22 01:22 02:40 WBC 5.5 RBC 3.81 L Hgb 10.6 L Hct 32.6 L D MCV 85.5 MCH 27.9 MCHC 32.6 RDW 15.3 Plt Count 243 D MPV 8.0 D Absolute Neuts (auto) 5.1 Neutrophils % 92.1 H Neutrophils % (Manual) 80.2 Band Neutrophils % 5.2 Lymphocytes % 6.7 L Lymphocytes % (Manual) 6.3 L D Monocytes % 0.4 L D Monocytes % (Manual) 2 L Eosinophils % 0.1 D Eosinophils % (Manual) 0.0 D Basophils % 0.7 D Basophils % (Manual) 1.0 D Myelocytes % (Man) 0 Promyelocytes % (Man) 0 Blast Cells % (Manual) 0 Nucleated RBC % 0 Metamyelocytes 0 Hypochromia 0 Platelet Estimate Normal Platelet Comment Present Polychromasia 0 Poikilocytosis 1+ Anisocytosis 2+ Microcytosis 1+ Macrocytosis 0 Spherocytes 1+ Target Cells 1+ Tear Drop Cells 1+ Ovalocytes 1+ Acanthocytes (Spur) 1+ PT with INR INR PTT (Actin FS) D-Dimer Sodium 137 Potassium 4.7 Chloride 104 Carbon Dioxide 23 Anion Gap 9 BUN 30.0 H Creatinine 2.6 H Est GFR (CKD-EPI)AfAm 28.31 Est GFR (CKD-EPI)NonAf 24.42 Random Glucose 186 H Calcium 8.3 L Total Bilirubin 1.8 H AST 38 H ALT 79 H Alkaline Phosphatase 319 H Creatine Kinase 90 Troponin I < 0.02 B-Natriuretic Peptide 467.2 H Total Protein 6.5 Albumin 3.3 L Urine Color Yellow Urine Appearance Clear Urine pH 5.0 Ur Specific [place] 1.015 Urine Protein Trace Urine Glucose (UA) Negative Urine Ketones Trace H Urine Blood 1+ H Urine Nitrite Negative Urine Bilirubin Negative Urine Urobilinogen 1.0 Ur Leukocyte Esterase Negative Urine WBC (Auto) 3 Urine RBC (Auto) 4 Urine Casts (Auto) 1 U Epithel Cells (Auto) 0.3 Urine Bacteria (Auto) 8.3 02/02/19 02/02/19 02:40 02:40 WBC RBC Hgb Hct MCV MCH MCHC RDW Plt Count MPV Absolute Neuts (auto) Neutrophils % Neutrophils % (Manual) Band Neutrophils % Lymphocytes % Lymphocytes % (Manual) Monocytes % Monocytes % (Manual) Eosinophils % Eosinophils % (Manual) Basophils % Basophils % (Manual) Myelocytes % (Man) Promyelocytes % (Man) Blast Cells % (Manual) Nucleated RBC % Metamyelocytes Hypochromia Platelet Estimate Platelet Comment Polychromasia Poikilocytosis Anisocytosis Microcytosis Macrocytosis Spherocytes Target Cells Tear Drop Cells Ovalocytes Acanthocytes (Spur) PT with INR 14.20 H INR 1.20 H PTT (Actin FS) 24.6 L D-Dimer 22800 H Sodium Potassium Chloride Carbon Dioxide Anion Gap BUN Creatinine Est GFR (CKD-EPI)AfAm Est GFR (CKD-EPI)NonAf Random Glucose Calcium Total Bilirubin AST ALT Alkaline Phosphatase Creatine Kinase Troponin I B-Natriuretic Peptide Total Protein Albumin Urine Color Urine Appearance Urine pH Ur Specific [place] Urine Protein Urine Glucose (UA) Urine Ketones Urine Blood Urine Nitrite Urine Bilirubin Urine Urobilinogen Ur Leukocyte Esterase Urine WBC (Auto) Urine RBC (Auto) Urine Casts (Auto) U Epithel Cells (Auto) Urine Bacteria (Auto) ASSESSMENT/PLAN: Pt. is a 68 y.o. M w/ PMHx. of Prostate CA (s/p prostatectomy in 2011, never received chemo or radiation), HTN, and Gastritis presents with chills and subjective fever that began yesterday associated with shortness of breath. #Sepsis likely from PNA-Temp of 102.1 on admission, Tachycadic to 120s CXR suggestive of RML infiltrate? C/w Rocephin and Azithromycin f/u Legionella Ag f/u BCx. #R/o Pulmonary Embolism D-Dimer: 20,000+ f/u V/Q SCan Will not start AC now as Pt.'s fever is not consistent with PE, though there is the possibility of PNA with PE. f/u LE Duplex f/u ABG to enhance argument for PE workup, given inability to obtain CTA because of Cr. of 2.6. Pt. was discharged with Cr. of 1.6 last year October. #NIDDM hold oral medications ISS ACHS BGM ACHS #THIEN on CKD likely secondary to volume depletion and chronic NSAID use Cr. currently 2.6, BUN 30--> Cr. of 1.6 last year October c/w IVF Renal US (11/08) unremarkable R Kidney: 9.5 cm, L. Kidney: 10.2 cm Trend BMP--> may be 2/2 sepsis, however if not resolving will need further workup for accelerated injury #Anemia likely components of decreased renal function, gastritis and being a vegetarian f/u B12, Folate consider Iron studies #Transaminitis TBili: 1.8, f/u fractionation of AM labs AST: 38, ALT: 79 f/u Abdominal US Pt. has Hx. of ascending cholangitis, therefore will c/w Rocephin #FEN NS @ 42ml/hr monitor electrolytes and replete as needed Sodium controlled, Diabetic Diet #DVT Ppx. Hep SQ Visit type - Emergency Visit Emergency Visit: Yes ED Registration Date: 02/02/19 Care time: The patient presented to the Emergency Department on the above date and was hospitalized for further evaluation of their emergent condition. - New Patient This patient is new to me today: Yes Date on this admission: 02/02/19 - Critical Care Critical Care patient: No
[2019-02-02] MEDS ORDERED: HEPARIN NA (PORCINE) 5,000 UNITS/ML 1ML VIAL ONE (06:09)
[2019-02-02] MEDS ORDERED: INSULIN (NOVOLOG) ASPART 100 UNITS/ML 10ML VIAL ONE ×2 (06:16→17:07)
[2019-02-02] MEDS: HEPARIN NA (PORCINE) 5,000 UNITS/ML 1ML VIAL SQ SCH ×3 (06:31→21:19)
[2019-02-02 06:48] LABS: HEMATOCRIT 29.8 % (35.4-49); HEMOGLOBIN 9.6 GM/dL (11.7-16.9); MCH 27.5 pg (25.7-33.7); MCHC 32.4 g/dl (32.0-35.9); MEAN PLT VOLUME 8.1 fl (7.5-11.1); PLATELET COUNT 222 K/MM3 (134-434); RBC 3.51 M/mm3 (4.00-5.60); RDW 15.6 % (11.9-15.9); WHITE BLOOD COUNT 15.2 K/mm3 (4.0-10.0)
[2019-02-02] MEDS ORDERED: INSULIN SLIDING SCALE (NOVOLOG) 1 VIAL SQ SCH (07:00)
[2019-02-02] MEDS ORDERED: SODIUM CHLORIDE 1,000 ML IV SCH (07:00)
[2019-02-02 07:15] LABS: ADD RBC MORPHOLOGY YES
[2019-02-02 07:34] LABS: ALBUMIN 2.6 g/dl (3.4-5.0); BILIRUBIN,TOTAL 1.9 mg/dL (0.2-1); BLOOD UREA NITROGEN 28.8 mg/dL (7-18); CALCIUM 7.5 mg/dL (8.5-10.1); CREATININE 2.7 mg/dL (0.55-1.3); MAGNESIUM 1.2 mg/dL (1.8-2.4); POTASSIUM 4.1 mmol/L (3.5-5.1); TOT PROT 5.3 g/dl (6.4-8.2)
[2019-02-02] MEDS ORDERED: MAGNESIUM OXIDE 400 MG TABLET (FP) PO ONE (07:49)
[2019-02-02 08:15] LABS: ALLENS TEST POSITIVE; ARTERIAL BLD GAS O2 SATURATION 97.6 % (95-98); ARTERIAL BLOOD GAS BASE EXCESS -6.6 meq/l (-2-2); ARTERIAL BLOOD GAS PCO2 29.2 mmHg (35-45); ARTERIAL BLOOD GAS PO2 99.4 mmHg (80-105); ARTERIAL BLOOD GAS pH 7.39 (7.35-7.45)
[2019-02-02 08:23] LABS: PHOSPHOROUS 0.7 mg/dL (2.5-4.9)
--- NOTE | 2019-02-02 08:51 | EKG ---
Test Reason : Blood Pressure : / mmHG Vent. Rate : 121 BPM Atrial Rate : 121 BPM P-R Int : 138 ms QRS Dur : 068 ms QT Int : 296 ms P-R-T Axes : 041 063 044 degrees QTc Int : 420 ms SINUS TACHYCARDIA WITH PREMATURE ATRIAL COMPLEXES OTHERWISE NORMAL ECG WHEN COMPARED WITH ECG OF 13-NOV-2017 09:05, PREMATURE ATRIAL COMPLEXES ARE NOW PRESENT Confirmed by RUPA MARMOLEJO, MEL ([id number]) on 02/02/2019 8:51:12 AM Referred By: Confirmed By:MEL GOODE MD
[2019-02-02 09:24] LABS: ANISOCYTOSIS 0; MACROCYTOSIS 0; PLATELET ESTIMATE NORMAL
[2019-02-02] MEDS ORDERED: MAGNESIUM OXIDE 400 MG TABLET (FP) ONE (09:45)
[2019-02-02] MEDS ORDERED: POTASSIUM PHOSPHATE 15 MM in DEXTROSE 5%-WATER - 250 ML IVPB ONE (10:00)
[2019-02-02] MEDS: ALBUTEROL SO4 2.5/IPRATROPIUM 0.5 INH SOL 3 ML VIAL.NEB. NEB SCH ×4 (10:32→20:10)
[2019-02-02 10:53] LABS: BILIRUBIN,DIRECT 1.2 mg/dL (0.0-0.2)
--- NOTE | 2019-02-02 12:01 | CONSULT ---
Consult - text type - Consultation Consultation Note: Renal consult for THIEN This is a 68 year old gentleman wit hx of prostate cancer sp prostatectomy, hypertension, gastritis, DM not on insulin who presents with fever and sob and admitted for suspected PNA with THIEN. Pt was seen by our service on last admission for THIEN, peak Cr was 4.6 and improved to 1.6 on discharge. Pt was treated for ascending choleangitis and septic shock last admission. Pt reports chills at home and cough. He also has abd discomfort. No chest pain, fever, chills now. Making urine. Denies any flank pain. No hematuria, dysuria. No skin rash. No recent antibiotic use. No leg swelling. + NSAID use, uses Advil PM every night to go to sleep. PMHx: as above Allergies: NKDA Family Hx: NC social Hx: No T/A/D ROS: as per HPI Home Medications Medication Instructions Recorded Omeprazole 20 mg PO DAILY 11/13/17 metFORMIN HCL [Metformin HCl] 850 mg PO DAILY 11/13/17 Vital Signs Temperature 98.1 F 02/02/19 06:43 Pulse Rate 103 H 02/02/19 06:43 Respiratory Rate 22 H 02/02/19 06:43 Blood Pressure 93/64 02/02/19 06:43 O2 Sat by Pulse Oximetry (%) 100 02/02/19 07:11 Intake & Output 01/30/19 01/31/19 02/01/19 02/02/19 23:59 23:59 23:59 23:59 Weight 74.389 kg NAD awake and alert neck supple, no JVD RRR, no M/R CTA, no rales or wheeze soft NT/ND, obsese no LE edema, clubbing or edema no bladder distension CBC, BMP 02/02/19 06:30 02/02/19 06:30 Current Medications Acetaminophen (Tylenol -) 650 mg PO Q6H PRN PRN Reason: FEVER Albuterol/Ipratropium (Duoneb -) 1 amp NEB RQID [facility] Last Admin: 02/02/19 10:32 Dose: 1 amp Heparin Sodium (Porcine) (Heparin -) 5,000 unit SQ TID [facility] Last Admin: 02/02/19 06:31 Dose: 5,000 unit Sodium Chloride (Normal Saline -) 1,000 mls @ 42 mls/hr IV ASDIR [facility] Last Admin: 02/02/19 06:59 Dose: 42 mls/hr Azithromycin 500 mg/ Dextrose 250 mls @ 250 mls/hr IVPB DAILY [facility] Potassium Phosphate 15 mm/ (Dextrose) 255 mls @ 63.75 mls/hr IVPB ONCE ONE Stop: 02/02/19 13:59 Last Admin: 02/02/19 10:31 Dose: 63.75 mls/hr Insulin Aspart (Novolog Vial Sliding Scale -) 1 vial SQ ACHS [facility]ERE; Protocol Potassium Phos/Sodium Phos (Phos-Nak Packet -) 1 packet PO BID RERE EKG - ST with PAC Abd US - mild bile duct intra-hepatic dilatation CXR- infiltrate vs. effusion left lung base 68 year old gentleman wit hx of prostate cancer sp prostatectomy, hypertension, gastritis, DM not on insulin who presents with fever and sob and admitted for suspected PNA with THIEN. #THIEN secondary to volume depletion vs. ATN in setting of PNA and NSAID use #SOB secondary to suspected PNA #Acute on chronic anemia #DM on insulin #Hypophosphatemia #Lactic acid Suspect some degree ATN as BUN/Cr ratio is not every elevated Check Urine studies for FeNa, Urine Eosinophils, UPCR No acute need for renal imaging but if renal function does not show signs of improvement in 24 hours can get renal US Maintain on isotonic saline for now Trend renal function and electrolytes continue antibiotics as per primary team supplement phos repeat lactic acid levels this evening Thank you Anuj Ferguson DO
--- NOTE | 2019-02-02 13:25 | CON.PULM ---
Consult Consult Specialty:: PULMONARY Referred by:: CARLY Diaz Reason for Consultation:: r/o PE - History of Present Illness Chief Complaint: chills History of Present Illness: 68yo male with h/o HTN, DM, h/o prostate ca who presents with subjective fevers and chills x 1 day. Also reports some shortness of breath without chest pain. No cough or wheezing. No leg pain or swelling. He is a remote smoker. No history of asthma or COPD. Found to have a left lower lobe infiltrate on CXR. 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 Cardio/Vascular: Yes: HTN Renal/: Yes: Cancer (s/p prostatetctomy ) Endocrine: Yes: Diabetes Mellitus Additional Medical History: obesity - Past Surgical History Past Surgical History: Yes: Prostatectomy - Alcohol/Substance Use Hx Alcohol Use: No - Smoking History Smoking history: Former smoker Have you smoked in the past 12 months: No If you are a former smoker, when did you quit?: 1997 Home Medications - Allergies Allergies/Adverse Reactions: Allergies Allergy/AdvReac Type Severity Reaction Status Date / Time No Known Allergies Allergy Verified 02/02/19 01:13 - Home Medications Home Medications: Ambulatory Orders Omeprazole 20 mg PO DAILY 11/13/17 metFORMIN HCL [Metformin HCl] 850 mg PO DAILY 11/13/17 Review of Systems - Review of Systems Constitutional: reports: Chills, Fever, Malaise Eyes: denies: Recent Change in Vision HENT: denies: Nasal Congestion, Throat Pain Neck: denies: Stiffness, Tenderness Cardiovascular: reports: Shortness of Breath. denies: Chest Pain, Palpitations Respiratory: denies: Cough, Hemoptysis, Wheezing Gastrointestinal: denies: Abdominal Pain, Nausea, Vomiting Genitourinary: denies: Dysuria, Hematuria Neurological: denies: Dizziness, Headache Endocrine: denies: Unexplained Weight Loss Physical Exam Vital Sings: Vital Signs Temperature 98.1 F 02/02/19 06:43 Pulse Rate 103 H 02/02/19 06:43 Respiratory Rate 22 H 02/02/19 06:43 Blood Pressure 93/64 02/02/19 06:43 O2 Sat by Pulse Oximetry (%) 100 02/02/19 07:11 Constitutional: Yes: Calm Eyes: Yes: Conjunctiva Clear, EOM Intact HENT: Yes: Atraumatic, Normocephalic Neck: Yes: Supple, Trachea Midline Cardiovascular: Yes: Regular Rate and Rhythm Respiratory: Yes: Diminished (decreased breath sounds at the bases) ...Clubbing: No Gastrointestinal: Yes: Normal Bowel Sounds, Soft. No: Tenderness Edema: No Neurological: Yes: Alert, Oriented Labs: CBC, BMP 02/02/19 06:30 02/02/19 06:30 ABG Results ABG pH 7.39 (7.35-7.45) 02/02/19 07:30 ABG pCO2 at Pt Temp 29.2 mmHg (35-45) L 02/02/19 07:30 ABG pO2 at Pt Temp 99.4 mmHg (80-105) 02/02/19 07:30 ABG HCO3 17.1 mmol/L (22-27) L 02/02/19 07:30 ABG O2 Sat (Measured) 97.6 % (95-98) 02/02/19 07:30 ABG O2 Content 13.2 % vol (15-22) L 02/02/19 07:30 ABG Base Excess -6.6 meq/l (-2-2) L 02/02/19 07:30 Imaging - Results Chest X-ray: Report Reviewed, Image Reviewed (LLL infiltrate) Problem List - Problems (1) Pneumonia Code(s): J18.9 - PNEUMONIA, UNSPECIFIED ORGANISM (2) Sepsis Code(s): A41.9 - SEPSIS, UNSPECIFIED ORGANISM Assessment/Plan Pneumonia ?Polymicrobial Bacteremia Sepsis Lactic Acidosis Acute on Chronic Renal Failure HTN DM h/o Prostate Ca - IV antibiotics - f/u cultures - IVF - monitor urine output, creatinine - trend lactate - pt improved with antibiotics, saturating well on nasal cannula without A-a gradient on ABG, lower extremity dopplers negative - can defer V/Q scan as PE less likely - DVT prophylaxis Thank you for this consult Dima English MD
[2019-02-02] MEDS ORDERED: VANCOMYCIN HCL 1,250 MG in DEXTROSE 5%-WATER - 250 ML IVPB ONE (13:31)
--- NOTE | 2019-02-02 13:46 | CON.ID ---
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 Cardio/Vascular: Yes: HTN Renal/: Yes: Cancer (s/p prostatetctomy ) Endocrine: Yes: Diabetes Mellitus Additional Medical History: obesity - Past Surgical History Past Surgical History: Yes: Prostatectomy - Alcohol/Substance Use Hx Alcohol Use: No - Smoking History Smoking history: Former smoker Have you smoked in the past 12 months: No If you are a former smoker, when did you quit?: 1997 Home Medications - Allergies Allergies/Adverse Reactions: Allergies Allergy/AdvReac Type Severity Reaction Status Date / Time No Known Allergies Allergy Verified 02/02/19 01:13 - Home Medications Home Medications: Ambulatory Orders Omeprazole 20 mg PO DAILY 11/13/17 metFORMIN HCL [Metformin HCl] 850 mg PO DAILY 11/13/17 Physical Exam Vital Signs: Vital Signs Temperature 98.1 F 02/02/19 06:43 Pulse Rate 103 H 02/02/19 06:43 Respiratory Rate 22 H 02/02/19 06:43 Blood Pressure 93/64 02/02/19 06:43 O2 Sat by Pulse Oximetry (%) 100 02/02/19 07:11 Labs: CBC, BMP 02/02/19 06:30 02/02/19 06:30
--- NOTE | 2019-02-02 14:20 | PN ---
Progress Note, Physician Chief Complaint: shortness of breath, malaise and weakness History of Present Illness: Patient is a 68 year old man with a past medical history of prostate CA (s/p prostatectomy), cholelithiasis, diabetes mellitus, CKD and hypertension. He was admitted last year (10/2017) at [facility] for ascending cholangitis (s/p laparoscopic cholecystectomy) and hospital course complicated by UTI esbl ecoli and bacteremia, septic shock and respiratory failure. He presents to the the ED on 02/01/19 for acute onset of shortness of breath. On exam he denies any chest pain, states his shortness of breath has improved and denies any abdominal pain or discomfort. No nausea, vomiting or diarrhea. imaging: -V/Q scan 02/02/19: negative for PE -lower ext doppler 02/02/19: negative for DVT -chest xray 02/01/19: left lower lobe infiltrate -echo 02/02/19: mild to mod tricuspid regurg, mild to mod mitral regurg. -ekg: st with pacs 120s -abdominal u/s: s/p cholecystectomy, mild fatty inf of liver vs hepatocellular disease, mild dilatation of the central intrahepatic bile ducts with borderline dilatation of the common bile duct that contains intraluminal echogenic foci suggestive of sludge v stones. problem list: severe sepsis bacteremia lactic acidosis diabetes mellitus ckd hypertension prostate cancer - Current Medication List Current Medications: Active Medications Acetaminophen (Tylenol -) 650 mg PO Q6H PRN PRN Reason: FEVER Albuterol/Ipratropium (Duoneb -) 1 amp NEB RQID [facility] Last Admin: 02/02/19 10:32 Dose: 1 amp Heparin Sodium (Porcine) (Heparin -) 5,000 unit SQ TID [facility] Last Admin: 02/02/19 06:31 Dose: 5,000 unit Azithromycin 500 mg/ Dextrose 250 mls @ 250 mls/hr IVPB DAILY [facility] Sodium Chloride (Normal Saline -) 1,000 mls @ 82 mls/hr IV ASDIR RERE Piperacillin Sod/Tazobactam (Sod 3.375 gm/ Dextrose) 50 mls @ 100 mls/hr IVPB Q8H-IV [facility]ERE; Protocol Insulin Aspart (Novolog Vial Sliding Scale -) 1 vial SQ ACHS [facility]; Protocol Potassium Phos/Sodium Phos (Phos-Nak Packet -) 1 packet PO BID [facility] - Objective Vital Signs: Vital Signs Temperature 98.1 F 02/02/19 06:43 Pulse Rate 103 H 02/02/19 06:43 Respiratory Rate 22 H 02/02/19 06:43 Blood Pressure 93/64 02/02/19 06:43 O2 Sat by Pulse Oximetry (%) 100 02/02/19 07:11 Constitutional: Yes: No Distress, Calm Eyes: Yes: WNL HENT: Yes: Atraumatic Neck: Yes: Supple Cardiovascular: Yes: Regular Rate and Rhythm Respiratory: Yes: Cough, On Nasal O2, SOB Gastrointestinal: Yes: Soft, Abdomen, Obese ...Rectal Exam: Yes: Deferred Genitourinary: Yes: WNL Extremities: Yes: WNL Edema: No Integumentary: Yes: WNL Neurological: Yes: Alert, Oriented Psychiatric: Yes: WNL Labs: CBC, BMP 02/02/19 06:30 02/02/19 06:30 INR, PTT INR 1.20 (0.83-1.09) H 02/02/19 02:40 - ....Imaging Chest X-ray: Image Reviewed Ultrasound: Image Reviewed EKG: Image Reviewed Other: Image Reviewed Problem List - Problems (1) Severe sepsis Assessment/Plan: Patient presents with shortness of breath requiring supplemental oxygen and duonebs. Also with fevers of 102.1, tachycardia to 120s with chest xray showing left lobe infiltrate. Given Rocephin and Azithromycin on admission. Switched to Zosyn per ID. Blood cultures with pending organisms. Lactic acid also elevated Follow up on legionella ag. ID following. Code(s): A41.9 - SEPSIS, UNSPECIFIED ORGANISM; R65.20 - SEVERE SEPSIS WITHOUT SEPTIC SHOCK (2) CKD (chronic kidney disease) Assessment/Plan: likely secondary to volume depletion and chronic NSAID use. Being followed by renal Code(s): N18.9 - CHRONIC KIDNEY DISEASE, UNSPECIFIED (3) Acute respiratory failure Assessment/Plan: VQ scan negative for PE. lower ext dopplers negative. on supplemental oxygen and duonebs. Maintain oxygen levels above 92%. Code(s): J96.00 - ACUTE RESPIRATORY FAILURE, UNSP W HYPOXIA OR HYPERCAPNIA (4) Transaminitis Assessment/Plan: elevated bili @ 1.8 elevated liver enzymes abdominal u/s noted. trend liver enzymes. Code(s): R74.0 - NONSPEC ELEV OF LEVELS OF TRANSAMNS & LACTIC ACID DEHYDRGNSE (5) Diabetes Assessment/Plan: on Novolog SS, BGMs Code(s): E11.9 - TYPE 2 DIABETES MELLITUS WITHOUT COMPLICATIONS (6) Hypophosphatemia Assessment/Plan: Given IV phosphate potassium for low phos levels of 0.7, added supplements of phosphate. repeat levels improved renal on board. repeat electrolytes in a.m. Code(s): E83.39 - OTHER DISORDERS OF PHOSPHORUS METABOLISM (7) Prophylactic measure Assessment/Plan: fen NS @ 82ml/hr monitor electrolytes and replete as needed Sodium controlled, Diabetic Diet DVT Ppx. Hep SQ full code Code(s): Z29.9 - ENCOUNTER FOR PROPHYLACTIC MEASURES, UNSPECIFIED Visit type - Emergency Visit Emergency Visit: Yes ED Registration Date: 02/02/19 Care time: The patient presented to the Emergency Department on the above date and was hospitalized for further evaluation of their emergent condition. - New Patient This patient is new to me today: Yes Date on this admission: 02/02/19 - Critical Care Critical Care patient: No - Discharge Referral Referred to [facility] Med [facility] No
[2019-02-02] MEDS ORDERED: SODIUM CHLORIDE 1,000 ML IV STA (14:58)
--- NOTE | 2019-02-02 15:03 | ECHO ---
Name: ALBA DAY Exam:Adult Echocardiogram Study Date: 02/02/2019 11:21 AM Age: 68 yrs Reason For Study: SOB Height: 63 in Weight: 164 lb BSA: 1.8 m2 MMode/2D Measurements & Calculations IVSd: 0.90 cm Ao root diam: 3.1 cm LVIDd: 3.7 cm LA dimension: 3.4 cm LVIDs: 2.6 cm LVPWd: 0.96 cm EDV(Teich): 59.8 ml LVOT diam: 2.1 cm ESV(Teich): 23.8 ml Doppler Measurements & Calculations MV E max torres: 81.0 cm/sec Ao V2 max: 113.2 cm/sec MV A max torres: 73.3 cm/sec Ao max P.1 mmHg MV E/A: 1.1 Ao V2 mean: 81.9 cm/sec MV dec time: 0.13 sec Ao mean P.0 mmHg Ao V2 VTI: 22.8 cm VLAD(I,D): 2.3 cm2 VLAD(V,D): 2.2 cm2 LV V1 max P.3 mmHg SV(LVOT): 52.6 ml LV V1 mean P.3 mmHg LV V1 max: 76.0 cm/sec LV V1 mean: 50.8 cm/sec LV V1 VTI: 15.7 cm TR max torres: 231.2 cm/sec Med Peak E' Torres: 6.5 cm/sec TR max P.5 mmHg Med E/e': 12.5 Lat Peak E' Torres: 9.4 cm/sec Lat E/e': 8.6 Procedure A two-dimensional transthoracic echocardiogram with color flow and Doppler was performed. Left Ventricle The left ventricular size, thickness and function are normal. The left ventricular ejection fraction is normal. Left Ventricular Filling pattern is normal for age. The left ventricular wall motion is concha l. Right Ventricle The right ventricle is normal in size and function. Atria Normal left and right atrial size and function. Mitral Valve There is mild mitral valve thickening. There is no mitral valve stenosis. There is mild to moderate m itral regurgitation. Tricuspid Valve There is mild tricuspid valve thickening. There is no tricuspid stenosis. There is mild to moderate t ricuspid regurgitation. Right ventricular systolic pressure is normal. Aortic Valve The aortic valve is normal in structure and function. No hemodynamically significant valvular aortic stenosis. No aortic regurgitation is present. Pulmonic Valve The pulmonic valve is not well visualized. Great Vessels The aortic root is normal size. Pericardium/Pleura There is no pericardial effusion. Interpretation Summary The left ventricular size, thickness and function are normal The left ventricular ejection fraction is normal. The left ventricular wall motion is normal. There is mild to moderate mitral regurgitation. Right ventricular systolic pressure is normal. There is mild to moderate tricuspid regurgitation. Left Ventricular Filling pattern is normal for age. MD Tylor Perry 02/02/2019 03:02 PM
[2019-02-02] MEDS: NAPH,MB-DB/K PH,MBDB POWDER PACKET PO SCH ×2 (16:17→21:19)
[2019-02-02] MEDS ORDERED: ALBUTEROL SO4 2.5/IPRATROPIUM 0.5 INH SOL 3 ML VIAL.NEB. NEB ONE (16:22)
[2019-02-02] MEDS ORDERED: PIPERACILLIN/TAZOB 3.375 GM 3.375 GM/50 ML BAG IVPB ONE (16:23)
[2019-02-02] MEDS: PIPERACILLIN/TAZOB 3.375 GM 3.375 GM in DEXTROSE 5%-WATER - 50 ML IVPB SCH ×2 (17:00→18:53)
[2019-02-02] MEDS: SODIUM CHLORIDE 1,000 ML IV SCH (17:01)
[2019-02-02] MEDS: INSULIN SLIDING SCALE (NOVOLOG) 1 VIAL SQ SCH ×3 (17:18→21:18)
[2019-02-02] MEDS ORDERED: DEXTROSE 5%-WATER - 50 ML IVPB ONE (18:48)
[2019-02-02] MEDS ORDERED: PIPERACILLIN/TAZOBACTAM 3.375 GM VIAL IVPB ONE (18:48)
[2019-02-02] MEDS: LORazepam 0.5 MG TABLET PO PRN (18:52)
[2019-02-02 19:51] VITALS: BMI 32.8
[2019-02-02] MEDS: ACETAMINOPHEN 325 MG TABLET (FP) PO PRN (21:31)
[2019-02-03] MEDS ORDERED: DEXTROSE 5%-WATER - 50 ML IVPB ONE ×3 (00:52→17:15)
[2019-02-03] MEDS ORDERED: PIPERACILLIN/TAZOBACTAM 3.375 GM VIAL IVPB ONE ×3 (00:52→17:15)
[2019-02-03] MEDS: PIPERACILLIN/TAZOB 3.375 GM 3.375 GM in DEXTROSE 5%-WATER - 50 ML IVPB SCH ×3 (01:15→17:24)
[2019-02-03] MEDS: HEPARIN NA (PORCINE) 5,000 UNITS/ML 1ML VIAL SQ SCH ×3 (05:55→21:32)
[2019-02-03] MEDS: ACETAMINOPHEN 325 MG TABLET (FP) PO PRN (05:55)
[2019-02-03] MEDS: INSULIN SLIDING SCALE (NOVOLOG) 1 VIAL SQ SCH ×4 (05:59→21:32)
[2019-02-03] MEDS: ALBUTEROL SO4 2.5/IPRATROPIUM 0.5 INH SOL 3 ML VIAL.NEB. NEB SCH ×4 (07:47→20:15)
[2019-02-03 08:31] LABS: BASO % 0.3 % (0-2.0); EOS % 0.1 % (0-4.5); HEMATOCRIT 27.9 % (35.4-49); HEMOGLOBIN 9.1 GM/dL (11.7-16.9); LYMPH % 4.1 % (8-40); MCH 27.6 pg (25.7-33.7); MCHC 32.7 g/dl (32.0-35.9); MEAN CELL VOLUME 84.6 fl (80-96); MEAN PLT VOLUME 8.9 fl (7.5-11.1); MONO % 2.3 % (3.8-10.2); NEUT % 93.2 % (42.8-82.8); RBC 3.29 M/mm3 (4.00-5.60); RDW 15.6 % (11.9-15.9); WHITE BLOOD COUNT 15.1 K/mm3 (4.0-10.0)
[2019-02-03 08:43] LABS: ALBUMIN 2.5 g/dl (3.4-5.0); BILIRUBIN,TOTAL 1.5 mg/dL (0.2-1); BLOOD UREA NITROGEN 23.4 mg/dL (7-18); CALCIUM 7.6 mg/dL (8.5-10.1); CREATININE 2.1 mg/dL (0.55-1.3); MAGNESIUM 1.5 mg/dL (1.8-2.4); PHOSPHOROUS 2.1 mg/dL (2.5-4.9); POTASSIUM 4.1 mmol/L (3.5-5.1); TOT PROT 5.2 g/dl (6.4-8.2)
[2019-02-03] MEDS ORDERED: MAGNESIUM OXIDE 400 MG TABLET (FP) PO ONE (08:44)
[2019-02-03 08:48] LABS: PLATELET COUNT 198 K/MM3 (134-434)
[2019-02-03] MEDS: AZITHROMYCIN IVPB 500 MG/250 ML BAG IVPB SCH (09:33)
[2019-02-03] MEDS: NAPH,MB-DB/K PH,MBDB POWDER PACKET PO SCH ×2 (09:34→21:33)
--- NOTE | 2019-02-03 09:51 | PN ---
Progress Note (short form) - Note Progress Note: Breathing feels better. Breathing and cough better. Anxious about his arriving [place] on Thursday. Intake & Output 01/31/19 02/01/19 02/02/19 02/03/19 23:59 23:59 23:59 23:59 Intake Total 200 950 Balance 200 950 Weight 168 lb 4.8 oz Last Vital Signs Temp Pulse Resp BP Pulse Ox 99.1 F 83 20 113/62 100 02/03/19 05:56 02/03/19 05:56 02/03/19 05:56 02/03/19 05:56 02/02/19 21:00 Active Medications Acetaminophen (Tylenol -) 650 mg PO Q6H PRN PRN Reason: FEVER Last Admin: 02/03/19 05:55 Dose: 650 mg Albuterol/Ipratropium (Duoneb -) 1 amp NEB RQID [facility] Last Admin: 02/03/19 07:47 Dose: 1 amp Heparin Sodium (Porcine) (Heparin -) 5,000 unit SQ TID [facility] Last Admin: 02/03/19 05:55 Dose: 5,000 unit Sodium Chloride (Normal Saline -) 1,000 mls @ 82 mls/hr IV ASDIR [facility] Last Admin: 02/02/19 17:01 Dose: 82 mls/hr Piperacillin Sod/Tazobactam (Sod 3.375 gm/ Dextrose) 50 mls @ 100 mls/hr IVPB Q8H-IV [facility]; Protocol Last Admin: 02/03/19 09:29 Dose: 100 mls/hr Azithromycin (Zithromax 500mg Ivpb (Pre-Docked)) 500 mg in 250 mls @ 250 mls/ hr IVPB DAILY [facility] Last Admin: 02/03/19 09:33 Dose: 250 mls/hr Insulin Aspart (Novolog Vial Sliding Scale -) 1 vial SQ ACHS [facility]; Protocol Last Admin: 02/03/19 05:59 Dose: Not Given Lorazepam (Ativan -) 0.5 mg PO Q12H PRN PRN Reason: ANXIETY Last Admin: 02/02/19 18:52 Dose: 0.5 mg Potassium Phos/Sodium Phos (Phos-Nak Packet -) 1 packet PO BID [facility] Last Admin: 02/03/19 09:34 Dose: 1 packet Constitutional: Yes: Anxious Eyes: Yes: Conjunctiva Clear, EOM Intact HENT: Yes: Atraumatic, Normocephalic Neck: Yes: Supple, Trachea Midline Cardiovascular: Yes: Regular Rate and Rhythm Respiratory: Yes: Diminished (decreased breath sounds at the bases) ...Clubbing: No Gastrointestinal: Yes: Normal Bowel Sounds, Soft. No: Tenderness Edema: No Neurological: Yes: Alert, Oriented Labs: Laboratory Results - last 24 hr 02/02/19 02/02/19 02/02/19 01:22 06:30 10:13 WBC RBC Hgb Hct MCV MCH MCHC RDW Plt Count MPV Absolute Neuts (auto) Neutrophils % Lymphocytes % Monocytes % Eosinophils % Basophils % Nucleated RBC % Sodium 136 Potassium 4.1 Chloride 106 Carbon Dioxide 22 Anion Gap 8 BUN 28.8 H Creatinine 2.7 H Est GFR (CKD-EPI)AfAm 27.04 Est GFR (CKD-EPI)NonAf 23.33 POC Glucometer Random Glucose 341 H* Lactic Acid 2.8 H* Calcium 7.5 L Phosphorus 0.7 L* Magnesium 1.2 L Ferritin Total Bilirubin 1.9 H Direct Bilirubin Cancelled 1.2 H AST 70 H ALT 95 H Alkaline Phosphatase 337 H Troponin I Total Protein 5.3 L Albumin 2.6 L Ur Random Creatinine U Random Total Protein Ur Random Sodium 02/02/19 02/02/19 02/02/19 10:13 16:34 17:15 WBC RBC Hgb Hct MCV MCH MCHC RDW Plt Count MPV Absolute Neuts (auto) Neutrophils % Lymphocytes % Monocytes % Eosinophils % Basophils % Nucleated RBC % Sodium Potassium Chloride Carbon Dioxide Anion Gap BUN Creatinine Est GFR (CKD-EPI)AfAm Est GFR (CKD-EPI)NonAf POC Glucometer 158 Random Glucose Lactic Acid 2.4 H* Calcium Phosphorus 2.0 L Magnesium Ferritin Total Bilirubin Direct Bilirubin AST ALT Alkaline Phosphatase Troponin I Total Protein Albumin Ur Random Creatinine U Random Total Protein Ur Random Sodium 02/02/19 02/02/19 02/02/19 17:15 18:45 21:17 WBC RBC Hgb Hct MCV MCH MCHC RDW Plt Count MPV Absolute Neuts (auto) Neutrophils % Lymphocytes % Monocytes % Eosinophils % Basophils % Nucleated RBC % Sodium Potassium Chloride Carbon Dioxide Anion Gap BUN Creatinine Est GFR (CKD-EPI)AfAm Est GFR (CKD-EPI)NonAf POC Glucometer 120 Random Glucose Lactic Acid Calcium Phosphorus Magnesium Ferritin Total Bilirubin Direct Bilirubin AST ALT Alkaline Phosphatase Troponin I < 0.02 Total Protein Albumin Ur Random Creatinine 74.0 U Random Total Protein 35.0 H Ur Random Sodium 73 02/03/19 02/03/19 02/03/19 05:51 07:20 07:20 WBC 15.1 H RBC 3.29 L Hgb 9.1 L Hct 27.9 L MCV 84.6 MCH 27.6 MCHC 32.7 RDW 15.6 Plt Count 198 MPV 8.9 Absolute Neuts (auto) 14.1 H Neutrophils % 93.2 H Lymphocytes % 4.1 L D Monocytes % 2.3 L D Eosinophils % 0.1 Basophils % 0.3 Nucleated RBC % 0 Sodium 141 Potassium 4.1 Chloride 110 H Carbon Dioxide 20 L Anion Gap 11 BUN 23.4 H Creatinine 2.1 H Est GFR (CKD-EPI)AfAm 36.65 Est GFR (CKD-EPI)NonAf 31.62 POC Glucometer 124 Random Glucose 136 H Lactic Acid Calcium 7.6 L Phosphorus 2.1 L Magnesium 1.5 L Ferritin 163.1 Total Bilirubin 1.5 H Direct Bilirubin AST 41 H ALT 75 H Alkaline Phosphatase 277 H Troponin I Total Protein 5.2 L Albumin 2.5 L Ur Random Creatinine U Random Total Protein Ur Random Sodium 02/03/19 07:20 WBC RBC Hgb Hct MCV MCH MCHC RDW Plt Count MPV Absolute Neuts (auto) Neutrophils % Lymphocytes % Monocytes % Eosinophils % Basophils % Nucleated RBC % Sodium Potassium Chloride Carbon Dioxide Anion Gap BUN Creatinine Est GFR (CKD-EPI)AfAm Est GFR (CKD-EPI)NonAf POC Glucometer Random Glucose Lactic Acid 1.5 Calcium Phosphorus Magnesium Ferritin Total Bilirubin Direct Bilirubin AST ALT Alkaline Phosphatase Troponin I Total Protein Albumin Ur Random Creatinine U Random Total Protein Ur Random Sodium Problem List - Problems (1) Pneumonia Code(s): J18.9 - PNEUMONIA, UNSPECIFIED ORGANISM (2) Sepsis Code(s): A41.9 - SEPSIS, UNSPECIFIED ORGANISM Assessment/Plan Pneumonia ?Polymicrobial Bacteremia Sepsis Lactic Acidosis Acute on Chronic Renal Failure HTN DM h/o Prostate Ca Do not suspect PE - IV antibiotics - f/u cultures - IVF - monitor urine output, creatinine - trend lactate - DVT prophylaxis Dr Mendoza
[2019-02-03] MEDS ORDERED: AZITHROMYCIN IVPB 500 MG in DEXTROSE 5%-WATER - 250 ML IVPB SCH (10:00)
--- NOTE | 2019-02-03 12:13 | PN ---
Progress Note, Physician Chief Complaint: shortness of breath, malaise and weakness History of Present Illness: Patient is a 68 year old man with a past medical history of prostate CA (s/p prostatectomy), cholelithiasis, diabetes mellitus, CKD and hypertension. He was admitted last year (10/2017) at [facility] for ascending cholangitis (s/p laparoscopic cholecystectomy) and hospital course complicated by UTI esbl ecoli and bacteremia, septic shock and respiratory failure. He presents to the the ED on 02/01/19 for acute onset of shortness of breath. On exam he denies any chest pain, states his shortness of breath has improved and denies any abdominal pain or discomfort. No nausea, vomiting or diarrhea. imaging: -V/Q scan 02/02/19: negative for PE -lower ext doppler 02/02/19: negative for DVT -chest xray 02/01/19: left lower lobe infiltrate -echo 02/02/19: mild to mod tricuspid regurg, mild to mod mitral regurg. -ekg: st with pacs 120s -abdominal u/s: s/p cholecystectomy, mild fatty inf of liver vs hepatocellular disease, mild dilatation of the central intrahepatic bile ducts with borderline dilatation of the common bile duct that contains intraluminal echogenic foci suggestive of sludge v stones. problem list: severe sepsis bacteremia lactic acidosis diabetes mellitus ckd hypertension prostate cancer - Current Medication List Current Medications: Active Medications Acetaminophen (Tylenol -) 650 mg PO Q6H PRN PRN Reason: FEVER Last Admin: 02/03/19 05:55 Dose: 650 mg Albuterol/Ipratropium (Duoneb -) 1 amp NEB RQID [facility] Last Admin: 02/03/19 12:00 Dose: 1 amp Heparin Sodium (Porcine) (Heparin -) 5,000 unit SQ TID [facility] Last Admin: 02/03/19 05:55 Dose: 5,000 unit Sodium Chloride (Normal Saline -) 1,000 mls @ 82 mls/hr IV ASDIR [facility] Last Admin: 02/02/19 17:01 Dose: 82 mls/hr Piperacillin Sod/Tazobactam (Sod 3.375 gm/ Dextrose) 50 mls @ 100 mls/hr IVPB Q8H-IV [facility]; Protocol Last Admin: 02/03/19 09:29 Dose: 100 mls/hr Azithromycin (Zithromax 500mg Ivpb (Pre-Docked)) 500 mg in 250 mls @ 250 mls/ hr IVPB DAILY [facility] Last Admin: 02/03/19 09:33 Dose: 250 mls/hr Insulin Aspart (Novolog Vial Sliding Scale -) 1 vial SQ ACHS [facility]; Protocol Last Admin: 02/03/19 05:59 Dose: Not Given Lorazepam (Ativan -) 0.5 mg PO Q12H PRN PRN Reason: ANXIETY Last Admin: 02/02/19 18:52 Dose: 0.5 mg Potassium Phos/Sodium Phos (Phos-Nak Packet -) 1 packet PO BID [facility] Last Admin: 02/03/19 09:34 Dose: 1 packet - Objective Vital Signs: Vital Signs Temperature 99.1 F 02/03/19 05:56 Pulse Rate 98 H 02/03/19 10:00 Respiratory Rate 20 02/03/19 10:00 Blood Pressure 118/72 02/03/19 10:00 O2 Sat by Pulse Oximetry (%) 100 02/02/19 21:00 Constitutional: Yes: Well Nourished, No Distress, Anxious Eyes: Yes: WNL HENT: Yes: WNL, Atraumatic Neck: Yes: WNL Cardiovascular: Yes: WNL Respiratory: Yes: Accessory Muscle Use, On Nasal O2 Gastrointestinal: Yes: WNL ...Rectal Exam: Yes: Deferred Extremities: Yes: WNL Labs: CBC, BMP 02/03/19 07:20 02/03/19 07:20 INR, PTT INR 1.20 (0.83-1.09) H 02/02/19 02:40 Problem List - Problems (1) Severe sepsis Assessment/Plan: Patient presents with shortness of breath requiring supplemental oxygen and duonebs. Also with fevers of 102.1, tachycardia to 120s with chest xray showing left lobe infiltrate. Given Rocephin and Azithromycin on admission. Switched to Zosyn per ID. Blood cultures with pending organisms. will repeat blood cultures. Lactic acid also elevated on admission, now resolved. Follow up on legionella ag. ID following. Code(s): A41.9 - SEPSIS, UNSPECIFIED ORGANISM; R65.20 - SEVERE SEPSIS WITHOUT SEPTIC SHOCK (2) CKD (chronic kidney disease) Assessment/Plan: likely secondary to volume depletion and chronic NSAID use. Being followed by renal Code(s): N18.9 - CHRONIC KIDNEY DISEASE, UNSPECIFIED (3) Acute respiratory failure Assessment/Plan: VQ scan negative for PE. lower ext dopplers negative. on supplemental oxygen and duonebs. Maintain oxygen levels above 92%. Code(s): J96.00 - ACUTE RESPIRATORY FAILURE, UNSP W HYPOXIA OR HYPERCAPNIA (4) Transaminitis Assessment/Plan: elevated bili @ 1.5 elevated liver enzymes, trending down abdominal u/s noted. trend liver enzymes. Code(s): R74.0 - NONSPEC ELEV OF LEVELS OF TRANSAMNS & LACTIC ACID DEHYDRGNSE (5) Diabetes Assessment/Plan: on Novolog SS, BGMs Code(s): E11.9 - TYPE 2 DIABETES MELLITUS WITHOUT COMPLICATIONS (6) Hypophosphatemia Assessment/Plan: Given IV phosphate potassium for low phos levels of 0.7, added supplements of phosphate. repeat levels improved. continue phos packets renal on board. repeat electrolytes in a.m. Code(s): E83.39 - OTHER DISORDERS OF PHOSPHORUS METABOLISM (7) Prophylactic measure Assessment/Plan: fen NS @ 82ml/hr monitor electrolytes and replete as needed Sodium controlled, Diabetic Diet DVT Ppx. Hep SQ full code Code(s): Z29.9 - ENCOUNTER FOR PROPHYLACTIC MEASURES, UNSPECIFIED Visit type - Emergency Visit Emergency Visit: Yes ED Registration Date: 02/02/19 Care time: The patient presented to the Emergency Department on the above date and was hospitalized for further evaluation of their emergent condition. - New Patient This patient is new to me today: No - Critical Care Critical Care patient: No - Discharge Referral Referred to [facility] Med P.C.: No
[2019-02-03 12:18] LABS: ANISOCYTOSIS 2+; MACROCYTOSIS 0; PLATELET ESTIMATE NORMAL
--- NOTE | 2019-02-03 16:17 | PN ---
Progress Note (short form) - Note Progress Note: Renal follow up for THIEN pt seen and examined at the bedside awake and alert no acute complaints feels better no sob, cp, adb pain, fever or chills Vital Signs Temperature 99.1 F 02/03/19 05:56 Pulse Rate 104 H 02/03/19 14:20 Respiratory Rate 20 02/03/19 10:00 Blood Pressure 120/60 02/03/19 14:20 O2 Sat by Pulse Oximetry (%) 100 02/02/19 21:00 Intake & Output 01/31/19 02/01/19 02/02/19 02/03/19 23:59 23:59 23:59 23:59 Intake Total 200 1410 Output Total 400 Balance 200 1010 Weight 76.34 kg NAD RRR, no M/R CTA, no rales or wheeze soft NT/ND, no LE edema, clubbing or edema CBC, BMP 02/03/19 07:20 02/03/19 07:20 Current Medications Acetaminophen (Tylenol -) 650 mg PO Q6H PRN PRN Reason: FEVER Last Admin: 02/03/19 05:55 Dose: 650 mg Albuterol/Ipratropium (Duoneb -) 1 amp NEB RQID [facility] Last Admin: 02/03/19 12:00 Dose: 1 amp Heparin Sodium (Porcine) (Heparin -) 5,000 unit SQ TID [facility] Last Admin: 02/03/19 05:55 Dose: 5,000 unit Sodium Chloride (Normal Saline -) 1,000 mls @ 82 mls/hr IV ASDIR [facility] Last Admin: 02/02/19 17:01 Dose: 82 mls/hr Piperacillin Sod/Tazobactam (Sod 3.375 gm/ Dextrose) 50 mls @ 100 mls/hr IVPB Q8H-IV [facility]; Protocol Last Admin: 02/03/19 09:29 Dose: 100 mls/hr Azithromycin (Zithromax 500mg Ivpb (Pre-Docked)) 500 mg in 250 mls @ 250 mls/ hr IVPB DAILY [facility] Last Admin: 02/03/19 09:33 Dose: 250 mls/hr Insulin Aspart (Novolog Vial Sliding Scale -) 1 vial SQ ACHS [facility]; Protocol Last Admin: 02/03/19 12:41 Dose: 4 unit Lorazepam (Ativan -) 0.5 mg PO Q12H PRN PRN Reason: ANXIETY Last Admin: 02/02/19 18:52 Dose: 0.5 mg Melatonin (Melatonin) 3 mg PO HS [facility] Potassium Phos/Sodium Phos (Phos-Nak Packet -) 1 packet PO BID [facility] Last Admin: 02/03/19 09:34 Dose: 1 packet EKG - ST with PAC Abd US - mild bile duct intra-hepatic dilatation CXR- infiltrate vs. effusion left lung base 68 year old gentleman wit hx of prostate cancer sp prostatectomy, hypertension, gastritis, DM not on insulin who presents with fever and sob and admitted for suspected PNA with THIEN. #THIEN secondary to volume depletion vs. ATN in setting of PNA and NSAID use #SOB secondary to suspected PNA #Acute on chronic anemia #DM on insulin #Hypophosphatemia #Lactic acid Renal function improving with IVF Maintain on isotonic saline for now Trend renal function and electrolytes continue antibiotics as per primary team supplement phos lactic acidosis resolved Thank you Anuj Ferguson DO
--- NOTE | 2019-02-03 16:31 | PN ---
Progress Note, Physician History of Present Illness: Pt seen and examined, chart reviewed. He is alert, c/o SOB on exertion. Tmax 99.7F. No acute respiratory distress at this time. - Current Medication List Current Medications: Active Medications Acetaminophen (Tylenol -) 650 mg PO Q6H PRN PRN Reason: FEVER Last Admin: 02/03/19 05:55 Dose: 650 mg Albuterol/Ipratropium (Duoneb -) 1 amp NEB RQID [facility] Last Admin: 02/03/19 15:00 Dose: 1 amp Heparin Sodium (Porcine) (Heparin -) 5,000 unit SQ TID [facility] Last Admin: 02/03/19 05:55 Dose: 5,000 unit Sodium Chloride (Normal Saline -) 1,000 mls @ 82 mls/hr IV ASDIR [facility] Last Admin: 02/02/19 17:01 Dose: 82 mls/hr Piperacillin Sod/Tazobactam (Sod 3.375 gm/ Dextrose) 50 mls @ 100 mls/hr IVPB Q8H-IV [facility]; Protocol Last Admin: 02/03/19 09:29 Dose: 100 mls/hr Azithromycin (Zithromax 500mg Ivpb (Pre-Docked)) 500 mg in 250 mls @ 250 mls/ hr IVPB DAILY [facility] Last Admin: 02/03/19 09:33 Dose: 250 mls/hr Insulin Aspart (Novolog Vial Sliding Scale -) 1 vial SQ ACHS [facility]; Protocol Last Admin: 02/03/19 12:41 Dose: 4 unit Lorazepam (Ativan -) 0.5 mg PO Q12H PRN PRN Reason: ANXIETY Last Admin: 02/02/19 18:52 Dose: 0.5 mg Melatonin (Melatonin) 3 mg PO HS [facility] Potassium Phos/Sodium Phos (Phos-Nak Packet -) 1 packet PO BID [facility] Last Admin: 02/03/19 09:34 Dose: 1 packet - Objective Vital Signs: Vital Signs Temperature 99.1 F 02/03/19 05:56 Pulse Rate 104 H 02/03/19 14:20 Respiratory Rate 20 02/03/19 10:00 Blood Pressure 120/60 02/03/19 14:20 O2 Sat by Pulse Oximetry (%) 100 02/02/19 21:00 Constitutional: Yes: No Distress Cardiovascular: Yes: Tachycardia Respiratory: Yes: Rales (basilar) Gastrointestinal: Yes: Normal Bowel Sounds, Soft Genitourinary: Yes: WNL Neurological: Yes: Alert, Oriented Labs: CBC, BMP 02/03/19 07:20 02/03/19 07:20 INR, PTT INR 1.20 (0.83-1.09) H 02/02/19 02:40 - ....Imaging Chest X-ray: Report Reviewed Problem List - Problems (1) CKD (chronic kidney disease) Code(s): N18.9 - CHRONIC KIDNEY DISEASE, UNSPECIFIED (2) Diabetes Code(s): E11.9 - TYPE 2 DIABETES MELLITUS WITHOUT COMPLICATIONS (3) Pneumonia Code(s): J18.9 - PNEUMONIA, UNSPECIFIED ORGANISM (4) Severe sepsis Code(s): A41.9 - SEPSIS, UNSPECIFIED ORGANISM; R65.20 - SEVERE SEPSIS WITHOUT SEPTIC SHOCK (5) THIEN (acute kidney injury) Code(s): N17.9 - ACUTE KIDNEY FAILURE, UNSPECIFIED Assessment/Plan Severe Sepsis Polymicrobial Bacteremia PNA THIEN on CKD - improving DM Hx of Prostate CA s/p prostatectomy Obesity HTN -- Pt with low grade fever, wbc elevated but stable since yesterday, lactic acid now normal -- continue current antibiotics for now, f/u Blood culture isolates and will adjust if indicated -- repeat blood cultures -- repeat cbc, cmp in a.m. -- monitor vitals closely, temperature trend
[2019-02-03] MEDS: SODIUM CHLORIDE 1,000 ML IV SCH (17:24)
[2019-02-03] MEDS ORDERED: INSULIN (NOVOLOG) ASPART 100 UNITS/ML 10ML VIAL ONE (21:29)
[2019-02-03] MEDS: MELATONIN 1 MG TABLET PO SCH (21:32)
[2019-02-04] MEDS ORDERED: PIPERACILLIN/TAZOBACTAM 3.375 GM VIAL IVPB ONE ×2 (00:47→10:21)
[2019-02-04] MEDS ORDERED: DEXTROSE 5%-WATER - 50 ML IVPB ONE ×2 (00:47→10:21)
[2019-02-04] MEDS: PIPERACILLIN/TAZOB 3.375 GM 3.375 GM in DEXTROSE 5%-WATER - 50 ML IVPB SCH ×2 (01:23→10:36)
[2019-02-04 04:20] LABS: SERUM IRON SATURATION 3 % (15-55); TOTAL IRON BINDING CAPACITY 233 ug/dL (250-450); UIBC 225 ug/dL (111-343)
[2019-02-04] MEDS: INSULIN SLIDING SCALE (NOVOLOG) 1 VIAL SQ SCH ×4 (06:15→21:46)
[2019-02-04] MEDS: HEPARIN NA (PORCINE) 5,000 UNITS/ML 1ML VIAL SQ SCH ×3 (06:16→21:46)
[2019-02-04] MEDS: ALBUTEROL SO4 2.5/IPRATROPIUM 0.5 INH SOL 3 ML VIAL.NEB. NEB SCH ×4 (07:45→20:25)
--- NOTE | 2019-02-04 10:23 | PN ---
Progress Note, Physician Chief Complaint: shortness of breath, malaise and weakness all improved. patient tells me that he has to leave by tomorrow [place]. discussed risks of leaving AMA in full detail with him. he is currently considering staying if he can have someone rock picker his from the airport. History of Present Illness: Patient is a 68 year old man with a past medical history of prostate CA (s/p prostatectomy), cholelithiasis, diabetes mellitus, CKD and hypertension. He was admitted last year (10/2017) at [facility] for ascending cholangitis (s/p laparoscopic cholecystectomy) and hospital course complicated by UTI esbl ecoli and bacteremia, septic shock and respiratory failure. He presents to the the ED on 02/01/19 for acute onset of shortness of breath. On exam he denies any chest pain, states his shortness of breath has improved and denies any abdominal pain or discomfort. No nausea, vomiting or diarrhea. imaging: -V/Q scan 02/02/19: negative for PE -lower ext doppler 02/02/19: negative for DVT -chest xray 02/01/19: left lower lobe infiltrate -echo 02/02/19: mild to mod tricuspid regurg, mild to mod mitral regurg. -ekg: st with pacs 120s -abdominal u/s: s/p cholecystectomy, mild fatty inf of liver vs hepatocellular disease, mild dilatation of the central intrahepatic bile ducts with borderline dilatation of the common bile duct that contains intraluminal echogenic foci suggestive of sludge v stones. problem list: severe sepsis bacteremia lactic acidosis diabetes mellitus ckd hypertension prostate cancer - Current Medication List Current Medications: Active Medications Acetaminophen (Tylenol -) 650 mg PO Q6H PRN PRN Reason: FEVER Last Admin: 02/03/19 05:55 Dose: 650 mg Albuterol/Ipratropium (Duoneb -) 1 amp NEB RQID [facility] Last Admin: 02/04/19 07:45 Dose: 1 amp Heparin Sodium (Porcine) (Heparin -) 5,000 unit SQ TID [facility] Last Admin: 02/04/19 06:16 Dose: 5,000 unit Sodium Chloride (Normal Saline -) 1,000 mls @ 82 mls/hr IV ASDIR [facility] Last Admin: 02/03/19 17:24 Dose: 82 mls/hr Piperacillin Sod/Tazobactam (Sod 3.375 gm/ Dextrose) 50 mls @ 100 mls/hr IVPB Q8H-IV [facility]; Protocol Last Admin: 02/04/19 01:23 Dose: 100 mls/hr Azithromycin (Zithromax 500mg Ivpb (Pre-Docked)) 500 mg in 250 mls @ 250 mls/ hr IVPB DAILY [facility] Last Admin: 02/03/19 09:33 Dose: 250 mls/hr Insulin Aspart (Novolog Vial Sliding Scale -) 1 vial SQ ACHS [facility]; Protocol Last Admin: 02/04/19 06:15 Dose: Not Given Lorazepam (Ativan -) 0.5 mg PO Q12H PRN PRN Reason: ANXIETY Last Admin: 02/02/19 18:52 Dose: 0.5 mg Melatonin (Melatonin) 3 mg PO HS [facility] Last Admin: 02/03/19 21:32 Dose: 3 mg Potassium Phos/Sodium Phos (Phos-Nak Packet -) 1 packet PO BID [facility] Last Admin: 02/03/19 21:33 Dose: 1 packet - Objective Vital Signs: Vital Signs Temperature 98.0 F 02/04/19 06:47 Pulse Rate 76 02/04/19 06:47 Respiratory Rate 18 02/04/19 06:47 Blood Pressure 109/61 02/04/19 06:47 O2 Sat by Pulse Oximetry (%) 100 02/03/19 21:00 Constitutional: Yes: Well Nourished, No Distress Eyes: Yes: WNL HENT: Yes: WNL Neck: Yes: WNL Cardiovascular: Yes: Regular Rate and Rhythm Respiratory: Yes: Regular, CTA Bilaterally Gastrointestinal: Yes: Normal Bowel Sounds, Abdomen, Obese ...Rectal Exam: Yes: Deferred Breast(s): Yes: WNL Musculoskeletal: Yes: WNL Extremities: Yes: WNL Edema: No Peripheral Pulses WNL: No Labs: CBC, BMP 02/03/19 07:20 02/03/19 07:20 INR, PTT INR 1.20 (0.83-1.09) H 02/02/19 02:40 Problem List - Problems (1) Severe sepsis Assessment/Plan: Patient presents with shortness of breath requiring supplemental oxygen and duonebs. Also with fevers of 102.1, tachycardia to 120s with chest xray showing left lobe infiltrate. Given Rocephin and Azithromycin on admission and now switched to meropenem and azithromycin per ID. Blood cultures growing polymicrobial bacteria. Blood cultures repeated and pending. Lactic acidosis resolved. ID following. Code(s): A41.9 - SEPSIS, UNSPECIFIED ORGANISM; R65.20 - SEVERE SEPSIS WITHOUT SEPTIC SHOCK (2) Acute respiratory failure Assessment/Plan: VQ scan negative for PE. lower ext dopplers negative. on supplemental oxygen and duonebs. Maintain oxygen levels above 92%. Code(s): J96.00 - ACUTE RESPIRATORY FAILURE, UNSP W HYPOXIA OR HYPERCAPNIA (3) Pneumonia Assessment/Plan: chest xray 02/01/19: left lower lobe infiltrate. on meropenem and azithromycin. pulmonary following Code(s): J18.9 - PNEUMONIA, UNSPECIFIED ORGANISM (4) CKD (chronic kidney disease) Assessment/Plan: likely secondary to volume depletion and chronic NSAID use. Being followed by renal Code(s): N18.9 - CHRONIC KIDNEY DISEASE, UNSPECIFIED (5) Transaminitis Assessment/Plan: elevated bili on admission. elevated liver enzymes, trending down abdominal u/s noted. trend liver enzymes Code(s): R74.0 - NONSPEC ELEV OF LEVELS OF TRANSAMNS & LACTIC ACID DEHYDRGNSE (6) Diabetes Assessment/Plan: on Novolog SS, BGMs Code(s): E11.9 - TYPE 2 DIABETES MELLITUS WITHOUT COMPLICATIONS (7) Hypophosphatemia Assessment/Plan: Given IV phosphate potassium for low phos levels of 0.7, added supplements of phosphate. repeat levels improved. continue phos packets renal on board. repeat electrolytes in a.m. Code(s): E83.39 - OTHER DISORDERS OF PHOSPHORUS METABOLISM (8) Prophylactic measure Assessment/Plan: fen NS @ 82ml/hr monitor electrolytes and replete as needed Sodium controlled, Diabetic Diet DVT Ppx. Hep SQ full code Code(s): Z29.9 - ENCOUNTER FOR PROPHYLACTIC MEASURES, UNSPECIFIED Visit type - Emergency Visit Emergency Visit: Yes ED Registration Date: 02/02/19 Care time: The patient presented to the Emergency Department on the above date and was hospitalized for further evaluation of their emergent condition. - New Patient This patient is new to me today: No - Critical Care Critical Care patient: No - Discharge Referral Referred to [facility] Med [facility].C[facility] No
[2019-02-04 10:30] LABS: BASO % 0.4 % (0-2.0); EOS % 0.2 % (0-4.5); HEMATOCRIT 29.7 % (35.4-49); HEMOGLOBIN 9.8 GM/dL (11.7-16.9); LYMPH % 6.1 % (8-40); MCH 27.7 pg (25.7-33.7); MCHC 32.9 g/dl (32.0-35.9); MEAN CELL VOLUME 84.2 fl (80-96); NEUT % 90.3 % (42.8-82.8); PLATELET COUNT 229 K/MM3 (134-434); RBC 3.52 M/mm3 (4.00-5.60); RDW 15.6 % (11.9-15.9); WHITE BLOOD COUNT 10.6 K/mm3 (4.0-10.0)
[2019-02-04] MEDS: NAPH,MB-DB/K PH,MBDB POWDER PACKET PO SCH ×2 (10:36→21:46)
[2019-02-04] MEDS: AZITHROMYCIN IVPB 500 MG/250 ML BAG IVPB SCH (10:40)
[2019-02-04 11:02] LABS: ALBUMIN 2.6 g/dl (3.4-5.0); BLOOD UREA NITROGEN 18.9 mg/dL (7-18); CALCIUM 8.6 mg/dL (8.5-10.1); CREATININE 1.9 mg/dL (0.55-1.3); MAGNESIUM 1.8 mg/dL (1.8-2.4); POTASSIUM 4.5 mmol/L (3.5-5.1); TOT PROT 5.8 g/dl (6.4-8.2)
--- NOTE | 2019-02-04 12:07 | PN ---
Progress Note, Physician History of Present Illness: pulmonary alert,no distress,-sob,+ mild cough - Current Medication List Current Medications: Active Medications Acetaminophen (Tylenol -) 650 mg PO Q6H PRN PRN Reason: FEVER Last Admin: 02/03/19 05:55 Dose: 650 mg Albuterol/Ipratropium (Duoneb -) 1 amp NEB RQID [facility] Last Admin: 02/04/19 11:35 Dose: 1 amp Heparin Sodium (Porcine) (Heparin -) 5,000 unit SQ TID [facility] Last Admin: 02/04/19 06:16 Dose: 5,000 unit Sodium Chloride (Normal Saline -) 1,000 mls @ 82 mls/hr IV [facility] Last Admin: 02/03/19 17:24 Dose: 82 mls/hr Piperacillin Sod/Tazobactam (Sod 3.375 gm/ Dextrose) 50 mls @ 100 mls/hr IVPB Q8H-IV [facility]; Protocol Last Admin: 02/04/19 10:36 Dose: 100 mls/hr Azithromycin (Zithromax 500mg Ivpb (Pre-Docked)) 500 mg in 250 mls @ 250 mls/ hr IVPB DAILY [facility] Last Admin: 02/04/19 10:40 Dose: 250 mls/hr Insulin Aspart (Novolog Vial Sliding Scale -) 1 vial SQ ACHS [facility]; Protocol Last Admin: 02/04/19 06:15 Dose: Not Given Lorazepam (Ativan -) 0.5 mg PO Q12H PRN PRN Reason: ANXIETY Last Admin: 02/02/19 18:52 Dose: 0.5 mg Melatonin (Melatonin) 3 mg PO HS [facility] Last Admin: 02/03/19 21:32 Dose: 3 mg Potassium Phos/Sodium Phos (Phos-Nak Packet -) 1 packet PO BID [facility] Last Admin: 02/04/19 10:36 Dose: 1 packet - Objective Vital Signs: Vital Signs Temperature 98.4 F 02/04/19 10:46 Pulse Rate 108 H 02/04/19 10:46 Respiratory Rate 20 02/04/19 10:46 Blood Pressure 140/80 02/04/19 10:46 O2 Sat by Pulse Oximetry (%) 95 02/04/19 09:00 Constitutional: Yes: Well Nourished, Calm Eyes: Yes: WNL HENT: Yes: WNL Neck: Yes: WNL Cardiovascular: Yes: Regular Rate and Rhythm, S1, S2 Respiratory: Yes: CTA Bilaterally Gastrointestinal: Yes: Normal Bowel Sounds, Soft Extremities: Yes: WNL Edema: No Labs: CBC, BMP 02/04/19 10:05 02/04/19 10:05 INR, PTT INR 1.20 (0.83-1.09) H 02/02/19 02:40 Assessment/Plan Problem List - Problems (1) Pneumonia Code(s): J18.9 - PNEUMONIA, UNSPECIFIED ORGANISM (2) Sepsis Code(s): A41.9 - SEPSIS, UNSPECIFIED ORGANISM Assessment/Plan Pneumonia ?Polymicrobial Bacteremia Sepsis Lactic Acidosis improved Acute on Chronic Renal Failure HTN DM h/o Prostate Ca Do not suspect PE - IV antibiotics - IVF - monitor urine output, creatinine - DVT prophylaxis - repeat cultures DR PEREZ
[2019-02-04] MEDS ORDERED: INSULIN (NOVOLOG) ASPART 100 UNITS/ML 10ML VIAL ONE ×2 (12:14→16:54)
[2019-02-04] MEDS: SODIUM CHLORIDE 1,000 ML IV SCH (12:20)
--- NOTE | 2019-02-04 13:10 | PN ---
Progress Note, Physician History of Present Illness: stable no complaints doing well says wants to go home blood cx results noted - Current Medication List Current Medications: Active Medications Acetaminophen (Tylenol -) 650 mg PO Q6H PRN PRN Reason: FEVER Last Admin: 02/03/19 05:55 Dose: 650 mg Albuterol/Ipratropium (Duoneb -) 1 amp NEB RQID [facility] Last Admin: 02/04/19 11:35 Dose: 1 amp Heparin Sodium (Porcine) (Heparin -) 5,000 unit SQ TID [facility] Last Admin: 02/04/19 06:16 Dose: 5,000 unit Sodium Chloride (Normal Saline -) 1,000 mls @ 82 mls/hr IV ASDIR [facility] Last Admin: 02/04/19 12:20 Dose: 82 mls/hr Azithromycin (Zithromax 500mg Ivpb (Pre-Docked)) 500 mg in 250 mls @ 250 mls/ hr IVPB DAILY [facility] Last Admin: 02/04/19 10:40 Dose: 250 mls/hr Meropenem 1 gm/ Dextrose 100 mls @ 200 mls/hr IVPB Q8H-IV [facility] Ampicillin Sodium 1 gm/ Sodium (Chloride) 100 mls @ 200 mls/hr IVPB Q8H-IV [facility] ; Protocol Insulin Aspart (Novolog Vial Sliding Scale -) 1 vial SQ ACHS [facility]; Protocol Last Admin: 02/04/19 12:19 Dose: 2 unit Lorazepam (Ativan -) 0.5 mg PO Q12H PRN PRN Reason: ANXIETY Last Admin: 02/02/19 18:52 Dose: 0.5 mg Melatonin (Melatonin) 3 mg PO HS [facility] Last Admin: 02/03/19 21:32 Dose: 3 mg Potassium Phos/Sodium Phos (Phos-Nak Packet -) 1 packet PO BID [facility] Last Admin: 02/04/19 10:36 Dose: 1 packet - Objective Vital Signs: Vital Signs Temperature 98.4 F 02/04/19 10:46 Pulse Rate 108 H 02/04/19 10:46 Respiratory Rate 20 02/04/19 10:46 Blood Pressure 140/80 02/04/19 10:46 O2 Sat by Pulse Oximetry (%) 95 02/04/19 09:00 Constitutional: Yes: No Distress, Calm Cardiovascular: Yes: Regular Rate and Rhythm Respiratory: Yes: Regular, CTA Bilaterally Gastrointestinal: Yes: Normal Bowel Sounds, Soft Musculoskeletal: Yes: WNL Extremities: Yes: WNL Neurological: Yes: Alert, Oriented Psychiatric: Yes: Alert, Oriented Labs: CBC, BMP 02/04/19 10:05 02/04/19 10:05 INR, PTT INR 1.20 (0.83-1.09) H 02/02/19 02:40 Assessment/Plan Problem List - Problems (1) CKD (chronic kidney disease) Code(s): N18.9 - CHRONIC KIDNEY DISEASE, UNSPECIFIED (2) Diabetes Code(s): E11.9 - TYPE 2 DIABETES MELLITUS WITHOUT COMPLICATIONS (3) Pneumonia Code(s): J18.9 - PNEUMONIA, UNSPECIFIED ORGANISM (4) Severe sepsis Code(s): A41.9 - SEPSIS, UNSPECIFIED ORGANISM; R65.20 - SEVERE SEPSIS WITHOUT SEPTIC SHOCK (5) THIEN (acute kidney injury) Code(s): N17.9 - ACUTE KIDNEY FAILURE, UNSPECIFIED Assessment/Plan Severe Sepsis Polymicrobial Bacteremia PNA THIEN on CKD - improving DM Hx of Prostate CA s/p prostatectomy Obesity HTN plan continue current mgmt rest as per the team
[2019-02-04] MEDS ORDERED: MEROPENEM 1 GM VIAL (RESTRICTED TO ID) IVPB ONE (13:20)
[2019-02-04] MEDS ORDERED: DEXTROSE 5%-WATER 100 ML IVPB ONE (13:20)
--- NOTE | 2019-02-04 13:49 | PN ---
Progress Note (short form) - Note Progress Note: Renal follow up for THIEN pt seen and examined at the bedside awake and alert no acute complaints wants to go home tomorrow morning making urine Vital Signs Temperature 98.4 F 02/04/19 10:46 Pulse Rate 108 H 02/04/19 10:46 Respiratory Rate 20 02/04/19 10:46 Blood Pressure 140/80 02/04/19 10:46 O2 Sat by Pulse Oximetry (%) 95 02/04/19 09:00 Intake & Output 02/01/19 02/02/19 02/03/19 02/04/19 23:59 23:59 23:59 23:59 Intake Total 200 3210 590 Output Total 1100 800 Balance 200 2110 -210 Weight 76.34 kg NAD RRR, no M/R CTA, no rales or wheeze soft NT/ND, no LE edema, clubbing or edema CBC, BMP 02/04/19 10:05 02/04/19 10:05 Current Medications Acetaminophen (Tylenol -) 650 mg PO Q6H PRN PRN Reason: FEVER Last Admin: 02/03/19 05:55 Dose: 650 mg Albuterol/Ipratropium (Duoneb -) 1 amp NEB RQID [facility] Last Admin: 02/04/19 11:35 Dose: 1 amp Heparin Sodium (Porcine) (Heparin -) 5,000 unit SQ TID [facility] Last Admin: 02/04/19 13:33 Dose: 5,000 unit Sodium Chloride (Normal Saline -) 1,000 mls @ 82 mls/hr IV [facility]IR [facility] Last Admin: 02/04/19 12:20 Dose: 82 mls/hr Azithromycin (Zithromax 500mg Ivpb (Pre-Docked)) 500 mg in 250 mls @ 250 mls/ hr IVPB DAILY [facility] Last Admin: 02/04/19 10:40 Dose: 250 mls/hr Meropenem 1 gm/ Dextrose 100 mls @ 200 mls/hr IVPB Q8H-IV [facility] Ampicillin Sodium 1 gm/ Sodium (Chloride) 100 mls @ 200 mls/hr IVPB Q8H-IV [facility] ; Protocol Insulin Aspart (Novolog Vial Sliding Scale -) 1 vial SQ ACHS [facility]; Protocol Last Admin: 02/04/19 12:19 Dose: 2 unit Lorazepam (Ativan -) 0.5 mg PO Q12H PRN PRN Reason: ANXIETY Last Admin: 02/02/19 18:52 Dose: 0.5 mg Melatonin (Melatonin) 3 mg PO HS [facility] Last Admin: 02/03/19 21:32 Dose: 3 mg Potassium Phos/Sodium Phos (Phos-Nak Packet -) 1 packet PO BID [facility] Last Admin: 02/04/19 10:36 Dose: 1 packet EKG - ST with PAC Abd US - mild bile duct intra-hepatic dilatation CXR- infiltrate vs. effusion left lung base 68 year old gentleman wit hx of prostate cancer sp prostatectomy, hypertension, gastritis, DM not on insulin who presents with fever and sob and admitted for suspected PNA with THIEN. #THIEN secondary to volume depletion vs. ATN in setting of PNA and NSAID use #SOB secondary to suspected PNA #Acute on chronic anemia #DM on insulin #Hypophosphatemia #Lactic acid Renal function improved with IVF can discontinue IVF and trend on oral intake should be stable for discharge tomorrow supplement phos lactic acidosis resolved Thank you Anuj Ferguson DO
[2019-02-04] MEDS: MEROPENEM 1 GM in DEXTROSE 5%-WATER 100 ML IVPB SCH ×2 (15:26→17:51)
[2019-02-04] MEDS: AMPICILLIN - 1 GM in SODIUM CHLORIDE 100 ML IVPB SCH ×2 (15:58→17:50)
[2019-02-04] MEDS ORDERED: PT OWN MED DRAWER 7, Y5N ONE ×3 (16:55→21:36)
[2019-02-04] MEDS: ACETAMINOPHEN 325 MG TABLET (FP) PO PRN (20:00)
[2019-02-04] MEDS: MELATONIN 1 MG TABLET PO SCH (21:46)
[2019-02-04] MEDS: LORazepam 0.5 MG TABLET PO PRN (21:54)
[2019-02-05] MEDS ORDERED: DEXTROSE 5%-WATER 100 ML IVPB ONE ×2 (03:10→09:15)
[2019-02-05] MEDS ORDERED: PT OWN MED DRAWER 7, Y5N ONE ×2 (03:10→09:16)
[2019-02-05] MEDS ORDERED: MEROPENEM 1 GM VIAL (RESTRICTED TO ID) IVPB ONE ×2 (03:10→09:15)
[2019-02-05] MEDS: MEROPENEM 1 GM in DEXTROSE 5%-WATER 100 ML IVPB SCH ×2 (03:13→09:22)
[2019-02-05] MEDS: AMPICILLIN - 1 GM in SODIUM CHLORIDE 100 ML IVPB SCH ×2 (03:13→09:21)
[2019-02-05] MEDS: HEPARIN NA (PORCINE) 5,000 UNITS/ML 1ML VIAL SQ SCH ×2 (06:58→13:31)
[2019-02-05] MEDS: INSULIN SLIDING SCALE (NOVOLOG) 1 VIAL SQ SCH ×2 (06:58→13:31)
[2019-02-05] MEDS: ALBUTEROL SO4 2.5/IPRATROPIUM 0.5 INH SOL 3 ML VIAL.NEB. NEB SCH ×2 (07:25→11:18)
[2019-02-05 07:57] LABS: BASO % 1.6 % (0-2.0); EOS % 3.1 % (0-4.5); HEMATOCRIT 29.3 % (35.4-49); HEMOGLOBIN 9.8 GM/dL (11.7-16.9); LYMPH % 24.2 % (8-40); MCHC 33.6 g/dl (32.0-35.9); MEAN CELL VOLUME 83.3 fl (80-96); MEAN PLT VOLUME 8.7 fl (7.5-11.1); MONO % 7.9 % (3.8-10.2); NEUT % 63.2 % (42.8-82.8); PLATELET COUNT 260 K/MM3 (134-434); RBC 3.52 M/mm3 (4.00-5.60); RDW 15.7 % (11.9-15.9); WHITE BLOOD COUNT 5.4 K/mm3 (4.0-10.0)
[2019-02-05 08:02] LABS: ALBUMIN 2.6 g/dl (3.4-5.0); BILIRUBIN,TOTAL 0.8 mg/dL (0.2-1); BLOOD UREA NITROGEN 13.2 mg/dL (7-18); CALCIUM 8.9 mg/dL (8.5-10.1); CREATININE 1.8 mg/dL (0.55-1.3); MAGNESIUM 1.6 mg/dL (1.8-2.4); PHOSPHOROUS 3.9 mg/dL (2.5-4.9); POTASSIUM 4.7 mmol/L (3.5-5.1); TOT PROT 5.7 g/dl (6.4-8.2)
[2019-02-05] MEDS: NAPH,MB-DB/K PH,MBDB POWDER PACKET PO SCH (09:21)
[2019-02-05] MEDS: AZITHROMYCIN IVPB 500 MG/250 ML BAG IVPB SCH (09:22)
--- NOTE | 2019-02-05 10:34 | PN ---
Progress Note, Physician Chief Complaint: sob History of Present Illness: no acute events overnight, afebrile, no complaints - Current Medication List Current Medications: Active Medications Acetaminophen (Tylenol -) 650 mg PO Q6H PRN PRN Reason: FEVER Last Admin: 02/04/19 20:00 Dose: 650 mg Albuterol/Ipratropium (Duoneb -) 1 amp NEB RQID [facility] Last Admin: 02/05/19 07:25 Dose: 1 amp Heparin Sodium (Porcine) (Heparin -) 5,000 unit SQ TID [facility] Last Admin: 02/05/19 06:58 Dose: 5,000 unit Azithromycin (Zithromax 500mg Ivpb (Pre-Docked)) 500 mg in 250 mls @ 250 mls/ hr IVPB DAILY [facility] Last Admin: 02/05/19 09:22 Dose: 250 mls/hr Meropenem 1 gm/ Dextrose 100 mls @ 200 mls/hr IVPB Q8H-IV [facility] Last Admin: 02/05/19 09:22 Dose: 200 mls/hr Ampicillin Sodium 1 gm/ Sodium (Chloride) 100 mls @ 200 mls/hr IVPB Q8H-IV [facility] ; Protocol Last Admin: 02/05/19 09:21 Dose: 200 mls/hr Insulin Aspart (Novolog Vial Sliding Scale -) 1 vial SQ ACHS [facility]; Protocol Last Admin: 02/05/19 06:58 Dose: Not Given Lorazepam (Ativan -) 0.5 mg PO Q12H PRN PRN Reason: ANXIETY Last Admin: 02/04/19 21:54 Dose: 0.5 mg Melatonin (Melatonin) 3 mg PO HS [facility] Last Admin: 02/04/19 21:46 Dose: 3 mg Potassium Phos/Sodium Phos (Phos-Nak Packet -) 1 packet PO BID [facility] Last Admin: 02/05/19 09:21 Dose: 1 packet - Objective Vital Signs: Vital Signs Temperature 97.7 F 02/05/19 05:00 Pulse Rate 71 02/05/19 05:00 Respiratory Rate 20 02/04/19 22:55 Blood Pressure 121/69 02/05/19 05:00 O2 Sat by Pulse Oximetry (%) 95 02/04/19 09:00 Constitutional: Yes: Well Nourished Cardiovascular: Yes: WNL, Regular Rate and Rhythm, S1, S2 Respiratory: Yes: WNL, Regular, CTA Bilaterally Gastrointestinal: Yes: WNL, Normal Bowel Sounds, Soft, Abdomen, Obese Musculoskeletal: Yes: WNL Extremities: Yes: WNL Edema: No Labs: CBC, BMP 02/05/19 06:20 02/05/19 06:20 INR, PTT INR 1.20 (0.83-1.09) H 02/02/19 02:40 Problem List - Problems (1) CKD (chronic kidney disease) Code(s): N18.9 - CHRONIC KIDNEY DISEASE, UNSPECIFIED (2) Diabetes Code(s): E11.9 - TYPE 2 DIABETES MELLITUS WITHOUT COMPLICATIONS (3) Pneumonia Code(s): J18.9 - PNEUMONIA, UNSPECIFIED ORGANISM (4) Severe sepsis Code(s): A41.9 - SEPSIS, UNSPECIFIED ORGANISM; R65.20 - SEVERE SEPSIS WITHOUT SEPTIC SHOCK (5) THIEN (acute kidney injury) Code(s): N17.9 - ACUTE KIDNEY FAILURE, UNSPECIFIED (6) Obesity Code(s): E66.9 - OBESITY, UNSPECIFIED Qualifiers: Obesity classification: adult class 1 (BMI 30 - 34.9) (7) Transaminitis Code(s): R74.0 - NONSPEC ELEV OF LEVELS OF TRANSAMNS & LACTIC ACID DEHYDRGNSE Assessment/Plan Assessment: Severe sepsis Polymicrobial Bacteremia Acute respiratory failure Pneumonia CKD (chronic kidney disease) Transaminitis DM2 Hypophosphatemia/Hypomagnesemia Plan: repeat blood cultures neg to date cw current IV abx afebrile ID following supp 02 as needed lfts continue to trend down monitor renal function, improving replete lytes as needed
[2019-02-05] MEDS ORDERED: MAGNESIUM SULF 50% (8.12 MEQ/2 ML-1 GM VIAL) IVPB ONE (11:49)
[2019-02-05 12:09] LABS: ANISOCYTOSIS 0; MACROCYTOSIS 0; PLATELET ESTIMATE NORMAL
--- NOTE | 2019-02-05 12:41 | PN ---
Progress Note (short form) - Note Progress Note: PULMONARY VSS/AFEBRILE Constitutional: Yes: Well Nourished, Calm Eyes: Yes: WNL HENT: Yes: WNL Neck: Yes: WNL Cardiovascular: Yes: Regular Rate and Rhythm, S1, S2 Respiratory: Yes: CTA Bilaterally Gastrointestinal: Yes: Normal Bowel Sounds, Soft Extremities: Yes: WNL Edema: No Labs/noted - Problems (1) Pneumonia Code(s): J18.9 - PNEUMONIA, UNSPECIFIED ORGANISM (2) Sepsis Code(s): A41.9 - SEPSIS, UNSPECIFIED ORGANISM Assessment/Plan Pneumonia ?Polymicrobial Bacteremia Sepsis Lactic Acidosis improved Acute on Chronic Renal Failure HTN DM h/o Prostate Ca Do not suspect PE - IV antibiotics - IVF - monitor urine output, creatinine - DVT prophylaxis - repeat cultures Vijay ALEXANDER MD
[2019-02-05 13:04] VITALS: BP 142/74; PULSE 76; TEMP 100.4
== END 2019-02-05 13:51 | disposition left against medical advice (07) | DRG 871 ==
LOC: JER 00:49 → JERBED 04:16 → J6S 18:43
PROVIDERS: ADMIT Internal Medicine; ATTEND Internal Medicine
DX: A41.9 Sepsis, unspecified organism (principal); J18.9 Pneumonia, unspecified organism; N17.0 Acute kidney failure with tubular necrosis; J96.00 Acute respiratory failure, unspecified whether with hypoxia or hypercapnia; E87.2 Acidosis; D64.9 Anemia, unspecified; E83.39 Other disorders of phosphorus metabolism; I12.9 Hypertensive chronic kidney disease with stage 1 through stage 4 chronic kidney disease, or unspecified chronic kidney disease; E11.22 Type 2 diabetes mellitus with diabetic chronic kidney disease; N18.9 Chronic kidney disease, unspecified; E83.42 Hypomagnesemia; R74.0 Nonspecific elevation of levels of transaminase and lactic acid dehydrogenase [LDH]; E66.9 Obesity, unspecified; Z68.32 Body mass index [BMI] 32.0-32.9, adult
CPT/HCPCS: 36415; 36600; 71045-TC-FY; 76705-TC; 78582-TC; 80053; 81003; 82248; 82550; 82565; 82607; 82728; 82746; 82803; 82962; 83036; 83540; 83550; 83605; 83690; 83735; 83880; 84100; 84156; 84300; 84484; 85025; 85379; 85610; 85730; 87040; 87086; 87186; 87205; 87899; 93005; 93010; 93306-TC; 93970-TC; 94640; 99285-25; A9539; A9540; J0131; J1644; J7030

== ENCOUNTER 2019-05-20 18:47 | Inpatient (IN) | payer OTHER ==
--- NOTE | 2019-05-20 19:44 | PDOC ---
Attending Attestation - Resident Resident Name: Ayala Andres - ED Attending Attestation I have performed the following: I have examined & evaluated the patient, The case was reviewed & discussed with the resident, I agree w/resident's findings & plan - HPI HPI: 05/20/19 21:39 Pt was told to come to the ER by his PMD who told him that his K+ is elevated. Pt is being worked up as an outpatient for dark urines and jaundice, but has no RUQ pain and no abd pain at all. He had a GB removal the last time he was in the ER 6 mos or so ago. He reports feeling formication on his skin when he sleeps at night and he feels warm/ alightly feverish. 05/20/19 21:43 No recent travel - Physicial Exam PE: 05/20/19 21:42 Pt is jaundiced and has icteric eyes. No flank and no abd pain and no pitting edema of extremities. No SOB and normal heart and lungs. Pt is A+Ox3. - Medical Decision Making 05/20/19 21:42 Pt is hungry and is requesting to eat. 05/20/19 21:43 Pt has steep elevation of LFTs and Tbili and he will be admitted to the hospitalist. He has renal insufficiency worsening He reports dark urines. K+ is slightly elevated.
--- NOTE | 2019-05-20 19:56 | PDOC ---
History of Present Illness - General Chief Complaint: Abnormal Lab Results (Outside) Stated Complaint: HIGH POTASSIUM LEVEL-SENT BY PCP Time Seen by Provider: 05/20/19 19:21 History Source: Patient Exam Limitations: Language Barrier - History of Present Illness Initial Comments: 05/20/19 19:51 68yo M with PMH of Prostate Ca s/p Prostatectomy, HTN, NIDDM presenting to ED for high potassium levels found during outpatient labs. Pt states that he had lab work done yesterday. He states that one week ago he was having chills and was diagnosed with a UTI. He has been taking an antibiotic but does not remember the name. Endorses noctural pruritis. He says that he does not have any complaints at the time. Denies chest pain, sob, abdominal pain, n/v/d, back pain, headache, numbness/tingling. PMD: Riley Renal: Marty PMH: see hpi PSH: prostatectomy, cholecystectomy Meds: see med rec Allergies: nkda Past History - Past Medical History Allergies/Adverse Reactions: Allergies Allergy/AdvReac Type Severity Reaction Status Date / Time No Known Allergies Allergy Verified 02/02/19 01:13 Home Medications: Ambulatory Orders Omeprazole 20 mg PO DAILY 11/13/17 metFORMIN HCL [Metformin HCl] 850 mg PO BID 11/13/17 COPD: No Diabetes: Yes HTN: Yes - Surgical History GI Surgery: Yes (hernia repair) - Immunization History Immunization Up to Date: Yes - Psycho Social/Smoking Cessation Hx Smoking History: Unknown if ever smoked Have you smoked in the past 12 months: No If you are a former smoker, when did you quit?: 1997 Information on smoking cessation initiated: No Hx Alcohol Use: No Drug/Substance Use Hx: No Substance Use Type: None Hx Substance Use Treatment: No Review of Systems - Review of Systems Constitutional: No: Symptoms Reported HEENTM: No: Symptoms Reported Respiratory: No: Symptoms reported Cardiac (ROS): No: Symptoms Reported ABD/GI: No: Symptoms Reported : No: Symptoms Reported Musculoskeletal: No: Symptoms Reported Integumentary: No: Symptoms Reported Neurological: No: Symptoms reported *Physical Exam - Vital Signs Last Vital Signs Temp Pulse Resp BP Pulse Ox 97.8 F 76 16 129/63 98 05/20/19 18:59 05/20/19 18:59 05/20/19 18:59 05/20/19 18:59 05/20/19 18:59 - Physical Exam General Appearance: Yes: Nourished, Appropriately Dressed. No: Apparent Distress HEENT: positive: EOMI, LENNY, Scleral Icterus (R), Scleral Icterus (L) Neck: positive: Trachea midline, Supple Respiratory/Chest: positive: Lungs Clear, Normal Breath Sounds Cardiovascular: positive: Regular Rhythm, Regular Rate, S1, S2. negative: Edema , JVD, Murmur Gastrointestinal/Abdominal: positive: Normal Bowel Sounds, Soft, Protuberent. negative: Tender, Guarding, Rebound Musculoskeletal: negative: CVA Tenderness Extremity: positive: Normal Capillary Refill. negative: Pedal Edema, Swelling, Calf Tenderness Integumentary: positive: Dry, Warm, Jaundice Neurologic: positive: director of estate II-XII NML intact, Fully Oriented, Alert, Normal Mood/ Affect, Normal Response, Motor Strength 12/26 ED Treatment Course - LABORATORY CBC & Chemistry Diagram: 05/20/19 20:30 05/21/19 01:30 Medical Decision Making - Medical Decision Making 05/20/19 19:54 68yo M presenting to ED for high K found on outpatient labs. Recently diagnosed with UTI, on abx. No complaints at this time. ddx includes but not limited to thien, renal failure, medication side effect will order ekg, basic labs. UA, UCx ekg: nsr at 73, pr 146 qtc 387. no peaked t waves. p waves present. qtc normal. no ekg changes reflective of hyperkalemia. 05/21/19 06:51 cxr relatively normal, no congestive changes, consolidations or infiltrates. labs significant for elevated LFTs, T bili and Cr 2.4. UA negative for infection. will give IV fluids. cecily liver injury 2/2 antibiotic use. given thien and liver injury, pt will benefit from admission. K 5.6, no ekg changes, will give kayexelate. accepted by hospitalist. Discharge - Discharge Information Problems reviewed: Yes Clinical Impression/Diagnosis: THIEN (acute kidney injury), Elevated liver enzymes Condition: Good - Admission Yes - Follow up/Referral - Patient Discharge Instructions - Post Discharge Activity
[2019-05-20 20:44] LABS: BASO % 1.5 % (0-2.0); EOS % 1.3 % (0-4.5); HEMATOCRIT 32.4 % (35.4-49); HEMOGLOBIN 10.7 GM/dL (11.7-16.9); LYMPH % 20.2 % (8-40); MCH 29.5 pg (25.7-33.7); MCHC 32.9 g/dl (32.0-35.9); MEAN CELL VOLUME 89.6 fl (80-96); MEAN PLT VOLUME 8.1 fl (7.5-11.1); MONO % 6.4 % (3.8-10.2); NEUT % 70.6 % (42.8-82.8); PLATELET COUNT 358 K/MM3 (134-434); RBC 3.62 M/mm3 (4.00-5.60); RDW 16.1 % (11.9-15.9); WHITE BLOOD COUNT 6.8 K/mm3 (4.0-10.0)
[2019-05-20] MEDS ORDERED: hydrOXYzine HCL 10 MG TABLET PO ONE (20:55)
[2019-05-20 21:26] LABS: EPI CELLS 7.1 /HPF (0-5/HPF); HYALINE CASTS 6 /lpf (0-8); URINE APPEARANCE CLOUDY; URINE BACTERIA 3.5 /hpf (NEGATIVE); URINE BILIRUBIN 1+ (NEGATIVE); URINE COLOR DK YELLOW; URINE GLUCOSE (UA) NEGATIVE (NEGATIVE); URINE KETONE TRACE (NEGATIVE); URINE LEUK ESTERASE 2+ (NEGATIVE); URINE NITRITE NEGATIVE (NEGATIVE); URINE PROTEIN TRACE (NEGATIVE); URINE RBC 1 /hpf (0-4); URINE UROBILINOGEN 0.2 mg/dL (0.2-1.0); URINE WBC 12 /hpf (0-5)
[2019-05-20 21:28] LABS: ALBUMIN 3.7 g/dl (3.4-5.0); BILIRUBIN,TOTAL 3.7 mg/dL (0.2-1); BLOOD UREA NITROGEN 35.7 mg/dL (7-18); CALCIUM 9.5 mg/dL (8.5-10.1); CREATININE 2.4 mg/dL (0.55-1.3); MAGNESIUM 1.5 mg/dL (1.8-2.4); POTASSIUM 5.6 mmol/L (3.5-5.1); TOT PROT 7.2 g/dl (6.4-8.2)
[2019-05-20 21:31] LABS: YEAST POSITIVE (NEGATIVE)
[2019-05-20] MEDS ORDERED: SODIUM CHLORIDE 1,000 ML IV STA (21:35)
[2019-05-20] MEDS ORDERED: SODIUM POLYSTYRENE SULFONATE 15 GM/60 ML BOTTLE PO ONE (22:02)
[2019-05-20] MEDS ORDERED: SODIUM POLYSTYRENE SULFONATE 15 GM/60 ML BOTTLE ONE (22:27)
--- NOTE | 2019-05-20 22:38 | PN ---
Teaching Attending Note Name of Resident: Alexis Barillas ATTENDING PHYSICIAN STATEMENT I saw and evaluated the patient. I reviewed the resident's note and discussed the case with the resident. I agree with the resident's findings and plan as documented. SUBJECTIVE: Patient is a 68 year old man with a PMH of prostate CA (s/p prostatectomy), Cholangitis, Cholelithiasis, Cholecystectomy, Hematuria, Anemia, NIDDM, CKD ( after hospital-acquired acute renal failure) and hypertension, who presents to the ER for high potassium levels found during outpatient labs. Patient states that he had lab work done yesterday. He states that one week ago he was having chills and was diagnosed with a UTI. He has been taking an antibiotic but does not remember the name. Has had nocturnal pruritis, dark colored urine and chills. He says that he does not have any complaints at the time. Denies chest pain, SOB, abdominal pain, nausea, vomiting, diarhrea, back pain, headache, numbness or tingling. He has been a strict vegeterian for years and has also been using a lot of Advil PM prior to his recent admission in January 2019. On 11/13/17 he was admitted for ascending cholangitis and his course was complicated by ESBL E. Coli UTI/bacteremia, Septic shock, Respiratory failure with ventilator support, and acute renal failure requiring few hemodialysis treatments. Also had MRCP, ERCP and laparoscopic cholecystectomy. Does not remember the name of the antibiotic his PCP gave him yesterday for a penile "ulcer" - may be due to local trauma. He wears a sock over his penis due to incontinence. FH of colon cancer. OBJECTIVE: Alert Vital Signs Period Temp Pulse Resp BP Sys/Leyva Pulse Ox Last 24 Hr 97.8 F 76 16 129/63 98 HEENT: Scleral icterus, eye redness or discharge, PERRLA, EOMI. Normocephalic, atraumatic. External ears are normal and hearing is grossly intact. No nasal discharge. Neck: Supple, nontender. No palpable adenopathy or thyromegaly. No JVD Chest: Good effort. Clear to auscultation and percussion. Heart: Regular. No S3, rub or murmur Abdomen: Distended, soft, nontender and no HSM. No rebound or guarding. Normal bowel sounds. Ext: Peripheral pulses intact. No leg edema. Skin: Warm and dry. No petechiae, rash or ecchymosis. Neuro: Alert. Oriented x3. CN 2-12 grossly intact. Sensation grossly intact in all four extremities and DTR are symmetric. Psych: Appropriate mood and affect. Good insight. Home Medications Medication Instructions Recorded Omeprazole 20 mg PO DAILY 11/13/17 metFORMIN HCL [Metformin HCl] 850 mg PO DAILY 11/13/17 Abnormal Lab Results 05/20/19 05/20/19 05/20/19 20:30 20:30 21:08 RBC 3.62 L Hgb 10.7 L Hct 32.4 L RDW 16.1 H Potassium 5.6 H Chloride 108 H Carbon Dioxide 20 L BUN 35.7 H Creatinine 2.4 H Random Glucose 119 H Magnesium 1.5 L Total Bilirubin 3.7 H AST 447 H ALT 789 H Alkaline Phosphatase 963 H Urine Ketones Trace H Urine Bilirubin 1+ H Ur Leukocyte Esterase 2+ H ASSESSMENT AND PLAN: 1. Hyperkalemia complicating CKD;UTI - Hyperkalemia likely chiefly type 4 RTA precipitated by dehydration and/or UTI. EKG is NSR with no EKG signs of hyperkalemia. Will repeat BMP, continue kayexalate, hydrate gently and give glucose with isnlin if repeat K+ is >5.6 me/L. Has had ESBL producing E.Coli infection in the past. Will treat with Ertapenem pending culture report. No acute abnormality on CXR. Will give IV MgSO4 for low Mg+. Has very high LFTs - has had cholelithasis and dilated CBD. Will get CT abdomen/pelvis, hepatitis serology and trend LFTs. Consult GI. Use topical emollients for pruritus which may be caused by liver disease and/or secondary hyperparathyroidism. Do STD panel workup and treat accordingly. Consult ID. Will continue comprehensive care for all of patients comorbid conditions. 2. DM For now, we will hold the home diabetes drugs and implement sliding scale insulin regimen. Provide comprehensive diabetes care with patient teaching and counseling about the importance of adherence to prescribed diabetes regimen, euglycemia, eye care and foot care. 3. CKD stage 3 - Will hydrate gently to correct any superimposed dehydration and enhance K+ excretion. Get kidney sonogram, PTH and phosphate levels. Will consult nephrology and avoid nephrotoxic agents such as NSAIDS, aminoglycosides , contrast dyes and certain Alternative medicine products. 4. Anemia - Likely multifactorial including renal anemia. Will do basic anemia work up including serial stool guaiacs, reticulocyte count and iron studies. Would benefit from Procrit therapy once iron replete. 5. Hypertension - Restart suitable outpatient antihypertensive drugs when clinically appropriate. 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 Nonpharmacologic measures to control hypertension like weight loss , salt restriction and exercise discussed. Importance of adherence to treatment regimen and attainment of normotension emphasized. 6. DVT prophylaxis - Heparin 5000u sq tid. 7. Advance directives - Full code
[2019-05-21] MEDS ORDERED: MAGNESIUM SULF 50% (8.12 MEQ/2 ML-1 GM VIAL) IVPB ONE (00:52)
[2019-05-21] MEDS ORDERED: ERTAPENEM SODIUM 1 GM in SODIUM CHLORIDE 50 ML IVPB SCH (00:53)
[2019-05-21] MEDS ORDERED: SODIUM POLYSTYRENE SULFONATE 15 GM/60 ML BOTTLE PO ONE ×2 (00:56→00:59)
[2019-05-21] MEDS ORDERED: HEPARIN NA (PORCINE) 5,000 UNITS/ML 1ML VIAL ONE (01:11)
[2019-05-21] MEDS ORDERED: SODIUM POLYSTYRENE SULFONATE 15 GM/60 ML BOTTLE ONE (01:11)
[2019-05-21] MEDS ORDERED: ERTAPENEM SODIUM 1 GM VIAL ONE (01:11)
[2019-05-21] MEDS ORDERED: MAGNESIUM 1GM/D5W - 2 GM/200 ML IVPB IVPB ONE (01:11)
[2019-05-21 02:34] LABS: BLOOD UREA NITROGEN 32.2 mg/dL (7-18); CALCIUM 8.6 mg/dL (8.5-10.1); CREATININE 2.2 mg/dL (0.55-1.3)
[2019-05-21 02:48] LABS: ALBUMIN 3.1 g/dl (3.4-5.0); BILIRUBIN,DIRECT 2.3 mg/dL (0.0-0.2); BILIRUBIN,TOTAL 3.2 mg/dL (0.2-1); TOT PROT 6.3 g/dl (6.4-8.2)
[2019-05-21 05:51] VITALS: BMI 25.9
[2019-05-21] MEDS: INSULIN SLIDING SCALE (NOVOLOG) 1 VIAL SQ SCH ×4 (06:31→21:18)
[2019-05-21] MEDS: HEPARIN NA (PORCINE) 5,000 UNITS/ML 1ML VIAL SQ SCH ×3 (06:33→21:18)
[2019-05-21] MEDS ORDERED: INSULIN SLIDING SCALE (NOVOLOG) 1 VIAL SQ SCH (07:00)
--- NOTE | 2019-05-21 07:06 | HP ---
CHIEF COMPLAINT: UTI and elevated LFTs PCP: Dr. Lin HISTORY OF PRESENT ILLNESS: Mr. 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 The patient reports that about 7 days ago he noticed his urine became "dirty" and the head of his penis turned yellow. His symptoms were also associated with feeling feverish at night and chills. 3 days ago the patient's skin became diffusely itchy. The patient first saw his primary care doctor and a color paste mixer. He was prescribed an antibiotic which he only started taking yesterday. The patient cannot remember the name but states its beige and dark blue in color and he was prescribed 100mg BID. He states he took one dose at 11pm on the evening of the and then took his second dose at 11am on the . The patient did not take his evening dose today because he came to the hospital. He denies any other symptoms including abdominal pain, nausea, vomiting, constipation, chest pain, SOB, or cough. He came to the hospital today because during his outpatient workup for his urinary symptoms and itching, it was discovered that his K+ was elevated to "above 6". Patient was recently hospitalized here for a UTI in January. He was discharged home on antibiotics but states that his didn't finish the medicine "once his urine became clear". Pt is being worked up as an outpatient for dark urines and jaundice, but has no RUQ pain and no abd pain at all. He had a GB removal the last time he was in the ER 6 mos or so ago. He reports feeling formication on his skin when he sleeps at night and he feels warm/ alightly feverish. ER course was notable for: (1) labs drawn and urine cx sent (2) ekg normal, with NSR and QTC 387 (3) 15 mg kayexalate given Recent Travel: denies PAST MEDICAL HISTORY: prostate CA (s/p prostatectomy in 2011), Cholangitis, Cholelithiasis, Cholecystectomy (10/2017 at [facility]), Hematuria, Anemia, NIDDM, CKD (after hospital-acquired acute renal failure) and hypertension, PAST SURGICAL HISTORY: prostatectomy in 2011, cholecystectomy 2017 Social History: Smoking: former ppd smoker, quit in 2003 Alcohol: denies Drugs: denies Sexual History: in 2016, denies any new sexual partners Allergies No Known Allergies Allergy (Verified 02/02/19 01:13) HOME MEDICATIONS: Home Medications Medication Instructions Recorded Omeprazole 20 mg PO DAILY 11/13/17 metFORMIN HCL [Metformin HCl] 850 mg PO BID 11/13/17 REVIEW OF SYSTEMS CONSTITUTIONAL: fever, chills, Absent: diaphoresis, generalized weakness, malaise, loss of appetite, weight change HEENT: Absent: rhinorrhea, nasal congestion, throat pain, throat swelling, difficulty swallowing, mouth swelling, ear pain, eye pain, visual changes CARDIOVASCULAR: Absent: chest pain, syncope, palpitations, irregular heart rate, lightheadedness , peripheral edema RESPIRATORY: Absent: cough, shortness of breath, dyspnea with exertion, orthopnea, wheezing, stridor, hemoptysis GASTROINTESTINAL: Absent: abdominal pain, abdominal distension, nausea, vomiting, diarrhea, constipation, melena, hematochezia GENITOURINARY: dark urine, urinary incontinence Absent: dysuria, frequency, urgency, hesitancy, hematuria, flank pain, genital pain MUSCULOSKELETAL: Absent: myalgia, arthralgia, joint swelling, back pain, neck pain SKIN: Absent: rash, itching, pallor HEMATOLOGIC/IMMUNOLOGIC: Absent: easy bleeding, easy bruising, lymphadenopathy, frequent infections ENDOCRINE: Absent: unexplained weight gain, unexplained weight loss, heat intolerance, cold intolerance NEUROLOGIC: Absent: headache, focal weakness or paresthesias, dizziness, unsteady gait, seizure, mental status changes, bladder or bowel incontinence PSYCHIATRIC: Absent: anxiety, depression, suicidal or homicidal ideation, hallucinations. PHYSICAL EXAMINATION Vital Signs - 24 hr 05/20/19 05/21/19 05/21/19 18:59 04:27 05:46 Temperature 97.8 F 97.7 F Pulse Rate 76 67 Pulse Rate [ 73 Right] Respiratory 16 16 20 Rate Blood Pressure 129/63 118/72 Blood Pressure 124/67 [Right Arm] O2 Sat by Pulse 98 97 Oximetry (%) 05/21/19 05:58 Temperature Pulse Rate Pulse Rate [ Right] Respiratory 20 Rate Blood Pressure Blood Pressure [Right Arm] O2 Sat by Pulse 100 Oximetry (%) GENERAL: Awake, alert, and fully oriented, in no acute distress. HEAD: Normal with no signs of trauma. EYES: Pupils equal, round and reactive to light, extraocular movements intact, scleral icterus, No lid lag. EARS, NOSE, THROAT: Ears normal, nares patent, oropharynx clear without exudates. Moist mucous membranes. NECK: Normal range of motion, supple without lymphadenopathy, JVD, or masses. LUNGS: Breath sounds equal, clear to auscultation bilaterally. No wheezes, and no crackles. No accessory muscle use. HEART: Regular rate and rhythm, normal S1 and S2 without murmur, rub or gallop. ABDOMEN: Soft, nontender, distended, normoactive bowel sounds, no guarding, no rebound. MUSCULOSKELETAL: Normal range of motion at all joints. No bony deformities or tenderness. No CVA tenderness. : patient found to be wearing a sock around his penis that was wrapped in a plastic bag. Patient stated that he has urinary incontinence and that "diapers are for ladies". UPPER EXTREMITIES: 2+ pulses, warm, well-perfused. No cyanosis. No clubbing. No peripheral edema. LOWER EXTREMITIES: 2+ pulses, warm, well-perfused. No calf tenderness. No peripheral edema. NEUROLOGICAL: Cranial nerves II-XII intact. Normal speech. gait not observed PSYCHIATRIC: Cooperative. Good eye contact. Appropriate mood and affect. SKIN: Warm, dry, normal turgor, no rashes or lesions noted, normal capillary refill. Laboratory Results - last 24 hr 05/20/19 05/20/19 05/20/19 20:30 20:30 20:30 WBC 6.8 RBC 3.62 L Hgb 10.7 L Hct 32.4 L MCV 89.6 MCH 29.5 MCHC 32.9 RDW 16.1 H Plt Count 358 D MPV 8.1 Absolute Neuts (auto) 4.8 Neutrophils % 70.6 Lymphocytes % 20.2 Monocytes % 6.4 Eosinophils % 1.3 Basophils % 1.5 Nucleated RBC % 0 Sodium 137 Potassium 5.6 H Chloride 108 H Carbon Dioxide 20 L Anion Gap 8 BUN 35.7 H Creatinine 2.4 H Est GFR (CKD-EPI)AfAm 31.18 Est GFR (CKD-EPI)NonAf 26.90 POC Glucometer Random Glucose 119 H Calcium 9.5 Magnesium 1.5 L Total Bilirubin 3.7 H Direct Bilirubin AST 447 H ALT 789 H Alkaline Phosphatase 963 H Ammonia Troponin I < 0.02 Total Protein 7.2 Albumin 3.7 Lipase Urine Color Urine Appearance Urine pH Ur Specific [place] Urine Protein Urine Glucose (UA) Urine Ketones Urine Blood Urine Nitrite Urine Bilirubin Urine Urobilinogen Ur Leukocyte Esterase Urine WBC (Auto) Urine RBC (Auto) Urine Casts (Auto) U Epithel Cells (Auto) Urine Bacteria (Auto) Urine Yeast (Auto) 05/20/19 05/20/19 05/20/19 20:30 21:08 21:45 WBC RBC Hgb Hct MCV MCH MCHC RDW Plt Count MPV Absolute Neuts (auto) Neutrophils % Lymphocytes % Monocytes % Eosinophils % Basophils % Nucleated RBC % Sodium Potassium Chloride Carbon Dioxide Anion Gap BUN Creatinine Est GFR (CKD-EPI)AfAm Est GFR (CKD-EPI)NonAf POC Glucometer Random Glucose Calcium Magnesium Total Bilirubin Direct Bilirubin AST ALT Alkaline Phosphatase Ammonia 13.90 Troponin I Total Protein Albumin Lipase 270 Urine Color Dk yellow Urine Appearance Cloudy Urine pH 5.0 Ur Specific [place] 1.017 Urine Protein Trace Urine Glucose (UA) Negative Urine Ketones Trace H Urine Blood Negative Urine Nitrite Negative Urine Bilirubin 1+ H Urine Urobilinogen 0.2 Ur Leukocyte Esterase 2+ H Urine WBC (Auto) 12 Urine RBC (Auto) 1 Urine Casts (Auto) 6 U Epithel Cells (Auto) 7.1 Urine Bacteria (Auto) 3.5 Urine Yeast (Auto) Positive 05/21/19 05/21/19 05/21/19 01:30 01:30 05:23 WBC RBC Hgb Hct MCV MCH MCHC RDW Plt Count MPV Absolute Neuts (auto) Neutrophils % Lymphocytes % Monocytes % Eosinophils % Basophils % Nucleated RBC % Sodium 140 Potassium 5.0 Chloride 113 H Carbon Dioxide 20 L Anion Gap 8 BUN 32.2 H Creatinine 2.2 H Est GFR (CKD-EPI)AfAm 34.64 Est GFR (CKD-EPI)NonAf 29.89 POC Glucometer 157 Random Glucose 169 H Calcium 8.6 Magnesium Total Bilirubin 3.2 H Direct Bilirubin 2.3 H AST 416 H ALT 707 H Alkaline Phosphatase 919 H Ammonia Troponin I Total Protein 6.3 L Albumin 3.1 L Lipase Urine Color Urine Appearance Urine pH Ur Specific [place] Urine Protein Urine Glucose (UA) Urine Ketones Urine Blood Urine Nitrite Urine Bilirubin Urine Urobilinogen Ur Leukocyte Esterase Urine WBC (Auto) Urine RBC (Auto) Urine Casts (Auto) U Epithel Cells (Auto) Urine Bacteria (Auto) Urine Yeast (Auto) ASSESSMENT/PLAN: Mr. Albrecht is a 68M with a past medical history of prostate CA (s/p prostatectomy in 2011), Cholangitis, Cholelithiasis, Cholecystectomy (10/2017 at [facility]), Hematuria, Anemia, NIDDM, CKD (after hospital-acquired acute renal failure) and hypertension, who presents to the ER for elevated potassium levels found during outpatient labs. He is admitted to the hospital for management of his hyperkalemia in addition to workup for possible UTI and evaluation of his elevated LFTs and puritis. # Hyperkalemia complicating CKD - EKG is NSR with no EKG signs of hyperkalemia. - repeat BMP - continue kayexalate - hydrate gently and give glucose with insulin if repeat K+ is >5.6 me/L. # UTI - Has had ESBL producing E.Coli infection in the past. - Ertapenem pending culture report - No acute abnormality on CXR. # Elevated LFTs and Electrolyte abnormalities - IV MgSO4 for low Mg+ - history of cholelithasis and dilated CBD -CT abdomen/pelvis - hepatitis serology - trend LFTs - Consult GI - F/u STD panel workup and treat accordingly # CKD stage 3 - hydrate gently to correct any superimposed dehydration and enhance K+ excretion. - kidney u/s - Will consult nephrology and avoid nephrotoxic agents such as NSAIDS, aminoglycosides, and contrast dyes # DM - BGM ACHS -ISS # DVT prophylaxis - Heparin 5000u sq tid. Advance directives - Full code Visit type - Emergency Visit Emergency Visit: Yes ED Registration Date: 05/20/19 Care time: The patient presented to the Emergency Department on the above date and was hospitalized for further evaluation of their emergent condition. - New Patient This patient is new to me today: Yes Date on this admission: 05/21/19 - Critical Care Critical Care patient: No ATTENDING PHYSICIAN STATEMENT I saw and evaluated the patient. I reviewed the resident's note and discussed the case with the resident. I agree with the resident's findings and plan as documented. SUBJECTIVE: OBJECTIVE: ASSESSMENT AND PLAN:
[2019-05-21 08:36] LABS: HEMATOCRIT 32.2 % (35.4-49); HEMOGLOBIN 10.6 GM/dL (11.7-16.9); MCH 29.7 pg (25.7-33.7); MCHC 32.9 g/dl (32.0-35.9); MEAN CELL VOLUME 90.2 fl (80-96); MEAN PLT VOLUME 8.1 fl (7.5-11.1); PLATELET COUNT 397 K/MM3 (134-434); RBC 3.57 M/mm3 (4.00-5.60); RDW 15.8 % (11.9-15.9); WHITE BLOOD COUNT 4.9 K/mm3 (4.0-10.0)
[2019-05-21 08:59] LABS: ALBUMIN 3.3 g/dl (3.4-5.0); BLOOD UREA NITROGEN 29.4 mg/dL (7-18); CALCIUM 9.2 mg/dL (8.5-10.1); POTASSIUM 4.8 mmol/L (3.5-5.1)
[2019-05-21] MEDS ORDERED: ERTAPENEM SODIUM 1 GM in SODIUM CHLORIDE 50 ML IVPB ONE (10:00)
[2019-05-21] MEDS: PANTOPRAZOLE 40 MG TABLET (FP) PO SCH (10:10)
[2019-05-21] MEDS ORDERED: ERTAPENEM SODIUM 0.5 GM in SODIUM CHLORIDE 50 ML IVPB ONE (12:00)
[2019-05-21] MEDS ORDERED: PNEUMOC 13-VAL CONJ-DIP CRM/PF 0.5 ML DISP.SYRIN IM ONE (12:47)
--- NOTE | 2019-05-21 13:39 | CON.NEP ---
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 Cardio/Vascular: Yes: HTN Renal/: Yes: Cancer (s/p prostatetctomy ) Endocrine: Yes: Diabetes Mellitus Additional Medical History: obesity - Past Surgical History Past Surgical History: Yes: Prostatectomy - Alcohol/Substance Use Hx Alcohol Use: No - Smoking History Smoking history: Unknown if ever smoked Have you smoked in the past 12 months: No If you are a former smoker, when did you quit?: 1997 Home Medications - Allergies Allergies/Adverse Reactions: Allergies Allergy/AdvReac Type Severity Reaction Status Date / Time No Known Allergies Allergy Verified 02/02/19 01:13 - Home Medications Home Medications: Ambulatory Orders Omeprazole 20 mg PO DAILY 11/13/17 metFORMIN HCL [Metformin HCl] 850 mg PO BID 11/13/17 Nephrology Consult - Height Height: 5 ft 3 in - Weight Weight: 146 lb 1 oz - BMI Body Mass Index (BMI): 25.9 - Lab Results CBC,BMP: CBC, BMP 05/21/19 07:50 05/21/19 07:50 Anion Gap: Anion Gap Anion Gap 7 MMOL/L (8-16) L 05/21/19 07:50 - Physical Examination Vital Signs: Vital Signs Temperature 98.3 F 05/21/19 13:23 Pulse Rate 78 05/21/19 13:23 Respiratory Rate 20 05/21/19 13:23 Blood Pressure 108/56 L 05/21/19 13:23 O2 Sat by Pulse Oximetry (%) 96 05/21/19 09:00 Assessment/Plan IMP CKD with fluctuating levels of azotemia not clear what his baseline s creat was under 2 in 2018, the more than 2 in metabolic acidosis on admission s/p hyperkalemia anemia transaminitis/biliary stent in place 05/20/19 05/21/19 05/21/19 20:30 01:30 01:30 Hgb 10.7 L Hct 32.4 L Sodium 140 Potassium 5.0 Chloride 113 H Carbon Dioxide 20 L BUN 32.2 H Creatinine 2.2 H AST 416 H ALT 707 H Alkaline Phosphatase 919 H Albumin 3.1 L 05/21/19 05/21/19 07:50 07:50 Hgb 10.6 L Hct 32.2 L Sodium 141 Potassium 4.8 Chloride 112 H Carbon Dioxide 22 BUN 29.4 H Creatinine 2.0 H AST 440 H ALT 807 H Alkaline Phosphatase 925 H Albumin 3.3 L Rec- encourage plenty fluid for rehydration
--- NOTE | 2019-05-21 14:44 | PN ---
Progress Note (short form) - Note Progress Note: Patient is comfortable with no acute distress, denies having any pain. Vital Signs Temperature 98.3 F 05/21/19 13:23 Pulse Rate 78 05/21/19 13:23 Respiratory Rate 20 05/21/19 13:23 Blood Pressure 108/56 L 05/21/19 13:23 O2 Sat by Pulse Oximetry (%) 96 05/21/19 09:00 GENERAL: The patient is awake, alert, and fully oriented, in no acute distress. HEAD: Normal with no signs of trauma. EYES: PERRL, EOMI, sclera anicteric, conjunctiva clear. ENT: Ears normal, oropharynx clear without exudates, moist mucous membranes. NECK: Trachea midline, full range of motion, supple. LUNGS: Breath sounds equal, clear to auscultation bilaterally, no wheezes, no crackles, no accessory muscle use. HEART: Regular rate and rhythm, S1, S2 without murmur, rub or gallop. ABDOMEN: Soft, NT, mild distention, normoactive bowel sounds, no guarding, no rebound, no hepatosplenomegaly, no masses. EXTREMITIES: 2+ pulses, warm, well-perfused, no edema. NEUROLOGICAL: Cranial nerves II through XII grossly intact. Normal speech, gait not observed. PSYCH: Normal mood, normal affect. SKIN: Warm, dry, normal turgor, no rashes or lesions noted CBCD WBC 4.9 K/mm3 (4.0-10.0) 05/21/19 07:50 RBC 3.57 M/mm3 (4.00-5.60) L 05/21/19 07:50 Hgb 10.6 GM/dL (11.7-16.9) L 05/21/19 07:50 Hct 32.2 % (35.4-49) L 05/21/19 07:50 MCV 90.2 fl (80-96) 05/21/19 07:50 MCHC 32.9 g/dl (32.0-35.9) 05/21/19 07:50 RDW 15.8 % (11.9-15.9) 05/21/19 07:50 Plt Count 397 K/MM3 (134-434) 05/21/19 07:50 MPV 8.1 fl (7.5-11.1) 05/21/19 07:50 CMP Sodium 141 mmol/L (136-145) 05/21/19 07:50 Potassium 4.8 mmol/L (3.5-5.1) 05/21/19 07:50 Chloride 112 mmol/L (98-107) H 05/21/19 07:50 Carbon Dioxide 22 mmol/L (21-32) 05/21/19 07:50 Anion Gap 7 MMOL/L (8-16) L 05/21/19 07:50 BUN 29.4 mg/dL (7-18) H 05/21/19 07:50 Creatinine 2.0 mg/dL (0.55-1.3) H 05/21/19 07:50 Random Glucose 138 mg/dL (74-106) H 05/21/19 07:50 Calcium 9.2 mg/dL (8.5-10.1) 05/21/19 07:50 Total Bilirubin 3.0 mg/dL (0.2-1) H 05/21/19 07:50 AST 440 U/L (15-37) H 05/21/19 07:50 ALT 807 U/L (13-61) H 05/21/19 07:50 Alkaline Phosphatase 925 U/L (45-117) H 05/21/19 07:50 Total Protein 7.0 g/dl (6.4-8.2) 05/21/19 07:50 Albumin 3.3 g/dl (3.4-5.0) L 05/21/19 07:50 CARDIAC ENZYMES Troponin I < 0.02 ng/ml (0.00-0.05) 05/20/19 20:30 Current Medications Generic Name Dose Route Start Last Admin Trade Name Freq PRN Reason Stop Dose Admin Heparin Sodium (Porcine) 5,000 unit 05/21/19 06:00 05/21/19 13:37 Heparin - SQ 5,000 unit TID [facility] Administration Ertapenem 0.5 gm/ Sodium 50 mls @ 100 mls/hr 05/22/19 10:00 Chloride IVPB DAILY [facility] Insulin Aspart 1 vial 05/21/19 07:00 05/21/19 11:42 Novolog Vial Sliding Scale - SQ 2 units ACHS [facility]ERE Administration Protocol Pantoprazole Sodium 40 mg 05/21/19 10:00 05/21/19 10:10 Protonix - PO 40 mg DAILY [facility]ERE Administration Home Medications Medication Instructions Recorded Omeprazole 20 mg PO DAILY 11/13/17 metFORMIN HCL [Metformin HCl] 850 mg PO BID 11/13/17 Laboratory Tests 05/20/19 05/21/19 05/21/19 20:30 01:30 01:30 Potassium 5.6 H 5.0 BUN 35.7 H 32.2 H Creatinine 2.4 H 2.2 H AST 447 H 416 H ALT 789 H 707 H Alkaline Phosphatase 963 H 919 H 05/21/19 07:50 Potassium 4.8 BUN 29.4 H Creatinine 2.0 H AST 440 H ALT 807 H Alkaline Phosphatase 925 H Urine Test Results Urine Color Dk yellow 05/20/19 21:08 Urine Appearance Cloudy 05/20/19 21:08 Urine pH 5.0 (5.0-8.0) 05/20/19 21:08 Ur Specific [place] 1.017 (1.010-1.035) 05/20/19 21:08 Urine Protein Trace (NEGATIVE) 05/20/19 21:08 Urine Glucose (UA) Negative (NEGATIVE) 05/20/19 21:08 Urine Ketones Trace (NEGATIVE) H 05/20/19 21:08 Urine Blood Negative (NEGATIVE) 05/20/19 21:08 Urine Nitrite Negative (NEGATIVE) 05/20/19 21:08 Urine Bilirubin 1+ (NEGATIVE) H 05/20/19 21:08 Ur Leukocyte Esterase 2+ (NEGATIVE) H 05/20/19 21:08 Assesement and plan: Patient is a 68yo male with a PMHx of prostate CA (s/p prostatectomy in 2011), Cholangitis, Cholelithiasis, Cholecystectomy (10/2017 at [facility]), Hematuria, Anemia , NIDDM, CKD , hypertension, who presents to the ED for elevated potassium levels. And was found to have elevated LFTs s/p ercp with stent placement with sphincterotomy. #Stent placement on 10/2017 s/p ERCP with sphincterotomy due to obstructing distal CBD by . Gi consulted, continue IV antibiotics Ertapenem, ID on the case. # Hyperkalemia : Monitor , IVF # acute THIEN over CKD ; Will hydrate and monitor # Hx of UTI with hx of ESBL on Ertapenem # Elevated LFTs due to stent placement that was placed on 10/2017 # T2DM :SS with coverage DVT prophylaxis: heparin sq Visit type - Emergency Visit Emergency Visit: Yes ED Registration Date: 05/20/19 Care time: The patient presented to the Emergency Department on the above date and was hospitalized for further evaluation of their emergent condition. - New Patient This patient is new to me today: Yes Date on this admission: 05/21/19 - Critical Care Critical Care patient: No - Discharge Referral Referred to [facility] No
[2019-05-22] MEDS: HEPARIN NA (PORCINE) 5,000 UNITS/ML 1ML VIAL SQ SCH ×3 (05:17→21:24)
[2019-05-22] MEDS: INSULIN SLIDING SCALE (NOVOLOG) 1 VIAL SQ SCH ×4 (06:02→21:24)
--- NOTE | 2019-05-22 07:55 | CON.GI ---
Consult - History of Present Illness History of Present Illness: GI CONSULT DICTATED - ABX - SEROLOGY FOR CHRONIC LIVER DISEASE - F/U MRCP - TENTATIVE NPO MIDNIGHT - DR. MOORE TO RESUME CARE TOMORROW - SEE CONSULT FOR FULL DETAILS - Past Medical History HEAD MECHANIC: Yes: TIA Cardio/Vascular: Yes: HTN Renal/: Yes: Cancer (s/p prostatetctomy ) Endocrine: Yes: Diabetes Mellitus Additional Medical History: obesity - Past Surgical History Past Surgical History: Yes: Prostatectomy - Alcohol/Substance Use Hx Alcohol Use: No - Smoking History Smoking history: Unknown if ever smoked Have you smoked in the past 12 months: No If you are a former smoker, when did you quit?: 1997 Home Medications - Allergies Allergies/Adverse Reactions: Allergies Allergy/AdvReac Type Severity Reaction Status Date / Time No Known Allergies Allergy Verified 02/02/19 01:13 - Home Medications Home Medications: Ambulatory Orders Omeprazole 20 mg PO DAILY 11/13/17 Physical Exam-GI Vital Signs: Vital Signs Temperature 98.6 F 05/22/19 04:56 Pulse Rate 79 05/22/19 04:56 Respiratory Rate 20 05/22/19 04:56 Blood Pressure 110/62 05/22/19 04:56 O2 Sat by Pulse Oximetry (%) 96 05/21/19 22:00 Labs: CBC, BMP 05/21/19 07:50 05/21/19 07:50
[2019-05-22 08:18] LABS: BASO % 0.2 % (0-2.0); EOS % 1.9 % (0-4.5); HEMATOCRIT 34.6 % (35.4-49); HEMOGLOBIN 11.3 GM/dL (11.7-16.9); LYMPH % 26.5 % (8-40); MCH 29.5 pg (25.7-33.7); MCHC 32.6 g/dl (32.0-35.9); MEAN CELL VOLUME 90.5 fl (80-96); MEAN PLT VOLUME 8.8 fl (7.5-11.1); MONO % 6.2 % (3.8-10.2); NEUT % 65.2 % (42.8-82.8); PLATELET COUNT 394 K/MM3 (134-434); RBC 3.82 M/mm3 (4.00-5.60)
[2019-05-22 08:37] LABS: ALBUMIN 3.5 g/dl (3.4-5.0); BILIRUBIN,TOTAL 2.1 mg/dL (0.2-1); BLOOD UREA NITROGEN 27.3 mg/dL (7-18); CALCIUM 9.5 mg/dL (8.5-10.1); CREATININE 2.1 mg/dL (0.55-1.3); MAGNESIUM 1.7 mg/dL (1.8-2.4); PHOSPHOROUS 3.5 mg/dL (2.5-4.9); POTASSIUM 5.5 mmol/L (3.5-5.1)
[2019-05-22] MEDS ORDERED: MAGNESIUM SULF 50% (8.12 MEQ/2 ML-1 GM VIAL) IVPB ONE (09:51)
[2019-05-22] MEDS ORDERED: ERTAPENEM SODIUM 0.5 GM in SODIUM CHLORIDE 50 ML IVPB SCH (10:00)
[2019-05-22] MEDS: PANTOPRAZOLE 40 MG TABLET (FP) PO SCH (11:02)
[2019-05-22] MEDS ORDERED: INSULIN (NOVOLOG) ASPART 100 UNITS/ML 10ML VIAL ONE (11:38)
[2019-05-22] MEDS ORDERED: SODIUM POLYSTYRENE SULFONATE 15 GM/60 ML BOTTLE PO ONE ×2 (11:45→12:42)
--- NOTE | 2019-05-22 13:45 | PN ---
Physical Exam: SUBJECTIVE: Patient seen and examined. Pt. denies any acute complaints other than frustration at not having stent removed during last hospitlaization. Discussed with Pt. and daughter at length that Dr. Soni after ERCP #2 left stent and educated Pt. in [place] to have stent removed in 3 month s with followup. Pt. did not follow up. Pt. during last hospitalization left AMA. Discussed with daughter who convinced Pt. from leaving AMA again. Pt. asking to have procedire tomorrow as "he is poor and cannot afford to miss even a few days of work because he would be unable to pay his rent and would be kicked out of his apartment." Daughter explains that Pt. 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 OBJECTIVE: Vital Signs Period Temp Pulse Resp BP Sys/Leyva Pulse Ox Last 24 Hr 98 F-98.6 F 76-96 20-20 110-144/43-76 96-98 GENERAL: The patient is awake, alert, and fully oriented, in no acute distress. HEAD: Normal with no signs of trauma. EYES: extraocular movements intact, sclera anicteric, conjunctiva clear. No ptosis. ENT: Ears normal, nares patent, oropharynx clear without exudates, moist mucous membranes. LUNGS: Breath sounds equal, clear to auscultation bilaterally, no wheezes, no crackles, no accessory muscle use. HEART: Regular rate and rhythm, S1, S2 without murmur ABDOMEN: Soft but protuberant, nontender, nondistended, normoactive bowel sounds , no guarding, no rebound EXTREMITIES: 2+ dorsal pedal pulses, warm, no calf tenderness, well-perfused, no edema. NEUROLOGICAL: Cranial nerves II through XII grossly intact. Normal speech, gait not observed. PSYCH: Normal mood, normal affect. SKIN: Warm, dry, normal turgor, no rashes or lesions noted Laboratory Results - last 24 hr 05/21/19 05/21/19 05/22/19 16:15 21:17 04:57 WBC RBC Hgb Hct MCV MCH MCHC RDW Plt Count MPV Absolute Neuts (auto) Neutrophils % Lymphocytes % Monocytes % Eosinophils % Basophils % Nucleated RBC % Sodium Potassium Chloride Carbon Dioxide Anion Gap BUN Creatinine Est GFR (CKD-EPI)AfAm Est GFR (CKD-EPI)NonAf POC Glucometer 168 165 116 Random Glucose Calcium Phosphorus Magnesium Total Bilirubin AST ALT Alkaline Phosphatase Total Protein Albumin RPR Titer 05/22/19 05/22/19 05/22/19 07:00 07:00 07:00 WBC 7.0 RBC 3.82 L Hgb 11.3 L Hct 34.6 L MCV 90.5 MCH 29.5 MCHC 32.6 RDW 16.0 H Plt Count 394 MPV 8.8 Absolute Neuts (auto) 4.6 Neutrophils % 65.2 Lymphocytes % 26.5 D Monocytes % 6.2 Eosinophils % 1.9 Basophils % 0.2 Nucleated RBC % 0 Sodium 138 Potassium 5.5 H Chloride 107 Carbon Dioxide 21 Anion Gap 9 BUN 27.3 H Creatinine 2.1 H Est GFR (CKD-EPI)AfAm 36.65 Est GFR (CKD-EPI)NonAf 31.62 POC Glucometer Random Glucose 151 H Calcium 9.5 Phosphorus 3.5 Magnesium 1.7 L Total Bilirubin 2.1 H AST 345 H ALT 748 H Alkaline Phosphatase 942 H Total Protein 7.0 Albumin 3.5 RPR Titer Nonreactive 05/22/19 11:33 WBC RBC Hgb Hct MCV MCH MCHC RDW Plt Count MPV Absolute Neuts (auto) Neutrophils % Lymphocytes % Monocytes % Eosinophils % Basophils % Nucleated RBC % Sodium Potassium Chloride Carbon Dioxide Anion Gap BUN Creatinine Est GFR (CKD-EPI)AfAm Est GFR (CKD-EPI)NonAf POC Glucometer 181 Random Glucose Calcium Phosphorus Magnesium Total Bilirubin AST ALT Alkaline Phosphatase Total Protein Albumin RPR Titer Active Medications Current Medications Heparin Sodium (Porcine) (Heparin -) 5,000 unit SQ TID [facility]ERE Last Admin: 05/22/19 13:21 Dose: 5,000 unit Ertapenem 0.5 gm/ Sodium (Chloride) 50 mls @ 100 mls/hr IVPB DAILY [facility] Last Admin: 05/22/19 11:02 Dose: 100 mls/hr Insulin Aspart (Novolog Vial Sliding Scale -) 1 vial SQ ACHS [facility]; Protocol Last Admin: 05/22/19 11:40 Dose: 2 units Pantoprazole Sodium (Protonix -) 40 mg PO DAILY [facility] Last Admin: 05/22/19 11:02 Dose: 40 mg ASSESSMENT/PLAN: Mr. Albrecht is a 68 y.o. M w/ PMHx. of Prostate CA (s/p prostatectomy in 2011), Cholangitis, Cholelithiasis, Cholecystectomy (10/2017 at [facility]), Hematuria, Anemia , NIDDM, CKD (after hospital-acquired acute renal failure) and hypertension, who presents for elevated potassium levels found during outpatient labs. He is admitted to the hospital for management of his hyperkalemia in addition to workup for possible UTI and evaluation of his elevated LFTs and pruritis. # Hyperkalemia complicating CKD - EKG is NSR with no EKG signs of hyperkalemia. - repeat BMP - continue kayexalate PRN - will hydrate gently and give glucose with insulin if repeat K+ is >5.6 me/L. # UTI - Has had ESBL producing E.Coli infection in the past. - c/w Ertapenem pending culture results and sensitivities - CXR unremarkable # Elevated LFTs 2/2 retained biliary stent - history of cholelithasis and dilated CBD- consistent with someone s/p CCY - CT abdomen/pelvis Negative for significant biliary obstruction - hepatitis serology - trend LFTs - Consult GI (Dr. Soni) appreciated--> tentatively for stent removal tomorrow - f/u MRCP - RPR negative, f/u STD panel # CKD stage 3 - hydrate gently to correct any superimposed dehydration and enhance K+ excretion. - f/u kidney US - Nephrology and avoid nephrotoxic agents such as NSAIDS, aminoglycosides, and contrast dyes # DM - BGM ACHS - ISS #FEN - D/c IVF, encourage PO intake - monitor electrolytes: replete Mg and give kayexalate PRN as noted above - Diabetic Diet, NPO after midnight for possible stent removal # DVT prophylaxis - Heparin SQ TID Visit type - Emergency Visit Emergency Visit: Yes ED Registration Date: 05/20/19 Care time: The patient presented to the Emergency Department on the above date and was hospitalized for further evaluation of their emergent condition. - New Patient This patient is new to me today: No - Critical Care Critical Care patient: No - Discharge Referral Referred to [facility] No ATTENDING PHYSICIAN STATEMENT I saw and evaluated the patient. I reviewed the resident's note and discussed the case with the resident. I agree with the resident's findings and plan as documented. SUBJECTIVE: OBJECTIVE: ASSESSMENT AND PLAN:
--- NOTE | 2019-05-22 16:07 | PN ---
Teaching Attending Note Name of Resident: Alexis Barillas ATTENDING PHYSICIAN STATEMENT I saw and evaluated the patient. I reviewed the resident's note and discussed the case with the resident. I agree with the resident's findings and plan as documented. SUBJECTIVE: Patient is comfortable with no acute distress. OBJECTIVE: Vital Signs Temperature 98.0 F 05/22/19 09:08 Pulse Rate 96 H 05/22/19 09:08 Respiratory Rate 20 05/22/19 09:08 Blood Pressure 144/76 05/22/19 09:08 O2 Sat by Pulse Oximetry (%) 98 05/22/19 09:00 GENERAL: The patient is awake, alert, and fully oriented, in no acute distress. HEAD: Normal with no signs of trauma. EYES: PERRL, EOMI, sclera anicteric, conjunctiva clear. ENT: Ears normal, oropharynx clear without exudates, moist mucous membranes. NECK: Trachea midline, full range of motion, supple. LUNGS: Breath sounds equal, clear to auscultation bilaterally, no wheezes, no crackles, no accessory muscle use. HEART: Regular rate and rhythm, S1, S2 without murmur, rub or gallop. ABDOMEN: Soft, NT, mild distention, normoactive bowel sounds, no guarding, no rebound, no hepatosplenomegaly, no masses. EXTREMITIES: 2+ pulses, warm, well-perfused, no edema. NEUROLOGICAL: Cranial nerves II through XII grossly intact. Normal speech, gait not observed. PSYCH: Normal mood, normal affect. SKIN: Warm, dry, normal turgor, no rashes or lesions noted CBCD WBC 7.0 K/mm3 (4.0-10.0) 05/22/19 07:00 RBC 3.82 M/mm3 (4.00-5.60) L 05/22/19 07:00 Hgb 11.3 GM/dL (11.7-16.9) L 05/22/19 07:00 Hct 34.6 % (35.4-49) L 05/22/19 07:00 MCV 90.5 fl (80-96) 05/22/19 07:00 MCHC 32.6 g/dl (32.0-35.9) 05/22/19 07:00 RDW 16.0 % (11.9-15.9) H 05/22/19 07:00 Plt Count 394 K/MM3 (134-434) 05/22/19 07:00 MPV 8.8 fl (7.5-11.1) 05/22/19 07:00 CMP Sodium 138 mmol/L (136-145) 05/22/19 07:00 Potassium 5.5 mmol/L (3.5-5.1) H 05/22/19 07:00 Chloride 107 mmol/L (98-107) 05/22/19 07:00 Carbon Dioxide 21 mmol/L (21-32) 05/22/19 07:00 Anion Gap 9 MMOL/L (8-16) 05/22/19 07:00 BUN 27.3 mg/dL (7-18) H 05/22/19 07:00 Creatinine 2.1 mg/dL (0.55-1.3) H 05/22/19 07:00 Random Glucose 151 mg/dL (74-106) H 05/22/19 07:00 Calcium 9.5 mg/dL (8.5-10.1) 05/22/19 07:00 Total Bilirubin 2.1 mg/dL (0.2-1) H 05/22/19 07:00 AST 345 U/L (15-37) H 05/22/19 07:00 ALT 748 U/L (13-61) H 05/22/19 07:00 Alkaline Phosphatase 942 U/L (45-117) H 05/22/19 07:00 Total Protein 7.0 g/dl (6.4-8.2) 05/22/19 07:00 Albumin 3.5 g/dl (3.4-5.0) 05/22/19 07:00 CARDIAC ENZYMES Troponin I < 0.02 ng/ml (0.00-0.05) 05/20/19 20:30 Current Medications Generic Name Dose Route Start Last Admin Trade Name Freq PRN Reason Stop Dose Admin Heparin Sodium (Porcine) 5,000 unit 05/21/19 06:00 05/22/19 13:21 Heparin - SQ 5,000 unit TID RERE Administration Ertapenem 0.5 gm/ Sodium 50 mls @ 100 mls/hr 05/22/19 10:00 05/22/19 11:02 Chloride IVPB 100 mls/hr DAILY RERE Administration Insulin Aspart 1 vial 05/21/19 07:00 05/22/19 11:40 Novolog Vial Sliding Scale - SQ 2 units ACHS RERE Administration Protocol Pantoprazole Sodium 40 mg 05/21/19 10:00 05/22/19 11:02 Protonix - PO 40 mg DAILY RERE Administration Home Medications Medication Instructions Recorded Omeprazole 20 mg PO DAILY 11/13/17 ASSESSMENT AND PLAN: Patient is a 68yo male with a PMHx of prostate CA (s/p prostatectomy in 2011), Cholangitis, Cholelithiasis, Cholecystectomy (10/2017 at [facility]), Hematuria, Anemia , NIDDM, CKD , hypertension, who presents to the ED for elevated potassium levels. And was found to have elevated LFTs s/p ercp with stent placement with sphincterotomy. #Stent placement on 10/2017 s/p ERCP with sphincterotomy due to obstructing distal CBD by . Gi consulted, continue IV antibiotics Ertapenem, ID on the case. will get for possible stent removal. # Hyperkalemia : Monitor , IVF # acute THIEN over CKD ; Will hydrate and monitor # Hx of UTI with hx of ESBL on Ertapenem # Elevated LFTs due to stent placement that was placed on 10/2017, will monitor # T2DM :SS with coverage DVT prophylaxis: heparin sq
--- NOTE | 2019-05-22 16:56 | EKG ---
Test Reason : Blood Pressure : / mmHG Vent. Rate : 073 BPM Atrial Rate : 073 BPM P-R Int : 146 ms QRS Dur : 080 ms QT Int : 352 ms P-R-T Axes : 033 069 050 degrees QTc Int : 387 ms NORMAL SINUS RHYTHM NORMAL ECG WHEN COMPARED WITH ECG OF 02-FEB-2019 01:14, PREMATURE ATRIAL COMPLEXES ARE NO LONGER PRESENT VENT. RATE HAS DECREASED BY 48 BPM Confirmed by AARON MARMOLEJO, DANIS ([id number]) on 05/22/2019 4:55:48 PM Referred By: Confirmed By:DANIS WALKER MD
--- NOTE | 2019-05-22 17:05 | PN ---
Progress Note (short form) - Note Progress Note: ID CONSULT DICTATED R/O BILIARY SEPSIS HX ESBL CKD AWAIT C/S, MRI CONTINUE ERTAPENEM
--- NOTE | 2019-05-22 17:08 | CONS ---
GASTROINTESTINAL CONSULTATION DATE OF CONSULTATION: DATE OF DICTATION: 05/22/2019 HISTORY: Patient is a 68-year-old man with a past medical history significant for cholangitis, cholecystectomy, and biliary stent placed in October of 2017 at this institution also with prostate cancer status post prostatectomy in 2011, anemia, diabetes, CKD, hypertension who presented to the hospital for evaluation of abnormal potassium, which was found on routine labs as an outpatient. Apparently, about a week ago he noticed that his urine became dirty and had a foul smell to it also with associated fevers and chills and itchy skin at the time. He saw his primary medical doctor who prescribed an antibiotic, which he does not recall the name of for urinary tract infection. Apparently, he took 2 doses of the antibiotic. He currently denies any abdominal pain, nausea, vomiting, melena, hematochezia, hematuria, or hematemesis. Apparently, he was also treated with urinary tract infection this past January. PAST MEDICAL HISTORY: As listed in the HPI. PAST SURGICAL HISTORY: As listed in the HPI. ALLERGIES: No known drug allergies. SOCIAL HISTORY: Former smoker. Quit in 2003. Does not drink or use drugs. FAMILY HISTORY: No history of GI or oncological malignancy. HOME MEDICATIONS: Omeprazole and metformin. REVIEW OF SYSTEMS: As per the HPI. PHYSICAL EXAMINATION: Vital Signs: Temperature 98, pulse 96, blood pressure 144/76, pulse oximetry 16, saturation of oxygen 98% on room air. General: In no acute distress. HEENT: Icteric sclerae. Cardiovascular: S1, S2. Regular rate and rhythm. Lungs: Bilaterally clear to auscultation. Abdomen: Tympanic without tenderness and normal bowel sounds are present. Extremities: No edema. LABORATORIES: White blood cell count 7, hemoglobin 11, hematocrit 34, MCV 90, platelet count 394. Sodium 138, potassium 5.5, BUN 27, creatinine 2, glucose 151, total bilirubin 2.1, AST 345, ALT 748, alkaline phosphatase 942. CT scan without contrast was performed and revealed status post biliary stent with mild air in the biliary tree. No sign of significant degree of hepatobiliary obstruction. There is mild prominence of intrahepatic ducts. IMPRESSION: Transaminitis hepatocellular pattern. Alanine aminotransferase is over 500. He does have a stent in place. He may have passed some microlithiasis, or these findings may be secondary to antibiotic use. Chronic and inherited liver disease will also need to be excluded as well as infectious etiology. RECOMMENDATION: Panculture. Blood and urine cultures are pending at this time. Trend liver tests daily and INR while hospitalized. We will order an MRCP to further evaluate the biliary tree and biliary stent. Serologies for chronic and inherited liver disease are ordered. Would avoid hepatotoxic medications. Dr. Soni to resume care tomorrow, on Thursday. DO OKSANA SHARPE/[id number]
--- NOTE | 2019-05-22 21:51 | PN ---
Progress Note (short form) - Note Progress Note: Problems CKD with fluctuating levels of azotemia not clear what his baseline s creat was under 2 in 2018, the more than 2 in metabolic acidosis on admission s/p hyperkalemia anemia transaminitis/biliary stent in place Current Medications Heparin Sodium (Porcine) (Heparin -) 5,000 unit SQ TID [facility] Last Admin: 05/22/19 21:24 Dose: 5,000 unit Ertapenem 0.5 gm/ Sodium (Chloride) 50 mls @ 100 mls/hr IVPB DAILY [facility] Insulin Aspart (Novolog Vial Sliding Scale -) 1 vial SQ ACHS [facility]; Protocol Last Admin: 05/22/19 21:24 Dose: 2 units Pantoprazole Sodium (Protonix -) 40 mg PO DAILY [facility] Last Admin: 05/22/19 11:02 Dose: 40 mg Last Vital Signs Temp Pulse Resp BP Pulse Ox 98.0 F 96 H 20 144/76 98 05/22/19 09:08 05/22/19 09:08 05/22/19 09:08 05/22/19 09:08 05/22/19 09:00 Lungs clear Heart reg Abd soft nontender Ext no edema CBC, BMP 05/22/19 07:00 05/22/19 07:00 IMP- recurrent Hyperkalemia sono - no hydronephrosis no hyperkalemic medication r/o blood in gi track Plan- kayexalate stool occult blood
[2019-05-23] MEDS: INSULIN SLIDING SCALE (NOVOLOG) 1 VIAL SQ SCH ×4 (06:06→21:30)
[2019-05-23] MEDS: HEPARIN NA (PORCINE) 5,000 UNITS/ML 1ML VIAL SQ SCH (06:15)
[2019-05-23 08:03] LABS: BASO % 1.5 % (0-2.0); EOS % 0.9 % (0-4.5); HEMATOCRIT 32.5 % (35.4-49); HEMOGLOBIN 10.9 GM/dL (11.7-16.9); LYMPH % 23.9 % (8-40); MCH 29.9 pg (25.7-33.7); MCHC 33.4 g/dl (32.0-35.9); MEAN CELL VOLUME 89.5 fl (80-96); MEAN PLT VOLUME 8.3 fl (7.5-11.1); MONO % 5.9 % (3.8-10.2); NEUT % 67.8 % (42.8-82.8); PLATELET COUNT 364 K/MM3 (134-434); RBC 3.64 M/mm3 (4.00-5.60); RDW 15.7 % (11.9-15.9); WHITE BLOOD COUNT 5.6 K/mm3 (4.0-10.0)
[2019-05-23] MEDS ORDERED: SODIUM POLYSTYRENE SULFONATE 15 GM/60 ML BOTTLE PO ONE (08:32)
[2019-05-23 08:58] LABS: ALBUMIN 3.4 g/dl (3.4-5.0); BILIRUBIN,TOTAL 1.7 mg/dL (0.2-1); BLOOD UREA NITROGEN 26.7 mg/dL (7-18); CALCIUM 9.3 mg/dL (8.5-10.1); CREATININE 1.7 mg/dL (0.55-1.3); POTASSIUM 4.5 mmol/L (3.5-5.1); TOT PROT 6.9 g/dl (6.4-8.2)
--- NOTE | 2019-05-23 09:40 | CONS ---
DATE OF CONSULTATION: DATE OF DICTATION: 05/22/2019 INFECTIOUS DISEASE CONSULTATION The patient is a 68-year-old male with a history of biliary tract disease who was evaluated for possible recurrent biliary sepsis. His previous chart was reviewed. The patient was hospitalized with choledocholithiasis in October 2017. At that time he had undergone a cholecystectomy and ERCP with placement of a common bile duct stent. His course at that time was complicated by ESBL sepsis. He is now readmitted after he was noted to have hyperkalemia. The patient has a history of chronic kidney disease. On admission he was noted to have elevated transaminases. He was seen in consultation by GI. An MRCP was ordered. Concern was raised about possible recurrent biliary sepsis. At the present time he is awake and alert. He has no complaints of abdominal pain. He has been afebrile with a normal white blood cell count. PAST MEDICAL HISTORY: Positive for choledocholithiasis, status post cholecystectomy, status post biliary stent placement in October 2017; prostate cancer, status post prostatectomy; chronic kidney disease, noninsulin-dependent diabetes mellitus and hypertension. He was hospitalized in January of this year, was seen in consultation by Dr. William. At that time he was found to have polymicrobial bacteremia. No known drug allergies. MEDICATIONS: Include ertapenem, Protonix, insulin. 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 SYSTEMS REVIEW: Neurologic: No loss of consciousness, seizure activity, focal weakness. Cardiac: Negative chest pain or palpitations. Respiratory: Negative cough or sputum production. Gastrointestinal: As per HPI. Genitourinary: Positive for chronic kidney disease. LABORATORY DATA: White count 7.0, hematocrit 34.6, platelets 394, BUN 27, creatinine 2.1, total bilirubin 2.1, alkaline phosphatase 942, AST 349, ALT 748. Urine analysis 12 white cells. Blood cultures are pending. Urine culture contaminated. Previous blood cultures from January showed polymicrobial lacy including ESBL and Strep bovis among other isolates. PHYSICAL EXAMINATION: General: He is awake and alert. He is not acutely toxic appearing. Vital Signs: Temperature 98.0, blood pressure 144/76, pulse 98 regular, respirations 20 per minute. HEENT: Sclerae anicteric. Heart: Sounds S1, S2. Lungs: Clear. Abdomen: Obese, soft. No tenderness elicited. No mass, rebound or rigidity. No right upper quadrant tenderness to palpation. Extremities: Negative for edema. IMPRESSION: 1. Elevated liver enzymes in the setting of biliary stent, rule out biliary sepsis. 2. Chronic kidney disease. 3. Hyperkalemia. 4. Noninsulin-dependent diabetes mellitus. 5. Hypertension. In light of elevated liver enzymes would empirically cover for the possibility of biliary sepsis. Would continue ertapenem based on previous isolates including ESBL, adjust for renal insufficiency. GI followup. Contact precautions for ESBL. Thank you for the kind referral. STEPHANIE DANIEL M.D. YAZMIN/[id number]
[2019-05-23] MEDS ORDERED: PHYTONADIONE 10 MG/1 ML AMP IVPB ONE (09:48)
[2019-05-23] MEDS: ERTAPENEM SODIUM 0.5 GM in SODIUM CHLORIDE 50 ML IVPB SCH (10:54)
--- NOTE | 2019-05-23 11:49 | PN ---
Progress Note (short form) - Note Progress Note: GI Preprocedure NOte: I discussed the need for ERCP to remove new stones. I informed Crow of the potential for such complications as perforation. hemorrhage and ERCP induced pancreatittis leading to multiorgan failure. He has signed an informed consent after I answered his questions.
[2019-05-23] MEDS ORDERED: IOHEXOL 300 MG/ML INFUS..BTL IV ONE (12:04)
--- NOTE | 2019-05-23 12:52 | PN ---
Progress Note (short form) - Note Progress Note: GI Procedure NOte: Please see scanned ERCP report. The bile duct and intrahepatic ducts were completely plugged with multiple stones and viscous bile. The stones were removed but the markedly enlarged common bile duct could not be cleared of all of the stone sediment so a 7Fr x 7cm double pigtail stent was placed. Will need to observe for pancreatitis. Continue antibiotics. Avoid all anticoagulants. I have told Crow that he will need to make an appointment with my office for followup to arrange a repeat ERCP in 3 months. Please continue Actigal until then.
[2019-05-23] MEDS ORDERED: LACTATED RINGERS SOLUTION 1,000 ML/1,000 ML INFUS.BAG IV SCH ×3 (13:00→19:00)
[2019-05-23] MEDS: PANTOPRAZOLE 40 MG TABLET (FP) PO SCH (14:05)
[2019-05-23 16:48] LABS: INR 1.03 (0.83-1.09); PROTHROMBIN TIME (PATIENT) 12.2 SEC (9.7-13.0)
--- NOTE | 2019-05-23 17:13 | PN ---
Physical Exam: SUBJECTIVE: Patient seen and examined at the bedside, no acute events overnight. Patient is agitated and would like to get his procedure or leave the hospital. OBJECTIVE: Vital Signs Period Temp Pulse Resp BP Sys/Leyva Pulse Ox Last 24 Hr 97.5 F-98.4 F 60-100 16-20 115-170/60-82 98-100 GENERAL: The patient is awake, alert, and fully oriented, in no acute distress. HEAD: Normal with no signs of trauma. EYES: extraocular movements intact, sclera anicteric, conjunctiva clear. No ptosis. ENT: Ears normal, nares patent, oropharynx clear without exudates, moist mucous membranes. LUNGS: Breath sounds equal, clear to auscultation bilaterally, no wheezes, no crackles, no accessory muscle use. HEART: Regular rate and rhythm, S1, S2 without murmur ABDOMEN: Soft but distended, nontender, nondistended, normoactive bowel sounds, no guarding, no rebound EXTREMITIES: 2+ dorsal pedal pulses, warm, no calf tenderness, well-perfused, no edema. NEUROLOGICAL: Cranial nerves II through XII grossly intact. Normal speech, gait not observed. PSYCH: Normal mood, normal affect. SKIN: Warm, dry, normal turgor, no rashes or lesions noted Laboratory Results - last 24 hr 05/22/19 05/22/19 05/22/19 13:45 13:45 20:52 WBC RBC Hgb Hct MCV MCH MCHC RDW Plt Count MPV Absolute Neuts (auto) Neutrophils % Lymphocytes % Monocytes % Eosinophils % Basophils % Nucleated RBC % PT with INR INR Sodium Potassium Chloride Carbon Dioxide Anion Gap BUN Creatinine Est GFR (CKD-EPI)AfAm Est GFR (CKD-EPI)NonAf POC Glucometer 183 Random Glucose Calcium Total Bilirubin AST ALT Alkaline Phosphatase Total Protein Albumin COLTON Screen Negative Hep A IgM Ab Confirm Indeterminate H Hepatitis A Ab Total Positive H 05/23/19 05/23/19 05/23/19 05:52 07:25 07:25 WBC 5.6 RBC 3.64 L Hgb 10.9 L Hct 32.5 L MCV 89.5 MCH 29.9 MCHC 33.4 RDW 15.7 Plt Count 364 MPV 8.3 Absolute Neuts (auto) 3.8 Neutrophils % 67.8 Lymphocytes % 23.9 Monocytes % 5.9 Eosinophils % 0.9 Basophils % 1.5 D Nucleated RBC % 0 PT with INR INR Sodium 139 Potassium 4.5 Chloride 105 Carbon Dioxide 26 Anion Gap 7 L BUN 26.7 H Creatinine 1.7 H Est GFR (CKD-EPI)AfAm 47.31 Est GFR (CKD-EPI)NonAf 40.82 POC Glucometer 135 Random Glucose 145 H Calcium 9.3 Total Bilirubin 1.7 H AST 230 H ALT 621 H Alkaline Phosphatase 841 H Total Protein 6.9 Albumin 3.4 COLTON Screen Hep A IgM Ab Confirm Hepatitis A Ab Total 05/23/19 05/23/19 15:00 16:32 WBC RBC Hgb Hct MCV MCH MCHC RDW Plt Count MPV Absolute Neuts (auto) Neutrophils % Lymphocytes % Monocytes % Eosinophils % Basophils % Nucleated RBC % PT with INR 12.20 INR 1.03 Sodium Potassium Chloride Carbon Dioxide Anion Gap BUN Creatinine Est GFR (CKD-EPI)AfAm Est GFR (CKD-EPI)NonAf POC Glucometer 118 Random Glucose Calcium Total Bilirubin AST ALT Alkaline Phosphatase Total Protein Albumin COTLON Screen Hep A IgM Ab Confirm Hepatitis A Ab Total Active Medications Generic Name Dose Route Start Last Admin Trade Name Freq PRN Reason Stop Dose Admin Ertapenem 0.5 gm/ Sodium 50 mls @ 100 mls/hr 05/23/19 10:00 05/23/19 10:54 Chloride IVPB 100 mls/hr DAILY RERE Administration Lactated Ringer's 1,000 ml in 1,000 mls @ 175 mls/hr 05/23/19 13:00 05/23/19 14:05 Lactated Ringers Solution IV 05/23/19 19:00 Not Given ASDIR RERE Lactated Ringer's 1,000 ml in 1,000 mls @ 150 mls/hr 05/23/19 19:00 Lactated Ringers Solution IV 05/24/19 03:00 ASDIR RERE Lactated Ringer's 1,000 ml in 1,000 mls @ 125 mls/hr 05/24/19 03:00 Lactated Ringers Solution IV ASDIR RERE Insulin Aspart 1 vial 05/21/19 07:00 05/23/19 16:41 Novolog Vial Sliding Scale - SQ Not Given ACHS [facility] Protocol Pantoprazole Sodium 40 mg 05/21/19 10:00 05/23/19 14:05 Protonix - PO Not Given DAILY [facility] Imaging: Abdominal MRCP Multiple filling defects in the CBD and CHD and possibly in the left intrahepatic biliary tree coupled with significant intrahepatic biliary ductal dilatation. Some of these filling defects could be attributed to the biliary stent and air however given the extent of the intrahepatic biliary ductal dilatation obstruction of the CBD and its stent with some stones is highly suspected. Correlate with LFTs and bilirubin level. Status post cholecystectomy. Focus of faint T2 hyperintensity measuring 1.8 cm in the left hepatic lobe with restricted diffusion in addition to a tiny 2 mm right hepatic lobe focus of restricted diffusion. Correlation with contrast enhanced MRI is recommended. This was not seen on the prior exam of 2018. ASSESSMENT/PLAN: Mr. Albrecht is a 68 y.o. M w/ PMHx. of Prostate CA (s/p prostatectomy in 2011), Cholangitis, Cholelithiasis, Cholecystectomy (10/2017 at [facility]), Hematuria, Anemia , NIDDM, CKD (after hospital-acquired acute renal failure) and hypertension, who presents for elevated potassium levels found during outpatient labs. He is admitted to the hospital for management of his hyperkalemia in addition to workup for possible UTI and evaluation of his elevated LFTs and pruritis. # Hyperkalemia complicating CKD - EKG is NSR with no EKG signs of hyperkalemia. - repeat BMP - continue kayexalate PRN - will hydrate gently and give glucose with insulin if repeat K+ is >5.6 me/L. # Elevated LFTs 2/2 retained biliary stent (originally placed 10/2017 and patient subsequently lost to follow up) - history of cholelithasis and dilated CBD- consistent with someone s/p CCY - CT abdomen/pelvis Negative for significant biliary obstruction - MRCP showing multiple filling defects in the CBD and CHD coupled with significant intrahepatic biliary ductal dilation. Some of the findings may be attributable to the biliary stent alone, however suspect stones may also be present. - Consult GI (Dr. Soni) appreciated--> ERCP with stent removal today -f/u care per GI - hepatitis serology - trend LFTs - RPR negative, f/u STD panel # UTI - Has had ESBL producing E.Coli infection in the past. - c/w Ertapenem pending culture results and sensitivities - CXR unremarkable # CKD stage 3 - hydrate gently to correct any superimposed dehydration and enhance K+ excretion. - f/u kidney US - Nephrology and avoid nephrotoxic agents such as NSAIDS, aminoglycosides, and contrast dyes # DM - BGM ACHS - ISS #FEN - D/c IVF, encourage PO intake - monitor electrolytes: replete Mg and give kayexalate PRN as noted above - Diabetic Diet, NPO after midnight for possible stent removal # DVT prophylaxis - Heparin SQ TID Visit type - Emergency Visit Emergency Visit: Yes ED Registration Date: 05/20/19 Care time: The patient presented to the Emergency Department on the above date and was hospitalized for further evaluation of their emergent condition. - New Patient This patient is new to me today: No - Critical Care Critical Care patient: No - Discharge Referral Referred to [facility] Med P.C.: No ATTENDING PHYSICIAN STATEMENT I saw and evaluated the patient. I reviewed the resident's note and discussed the case with the resident. I agree with the resident's findings and plan as documented. SUBJECTIVE: OBJECTIVE: ASSESSMENT AND PLAN:
--- NOTE | 2019-05-23 18:55 | PN ---
Teaching Attending Note Name of Resident: Aishwarya Mccoy ATTENDING PHYSICIAN STATEMENT I saw and evaluated the patient. I reviewed the resident's note and discussed the case with the resident. I agree with the resident's findings and plan as documented. SUBJECTIVE: Patient is comfortable with no acute distress, npo waiting for the procedure. OBJECTIVE: Vital Signs Temperature 97.8 F 05/23/19 14:15 Pulse Rate 68 05/23/19 14:15 Respiratory Rate 18 05/23/19 14:15 Blood Pressure 134/78 05/23/19 14:15 O2 Sat by Pulse Oximetry (%) 98 05/23/19 14:15 GENERAL: The patient is awake, alert, and fully oriented, in no acute distress. HEAD: Normal with no signs of trauma. EYES: PERRL, EOMI, sclera anicteric, conjunctiva clear. ENT: Ears normal, oropharynx clear without exudates, moist mucous membranes. NECK: Trachea midline, full range of motion, supple. LUNGS: Breath sounds equal, clear to auscultation bilaterally, no wheezes, no crackles, no accessory muscle use. HEART: Regular rate and rhythm, S1, S2 without murmur, rub or gallop. ABDOMEN: Soft, NT, mild distention, normoactive bowel sounds, no guarding, no rebound, no hepatosplenomegaly, no masses. EXTREMITIES: 2+ pulses, warm, well-perfused, no edema. NEUROLOGICAL: Cranial nerves II through XII grossly intact. Normal speech, gait not observed. PSYCH: Normal mood, normal affect. SKIN: Warm, dry, normal turgor, no rashes or lesions noted CBCD WBC 5.6 K/mm3 (4.0-10.0) 05/23/19 07:25 RBC 3.64 M/mm3 (4.00-5.60) L 05/23/19 07:25 Hgb 10.9 GM/dL (11.7-16.9) L 05/23/19 07:25 Hct 32.5 % (35.4-49) L 05/23/19 07:25 MCV 89.5 fl (80-96) 05/23/19 07:25 MCHC 33.4 g/dl (32.0-35.9) 05/23/19 07:25 RDW 15.7 % (11.9-15.9) 05/23/19 07:25 Plt Count 364 K/MM3 (134-434) 05/23/19 07:25 MPV 8.3 fl (7.5-11.1) 05/23/19 07:25 CMP Sodium 139 mmol/L (136-145) 05/23/19 07:25 Potassium 4.5 mmol/L (3.5-5.1) 05/23/19 07:25 Chloride 105 mmol/L (98-107) 05/23/19 07:25 Carbon Dioxide 26 mmol/L (21-32) 05/23/19 07:25 Anion Gap 7 MMOL/L (8-16) L 05/23/19 07:25 BUN 26.7 mg/dL (7-18) H 05/23/19 07:25 Creatinine 1.7 mg/dL (0.55-1.3) H 05/23/19 07:25 Random Glucose 145 mg/dL (74-106) H 05/23/19 07:25 Calcium 9.3 mg/dL (8.5-10.1) 05/23/19 07:25 Total Bilirubin 1.7 mg/dL (0.2-1) H 05/23/19 07:25 AST 230 U/L (15-37) H 05/23/19 07:25 ALT 621 U/L (13-61) H 05/23/19 07:25 Alkaline Phosphatase 841 U/L (45-117) H 05/23/19 07:25 Total Protein 6.9 g/dl (6.4-8.2) 05/23/19 07:25 Albumin 3.4 g/dl (3.4-5.0) 05/23/19 07:25 CARDIAC ENZYMES Troponin I < 0.02 ng/ml (0.00-0.05) 05/20/19 20:30 Current Medications Generic Name Dose Route Start Last Admin Trade Name Linda PRN Reason Stop Dose Admin Ertapenem 0.5 gm/ Sodium 50 mls @ 100 mls/hr 05/23/19 10:00 05/23/19 10:54 Chloride IVPB 100 mls/hr DAILY RERE Administration Lactated Ringer's 1,000 ml in 1,000 mls @ 175 mls/hr 05/23/19 13:00 05/23/19 14:05 Lactated Ringers Solution IV 05/23/19 19:00 Not Given ASDIR RERE Lactated Ringer's 1,000 ml in 1,000 mls @ 150 mls/hr 05/23/19 19:00 Lactated Ringers Solution IV 05/24/19 03:00 ASDIR RERE Lactated Ringer's 1,000 ml in 1,000 mls @ 125 mls/hr 05/24/19 03:00 Lactated Ringers Solution IV ASDIR RERE Insulin Aspart 1 vial 05/21/19 07:00 05/23/19 16:41 Novolog Vial Sliding Scale - SQ Not Given ACHS [facility] Protocol Pantoprazole Sodium 40 mg 05/21/19 10:00 05/23/19 14:05 Protonix - PO Not Given DAILY [facility] Home Medications Medication Instructions Recorded Omeprazole 20 mg PO DAILY 11/13/17 Amlodipine Besylate 5 mg PO DAILY 05/23/19 Lisinopril/Hydrochlorothiazide 1 each PO DAILY 05/23/19 [Lisinopril-Hctz 20-25 mg Tab] Nitrofurantoin Monohyd/M-Cryst 100 mg PO Q12H MDD every 12 hours 05/23/19 [Macrobid -] for 7 days metFORMIN HCL [Metformin HCl] 850 mg PO BID 05/23/19 traZODone HCL [Trazodone HCl] 50 mg PO DAILY 05/23/19 ASSESSMENT AND PLAN: Patient is a 68yo male with a PMHx of prostate CA (s/p prostatectomy in 2011), Cholangitis, Cholelithiasis, Cholecystectomy (10/2017 at [facility]), Hematuria, Anemia , NIDDM, CKD , hypertension, who presents to the ED for elevated potassium levels. And was found to have elevated LFTs s/p ercp with stent placement with sphincterotomy. #Stent placement on 10/2017 s/p ERCP with sphincterotomy due to obstructing distal CBD by . Gi consulted, continue IV antibiotics Ertapenem, ID on the case. going for ercp removal by today , npo, hold heparin. # Hyperkalemia : Monitor , IVF , kayexalate prn if needed # acute THIEN over CKD ; Will hydrate and monitor # Hx of UTI with hx of ESBL on Ertapenem # Elevated LFTs due to stent placement that was placed on 10/2017, monitor # T2DM :SS with coverage , hold metformin for elevated cr. DVT prophylaxis: heparin hold for procedure
[2019-05-23 22:11] LABS: HEP B CORE AB, TOT Negative (Negative)
--- NOTE | 2019-05-23 23:26 | PN ---
Progress Note, Physician History of Present Illness: S/P ERCP/ STONE EXTRACTION NO C/O ABDOMINAL PAIN NO FEVER/ CHILLS BC NO GROWTH - Current Medication List Current Medications: Active Medications Ertapenem 0.5 gm/ Sodium (Chloride) 50 mls @ 100 mls/hr IVPB DAILY RERE Last Admin: 05/23/19 10:54 Dose: 100 mls/hr Lactated Ringer's (Lactated Ringers Solution) 1,000 ml in 1,000 mls @ 150 mls/ hr IV ASDIR RERE Stop: 05/24/19 03:00 Lactated Ringer's (Lactated Ringers Solution) 1,000 ml in 1,000 mls @ 125 mls/ hr IV ASDIR RERE Insulin Aspart (Novolog Vial Sliding Scale -) 1 vial SQ ACHS [facility]; Protocol Last Admin: 05/23/19 21:30 Dose: 2 units Pantoprazole Sodium (Protonix -) 40 mg PO DAILY RERE Last Admin: 05/23/19 14:05 Dose: Not Given - Objective Vital Signs: Vital Signs Temperature 97.8 F 05/23/19 14:15 Pulse Rate 68 05/23/19 14:15 Respiratory Rate 18 05/23/19 14:15 Blood Pressure 134/78 05/23/19 14:15 O2 Sat by Pulse Oximetry (%) 98 05/23/19 14:15 Constitutional: Yes: No Distress Cardiovascular: Yes: Regular Rate and Rhythm, S1, S2 Respiratory: Yes: CTA Bilaterally Gastrointestinal: Yes: Normal Bowel Sounds, Soft Edema: No Labs: CBC, BMP 05/23/19 07:25 05/23/19 07:25 INR, PTT INR 1.03 (0.83-1.09) 05/23/19 15:00 Assessment/Plan S/P ERCP/ STONE EXTRACTION R/O BILIARY SEPSIS AZOTEMIA CONTINUE EMPIRIC ERTAPENEM
[2019-05-24] MEDS ORDERED: LACTATED RINGERS SOLUTION 1,000 ML/1,000 ML INFUS.BAG IV SCH (03:00)
[2019-05-24] MEDS: INSULIN SLIDING SCALE (NOVOLOG) 1 VIAL SQ SCH ×2 (06:21→11:07)
[2019-05-24 08:18] LABS: EOS % 1.7 % (0-4.5); HEMATOCRIT 30.4 % (35.4-49); HEMOGLOBIN 10.2 GM/dL (11.7-16.9); LYMPH % 20.5 % (8-40); MCH 29.8 pg (25.7-33.7); MCHC 33.4 g/dl (32.0-35.9); MEAN CELL VOLUME 88.9 fl (80-96); MONO % 6.1 % (3.8-10.2); NEUT % 70.7 % (42.8-82.8); PLATELET COUNT 340 K/MM3 (134-434); RBC 3.42 M/mm3 (4.00-5.60); RDW 15.1 % (11.9-15.9)
[2019-05-24 08:40] LABS: ALBUMIN 3.1 g/dl (3.4-5.0); BILIRUBIN,TOTAL 1.7 mg/dL (0.2-1); CALCIUM 9.3 mg/dL (8.5-10.1); CREATININE 1.5 mg/dL (0.55-1.3); POTASSIUM 4.8 mmol/L (3.5-5.1); PROTHROMBIN TIME (PATIENT) 11.8 SEC (9.7-13.0); TOT PROT 6.1 g/dl (6.4-8.2)
[2019-05-24] MEDS ORDERED: PT OWN MED DRAWER 7, Y5N ONE (09:21)
[2019-05-24] MEDS ORDERED: amLODIPine BESYLATE 5 MG TABLET (FP) PO SCH (10:30)
[2019-05-24] MEDS: ERTAPENEM SODIUM 0.5 GM in SODIUM CHLORIDE 50 ML IVPB SCH (11:00)
[2019-05-24] MEDS: PANTOPRAZOLE 40 MG TABLET (FP) PO SCH (11:06)
--- NOTE | 2019-05-24 14:36 | PN ---
Progress Note (short form) - Note Progress Note: Renal follow up for THIEN Seen at the bedside s/p ERCP yesterday denies any sob, cp, fever or chills making urine denies any fever or chills Vital Signs Temperature 98.1 F 05/24/19 09:00 Pulse Rate 66 05/24/19 09:00 Respiratory Rate 20 05/24/19 09:00 Blood Pressure 137/74 05/24/19 09:00 O2 Sat by Pulse Oximetry (%) 98 05/23/19 21:00 Intake & Output 05/21/19 05/22/19 05/23/19 05/24/19 23:59 23:59 23:59 23:59 Intake Total 616 556 5123 1950 Output Total 400 900 Balance 343 869 2076 1050 Weight 66.253 kg NAD awake and alert neck supple RRR CTA no LE edema CBC, BMP 05/24/19 07:25 05/24/19 07:25 Current Medications Amlodipine Besylate (Norvasc -) 5 mg PO DAILY [facility] Last Admin: 05/24/19 11:35 Dose: 5 mg Ertapenem 0.5 gm/ Sodium (Chloride) 50 mls @ 100 mls/hr IVPB DAILY [facility] Last Admin: 05/24/19 11:00 Dose: 100 mls/hr Lactated Ringer's (Lactated Ringers Solution) 1,000 ml in 1,000 mls @ 125 mls/ hr IV ASDIR [facility] Last Admin: 05/24/19 03:00 Dose: 125 mls/hr Insulin Aspart (Novolog Vial Sliding Scale -) 1 vial SQ ACHS [facility]; Protocol Last Admin: 05/24/19 11:07 Dose: Not Given Pantoprazole Sodium (Protonix -) 40 mg PO DAILY [facility] Last Admin: 05/24/19 11:06 Dose: 40 mg 68 year old gentleman with hitory ofprostate CA (s/p prostatectomy in 2011), Cholangitis, Cholelithiasis, Cholecystectomy (10/2017 at [facility]), Hematuria , Anemia, NIDDM, CKD and hypertension admitted with THIEN and hyperkalemia. 1. Acute Kidney Injury 2. Hyperkalemia 3. CBD stones 5. Anemia Renal function now improved to near baseline K is also improved continue IVF for now as pt is s/p ERCP yesterday Trend renal function and electrolytes check iron studies GI follow up continue present antihypertensives River Ferguson DO
[2019-05-24 14:57] VITALS: BP 129/68; PULSE 73; TEMP 98.5
--- NOTE | 2019-05-24 15:11 | PN ---
Physical Exam: SUBJECTIVE: Patient seen and examined OBJECTIVE: Vital Signs Period Temp Pulse Resp BP Sys/Leyva Pulse Ox Last 24 Hr 98.1 F-98.5 F 66-73 18-20 119-137/60-74 98 GENERAL: The patient is awake, alert, and fully oriented, in no acute distress. HEAD: Normal with no signs of trauma. EYES: PERRL, extraocular movements intact, sclera anicteric, conjunctiva clear. No ptosis. ENT: Ears normal, nares patent, oropharynx clear without exudates, moist mucous membranes. NECK: Trachea midline, full range of motion, supple. LUNGS: Breath sounds equal, clear to auscultation bilaterally, no wheezes, no crackles, no accessory muscle use. HEART: Regular rate and rhythm, S1, S2 without murmur, rub or gallop. ABDOMEN: Soft, nontender, nondistended, normoactive bowel sounds, no guarding, no rebound, no hepatosplenomegaly, no masses. EXTREMITIES: 2+ pulses, warm, well-perfused, no edema. NEUROLOGICAL: Cranial nerves II through XII grossly intact. Normal speech, gait not observed. PSYCH: Normal mood, normal affect. SKIN: Warm, dry, normal turgor, no rashes or lesions noted Laboratory Results - last 24 hr 05/21/19 05/22/19 05/22/19 11:01 13:45 13:45 WBC RBC Hgb Hct MCV MCH MCHC RDW Plt Count MPV Absolute Neuts (auto) Neutrophils % Lymphocytes % Monocytes % Eosinophils % Basophils % Nucleated RBC % PT with INR INR Sodium Potassium Chloride Carbon Dioxide Anion Gap BUN Creatinine Est GFR (CKD-EPI)AfAm Est GFR (CKD-EPI)NonAf POC Glucometer Random Glucose Calcium Total Bilirubin Direct Bilirubin AST ALT Alkaline Phosphatase C-Reactive Protein Total Protein Albumin Total Amylase Lipase Stool Occult Blood COLTON Screen Negative C. trachomatis (KARINE) Negative Hep A IgM Ab Confirm Indeterminate H Hepatitis A Ab Total Positive H Hep Bs Antigen Negative Hep Bs Antibody Non reactive Hep B Core Total Ab Negative Hep B Core IgM Ab Negative Hepatitis Be Antibody Negative Hepatitis Be Antigen Negative N.gonorrhoeae DNA (KARINE) Negative T. vaginalis (KARINE) Negative 05/23/19 05/23/19 05/23/19 15:00 16:32 21:09 WBC RBC Hgb Hct MCV MCH MCHC RDW Plt Count MPV Absolute Neuts (auto) Neutrophils % Lymphocytes % Monocytes % Eosinophils % Basophils % Nucleated RBC % PT with INR 12.20 INR 1.03 Sodium Potassium Chloride Carbon Dioxide Anion Gap BUN Creatinine Est GFR (CKD-EPI)AfAm Est GFR (CKD-EPI)NonAf POC Glucometer 118 176 Random Glucose Calcium Total Bilirubin Direct Bilirubin AST ALT Alkaline Phosphatase C-Reactive Protein Total Protein Albumin Total Amylase Lipase Stool Occult Blood COLTON Screen C. trachomatis (KARINE) Hep A IgM Ab Confirm Hepatitis A Ab Total Hep Bs Antigen Hep Bs Antibody Hep B Core Total Ab Hep B Core IgM Ab Hepatitis Be Antibody Hepatitis Be Antigen N.gonorrhoeae DNA (KARINE) T. vaginalis (KARINE) 05/24/19 05/24/19 05/24/19 05:47 07:25 07:25 WBC 6.0 RBC 3.42 L Hgb 10.2 L Hct 30.4 L MCV 88.9 MCH 29.8 MCHC 33.4 RDW 15.1 Plt Count 340 MPV 8.0 Absolute Neuts (auto) 4.2 Neutrophils % 70.7 Lymphocytes % 20.5 Monocytes % 6.1 Eosinophils % 1.7 D Basophils % 1.0 Nucleated RBC % 0 PT with INR INR Sodium 140 Potassium 4.8 Chloride 106 Carbon Dioxide 28 Anion Gap 7 L BUN 19.0 H Creatinine 1.5 H Est GFR (CKD-EPI)AfAm 55.04 Est GFR (CKD-EPI)NonAf 47.49 POC Glucometer 118 Random Glucose 117 H Calcium 9.3 Total Bilirubin 1.7 H Direct Bilirubin 1.0 H AST 175 H ALT 498 H Alkaline Phosphatase 716 H C-Reactive Protein 1.8 H Total Protein 6.1 L Albumin 3.1 L Total Amylase 75 Lipase 126 Stool Occult Blood COLTON Screen C. trachomatis (KARINE) Hep A IgM Ab Confirm Hepatitis A Ab Total Hep Bs Antigen Hep Bs Antibody Hep B Core Total Ab Hep B Core IgM Ab Hepatitis Be Antibody Hepatitis Be Antigen N.gonorrhoeae DNA (KARINE) T. vaginalis (KARINE) 05/24/19 05/24/19 05/24/19 07:25 11:01 12:30 WBC RBC Hgb Hct MCV MCH MCHC RDW Plt Count MPV Absolute Neuts (auto) Neutrophils % Lymphocytes % Monocytes % Eosinophils % Basophils % Nucleated RBC % PT with INR 11.80 INR 1.00 Sodium Potassium Chloride Carbon Dioxide Anion Gap BUN Creatinine Est GFR (CKD-EPI)AfAm Est GFR (CKD-EPI)NonAf POC Glucometer 114 Random Glucose Calcium Total Bilirubin Direct Bilirubin AST ALT Alkaline Phosphatase C-Reactive Protein Total Protein Albumin Total Amylase Lipase Stool Occult Blood Negative COLTON Screen C. trachomatis (KARINE) Hep A IgM Ab Confirm Hepatitis A Ab Total Hep Bs Antigen Hep Bs Antibody Hep B Core Total Ab Hep B Core IgM Ab Hepatitis Be Antibody Hepatitis Be Antigen N.gonorrhoeae DNA (KARINE) T. vaginalis (KARINE) Active Medications Generic Name Dose Route Start Last Admin Trade Name Freq PRN Reason Stop Dose Admin Amlodipine Besylate 5 mg 05/24/19 10:30 05/24/19 11:35 Norvasc - PO 5 mg DAILY RERE Administration Ertapenem 0.5 gm/ Sodium 50 mls @ 100 mls/hr 05/23/19 10:00 05/24/19 11:00 Chloride IVPB 100 mls/hr DAILY RERE Administration Lactated Ringer's 1,000 ml in 1,000 mls @ 125 mls/hr 05/24/19 03:00 05/24/19 03:00 Lactated Ringers Solution IV 125 mls/hr ASDIR RERE Administration Insulin Aspart 1 vial 05/21/19 07:00 05/24/19 11:07 Novolog Vial Sliding Scale - SQ Not Given ACHS [facility] Protocol Pantoprazole Sodium 40 mg 05/21/19 10:00 05/24/19 11:06 Protonix - PO 40 mg DAILY RERE Administration ASSESSMENT/PLAN: Visit type - Emergency Visit Emergency Visit: Yes ED Registration Date: 05/20/19 Care time: The patient presented to the Emergency Department on the above date and was hospitalized for further evaluation of their emergent condition. - New Patient This patient is new to me today: No - Critical Care Critical Care patient: No - Discharge Referral Referred to [facility] Med P.C.: No ATTENDING PHYSICIAN STATEMENT I saw and evaluated the patient. I reviewed the resident's note and discussed the case with the resident. I agree with the resident's findings and plan as documented. SUBJECTIVE: OBJECTIVE: ASSESSMENT AND PLAN:
--- NOTE | 2019-05-24 16:12 | PN ---
GI Progress Note Subjective: GI NOte: LFTs are improved . No clinical or lab evidence of pancreatitis. Dr Davis informs me that blood cultures reveal no growth so agree with stopping antibiotics. Tolerated a solid lunch. I emphasized the need to make a followup appointment with my office in 3 months to arrange stent and residual stone removal and for the need to take Actigal until that time. Given his failure to followup I also discussed these matters with his daughter Kenisha who has already made the appointment. I explained to both of them that given the degree of dilation noted in his CBD I am concerned to he may be prone to repeated stone formation and cholangitis. I explained that he must return to the ER NOHEMI if fever, chills or RUQ pain develop. - Objective Vital Signs: Vital Signs Temperature 98.5 F 05/24/19 14:55 Pulse Rate 73 05/24/19 14:55 Respiratory Rate 20 05/24/19 14:55 Blood Pressure 129/68 05/24/19 14:55 O2 Sat by Pulse Oximetry (%) 98 05/23/19 21:00 Laboratory Tests 05/23/19 05/24/19 05/24/19 07:25 07:25 07:25 WBC 6.0 Total Bilirubin 1.7 H 1.7 H AST 230 H 175 H ALT 621 H 498 H Alkaline Phosphatase 841 H 716 H Total Amylase 75 Lipase 126 Constitutional: Anxious ...Auscultate: Yes: Normoactive Bowel Sounds ...Palpate: Yes: Soft, Other (nontender) Labs: CBC, BMP 05/24/19 07:25 05/24/19 07:25 INR, PTT INR 1.00 (0.83-1.09) 05/24/19 07:25 Assessment/Plan Assessment: - Day 1 s/p ERCP with stone extractions and replacement of obstructed stent Plan: -- Diet already advanced -- Outpatient plans made -- Continue Actigal until repeat ERCP in 3 months Problem List - Problems (1) Cholangitis due to bile duct calculus with obstruction Code(s): K80.31 - CALCULUS OF BILE DUCT W CHOLANGITIS, UNSP, WITH OBSTRUCTION (2) Dilated bile duct Code(s): K83.8 - OTHER SPECIFIED DISEASES OF BILIARY TRACT (3) Elevated liver enzymes Code(s): R74.8 - ABNORMAL LEVELS OF OTHER SERUM ENZYMES (4) CKD (chronic kidney disease) Code(s): N18.9 - CHRONIC KIDNEY DISEASE, UNSPECIFIED (5) Diabetes Code(s): E11.9 - TYPE 2 DIABETES MELLITUS WITHOUT COMPLICATIONS (6) Hyperbilirubinemia Code(s): E80.6 - OTHER DISORDERS OF BILIRUBIN METABOLISM
--- NOTE | 2019-05-24 17:54 | PN ---
Teaching Attending Note Name of Resident: Alexis Barillas ATTENDING PHYSICIAN STATEMENT I saw and evaluated the patient. I reviewed the resident's note and discussed the case with the resident. I agree with the resident's findings and plan as documented. SUBJECTIVE: No fever or chills. feels much better. has no abd pain , no N/V ,. tolerated diet OBJECTIVE: NAD Cv: RRR Lungs: CTAB Abd: soft, ND, NT, obese, NL BS Ext : No edema on LE ASSESSMENT AND PLAN: 68 y/o man with h/o choledocolithiasis , CBD stent placement in 11/09 ( lost f/u ), Dm , hematuria, CKD, HTN, ESBL UTI, prostate cancer, cholangitis, h/o CCY who presented with abnormal labs ( hyperkalemia) and was found to have transaminitis and CBD dilation with choledocolithiasis 1- Choledocolithiasis s/p ERCP with removal of old stent and placement of a new one. - doing well . No evidence of post ERCP pancreatitis - start actigall 300 BID , cont after dc until he follows with Dr. Soni - he was instructed to f/u in 3 months for removal of stent. he understands importance of that - LFTS improved 2- Hyperkalemia: resolved will not resume lisinopril after dc 3- HTN: cont HXTZ and noorvasc at dc , not lisinopril check BP daily and report to PCP and renal 4- THIEN on CKD: resolved. cr at base line. 5- Hepatic lesions: need MRI with contrast . this was discussed withhim and he understands to f/u with PCP and GI dispo : DC home today
--- NOTE | 2019-05-24 20:53 | PN ---
Progress Note, Physician History of Present Illness: AWAKE, ALERT IN BED S/P ERCP/ STONE EXTRACTION NO C/O ABDOMINAL PAIN NO FEVER/ CHILLS BC NO GROWTH - Objective Vital Signs: Vital Signs Temperature 98.5 F 05/24/19 14:55 Pulse Rate 73 05/24/19 14:55 Respiratory Rate 20 05/24/19 14:55 Blood Pressure 129/68 05/24/19 14:55 O2 Sat by Pulse Oximetry (%) 98 05/23/19 21:00 Constitutional: Yes: No Distress Cardiovascular: Yes: Regular Rate and Rhythm, S1, S2 Respiratory: Yes: CTA Bilaterally Gastrointestinal: Yes: Normal Bowel Sounds, Soft Edema: No Labs: CBC, BMP 05/24/19 07:25 05/24/19 07:25 INR, PTT INR 1.00 (0.83-1.09) 05/24/19 07:25 Assessment/Plan S/P ERCP/ STONE EXTRACTION AZOTEMIA AFEBRILE WBC WNL CULTURES NEGATIVE DISCUSSED WITH GI D/C ANTIBIOTICS, OBSERVE OFF
[2019-05-24] MEDS ORDERED: URSODIOL 300 MG CAPSULE PO SCH (22:00)
--- NOTE | 2019-05-26 13:26 | DS ---
Physical Exam: SUBJECTIVE: Patient seen and examined OBJECTIVE: PHYSICAL EXAM GENERAL: The patient is awake, alert, and fully oriented, in no acute distress. HEAD: Normal with no signs of trauma. EYES: PERRL, extraocular movements intact, sclera anicteric, conjunctiva clear. ENT: Ears normal, nares patent, oropharynx clear without exudates, moist mucous membranes. NECK: Trachea midline, full range of motion, supple. LUNGS: Breath sounds equal, clear to auscultation bilaterally, no wheezes, no crackles, no accessory muscle use. HEART: Regular rate and rhythm, S1, S2 without murmur, rub or gallop. ABDOMEN: Soft, nontender, nondistended, normoactive bowel sounds, no guarding, no rebound, no hepatosplenomegaly, no masses. EXTREMITIES: 2+ pulses, warm, well-perfused, no edema. NEUROLOGICAL: Cranial nerves II through XII grossly intact. Normal speech, gait not observed. PSYCH: Normal mood, normal affect. SKIN: Warm, dry, normal turgor, no rashes or lesions noted. LABS HOSPITAL COURSE: Date of Admission:05/20/19 Date of Discharge: 05/26/19 Discharge Summary Problems reviewed: Yes Reason For Visit: ACUTE KIDNEY INJURY,JAUNDICE,ELEVATED LIVER ENZYME Condition: Improved - Instructions Diet, Activity, Other Instructions: -You were treated fro elevated liver function tests due to gal stones in your bile ducts -you have a stent placed, yo need that removed in 3 [address]. Maciel. call and schedule your appointment early -discuss withyour PCP other options to treat diabetes, for now you are oK to be on Metformin , but might need to be stopped in future due to your renal failure -We also found some nodules in your liver on imaging. Please follow up with an MRI with contrast as an outpatient for further evaluation. -Please continue all of your home medications as prescribed with the following changes: STOP: Lisinopril-HCTZ pill ADD: Actigal 300mg TWICE a DAY ADD: HCTZ 25mg ONCE a DAY Please follow up with the following doctors within 1 week of discharge from the hospital. - Dr. Soni, the GI doctor who placed your stent - Dr. Lin, your primary care physician - Dr[facility] if you have one If you have symptoms of abdominal pain, abdominal distention, itchiness, nausea , vomiting, or chest pain, please return to the Emergency Department immediately Referrals: Sary Soni MD [Staff Physician] - 05/23/19 Charlene Lin MD [Primary Care Provider] - 1 Week Anuj Ferguson MD [Staff Physician] - 2 Weeks Disposition: HOME - Home Medications Comprehensive Discharge Medication List: Ambulatory Orders Amlodipine Besylate 5 mg PO DAILY 05/23/19 traZODone HCL [Trazodone HCl] 50 mg PO DAILY 05/23/19 Hydrochlorothiazide [Hctz -] 25 mg PO DAILY #30 tablet 05/24/19 Ursodiol [Actigal -] 300 mg PO BID #180 capsule 05/24/19 metFORMIN HCL [Metformin HCl] 850 mg PO BID #180 tablet 05/24/19 This patient is new to me today: No Emergency Visit: Yes ED Registration Date: 05/20/19 Care time: The patient presented to the Emergency Department on the above date and was hospitalized for further evaluation of their emergent condition. Critical Care patient: No - Discharge Referral Referred to [facility] No ATTENDING PHYSICIAN STATEMENT I saw and evaluated the patient. I reviewed the resident's note and discussed the case with the resident. I agree with the resident's findings and plan as documented. SUBJECTIVE: OBJECTIVE: ASSESSMENT AND PLAN:
--- NOTE | 2019-05-26 16:13 | PATH ---
Surgical Pathology Report Patient Name: ALBA DAY Med. Rec. #: [id number] /Age/Gender: 1950 (Age: 68) / M Account: [id number] Location: [address] [place] [address]/[facility] Taken: 05/23/2019 Received: 05/23/2019 Reported: 05/24/2019 Physicians: Ban Cadena M.D. Specimen(s) Received STENT Clinical History Multiple gallstone Final Diagnosis OLD STENT, REMOVAL: SEGMENT OF STENT. GROSS EXAMINATION ONLY. Electronically Signed Abigail Manley M.D. Gross Description Specimen received in a container, labeled "old stent", consists of a portion of stent measuring 17 cm in length and 0.2 cm in diameter. Gross examination only. DIANDRA/05/23/2019 sesar/05/23/2019
== END 2019-05-24 18:47 | disposition home or self-care (01) | DRG 445 ==
LOC: JER 18:47 → JERBED 21:54 → J6S 05-21 05:10
PROVIDERS: ADMIT Internal Medicine; ATTEND Internal Medicine
PROC: 0FC98ZZ Extirpation of Matter from Common Bile Duct, Via Natural or Artificial Opening Endoscopic (ICD-10-PCS; 2019-05-23)
PROC: 0F798DZ Dilation of Common Bile Duct with Intraluminal Device, Via Natural or Artificial Opening Endoscopic (ICD-10-PCS; 2019-05-23)
PROC: BF10YZZ Fluoroscopy of Bile Ducts using Other Contrast (ICD-10-PCS; 2019-05-23)
PROC: 0FPB8DZ Removal of Intraluminal Device from Hepatobiliary Duct, Via Natural or Artificial Opening Endoscopic (ICD-10-PCS; principal; 2019-05-23 11:15)
DX: K80.31 Calculus of bile duct with cholangitis, unspecified, with obstruction (principal); T85.590A Other mechanical complication of bile duct prosthesis, initial encounter; N39.0 Urinary tract infection, site not specified; N17.9 Acute kidney failure, unspecified; E87.2 Acidosis; E87.5 Hyperkalemia; N18.3 Chronic kidney disease, stage 3 (moderate); R79.89 Other specified abnormal findings of blood chemistry; K83.8 Other specified diseases of biliary tract; E11.9 Type 2 diabetes mellitus without complications; E80.6 Other disorders of bilirubin metabolism; R74.0 Nonspecific elevation of levels of transaminase and lactic acid dehydrogenase [LDH]; I12.9 Hypertensive chronic kidney disease with stage 1 through stage 4 chronic kidney disease, or unspecified chronic kidney disease; D64.9 Anemia, unspecified; Y83.9 Surgical procedure, unspecified as the cause of abnormal reaction of the patient, or of later complication, without mention of misadventure at the time of the procedure
CPT/HCPCS: 36415; 71046-TC-FY; 74176-TC; 74181-TC; 76000-TC-FY; 76775-TC; 80048; 80053; 80076; 80307; 81003; 82140; 82150; 82248; 82272; 82962; 83690; 83735; 84100; 84484; 85025; 85027; 85610; 86038; 86140; 86593; 86704; 86705; 86706; 86707; 86708; 87040; 87086; 87491; 87591; 87661; 93005; 93010; 97116-GP; 97161-GP; 99283-25; J1644; J7030

== ENCOUNTER 2019-08-13 09:48 | Emergency (ER) | payer SELFPAY ==
[2019-08-13 10:09] VITALS: BMI 28.3
--- NOTE | 2019-08-13 10:47 | PDOC ---
History of Present Illness - General Chief Complaint: Pain, Acute Stated Complaint: WOUND CARE Time Seen by Provider: 08/13/19 10:47 History Source: Patient Exam Limitations: No Limitations - History of Present Illness Initial Comments: 08/13/19 11:18 68yM with a past medical history of prostate CA (s/p prostatectomy in 2011), Cholangitis, Cholelithiasis s/p Cholecystectomy (10/2017) and stent replacement , Hematuria, Anemia, NIDDM, CKD, HTN, presenting for 3mo stent removal and repeat ERCP. Could not see Dr Soni's office outpatient d/t lack of insurance , daughter called office yesterday, advised to come to hospital to be admitted and see Dr Soni for procedure today. Denies fever, chest/AB pain, SOB, nausea /vomiting, change in appetite, urinary/bowel mvmt changes. Has chronic AB distension worse w eating for past 2 years. On 11/13/17, admitted for ascending cholangitis, complicated by ESBL E. Coli UTI/ bacteremia, Septic shock, Respiratory failure with ventilator support, and acute renal failure requiring few hemodialysis treatments. Also had MRCP, ERCP and laparoscopic cholecystectomy. Past History - Past Medical History Allergies/Adverse Reactions: Allergies Allergy/AdvReac Type Severity Reaction Status Date / Time lactose AdvReac Verified 08/13/19 10:03 Home Medications: Ambulatory Orders Amlodipine Besylate 5 mg PO DAILY 05/23/19 traZODone HCL [Trazodone HCl] 50 mg PO DAILY 05/23/19 Hydrochlorothiazide [Hctz -] 25 mg PO DAILY #30 tablet 05/24/19 Ursodiol [Actigal -] 300 mg PO BID #180 capsule 05/24/19 metFORMIN HCL [Metformin HCl] 850 mg PO BID #180 tablet 05/24/19 COPD: No Diabetes: Yes HTN: Yes - Surgical History GI Surgery: Yes (hernia repair) - Immunization History Immunization Up to Date: Yes - Psycho Social/Smoking Cessation Hx Smoking History: Former smoker Have you smoked in the past 12 months: No If you are a former smoker, when did you quit?: 1997 Information on smoking cessation initiated: No Hx Alcohol Use: No Drug/Substance Use Hx: No Substance Use Type: None Hx Substance Use Treatment: No Review of Systems - Review of Systems Constitutional: No: Chills, Fever HEENTM: No: Eye Pain, Nose Pain, Throat Pain, Mouth Pain Respiratory: No: Cough, Shortness of Breath Cardiac (ROS): No: Chest Pain, Palpitations, Syncope ABD/GI: Yes: Abdominal Distended. No: Constipated, Diarrhea, Nausea, Vomiting : No: Burning, Flank Pain, Hematuria Musculoskeletal: No: Back Pain, Muscle Pain, Neck Pain Integumentary: No: Bruising, Flushing, Lesions Neurological: No: Headache, Seizure, Tingling Psychiatric: No: Anxiety, Depression, Stressors Endocrine: No: Excessive Sweating, Flushing, Intolerance to Cold, Intolerance to Heat Hematologic/Lymphatic: No: Anemia, Blood Clots *Physical Exam - Vital Signs Last Vital Signs Temp Pulse Resp BP Pulse Ox 98.4 F 113 H 18 158/74 99 08/13/19 10:00 08/13/19 10:00 08/13/19 10:00 08/13/19 10:00 08/13/19 10:00 - Physical Exam General Appearance: Yes: Nourished, Appropriately Dressed. No: Apparent Distress HEENT: positive: EOMI, LENNY, Normal Voice, Hearing Grossly Normal. negative: Scleral Icterus (R), Scleral Icterus (L), Nasal Congestion, Rhinorrhea Respiratory/Chest: positive: Lungs Clear, Normal Breath Sounds. negative: Chest Tender, Respiratory Distress, Crackles, Rales, Rhonchi, Stridor, Wheezing Cardiovascular: positive: Regular Rhythm, Regular Rate, S1, S2. negative: Edema , Murmur Gastrointestinal/Abdominal: positive: Normal Bowel Sounds, Soft, Distended. negative: Tender, Organomegaly, Guarding, Rebound, Hernia, Mass Musculoskeletal: negative: CVA Tenderness (R), CVA Tenderness (L) Extremity: positive: Normal Capillary Refill Integumentary: positive: Normal Color Neurologic: positive: Fully Oriented, Alert, Normal Response, Responsive. negative: Sensory Deficit, Confused, Disoriented ED Treatment Course - LABORATORY CBC & Chemistry Diagram: 08/13/19 12:12 08/13/19 12:12 Medical Decision Making - Medical Decision Making 08/13/19 12:36 CBC CMP trop coags T&S EKG --- 68yM with a past medical history of prostate CA (s/p prostatectomy in 2011), Cholangitis, Cholelithiasis s/p Cholecystectomy (10/2017) and stent replacement , Hematuria, Anemia, NIDDM, CKD, HTN, presenting for 3mo stent removal and repeat ERCP. Pt asymptomatic besides chronic AB distension. LFT wnl. Cr. 1.9 ( baseline). Consulted GI Dr Soni, advised he is on holiday and busy w procedures for next 2 weeks. Labs look reassuring. Advised pt come back to ED to be admitted for procedure September 01, 2019. DC home Discharge - Discharge Information Problems reviewed: Yes Clinical Impression/Diagnosis: History of biliary duct stent placement Condition: Good Disposition: HOME - Admission No - Follow up/Referral Referrals: Charlene Lin MD [Primary Care Provider] - Sary Soni MD [Staff Physician] - - Patient Discharge Instructions Additional Instructions: You were seen for gallbladder stent recheck. Your labs did not show anything concerning Please come back to the ED to be admitted and seen by Dr Soni on September 01, 2019. Call his office to arrange another date if you are busy that day. Come back to the ED if you have worsening pain, vomiting, or lose consciousness. - Post Discharge Activity
[2019-08-13 12:24] LABS: BASO % 0.4 % (0-2.0); EOS % 1.1 % (0-4.5); HEMOGLOBIN 11.8 GM/dL (11.7-16.9); LYMPH % 22.4 % (8-40); MCH 26.8 pg (25.7-33.7); MCHC 31.8 g/dl (32.0-35.9); MEAN CELL VOLUME 84.3 fl (80-96); MEAN PLT VOLUME 8.3 fl (7.5-11.1); MONO % 6.8 % (3.8-10.2); NEUT % 69.3 % (42.8-82.8); PLATELET COUNT 300 K/MM3 (134-434); RBC 4.39 M/mm3 (4.00-5.60); WHITE BLOOD COUNT 7.6 K/mm3 (4.0-10.0)
[2019-08-13 12:59] LABS: ALBUMIN 3.6 g/dl (3.4-5.0); BILIRUBIN,TOTAL 1.1 mg/dL (0.2-1); BLOOD UREA NITROGEN 19.9 mg/dL (7-18); CALCIUM 9.4 mg/dL (8.5-10.1); CREATININE 1.9 mg/dL (0.55-1.3); POTASSIUM 5.4 mmol/L (3.5-5.1); TOT PROT 6.9 g/dl (6.4-8.2)
--- NOTE | 2019-08-13 13:08 | PDOC ---
Documentation entered by Marcie Villalpando SCRIBE, acting as scribe for Kelsey Hayes MD. Kelsey Hayes MD: This documentation has been prepared by the [employer] Adrianna, SCRIBE, under my direction and personally reviewed by me in its entirety. I confirm that the documentation accurately reflects all work, treatment, procedures, and medical decision making performed by me. Attending Attestation - Resident Resident Name: Rob Wren - ED Attending Attestation I have performed the following: I have examined & evaluated the patient, The case was reviewed & discussed with the resident, I agree w/resident's findings & plan, Exceptions are as noted - HPI HPI: The patient is a 69 year old M, with a significant PMH of HTN, HLD, IDDM, CKD, hypothyroidism, asthma, LA, cholangitis, right cerebellar CVA, tinnitus, gastritis. Pt presented with severe sepsis likely secondary to ascending cholangitis s/p biliary stenting Pt presented to the hospital with ascending cholangitis s/p lap waldemar and stent placement Pt s/p stent replacement He is s/p MRI in Apr 2019, which was significant for multiple filling defects in the CBD and CHD, significant intrahepatic biliary ductal dilitation suspicious for CBD stones. Pt is supped to have his biliary stent re assessed and therefore came in to the ER Pt states he is at his baseline. No fevers or chills. Nno nausea, vomiting, diarrhea. Patient does have chronic abdominal distention (for the past 2 years), which is exacerbated with PO intake. Allergies: Lactose Surgical History: Cholecystectomy, prostatectomy. Stent replacement Social History: Former smoker (quit >25 years ago). Denies EtOH or illicit drug use PCP: Dr. Lin 08/13/19 12:56 08/13/19 13:47 - Physicial Exam PE: GENERAL: The patient is in no acute distress. ENT: Ears normal, nares patent, oropharynx clear without exudates. Moist mucous membranes. NECK: Normal range of motion, supple, no nuchal rigidity LUNGS: Breath sounds equal, clear to auscultation bilaterally. No wheezes, and no crackles. HEART: Regular rate and rhythm, normal S1 and S2 without murmur, rub or gallop. ABDOMEN: Soft, nontender, normoactive bowel sounds. Protruberant abdomen. No guarding, no rebound. EXTREMITIES: Normal range of motion, no edema. NEUROLOGICAL: Cranial nerves II through XII grossly intact. Normal speech. No focal neurological deficits. SKIN: Warm, Dry, normal turgor, no rashes or lesions noted. 08/13/19 13:06 - Medical Decision Making 08/13/19 13:07 Laboratory Tests 05/24/19 08/13/19 08/13/19 07:25 12:12 12:12 WBC 7.6 Hgb 11.8 Hct 37.0 D Plt Count 300 BUN 19.0 H 19.9 H Creatinine 1.5 H 1.9 H AST 175 H 32 ALT 498 H [address] Carr Will plan to discharge to home Pt will follow up on 09/01 for repeat ERCP
[2019-08-13 13:18] LABS: PH,URINE 6.5 (5.0-8.0); URINE APPEARANCE CLEAR; URINE BILIRUBIN NEGATIVE (NEGATIVE); URINE COLOR YELLOW; URINE GLUCOSE (UA) 2+ (NEGATIVE); URINE KETONE NEGATIVE (NEGATIVE); URINE LEUK ESTERASE NEGATIVE (NEGATIVE); URINE NITRITE NEGATIVE (NEGATIVE); URINE PROTEIN TRACE (NEGATIVE); URINE UROBILINOGEN 0.2 mg/dL (0.2-1.0)
[2019-08-13 13:23] VITALS: BP 149/72; PULSE 89; TEMP 98.3
[2019-08-13 13:33] LABS: INR 1.03 (0.83-1.09); PROTHROMBIN TIME (PATIENT) 12.1 SEC (9.7-13.0)
== END 2019-08-13 13:23 | disposition home or self-care (01) ==
LOC: JER 09:48
CPT/HCPCS: 36415; 80053; 81003; 85025; 85610; 87086; 99283-25

== ENCOUNTER 2019-09-01 06:47 | Inpatient (IN) | payer OTHER ==
--- NOTE | 2019-09-01 07:34 | PDOC ---
History of Present Illness - General Chief Complaint: Revisit,Radiology Variance Stated Complaint: HX OF BILIARY DUCT STENT PLACEMENT Time Seen by Provider: 09/01/19 07:27 History Source: Patient Exam Limitations: No Limitations - History of Present Illness Initial Comments: 09/01/19 07:36 Patient is a 69M with history of Prostate CA (s/p prostatectomy in 2011), Cholangitis, Cholelithiasis s/p Cholecystectomy (10/2017) and stent replacement , Hematuria, Anemia, NIDDM, CKD, HTN, presenting for stent removal and replacement. Patient states Dr Soni told him to come to the ED today. Denies abdominal pain, nausea, vomiting, fevers, chills. Denies chest pain and shortness of breath. Past History - Past Medical History Allergies/Adverse Reactions: Allergies Allergy/AdvReac Type Severity Reaction Status Date / Time lactose AdvReac Verified 09/01/19 06:50 Home Medications: Ambulatory Orders Amlodipine Besylate 5 mg PO DAILY 05/23/19 traZODone HCL [Trazodone HCl] 50 mg PO DAILY 05/23/19 Ursodiol [Actigal -] 300 mg PO BID #180 capsule 05/24/19 COPD: No Diabetes: Yes HTN: Yes - Surgical History GI Surgery: Yes (hernia repair) - Immunization History Immunization Up to Date: Yes - Psycho Social/Smoking Cessation Hx Smoking History: Never smoked Have you smoked in the past 12 months: No If you are a former smoker, when did you quit?: 1997 Information on smoking cessation initiated: No Hx Alcohol Use: No Drug/Substance Use Hx: No Substance Use Type: None Hx Substance Use Treatment: No Review of Systems - Review of Systems Able to Perform ROS?: Yes Comments:: 09/01/19 07:42 GENERAL/CONSTITUTIONAL: No fever or chills. No weakness. HEAD, EYES, EARS, NOSE AND THROAT: No change in vision. No ear pain or discharge. No sore throat. CARDIOVASCULAR: No chest pain or shortness of breath RESPIRATORY: No cough, wheezing, or hemoptysis. GASTROINTESTINAL: No nausea, vomiting, diarrhea or constipation. GENITOURINARY: No dysuria, frequency, or change in urination. MUSCULOSKELETAL: No joint or muscle swelling or pain. No neck or back pain. SKIN: No rash NEUROLOGIC: No headache, vertigo, loss of consciousness, or change in strength/ sensation. ALLERGIC/IMMUNOLOGIC: No hives or skin allergy. *Physical Exam - Vital Signs Last Vital Signs Temp Pulse Resp BP Pulse Ox 98.3 F 75 20 144/92 100 09/01/19 06:50 09/01/19 06:50 09/01/19 06:50 09/01/19 06:50 09/01/19 06:50 - Physical Exam 09/01/19 07:42 GENERAL: Awake, alert, and fully oriented, in no acute distress HEAD: No signs of trauma, normocephalic, atraumatic EYES: PERRLA, EOMI, sclera anicteric, conjunctiva clear ENT: Auricles normal inspection, hearing grossly normal, nares patent, oropharynx clear without exudates. Moist mucosa NECK: Normal ROM, supple, no lymphadenopathy, JVD, or masses LUNGS: No distress, speaks full sentences, clear to auscultation bilaterally HEART: Regular rate and rhythm, normal S1 and S2, no murmurs, rubs or gallops, peripheral pulses normal and equal bilaterally. ABDOMEN: Soft, nontender, normoactive bowel sounds. No guarding, no rebound. No masses EXTREMITIES: Normal inspection, Normal range of motion, no edema. No clubbing or cyanosis. NEUROLOGICAL: Cranial nerves II through XII grossly intact. Normal speech, normal gait, no focal sensorimotor deficits SKIN: Warm, Dry, normal turgor, no rashes or lesions noted. ED Treatment Course - LABORATORY CBC & Chemistry Diagram: 09/01/19 07:14 09/01/19 07:14 - RADIOLOGY Radiology Studies Ordered: Category Date Time Status CXRPORT [CHEST X-RAY PORTABLE*] [RAD] Stat Radiology 09/01/19 07:22 Ordered Medical Decision Making - Medical Decision Making 09/01/19 07:42 Patient is 69M with history of Prostate CA (s/p prostatectomy in 2011), Cholangitis, Cholelithiasis s/p Cholecystectomy (10/2017) and stent replacement , Hematuria, Anemia, NIDDM, CKD, HTN here today for stent replacement. Vitals normal and stable. Patient appears well. Will draw basic labs, call Dr Soni. 09/01/19 09:08 CBC, CMP reassuring. CXR clear Dr Soni contacted, confirmed he is expecting patient, procedure scheduled for tomorrow. Wants patient admitted. Requests KUB to confirm stent still present. KUB shows stent. Will admit to hospitalist. 09/01/19 11:17 D/w hospitalist, accepted to m/s. Discharge - Discharge Information Problems reviewed: Yes Clinical Impression/Diagnosis: History of biliary duct stent placement Condition: Stable - Admission Yes - Follow up/Referral - Patient Discharge Instructions - Post Discharge Activity
--- NOTE | 2019-09-01 07:42 | PDOC ---
Attending Attestation - Resident Resident Name: Mike Miller - ED Attending Attestation I have performed the following: I have examined & evaluated the patient, The case was reviewed & discussed with the resident, I agree w/resident's findings & plan - HPI HPI: 09/01/19 07:37 69y/o M mmp including cholangitis/cholecystitis s/p cholecystectomy and stent placement presents now for stent removal. no pain/f/c/vomiting. GI: Nae. - Physicial Exam PE: 09/01/19 07:39 vss alert, ambulatory no jaundice/pallor abd nontender - Medical Decision Making 09/01/19 07:41 69y/o M h/o cholecystectomy and biliary stent now for stent removal. asx otherwise with benign abdominal exam. labs sent d/w Dr. Soni Heart Score/ECG Review #1 ECG reviewed & interpreted by me at: 07:58 General ECG Interpretation: Sinus Rhythm, Normal Rate (72), Normal Intervals ( qtc 411), No acute ischemic changes
[2019-09-01 08:00] LABS: BASO % 1.6 % (0-2.0); EOS % 2.3 % (0-4.5); HEMATOCRIT 37.4 % (35.4-49); HEMOGLOBIN 11.8 GM/dL (11.7-16.9); LYMPH % 25.5 % (8-40); MCH 26.3 pg (25.7-33.7); MCHC 31.5 g/dl (32.0-35.9); MEAN CELL VOLUME 83.7 fl (80-96); MEAN PLT VOLUME 8.8 fl (7.5-11.1); NEUT % 61.6 % (42.8-82.8); PLATELET COUNT 304 K/MM3 (134-434); RBC 4.47 M/mm3 (4.00-5.60); RDW 15.5 % (11.9-15.9); WHITE BLOOD COUNT 7.3 K/mm3 (4.0-10.0)
[2019-09-01 08:28] LABS: ALBUMIN 3.9 g/dl (3.4-5.0); BILIRUBIN,TOTAL 0.9 mg/dL (0.2-1); BLOOD UREA NITROGEN 17.8 mg/dL (7-18); CALCIUM 9.2 mg/dL (8.5-10.1); CREATININE 1.8 mg/dL (0.55-1.3); POTASSIUM 4.5 mmol/L (3.5-5.1); TOT PROT 7.4 g/dl (6.4-8.2)
[2019-09-01 08:31] LABS: INR 0.92 (0.83-1.09); PROTHROMBIN TIME (PATIENT) 10.8 SEC (9.7-13.0)
[2019-09-01 09:35] LABS: ANISOCYTOSIS 0; MACROCYTOSIS 0; PLATELET ESTIMATE NORMAL
--- NOTE | 2019-09-01 11:51 | HP ---
CHIEF COMPLAINT: stent removal PCP: Dr Kennedi Lin HISTORY OF PRESENT ILLNESS: Patient is a 69 year old man with a past medical history of cholelithiasis s/p cholecystectomy (10/2017) and stent replacement 05/23/19, hematuria, anemia, NIDDM , CKD, hypertension. Patient presetns to the ED today for biliary stent removal and replacement. Patient denies abdominal pain, nausea, vomiting, fevers , chills. Denies chest pain and shortness of breath. He was admitted last year (10/2017) at [facility] for ascending cholangitis (s/p laparoscopic cholecystectomy) and hospital course complicated by UTI esbl ecoli and bacteremia, septic shock and respiratory failure. He was recently discharged on 05/26/2019 and was found to have liver nodules and advised to follow up with a MRI with contrast as an outpatient. ER course was notable for: (1) abd xray kub: biliary stent, no acute chest pathology (2) chest xray negative for acute pathology (3) Recent Travel: denies PAST MEDICAL/SURGICAL HISTORY: prostate CA (s/p prostatectomy), cholelithiasis , diabetes mellitus, CKD and hypertension Social History: Smoking: denies Alcohol: denies Drugs: denies Allergies lactose Adverse Reaction (Verified 09/01/19 06:50) Diarrhea HOME MEDICATIONS: Home Medications Medication Instructions Recorded Amlodipine Besylate 5 mg PO DAILY 05/23/19 traZODone HCL [Trazodone HCl] 50 mg PO DAILY 05/23/19 Ursodiol [Actigal -] 300 mg PO BID #180 capsule 05/24/19 PHYSICAL EXAMINATION Vital Signs - 24 hr 09/01/19 06:50 Temperature 98.3 F Pulse Rate 75 Respiratory 20 Rate Blood Pressure 144/92 O2 Sat by Pulse 100 Oximetry (%) GENERAL: Awake, alert, and fully oriented, in no acute distress. HEAD: Normal with no signs of trauma. EYES: Pupils equal, round and reactive to light, extraocular movements intact, sclera anicteric, conjunctiva clear. No lid lag. EARS, NOSE, THROAT: Ears normal, nares patent, oropharynx clear without exudates. Moist mucous membranes. NECK: Normal range of motion, supple without lymphadenopathy, JVD, or masses. LUNGS: Breath sounds equal, clear to auscultation bilaterally. No wheezes, and no crackles. HEART: Regular rate and rhythm, normal S1 and S2 without murmur, rub or gallop. ABDOMEN: large obese abdomen, soft, non tender, + bowel sounds, had bm yesterday MUSCULOSKELETAL: Normal range of motion at all joints. UPPER EXTREMITIES: No peripheral edema. LOWER EXTREMITIES: No peripheral edema. NEUROLOGICAL: Normal speech. Normal gait. PSYCHIATRIC: C Appropriate mood and affect. SKIN: Warm, dry, normal turgor, no rashes or lesions noted, normal capillary refill. Laboratory Results - last 24 hr 09/01/19 09/01/19 09/01/19 07:14 07:14 07:14 WBC 7.3 RBC 4.47 Hgb 11.8 Hct 37.4 MCV 83.7 MCH 26.3 MCHC 31.5 L RDW 15.5 Plt Count 304 MPV 8.8 Absolute Neuts (auto) 4.5 Neutrophils % 61.6 Neutrophils % (Manual) 46.0 D Band Neutrophils % 2.0 Lymphocytes % 25.5 Lymphocytes % (Manual) 22.0 Monocytes % 9.0 Monocytes % (Manual) 18 H Eosinophils % 2.3 D Eosinophils % (Manual) 3.0 Basophils % 1.6 D Basophils % (Manual) 1.0 Myelocytes % (Man) 1 D Promyelocytes % (Man) 0 Blast Cells % (Manual) 0 Nucleated RBC % 0 Metamyelocytes 0 Hypochromia 0 Platelet Estimate Normal Polychromasia 0 Poikilocytosis 0 Anisocytosis 0 Microcytosis 0 Macrocytosis 0 PT with INR INR Sodium 137 Potassium 4.5 Chloride 104 Carbon Dioxide 28 Anion Gap 5 L BUN 17.8 Creatinine 1.8 H Est GFR (CKD-EPI)AfAm 43.84 Est GFR (CKD-EPI)NonAf 37.83 Random Glucose 147 H Calcium 9.2 Total Bilirubin 0.9 AST 37 ALT 60 Alkaline Phosphatase 181 H Total Protein 7.4 Albumin 3.9 Lipase 132 Blood Type Antibody Screen 09/01/19 09/01/19 07:14 07:14 WBC RBC Hgb Hct MCV MCH MCHC RDW Plt Count MPV Absolute Neuts (auto) Neutrophils % Neutrophils % (Manual) Band Neutrophils % Lymphocytes % Lymphocytes % (Manual) Monocytes % Monocytes % (Manual) Eosinophils % Eosinophils % (Manual) Basophils % Basophils % (Manual) Myelocytes % (Man) Promyelocytes % (Man) Blast Cells % (Manual) Nucleated RBC % Metamyelocytes Hypochromia Platelet Estimate Polychromasia Poikilocytosis Anisocytosis Microcytosis Macrocytosis PT with INR 10.80 INR 0.92 Sodium Potassium Chloride Carbon Dioxide Anion Gap BUN Creatinine Est GFR (CKD-EPI)AfAm Est GFR (CKD-EPI)NonAf Random Glucose Calcium Total Bilirubin AST ALT Alkaline Phosphatase Total Protein Albumin Lipase Blood Type O POSITIVE Antibody Screen Negative ASSESSMENT/PLAN: Family Medical History Family History: Denies Problem List - Problem (1) History of biliary duct stent placement Assessment/Plan: for biliary stent removal with Dr. Soni. npo at midnight labs in a.m type and screen Code(s): Z98.890 - OTHER SPECIFIED POSTPROCEDURAL STATES (2) Elevated liver enzymes Assessment/Plan: within normal ranges, repeat labs in a.m. Code(s): R74.8 - ABNORMAL LEVELS OF OTHER SERUM ENZYMES (3) Diabetes Assessment/Plan: novolog [facility] ac/hs Code(s): E11.9 - TYPE 2 DIABETES MELLITUS WITHOUT COMPLICATIONS (4) CKD (chronic kidney disease) Assessment/Plan: creatinine at baseline Code(s): N18.9 - CHRONIC KIDNEY DISEASE, UNSPECIFIED (5) THIEN (acute kidney injury) Assessment/Plan: repeat labs in a.m Code(s): N17.9 - ACUTE KIDNEY FAILURE, UNSPECIFIED Visit type - Emergency Visit Emergency Visit: Yes ED Registration Date: 09/01/19 Care time: The patient presented to the Emergency Department on the above date and was hospitalized for further evaluation of their emergent condition. - New Patient This patient is new to me today: Yes Date on this admission: 09/02/19 - Critical Care Critical Care patient: No
--- NOTE | 2019-09-01 14:35 | EKG ---
Test Reason : Blood Pressure : / mmHG Vent. Rate : 072 BPM Atrial Rate : 072 BPM P-R Int : 156 ms QRS Dur : 068 ms QT Int : 376 ms P-R-T Axes : 060 066 056 degrees QTc Int : 411 ms NORMAL SINUS RHYTHM NORMAL ECG WHEN COMPARED WITH ECG OF 20-MAY-2019 18:58, NO SIGNIFICANT CHANGE WAS FOUND Confirmed by RADHAMES RODRIGUEZ MD ([id number]) on 09/01/2019 2:35:13 PM Referred By: Confirmed By:RADHAMES RODRIGUEZ MD
[2019-09-01] MEDS ORDERED: ACETAMINOPHEN 325 MG TABLET (FP) PO ONE (15:27)
[2019-09-01] MEDS ORDERED: ACETAMINOPHEN 325 MG TABLET (FP) ONE (16:57)
[2019-09-01 17:17] LABS: PH,URINE 5.5 (5.0-8.0); URINE APPEARANCE CLEAR; URINE BILIRUBIN NEGATIVE (NEGATIVE); URINE COLOR YELLOW; URINE GLUCOSE (UA) NEGATIVE (NEGATIVE); URINE KETONE NEGATIVE (NEGATIVE); URINE LEUK ESTERASE NEGATIVE (NEGATIVE); URINE NITRITE NEGATIVE (NEGATIVE); URINE PROTEIN TRACE (NEGATIVE); URINE UROBILINOGEN 0.2 mg/dL (0.2-1.0)
[2019-09-01] MEDS ORDERED: ACETAMINOPHEN INJECTION 100 ML IVPB ONE (17:49)
[2019-09-01] MEDS ORDERED: ACETAMINOPHEN 325 MG TABLET (FP) PO PRN (18:23)
--- NOTE | 2019-09-01 20:46 | CON.GI ---
Consult Consult Specialty:: Gastroenterology Referred by:: Dr. Mike Miller Reason for Consultation:: Biliary stent removal - History of Present Illness Chief Complaint: Abdominal distension and bloating discomfort History of Present Illness: 69M presents to the ER for removal of his biliary stent which he believes is causing his abdominal distension and bloating discomfort. My office staff has been trying to get him to come into our office since I first placed a stent in . He declined stating that his health insurance covers only inpatient care. He tells me that this is also the reason why he has not returned to Dr Salgado's office for a repeat colonoscopy. He has had colon polyps previously removed. He last had a colonoscopy in 2003. His mother had colon cancer. Dr Salgado also did an ERGD and found gastritis according to Crow. I first met Crow in 11.08 when I was covering Dr. Swift and when Crow presented with ascending cholangitis and jaundice. Pus was expressed from his CBD when I did a sphincterotomy to remove a stone. I placed a stent at that time but could not get him to followup in the office. He was admitted on with marked LFT elevations due to multiple CBD stones. He did have a lap choly in 11/08. I removed multiple stones during his ERCP on 05/23/19. His duct contained multiple stones, stone fragments and so much debris that I could not clear it. I placed a new stent and started Actigal. He stopped this however as it was too expensive. He clains to move his bowels daily and denies any decrease in stool caliber. - History Source History Provided By: Patient Limitations to Obtaining History: No Limitations - Past Medical History Cardio/Vascular: Yes: HTN Gastrointestinal: Yes: Gastritis (dx'ed by Dr Salgado at EGD), Other (colon polyps removed by Dr Salgado) Hepatobiliary: Yes: Cholelithiasis, Choledocholithiasis Renal/: Yes: Renal Inusuff, Cancer (s/p prostatectomy for prostate cancer 2003 ) Heme/Onc: Yes: Anemia Endocrine: Yes: Diabetes Mellitus Additional Medical History: obesity - Past Surgical History Past Surgical History: Yes: Cholecystectomy (laparoscopic), Colonoscopy, Prostatectomy (2003 for cancer), Upper Endoscopy - Alcohol/Substance Use Hx Alcohol Use: No History of Substance Use: reports: None - Smoking History Smoking history: Former smoker Have you smoked in the past 12 months: No If you are a former smoker, when did you quit?: 2004 - Social History Usual Living Arrangement: Alone ( [place] ADL: Independent 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 (year[place] 1990 Home Medications - Allergies Allergies/Adverse Reactions: Allergies Allergy/AdvReac Type Severity Reaction Status Date / Time lactose AdvReac Verified 09/01/19 06:50 - Home Medications Home Medications: Ambulatory Orders Amlodipine Besylate 5 mg PO DAILY 05/23/19 traZODone HCL [Trazodone HCl] 50 mg PO DAILY 05/23/19 Ursodiol [Actigal -] 300 mg PO BID #180 capsule 05/24/19 Family Medical History Family Hx Cancer: Mother (developed colon cancer in her 80's and lived to 91) Review of Systems - Review of Systems Constitutional: reports: No Symptoms Eyes: reports: No Symptoms HENT: reports: No Symptoms Neck: reports: No Symptoms Cardiovascular: reports: No Symptoms Respiratory: reports: No Symptoms Gastrointestinal: reports: Bloating Genitourinary: reports: No Symptoms Musculoskeletal: reports: Joint Pain Physical Exam-GI Vital Signs: Vital Signs Temperature 98.0 F 09/01/19 20:26 Pulse Rate 75 09/01/19 20:26 Respiratory Rate 16 09/01/19 20:26 Blood Pressure 141/74 09/01/19 20:26 O2 Sat by Pulse Oximetry (%) 99 09/01/19 20:26 CBC,CMP WBC 7.3 K/mm3 (4.0-10.0) 09/01/19 07:14 RBC 4.47 M/mm3 (4.00-5.60) 09/01/19 07:14 Hgb 11.8 GM/dL (11.7-16.9) 09/01/19 07:14 Hct 37.4 % (35.4-49) 09/01/19 07:14 MCV 83.7 fl (80-96) 09/01/19 07:14 MCH 26.3 pg (25.7-33.7) 09/01/19 07:14 MCHC 31.5 g/dl (32.0-35.9) L 09/01/19 07:14 RDW 15.5 % (11.9-15.9) 09/01/19 07:14 Plt Count 304 K/MM3 (134-434) 09/01/19 07:14 MPV 8.8 fl (7.5-11.1) 09/01/19 07:14 Absolute Neuts (auto) 4.5 K/mm3 (1.5-8.0) 09/01/19 07:14 Neutrophils % 61.6 % (42.8-82.8) 09/01/19 07:14 Neutrophils % (Manual) 46.0 % (42.8-82.8) D 09/01/19 07:14 Band Neutrophils % 2.0 % 09/01/19 07:14 Lymphocytes % 25.5 % (8-40) 09/01/19 07:14 Lymphocytes % (Manual) 22.0 % (8-40) 09/01/19 07:14 Monocytes % 9.0 % (3.8-10.2) 09/01/19 07:14 Monocytes % (Manual) 18 % (3.8-10.2) H 09/01/19 07:14 Eosinophils % 2.3 % (0-4.5) D 09/01/19 07:14 Eosinophils % (Manual) 3.0 % (0-4.5) 09/01/19 07:14 Basophils % 1.6 % (0-2.0) D 09/01/19 07:14 Basophils % (Manual) 1.0 % (0-2.0) 09/01/19 07:14 Myelocytes % (Man) 1 % (0-2) D 09/01/19 07:14 Promyelocytes % (Man) 0 % (0-2) 09/01/19 07:14 Blast Cells % (Manual) 0 % (0-0) 09/01/19 07:14 Nucleated RBC % 0 % (0-0) 09/01/19 07:14 Metamyelocytes 0 % (0-2) 09/01/19 07:14 Hypochromia 0 09/01/19 07:14 Platelet Estimate Normal 09/01/19 07:14 Polychromasia 0 09/01/19 07:14 Poikilocytosis 0 09/01/19 07:14 Anisocytosis 0 09/01/19 07:14 Microcytosis 0 09/01/19 07:14 Macrocytosis 0 09/01/19 07:14 Sodium 137 mmol/L (136-145) 09/01/19 07:14 Potassium 4.5 mmol/L (3.5-5.1) 09/01/19 07:14 Chloride 104 mmol/L (98-107) 09/01/19 07:14 Carbon Dioxide 28 mmol/L (21-32) 09/01/19 07:14 Anion Gap 5 MMOL/L (8-16) L 09/01/19 07:14 BUN 17.8 mg/dL (7-18) 09/01/19 07:14 Creatinine 1.8 mg/dL (0.55-1.3) H 09/01/19 07:14 Est GFR (CKD-EPI)AfAm 43.84 09/01/19 07:14 Est GFR (CKD-EPI)NonAf 37.83 09/01/19 07:14 Random Glucose 147 mg/dL (74-106) H 09/01/19 07:14 Calcium 9.2 mg/dL (8.5-10.1) 09/01/19 07:14 Total Bilirubin 0.9 mg/dL (0.2-1) 09/01/19 07:14 AST 37 U/L (15-37) 09/01/19 07:14 ALT 60 U/L (13-61) 09/01/19 07:14 Alkaline Phosphatase 181 U/L (45-117) H 09/01/19 07:14 Total Protein 7.4 g/dl (6.4-8.2) 09/01/19 07:14 Albumin 3.9 g/dl (3.4-5.0) 09/01/19 07:14 Lipase 132 U/L (73-393) 09/01/19 07:14 Current Medications Generic Name Dose Route Start Last Admin Trade Name Freq PRN Reason Stop Dose Admin Acetaminophen 650 mg 09/01/19 18:23 Tylenol - PO Q6H PRN PAIN LEVEL 4 - 6 Amlodipine Besylate 5 mg 09/02/19 10:00 Norvasc - PO DAILY RERE Sodium Chloride 1,000 mls @ 50 mls/hr 09/02/19 00:00 Normal Saline - IV ASDIR RERE Insulin Aspart 1 vial 09/01/19 22:00 Novolog Vial Sliding Scale - SQ ACHS [facility] Protocol Trazodone HCl 50 mg 09/02/19 10:00 Desyrel - PO DAILY RERE Ursodiol 300 mg 09/01/19 22:00 Actigal - PO BID RERE Constitutional: Yes: Well Nourished Eyes: Yes: Conjunctiva Clear HENT: Yes: Atraumatic Neck: Yes: Supple Cardiovascular: Yes: Regular Rate and Rhythm Respiratory: Yes: CTA Bilaterally Gastrointestinal Inspection: Yes: Distention (but not tense), Scars (healed lap choly and vertical suprapubic incisions) ...Auscultate: Yes: Normoactive Bowel Sounds ...Palpate: Yes: Soft, Other (nontender) ...Percussion: Yes: Tympanitic ...Rectal Exam: Yes: Guaiac Positive (no prostate, brown guaiac negative stool) Edema: No Neurological: Yes: Alert, Oriented Labs: CBC, BMP 09/01/19 07:14 09/01/19 07:14 INR, PTT INR 0.92 (0.83-1.09) 09/01/19 07:14 Laboratory Tests 11/14/17 11/14/17 02/03/19 05:50 05:50 07:20 Ferritin 163.1 Lipase Carcinoembryonic Ag 2.1 CA 19-9 Antigen 1755 H [place] Screen Hepatitis A Ab Total Hep Bs Antigen Hep Bs Antibody Hep B Core Total Ab Hep C Ab Diagnostic <0.1 05/22/19 05/22/19 09/01/19 13:45 13:45 07:14 Ferritin Lipase 132 Carcinoembryonic Ag CA 19-9 Antigen [place] Screen Negative Hepatitis A Ab Total Positive H Hep Bs Antigen Negative Hep Bs Antibody Non reactive Hep B Core Total Ab Negative Hep C Ab Diagnostic Problem List - Problems (1) Calculus in biliary tract Code(s): K80.20 - CALCULUS OF GALLBLADDER W/O CHOLECYSTITIS W/O OBSTRUCTION (2) History of biliary stent insertion Code(s): Z98.890 - OTHER SPECIFIED POSTPROCEDURAL STATES (3) Prostate cancer Code(s): C61 - MALIGNANT NEOPLASM OF PROSTATE (4) Diabetes 1.5, managed as type 2 Code(s): E13.9 - OTHER SPECIFIED DIABETES MELLITUS WITHOUT COMPLICATIONS (5) Renal insufficiency Code(s): N28.9 - DISORDER OF KIDNEY AND URETER, UNSPECIFIED (6) History of colon polyps Code(s): Z86.010 - PERSONAL HISTORY OF COLONIC POLYPS (7) Family history of colon cancer in mother Code(s): Z80.0 - FAMILY HISTORY OF MALIGNANT NEOPLASM OF DIGESTIVE ORGANS (8) Abdominal distension Code(s): R14.0 - ABDOMINAL DISTENSION (GASEOUS) (9) History of acute cholangitis Code(s): Z87.19 - PERSONAL HISTORY OF OTHER DISEASES OF THE DIGESTIVE SYSTEM (10) History of biliary duct stent placement Code(s): Z98.890 - OTHER SPECIFIED POSTPROCEDURAL STATES (11) Anemia Code(s): D64.9 - ANEMIA, UNSPECIFIED (12) Dilated bile duct Code(s): K83.8 - OTHER SPECIFIED DISEASES OF BILIARY TRACT (13) Choledocholithiasis Code(s): K80.50 - CALCULUS OF BILE DUCT W/O CHOLANGITIS OR CHOLECYST W/O OBST Assessment/Plan Impression: - I suspect that Crow has residual stones and/or stone debris in the CBD. Unfortunately he do not take the Actigal. Another attempt will be made to clear the CBD of stones and debris or to at least change his stent. - I believe that his distension reflects obesity as no obstruction is seen on the FUA. A sonogram inocencio be obtained to exclude ascites - Personal h/o colon polyps and FH of colon cancer and overdue for a repeat colonoscopy Plan: -- ERCP tomorrow. I have discussed ERCP again in detail and reminded Crow of the potential risks that include perforation, hemorrhage and ERCP induced pancreatitis that can lead to multiorgan failure. He has granted a verbal consent. -- Sonogram to exclude ascites and exclude a neoplasm -- Repeat Ca 19.9 -- I advised followup with Dr Salgado or with me after discharge to arrange a repeat colonoscopy -- Continue PPI for his chronic gastritis
[2019-09-01] MEDS ORDERED: PT OWN MED DRAWER 7, Y5N ONE (22:17)
[2019-09-01] MEDS: INSULIN SLIDING SCALE (NOVOLOG) 1 VIAL SQ SCH (22:41)
[2019-09-01] MEDS: URSODIOL 300 MG CAPSULE PO SCH (22:52)
[2019-09-01 23:18] VITALS: BMI 27.8
[2019-09-01] MEDS ORDERED: MELATONIN 5 MG TABLETS PO ONE (23:49)
[2019-09-02] MEDS ORDERED: SODIUM CHLORIDE 1,000 ML IV SCH
[2019-09-02] MEDS ORDERED: PT OWN MED DRAWER 7, Y5N ONE ×2 (00:04→10:09)
[2019-09-02] MEDS: INSULIN SLIDING SCALE (NOVOLOG) 1 VIAL SQ SCH ×4 (06:14→21:29)
[2019-09-02 07:51] LABS: EOS % 2.6 % (0-4.5); HEMATOCRIT 37.2 % (35.4-49); HEMOGLOBIN 11.7 GM/dL (11.7-16.9); MCH 26.1 pg (25.7-33.7); MCHC 31.6 g/dl (32.0-35.9); MEAN CELL VOLUME 82.5 fl (80-96); MEAN PLT VOLUME 8.4 fl (7.5-11.1); MONO % 6.6 % (3.8-10.2); NEUT % 52.8 % (42.8-82.8); PLATELET COUNT 337 K/MM3 (134-434); RBC 4.51 M/mm3 (4.00-5.60); RDW 15.6 % (11.9-15.9); WHITE BLOOD COUNT 7.9 K/mm3 (4.0-10.0)
[2019-09-02 08:05] LABS: INR 0.92 (0.83-1.09); PROTHROMBIN TIME (PATIENT) 10.9 SEC (9.7-13.0)
[2019-09-02 08:22] LABS: MAGNESIUM 1.6 mg/dL (1.8-2.4)
[2019-09-02] MEDS ORDERED: MAGNESIUM SULF 50% (8.12 MEQ/2 ML-1 GM VIAL) IVPB ONE (09:30)
[2019-09-02] MEDS: traZODone HCL 50 MG TABLET (FP) PO SCH (10:21)
[2019-09-02] MEDS: amLODIPine BESYLATE 5 MG TABLET (FP) PO SCH (10:21)
[2019-09-02] MEDS: URSODIOL 300 MG CAPSULE PO SCH ×2 (10:21→21:27)
[2019-09-02] MEDS: PANTOPRAZOLE 40 MG TABLET (FP) PO SCH (10:21)
[2019-09-02] MEDS ORDERED: MIDAZOLAM HCL 2 MG/2 ML SINGLE DOSE VIAL ONE (13:45)
[2019-09-02] MEDS ORDERED: ceFAZolin 2 GRAM PREMIX BAG IVPB ONE ×2 (14:00→14:05)
[2019-09-02] MEDS ORDERED: CEFAZOLIN 1 GM/D5W 1 GM/50 ML BAG ONE (14:08)
[2019-09-02] MEDS ORDERED: IOHEXOL 300 MG/ML INFUS..BTL IV ONE (14:15)
[2019-09-02] MEDS ORDERED: LACTATED RINGERS SOLUTION 1,000 ML/1,000 ML INFUS.BAG IV SCH (15:00)
--- NOTE | 2019-09-02 15:06 | PN ---
Progress Note (short form) - Note Progress Note: GI Procedure NOte: Please see ERCP report. A single residual stone was found which splintered into fragments with manipulation. These were extracted. Stent was removed. Will order brisk Ringer's lactate hydration to protect against ERCP pancreatitis. If no pancreatitis ensues, he can be discharged in the AM. Will give a dose of Venofer given his anemia and iron deficiency. He has been advised to followup with Dr. Salgado or with me for a colon cancer screening colonoscopy. Dr. Ivey will be covering this weekend. Please call her if necessary. Problem List - Problems (1) Calculus in biliary tract Code(s): K80.20 - CALCULUS OF GALLBLADDER W/O CHOLECYSTITIS W/O OBSTRUCTION (2) History of biliary stent insertion Code(s): Z98.890 - OTHER SPECIFIED POSTPROCEDURAL STATES (3) Prostate cancer Code(s): C61 - MALIGNANT NEOPLASM OF PROSTATE (4) Diabetes 1.5, managed as type 2 Code(s): E13.9 - OTHER SPECIFIED DIABETES MELLITUS WITHOUT COMPLICATIONS (5) Renal insufficiency Code(s): N28.9 - DISORDER OF KIDNEY AND URETER, UNSPECIFIED (6) History of colon polyps Code(s): Z86.010 - PERSONAL HISTORY OF COLONIC POLYPS (7) Family history of colon cancer in mother Code(s): Z80.0 - FAMILY HISTORY OF MALIGNANT NEOPLASM OF DIGESTIVE ORGANS (8) Abdominal distension Code(s): R14.0 - ABDOMINAL DISTENSION (GASEOUS) (9) History of acute cholangitis Code(s): Z87.19 - PERSONAL HISTORY OF OTHER DISEASES OF THE DIGESTIVE SYSTEM (10) History of biliary duct stent placement Code(s): Z98.890 - OTHER SPECIFIED POSTPROCEDURAL STATES (11) Anemia Code(s): D64.9 - ANEMIA, UNSPECIFIED (12) Dilated bile duct Code(s): K83.8 - OTHER SPECIFIED DISEASES OF BILIARY TRACT (13) Choledocholithiasis Code(s): K80.50 - CALCULUS OF BILE DUCT W/O CHOLANGITIS OR CHOLECYST W/O OBST
--- NOTE | 2019-09-02 16:23 | PN ---
Physical Exam: SUBJECTIVE: Patient seen and examined at the bedside. denies pain, denies discomfort. going for biliary stent removal today. OBJECTIVE: Patient is a 69 year old man with a past medical history of cholelithiasis s/p cholecystectomy (10/2017) and stent replacement 05/23/19, hematuria, anemia, NIDDM , CKD, hypertension. Patient presents to the ED today for biliary stent removal and replacement. Patient denies abdominal pain, nausea, vomiting, fevers , chills. Denies chest pain and shortness of breath. He was admitted last year (10/2017) at [facility] for ascending cholangitis (s/p laparoscopic cholecystectomy) and hospital course complicated by UTI esbl ecoli and bacteremia, septic shock and respiratory failure. He was recently discharged on 05/26/2019 and was found to have liver nodules and advised to follow up with a MRI with contrast as an outpatient. Vital Signs Period Temp Pulse Resp BP Sys/Leyva Pulse Ox Last 24 Hr 97.8 F-98.4 F 74-84 12-18 118-141/66-88 95-100 GENERAL: Awake, alert, and fully oriented, in no acute distress. HEAD: Normal with no signs of trauma. EYES: Pupils equal, round and reactive to light, extraocular movements intact, sclera anicteric, conjunctiva clear. No lid lag. EARS, NOSE, THROAT: Ears normal, nares patent, oropharynx clear without exudates. Moist mucous membranes. NECK: Normal range of motion, supple without lymphadenopathy, JVD, or masses. LUNGS: Breath sounds equal, clear to auscultation bilaterally. No wheezes, and no crackles. HEART: Regular rate and rhythm, normal S1 and S2 without murmur, rub or gallop. ABDOMEN: large obese abdomen, soft, non tender, + bowel sounds, had bm yesterday MUSCULOSKELETAL: Normal range of motion at all joints. UPPER EXTREMITIES: No peripheral edema. LOWER EXTREMITIES: No peripheral edema. NEUROLOGICAL: Normal speech. Normal gait. PSYCHIATRIC: C Appropriate mood and affect. SKIN: Warm, dry, normal turgor, no rashes or lesions noted, normal capillary refill. Laboratory Results - last 24 hr 09/01/19 09/01/19 09/02/19 16:59 22:39 05:50 WBC RBC Hgb Hct MCV MCH MCHC RDW Plt Count MPV Absolute Neuts (auto) Neutrophils % Lymphocytes % Monocytes % Eosinophils % Basophils % Nucleated RBC % Retic Count PT with INR INR POC Glucometer 244 189 Magnesium Iron TIBC Iron Saturation Unsaturated IBC Ferritin Urine Color Yellow Urine Appearance Clear Urine pH 5.5 Ur Specific Hundred 1.017 Urine Protein Trace Urine Glucose (UA) Negative Urine Ketones Negative Urine Blood Negative Urine Nitrite Negative Urine Bilirubin Negative Urine Urobilinogen 0.2 Ur Leukocyte Esterase Negative Blood Type Antibody Screen 09/02/19 09/02/19 09/02/19 06:55 06:55 06:55 WBC 7.9 RBC 4.51 Hgb 11.7 Hct 37.2 MCV 82.5 MCH 26.1 MCHC 31.6 L RDW 15.6 Plt Count 337 MPV 8.4 Absolute Neuts (auto) 4.2 Neutrophils % 52.8 Lymphocytes % 37.0 D Monocytes % 6.6 Eosinophils % 2.6 Basophils % 1.0 Nucleated RBC % 0 Retic Count PT with INR 10.90 INR 0.92 POC Glucometer Magnesium Iron TIBC Iron Saturation Unsaturated IBC Ferritin Urine Color Urine Appearance Urine pH Ur Specific Hundred Urine Protein Urine Glucose (UA) Urine Ketones Urine Blood Urine Nitrite Urine Bilirubin Urine Urobilinogen Ur Leukocyte Esterase Blood Type O POSITIVE Antibody Screen Negative 09/02/19 09/02/19 09/02/19 06:55 06:55 11:42 WBC RBC Hgb Hct MCV MCH MCHC RDW Plt Count MPV Absolute Neuts (auto) Neutrophils % Lymphocytes % Monocytes % Eosinophils % Basophils % Nucleated RBC % Retic Count 1.01 PT with INR INR POC Glucometer 155 Magnesium 1.6 L Iron 24 L TIBC 414 Iron Saturation 5 L Unsaturated IBC 390 H Ferritin 16.3 Urine Color Urine Appearance Urine pH Ur Specific Hundred Urine Protein Urine Glucose (UA) Urine Ketones Urine Blood Urine Nitrite Urine Bilirubin Urine Urobilinogen Ur Leukocyte Esterase Blood Type Antibody Screen Active Medications Generic Name Dose Route Start Last Admin Trade Name Freq PRN Reason Stop Dose Admin Acetaminophen 650 mg 09/01/19 18:23 Tylenol - PO Q6H PRN PAIN LEVEL 4 - 6 Amlodipine Besylate 5 mg 09/02/19 10:00 09/02/19 10:21 Norvasc - PO 5 mg DAILY RERE Administration Lactated Ringer's 1,000 ml in 1,000 mls @ 200 mls/hr 09/02/19 15:00 09/02/19 15:52 Lactated Ringers Solution IV 09/02/19 21:00 200 mls/hr ASDIR RERE Administration Lactated Ringer's 1,000 ml in 1,000 mls @ 175 mls/hr 09/02/19 21:00 Lactated Ringers Solution IV 09/03/19 05:00 ASDIR RERE Lactated Ringer's 1,000 ml in 1,000 mls @ 150 mls/hr 09/03/19 05:00 Lactated Ringers Solution IV 09/03/19 13:00 ASDIR RERE Lactated Ringer's 1,000 ml in 1,000 mls @ 125 mls/hr 09/03/19 13:00 Lactated Ringers Solution IV ASDIR RERE Iron Sucrose 300 mg/ Sodium 250 mls @ 250 mls/hr 09/03/19 08:00 Chloride IVPB 09/03/19 08:59 ONCE ONE Insulin Aspart 1 vial 09/01/19 22:00 09/02/19 11:45 Novolog Vial Sliding Scale - SQ Not Given ACHS RERE Protocol Pantoprazole Sodium 40 mg 09/02/19 10:00 09/02/19 10:21 Protonix - PO 40 mg DAILY RERE Administration Trazodone HCl 50 mg 09/02/19 10:00 09/02/19 10:21 Desyrel - PO 50 mg DAILY RERE Administration Ursodiol 300 mg 09/01/19 22:00 09/02/19 10:21 Actigal - PO 300 mg BID RERE Administration ASSESSMENT/PLAN: Problem List - Problems (1) History of biliary duct stent placement Assessment/Plan: for biliary stent removal with Dr. Soni today NPO maintained labs stable, type and screen stent discharge once cleared by GI, will awaiting a.m. labs. Code(s): Z98.890 - OTHER SPECIFIED POSTPROCEDURAL STATES (2) Elevated liver enzymes Assessment/Plan: within normal ranges, repeat labs in a.m. Code(s): R74.8 - ABNORMAL LEVELS OF OTHER SERUM ENZYMES (3) Diabetes Assessment/Plan: novolog ss bgms ac/hs stable bgms, monitor ac/hs diabetic diet Code(s): E11.9 - TYPE 2 DIABETES MELLITUS WITHOUT COMPLICATIONS (4) CKD (chronic kidney disease) Assessment/Plan: creatinine at baseline Code(s): N18.9 - CHRONIC KIDNEY DISEASE, UNSPECIFIED (5) THIEN (acute kidney injury) Assessment/Plan: repeat labs in a.m Code(s): N17.9 - ACUTE KIDNEY FAILURE, UNSPECIFIED (6) DVT prophylaxis Assessment/Plan: ambulation SCDs defer a/c as LOS<48 hours full code Code(s): Z29.9 - ENCOUNTER FOR PROPHYLACTIC MEASURES, UNSPECIFIED Visit type - Emergency Visit Emergency Visit: Yes ED Registration Date: 09/01/19 Care time: The patient presented to the Emergency Department on the above date and was hospitalized for further evaluation of their emergent condition. - New Patient This patient is new to me today: No - Critical Care Critical Care patient: No - Discharge Referral Referred to [facility] No
[2019-09-02] MEDS ORDERED: INSULIN (NOVOLOG) ASPART 100 UNITS/ML 10ML VIAL ONE ×2 (17:28→20:56)
[2019-09-02] MEDS: LACTATED RINGERS SOLUTION 1,000 ML/1,000 ML INFUS.BAG IV SCH ×2 (18:46→21:27)
[2019-09-03] MEDS ORDERED: LACTATED RINGERS SOLUTION 1,000 ML/1,000 ML INFUS.BAG IV SCH ×2 (05:00→13:00)
[2019-09-03] MEDS: INSULIN SLIDING SCALE (NOVOLOG) 1 VIAL SQ SCH ×2 (06:51→11:48)
[2019-09-03 07:44] LABS: BASO % 0.4 % (0-2.0); HEMATOCRIT 32.4 % (35.4-49); HEMOGLOBIN 10.5 GM/dL (11.7-16.9); LYMPH % 11.9 % (8-40); MCH 26.2 pg (25.7-33.7); MCHC 32.4 g/dl (32.0-35.9); MEAN CELL VOLUME 80.9 fl (80-96); MEAN PLT VOLUME 8.7 fl (7.5-11.1); NEUT % 83.7 % (42.8-82.8); PLATELET COUNT 291 K/MM3 (134-434); RDW 14.9 % (11.9-15.9); WHITE BLOOD COUNT 9.6 K/mm3 (4.0-10.0)
[2019-09-03] MEDS ORDERED: IRON SUCROSE INJECTION 300 MG in SODIUM CHLORIDE 235 ML IVPB ONE (08:00)
[2019-09-03 08:27] LABS: ALBUMIN 3.2 g/dl (3.4-5.0); BILIRUBIN,DIRECT 0.2 mg/dL (0.0-0.2); BILIRUBIN,TOTAL 0.7 mg/dL (0.2-1); BLOOD UREA NITROGEN 25.3 mg/dL (7-18); CALCIUM 8.7 mg/dL (8.5-10.1); CREATININE 1.8 mg/dL (0.55-1.3); POTASSIUM 4.3 mmol/L (3.5-5.1); TOT PROT 6.2 g/dl (6.4-8.2)
[2019-09-03 10:00] VITALS: BP 130/83; PULSE 100; TEMP 98.7
[2019-09-03] MEDS ORDERED: PT OWN MED DRAWER 7, Y5N ONE (10:04)
[2019-09-03] MEDS: URSODIOL 300 MG CAPSULE PO SCH (10:12)
[2019-09-03] MEDS: PANTOPRAZOLE 40 MG TABLET (FP) PO SCH (10:13)
[2019-09-03] MEDS: amLODIPine BESYLATE 5 MG TABLET (FP) PO SCH (10:13)
--- NOTE | 2019-09-03 10:13 | DS ---
Physical Exam: SUBJECTIVE: Patient seen and examined at the bedside. denies pain, denies discomfort. s/p biliary stent removal, ambulating in room, urinating without difficulty, had a BM and wants to go home. OBJECTIVE: Patient is a 69 year old man with a past medical history of cholelithiasis s/p cholecystectomy (10/2017) and stent replacement 05/23/19, hematuria, anemia, NIDDM , CKD, hypertension. Patient presents to the ED today for biliary stent removal and replacement. Patient denies abdominal pain, nausea, vomiting, fevers , chills. Denies chest pain and shortness of breath. He was admitted last year (10/2017) at [facility] for ascending cholangitis (s/p laparoscopic cholecystectomy) and hospital course complicated by UTI esbl ecoli and bacteremia, septic shock and respiratory failure. He was recently discharged on 05/26/2019 and was found to have liver nodules and advised to follow up with a MRI with contrast as an outpatient. patient labs are stable post biliary stent removal. will discharge home with instructions to follow up with GI for a colonoscopy. Vital Signs Period Temp Pulse Resp BP Sys/Leyva Pulse Ox Last 24 Hr 97.9 F-98.7 F 76-100 12-20 121-143/71-88 95-100 PHYSICAL EXAM GENERAL: Awake, alert, and fully oriented, in no acute distress. HEAD: Normal with no signs of trauma. EYES: Pupils equal, round and reactive to light, extraocular movements intact, sclera anicteric, conjunctiva clear. No lid lag. EARS, NOSE, THROAT: Ears normal, nares patent, oropharynx clear without exudates. Moist mucous membranes. NECK: Normal range of motion, supple without lymphadenopathy, JVD, or masses. LUNGS: Breath sounds equal, clear to auscultation bilaterally. No wheezes, and no crackles. HEART: Regular rate and rhythm, normal S1 and S2 without murmur, rub or gallop. ABDOMEN: large obese abdomen, soft, non tender, + bowel sounds, had bm yesterday MUSCULOSKELETAL: Normal range of motion at all joints. UPPER EXTREMITIES: No peripheral edema. LOWER EXTREMITIES: No peripheral edema. NEUROLOGICAL: Normal speech. Normal gait. PSYCHIATRIC: Appropriate mood and affect. SKIN: Warm, dry, normal turgor, no rashes or lesions noted, normal capillary refill. LABS Laboratory Results - last 24 hr 09/02/19 09/02/19 09/02/19 06:55 11:42 17:34 WBC RBC Hgb Hct MCV MCH MCHC RDW Plt Count MPV Absolute Neuts (auto) Neutrophils % Lymphocytes % Monocytes % Eosinophils % Basophils % Nucleated RBC % Sodium Potassium Chloride Carbon Dioxide Anion Gap BUN Creatinine Est GFR (CKD-EPI)AfAm Est GFR (CKD-EPI)NonAf POC Glucometer 155 132 Random Glucose Calcium Total Bilirubin Direct Bilirubin AST ALT Alkaline Phosphatase C-Reactive Protein Total Protein Albumin Total Amylase Lipase Blood Type O POSITIVE Antibody Screen Negative 09/02/19 09/03/19 09/03/19 21:27 05:52 06:00 WBC RBC Hgb Hct MCV MCH MCHC RDW Plt Count MPV Absolute Neuts (auto) Neutrophils % Lymphocytes % Monocytes % Eosinophils % Basophils % Nucleated RBC % Sodium 136 Potassium 4.3 Chloride 103 Carbon Dioxide 26 Anion Gap 7 L BUN 25.3 H Creatinine 1.8 H Est GFR (CKD-EPI)AfAm 43.84 Est GFR (CKD-EPI)NonAf 37.83 POC Glucometer 269 169 Random Glucose 163 H Calcium 8.7 Total Bilirubin 0.7 Direct Bilirubin 0.2 AST 32 ALT 46 Alkaline Phosphatase 150 H C-Reactive Protein 0.8 H Total Protein 6.2 L Albumin 3.2 L Total Amylase 54 Lipase 90 Blood Type Antibody Screen 09/03/19 06:00 WBC 9.6 RBC 4.00 Hgb 10.5 L Hct 32.4 L MCV 80.9 MCH 26.2 MCHC 32.4 RDW 14.9 Plt Count 291 MPV 8.7 Absolute Neuts (auto) 8.0 Neutrophils % 83.7 H D Lymphocytes % 11.9 D Monocytes % 4.0 Eosinophils % 0.0 D Basophils % 0.4 Nucleated RBC % 0 Sodium Potassium Chloride Carbon Dioxide Anion Gap BUN Creatinine Est GFR (CKD-EPI)AfAm Est GFR (CKD-EPI)NonAf POC Glucometer Random Glucose Calcium Total Bilirubin Direct Bilirubin AST ALT Alkaline Phosphatase C-Reactive Protein Total Protein Albumin Total Amylase Lipase Blood Type Antibody Screen HOSPITAL COURSE: Date of Admission:09/01/19 Date of Discharge: 09/03/19 Minutes to complete discharge: 45 Discharge Summary Problems reviewed: Yes Reason For Visit: HX OF BILIARY DUCT STENT PLACEMENT Current Active Problems Abdominal distension (Acute) Calculus in biliary tract (Acute) DVT prophylaxis (Acute) Diabetes 1.5, managed as type 2 (Acute) Family history of colon cancer in mother (Acute) History of acute cholangitis (Acute) History of biliary duct stent placement (Acute) History of biliary stent insertion (Acute) History of colon polyps (Acute) Prostate cancer (Acute) Renal insufficiency (Acute) Condition: Stable - Instructions Diet, Activity, Other Instructions: Mr Albrecht: You were admitted on 09/02/19 for a biliary stent removal with Dr. Soni. You were also given venofer intravenously for anemia. Please follow up with Dr. Salgado or Dr. Soni for a colon cancer screening colonoscopy. Thank you for allowing us to care for you. Referrals: Charlene Lin MD [Primary Care Provider] - Disposition: HOME - Home Medications Comprehensive Discharge Medication List: Ambulatory Orders Amlodipine Besylate 5 mg PO DAILY 05/23/19 traZODone HCL [Trazodone HCl] 50 mg PO DAILY 05/23/19 Ursodiol [Actigal -] 300 mg PO BID #180 capsule 05/24/19 Pantoprazole Sodium [Protonix -] 40 mg PO DAILY #60 tablet.ec 09/03/19 Problem List - Problems (1) History of biliary duct stent placement Code(s): Z98.890 - OTHER SPECIFIED POSTPROCEDURAL STATES (2) Elevated liver enzymes Code(s): R74.8 - ABNORMAL LEVELS OF OTHER SERUM ENZYMES (3) Diabetes Code(s): E11.9 - TYPE 2 DIABETES MELLITUS WITHOUT COMPLICATIONS (4) CKD (chronic kidney disease) Code(s): N18.9 - CHRONIC KIDNEY DISEASE, UNSPECIFIED (5) THIEN (acute kidney injury) Code(s): N17.9 - ACUTE KIDNEY FAILURE, UNSPECIFIED (6) DVT prophylaxis Code(s): Z29.9 - ENCOUNTER FOR PROPHYLACTIC MEASURES, UNSPECIFIED This patient is new to me today: No Emergency Visit: Yes ED Registration Date: 09/01/19 Care time: The patient presented to the Emergency Department on the above date and was hospitalized for further evaluation of their emergent condition. Critical Care patient: No - Discharge Referral Referred to [facility] Med [facility].: No
[2019-09-03] MEDS: traZODone HCL 50 MG TABLET (FP) PO SCH (10:16)
[2019-09-03 20:07] LABS: TRANSGLUTAMINASE IGA < 2 U/mL (0-3); TRANSGLUTAMINASE IGG 12 U/mL (0-5)
--- NOTE | 2019-09-06 15:13 | PATH ---
Surgical Pathology Report Patient Name: ALBA DAY Med. Rec. #: [id number] /Age/Gender: 1950 (Age: 69) / M Account: [id number] Location: [facility] MED/SURG Taken: 09/02/2019 Received: 09/05/2019 Reported: 09/06/2019 Physicians: Sary Soni M.D. Specimen(s) Received OLD BILLIARY STENT Clinical History Choledocholithiasis Final Diagnosis OLD BILIARY STENT, REMOVAL: CONSISTENT WITH BILIARY STENT. MACROSCOPIC DIAGNOSIS. Electronically Signed Nichelle Meehan M.D. Gross Description Received fresh labeled "old biliary stent," is a 17 cm in length blue, coiled portion of tubing, consistent with a biliary stent. No soft tissue is present. No sections are submitted, gross only. DL/09/05/2019 saudi09/05/2019
== END 2019-09-03 14:00 | disposition home or self-care (01) | DRG 446 ==
LOC: JER 06:47 → SUPCPDRO 06:47 → JERBED 11:18 → J8W 21:09
PROVIDERS: ADMIT Internal Medicine; ATTEND Nurse Practitioner Family
PROC: 0FC98ZZ Extirpation of Matter from Common Bile Duct, Via Natural or Artificial Opening Endoscopic (ICD-10-PCS; 2019-09-02)
PROC: 0FPB8DZ Removal of Intraluminal Device from Hepatobiliary Duct, Via Natural or Artificial Opening Endoscopic (ICD-10-PCS; principal; 2019-09-02 12:15)
DX: K80.50 Calculus of bile duct without cholangitis or cholecystitis without obstruction (principal); Z87.891 Personal history of nicotine dependence; D64.9 Anemia, unspecified; E11.22 Type 2 diabetes mellitus with diabetic chronic kidney disease; I12.9 Hypertensive chronic kidney disease with stage 1 through stage 4 chronic kidney disease, or unspecified chronic kidney disease; N18.9 Chronic kidney disease, unspecified; R74.8 Abnormal levels of other serum enzymes
CPT/HCPCS: 36415; 71045-TC-FY; 74018-TC-FY; 76000-TC-FY; 76700-TC; 80053; 81003; 82150; 82248; 82728; 82962; 83516; 83540; 83550; 83690; 83735; 84155; 84165; 85025; 85044; 85610; 86140; 86301; 86850; 86900; 86901; 88300-TC; 93005; 93010; 99285-25; J1756; J7030